=== PATIENT | female | born 1950 | race Caucasian/White ===

== ENCOUNTER 2018-10-14 10:07 | Emergency (ER) | payer MEDICARE, OTHER, SELFPAY ==
[2018-10-14 10:08] VITALS: BP 197/115; PULSE 89; RESP 17; TEMP 36.8; O2SAT 100; BMI 27.4
--- NOTE | 2018-10-14 10:51 | RAD_ITS ---
STUDY: X-RAY - RIGHT ELBOW REASON FOR EXAM: Female, 68 years old. Pain. No known injury. TECHNIQUE: 3 view(s) of the elbow. COMPARISON: None. FINDINGS: I suspect a nondisplaced radial neck fracture. Normal radiocapitellar and ulnotrochlear articulations. Soft tissue swelling. Moderate sized joint effusion. RAD/Elbow min 3 Views IMPRESSION: I suspect a nondisplaced radial neck fracture. Joint effusion. Electronically Signed: Fidel Carreon MD at 12:26 EST Tel [phone], Service support ,
[2018-10-14] MEDS: Morphine 4 MG/ML Syringe IV ×2 (11:17→13:50)
[2018-10-14 11:25] LABS: Absolute Lymphocyte Count 1.01 X10^3/ul (0.83-4.51); Absolute Neutrophil Count 10.6 X10^3/uL (2.0-7.7); Basophil# 0.03 X10^3/uL; Basophil% 0.2 % (0-1); Eosinophil# 0.03 X10^3/uL; Eosinophils% 0.2 % (0-5); Hematocrit 44.1 % (37-47); Hemoglobin 14.5 g/dl (12.0-15.0); Lymphocyte # 1.01 X10^3/ul (4.0); Mean Corp Hgb Conc 32.9 g/gl (32-36); Mean Corpuscular Hgb 29.5 pg (27.0-32.0); Mean Corpuscular Volume 89.8 fL (81-99); Mean Platelet Vol. 9.4 fl (6.2-12.0); Monocyte# 2.81 X10^3/uL; Monocyte% 19.4 % (0-10); Neutrophil # 10.55 X10^3/uL (2.7-7.7); Neutrophil % 72.9 % (47-70); Platelet Count 308 K/mm3 (150-450); RBC Distribution Width CV 15.3 % (11.6-14.6); Red Blood Count 4.91 M/mm3 (4.2-5.4); White Blood Count 14.5 K/mm3 (4.4-11.0)
[2018-10-14 11:27] VITALS: BP 156/77
[2018-10-14 11:27] LABS: Differential Indicated SCAN CRITERIA MET; POSITIVE COUNT NO; POSITIVE DIFFERENTIAL YES; POSITIVE MORPHOLOGY NO
[2018-10-14 11:29] VITALS: BP 156/77; PULSE 73; RESP 18; O2SAT 99
[2018-10-14 11:29] LABS: Anion Gap 8 (5-15); BUN 13 mg/dL (7-18); BUN/Creat Ratio 19.1 RATIO (10-20); Calcium,Total 8.6 mg/dL (8.5-10.1); Chloride 102 mmol/L (98-107); Creatinine, Serum 0.68 mg/dL (0.55-1.02); EST Glomerular Filtration Rate 91 mL/min (>60); Est Glom Filt Rate - Afr Amer 110 mL/min (>60); Estimated Creatinine Clearance 45.85 ml/min; Glucose 102 mg/dL (74-106); Potassium 3.5 mmol/L (3.5-5.1); Sodium Level 137 mmol/L (136-145)
[2018-10-14] MEDS: Vancomycin IV 1,000 MG/200 ML BAG 200 MG IV (11:34)
[2018-10-14 11:40] LABS: Lactic Acid 1.2 mmol/L (0.4-2.0)
--- NOTE | 2018-10-14 13:09 | ED.VISSUMM ---
- ER Visit Summary Date of Service: 10/14/18 Chief Complaint: Right elbow pain History of Present Illness: The patient is a [address] Caballero. She reports she has right elbow pain that began 3 days ago. Is an aching pain senna 10 severity. Is worsened by movement and relieved by nothing. She denies any numbness or weakness. She denies any recent trauma. No fall, MVA, or change in activity. She is right-hand dominant. Patient on review of system complains only of a headache. She states this is 6 out of 10 in severity. She does have a history of similar headaches. She denies any constitutional symptoms. No fever, chills, nausea, or vomiting. Physical Examination: Vitals: Stable. Afebrile. General: Well-nourished and well-developed. Head: Normocephalic atraumatic. Neck: Supple, no lymphadenopathy. No JVD. Nontender. Cardiovascular: Regular rate and rhythm. No murmurs. Respiratory: No respiratory distress. Clear to auscultation bilaterally. Abdominal: Soft, nontender, nondistended, normal bowel sounds. No guarding, rebound, or peritoneal signs. Back: Nontender. Extremities: Approximately 3 x 2 cm area of erythema to the medial side of her distal right arm. There is warmth here. There is no induration or fluctuance to suggest abscess. There is no lymphangitic spread. She has no swelling over her olecranon process to suggest bursitis. She has decreased range of motion of her elbow secondary to pain. Skin: Normal color, no rash. Neurologic: Alert and oriented ?3. Cranial nerves II through XII are intact. Normal strength and sensation. Psych: Normal affect. Test Results: CBC is more for a white count of 14.5 with 73 segmented neutrophils, 7 lymphocytes, 19 monocytes. She is on prednisone which makes when some of the white count. Her lactic acid is 1.2. Her Chem-7 is normal. Right elbow x-ray is read by the radiologist possibleradial head fracture. Clinically this is not what she has. Emergency Department Course and Treatment: Patient had an IV placed. She was given morphine IV and vancomycin IV. She is resting comfortably. Treatment Plan: Discussed patient I suspect that this is an early cellulitis. She will be discharged on Keflex. She is immunosuppressed from medications for rheumatoid arthritis. She is given Percocet for pain. Instructed to follow-up with Dr. Caballero in 3 days for wound check. Return to the emergency department for any worsening symptoms. Disposition: To home in improved and stable condition. Impression: 1. Cellulitis right arm. 2. History of rheumatoid arthritis on immunosuppressants. This note was generated with [employer] dictation software. It may contain incorrect words, spelling, and punctuation that were not noted in review of the chart prior to signing ED Disposition - Plan for ED Patient: Disposition: Home or Assisted Living Chief Complaint: Upper Extremity Injury Instructions: ED Infec Skin Cellulitis Prescriptions: Oxycodone HCl/Acetaminophen [Percocet 5/325] 1 tablet PO Q6H PRN PRN 3 Days #12 tablet PRN Reason: Pain Cephalexin [Keflex] 500 mg PO Q6 #40 capsule Referrals: Ciara Caballero DO [Primary Care Provider] - 10/17/18
[2018-10-14 14:07] VITALS: BP 123/79; PULSE 63; PULSE 72; RESP 15; O2SAT 96; O2SAT 97
[2018-10-18 10:47] LABS: Pathologist Review Reviewed
== END 2018-10-14 14:12 | disposition home or self-care (01) ==
PROVIDERS: Emergency Provider Emergency Medicine; Family Provider Internal Medicine; PCP Internal Medicine
DX: L03.113 Cellulitis of right upper limb (principal); M06.9 Rheumatoid arthritis, unspecified; R51 Headache; I10 Essential (primary) hypertension; G43.909 Migraine, unspecified, not intractable, without status migrainosus; M79.7 Fibromyalgia; Z79.899 Other long term (current) drug therapy
CPT/HCPCS: 73080; 80048; 83605; 85025; 87040; 87149; 87186; 96365; 96366; 96375; 96376; 99283; J7030; J7040; A4216

== ENCOUNTER 2018-10-15 11:19 | Inpatient (IN) | payer MEDICARE, OTHER, SELFPAY ==
[2018-10-14 10:08] VITALS: BMI 27.4
[2018-10-15 11:21] VITALS: BP 161/119; PULSE 84; RESP 18; TEMP 37.2; O2SAT 100; BMI 27.8
--- NOTE | 2018-10-15 11:47 | ED.VISSUMM ---
- ER Visit Summary Date of Service: 10/15/18 Chief Complaint: Right arm cellulitis, positive blood cultures History of Present Illness: The patient is a 68 F who was seen here yesterday and diagnosed with right arm cellulitis. She was placed on Keflex. Blood cultures were obtained and today they started growing gram-positive cocci in clusters. Further delineation of this is revealed Staphylococcus aureus. She states she has not had a fever. Her pain is mildly improved. She has a history of rheumatoid arthritis and is on Rituxan, methotrexate and prednisone. Physical Examination: Vital signs reviewed. HEENT exam unremarkable. Heart is regular rate and rhythm. Lungs are clear to auscultation. Abdomen is soft and nontender. Extremity exam reveals right elbow tenderness on the medial side. There is also some erythema noted to this area. She does have full range of motion of the elbow. Her neurologic exam is normal. Test Results: White blood cell count 12.5 Emergency Department Course and Treatment: Patient was treated with Kefzol. Due to the bacteremia patient will be admitted to the hospital. Treatment Plan: [] Disposition: Admit Impression: Right arm cellulitis, bacteremia, immunosuppressed This note was generated with [employer] dictation software. It may contain incorrect words, spelling, and punctuation that were not noted in review of the chart prior to signing ED Disposition - Plan for ED Patient: Chief Complaint: Cellulitis Referrals: Ciara Caballero DO [Primary Care Provider] -
[2018-10-15 12:30] LABS: Absolute Lymphocyte Count 0.75 X10^3/ul (0.83-4.51); Absolute Neutrophil Count 10.1 X10^3/uL (2.0-7.7); Basophil# 0.02 X10^3/uL; Basophil% 0.2 % (0-1); Eosinophil# 0.07 X10^3/uL; Eosinophils% 0.6 % (0-5); Hematocrit 46.3 % (37-47); Hemoglobin 15.3 g/dl (12.0-15.0); Lymphocyte # 0.75 X10^3/ul (4.0); Mean Corpuscular Volume 90.8 fL (81-99); Mean Platelet Vol. 9.4 fl (6.2-12.0); Monocyte# 1.56 X10^3/uL; Monocyte% 12.5 % (0-10); Neutrophil # 10.11 X10^3/uL (2.7-7.7); Neutrophil % 80.5 % (47-70); Platelet Count 307 K/mm3 (150-450); RBC Distribution Width CV 15.2 % (11.6-14.6); RBC Distribution Width SD 50.5 fl (35.1-43.9); White Blood Count 12.5 K/mm3 (4.4-11.0)
[2018-10-15 12:32] LABS: Differential Indicated SCAN CRITERIA MET; POSITIVE COUNT NO; POSITIVE DIFFERENTIAL YES; POSITIVE MORPHOLOGY NO
[2018-10-15 12:48] LABS: Differential Comment SCANNED
[2018-10-15 12:55] LABS: Lactic Acid 1.5 mmol/L (0.4-2.0)
[2018-10-15] MEDS: Cefazolin 1 GM/50 ML BAG IV (13:15)
[2018-10-15 13:24] LABS: Anion Gap 7 (5-15); BUN 12 mg/dL (7-18); BUN/Creat Ratio 17.2 RATIO (10-20); Calcium,Total 9.4 mg/dL (8.5-10.1); Chloride 101 mmol/L (98-107); EST Glomerular Filtration Rate 88 mL/min (>60); Est Glom Filt Rate - Afr Amer 107 mL/min (>60); Estimated Creatinine Clearance 45.85 ml/min; Glucose 97 mg/dL (74-106); Sodium Level 137 mmol/L (136-145)
[2018-10-15] MEDS: Ibuprofen 600 MG Tablet PO (13:38)
[2018-10-15 14:20] VITALS: BMI 27.9
[2018-10-15 14:28] VITALS: BP 136/70; PULSE 77; RESP 18; TEMP 37.5; O2SAT 95
[2018-10-15 14:40] VITALS: BMI 27.8
--- NOTE | 2018-10-15 15:03 | NURSING ---
This nurse checked with Dr. Zee Regarding Cefazolin 2gm being due to be given at 1414. Pt had 1gm of same at [address] Garcia does not want additional 2gm of Cefazolin given as scheduled for 141 but wants it q8hrs from last time given in Ed which would be around 2114 tonight. Is on EMAR for 2199.
--- NOTE | 2018-10-15 16:12 | HP.PCM_ITS ---
Problem List (1) Positive blood culture for staph aureus Status: Acute History of Present Illness Date of Admission: 10/15/18 Chief Complaint: Positive blood culture for staph aureus, right elbow swelling and pain The patient is a 68 year old F seen in the emergency room at [facility] with a chief complaint of right elbow area swelling and tenderness and positive blood culture for staph aureus. Patient was seen in the emergency room yesterday at [facility] with complaints of pain in her right elbow area which started 3 days prior along with decreased range of motion and tenderness in the right elbow area. Patient was examined, x-rays were obtained which did not show any acute process, blood cultures were obtained and she was placed on Keflex. Patient had a history approximately a year and a half ago of an infection of the left elbow which resulted in a staph aureus which was methicillin sensitive being isolated, this required debridement of the left elbow and outpatient antibiotic treatment. Labs obtained in the emergency room today showed a slight elevation of the patient's white blood cell count, patient was afebrile, her chemistry pattern was unremarkable. Examination of the right elbow area revealed it to be tender to palpation, the elbow itself was not swollen but the inner aspect of the right elbow area appeared to be swollen and slightly reddened, this area was also tender. Patient had good range of motion to flexion and extension in the right elbow. Patient will be admitted to [place] [address] for septic bursitis of the right elbow, she will be placed on IV Ancef, repeat blood cultures were drawn in the emergency room, patient will be seen by infectious diseases on Wednesday, she will be seen tomorrow by orthopedic surgery (Dr. Garrett)- who was notified by phone. Past Medical History Past Medical History (Chronic Problems): Chronic Problems Hypertension (Chronic) Rheumatoid arthritis (Chronic) Allergies No Known Allergies Allergy (Verified 10/15/18 11:24) Home Medications: Ambulatory Orders Medication Instructions Recorded Atenolol [Tenormin] 50 mg PO BID 03/13/17 Cyclosporine [Restasis] 1 each OP DAILY 03/13/17 Ramipril [Altace] 5 mg PO DAILY 03/13/17 Sumatriptan Succinate 50 mg PO PRN PRN 03/13/17 Lactobacillus Combination No.4 1 capsule PO DAILY 03/15/17 [Probiotic] Cephalexin [Keflex] 500 mg PO Q6 #40 capsule 10/14/18 Methotrexate 10 mg PO Q7D 10/14/18 Oxycodone HCl/Acetaminophen 1 tablet PO Q6H PRN PRN 3 Days #12 10/14/18 [Percocet 5/325] tablet Retoxin IV 10/14/18 predniSONE tablet 5 mg PO BID 10/14/18 Surgical History: cataract, tonsillectomy, - - Incision and drainage of left elbow abscess 03/16/17, foot surgery, removal of right ovary and tube, laparoscopy, TMJ surgery, repair of femoral hernia, nasal surgery due to nasal fracture Psychiatric History: No pertinent psych hx 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 Lives: Spouse/ Significant Other Smoking Status: Never smoker Tobacco Use: Non-smoker Alcohol: None Drugs: None - *Family History Maternal History Items: Diabetes Paternal History Items: COPD, Heart Disease, Stroke Review of Systems Constitutional: Denies: Anorexia, Chills, Fever, Night Sweats, Malaise, Weakness, Weight Change, Fatigue Eyes: Denies: Blurred vision, Cataracts, Conjunctivae Inflammation, Double vision, Drainage HEENT: Denies: Difficulty Swallowing, Dysphasia, Ear Pain, Eye Pain, Hearing Changes, Nasal bleeding, Nasal Congestion, Post Nasal Drip Cardiovascular: Denies: Chest Pain, Claudication, Chest Pressure, Chest Tightness, Edema, Heaviness, Orthopnea, Palpitations, Paroxysmal Noc. Dyspnea, Syncope Respiratory: Denies: Cough, Hemoptysis, Pleuritic Pain, Shortness of Breath, Shortness of breath at rest, Shortness of breath upon exertion, Sputum production, Wheezing Gastrointestinal: Denies: Abdominal Pain, Constipation, Diarrhea, Hematemesis, Hematochezia, Nausea, Melena, Vomiting Genitourinary: Denies: Dysuria, Frequency, Hematuria, Hesitancy, Urgency Musculoskeletal: Reports: Joint Pain - Right elbow joint pain times 4 days, Joint Tenderness - Joint tenderness in her right elbow times 4 days, Muscle pain - Patient has history of fibromyalgia. Denies: Back Pain, Foot Pain, Hand Pain, Joint stiffness, Joint swelling Skin: Denies: Dryness, Jaundice, Pruritis, Rash Neurological: Denies: Blurred vision, Double vision, Change in Speech, Slurred speech, Difficulty swallowing, Focal weakness, Headaches, Incoordination, Numbness, Tingling Psychiatric: Denies: Anxiety, Depression, Homicidal Ideations, Suicidal Ideations Endocrine: Denies: Change in Body Habitus, Heat/ Cold Intolerance, Polydipsia, Polyuria Hematologic/ Lymphatic: Denies: Adenopathy, Anemia, Easy Bruising, Easy Bleeding, Petechiae, Purpura VTE Information - Inpt Only VTE Present on Admission: No VTE Mechan Device Prophylaxis: None VTE Pharm Prophylaxis ordered?: Yes Patient Problems: Active and Suspected Problems Positive blood culture for staph aureus (Acute) - Physical Exam General: Alert, Oriented x3, Cooperative, No apparent distress, Well developed HEENT: Atraumatic, PERRLA, EOMI, Normocephalic Oral: Moist Mucosa Neck: Supple, No JVD, Negative Carotid Bruits Lungs: Clear to auscultation, Normal air movement Cardiovascular: Regular rate, No murmurs Abdomen: Bowel Sounds Present, Soft, Non Tender, Non-Distended, No hernias noted Extremities: Capillary Refill Less than 3 Seconds, Edema - Some mild edema is noted over the inner aspect of the patient's right elbow area, - - Good range of motion is noted in the right elbow to flexion and extension Skin: No rashes, No breakdown Musculoskeletal: Tenderness - Tenderness over the right inner elbow area is noted to palpation, there is also some redness and swelling in the area Neurological: Cranial nerves II-XII grossly intact, Neuro grossly intact, Sensory exam intact to light touch and pain, Coordination normal Psych/Mental Status: Normal Affect, Appropriate, Alert and oriented to time, place, person, mood and affect Vital Signs Temp Pulse Resp BP Pulse Ox 99.5 F H 77 18 136/70 H 95 10/15/18 14:28 10/15/18 14:28 10/15/18 14:28 10/15/18 14:28 10/15/18 14:28 Oxygen Delivery Method Room Air Weight: 73.6 kg Body Mass Index (BMI) 27.8 Laboratory Tests Past 24 Hrs 10/15/18 10/15/18 10/15/18 12:15 12:15 12:15 WBC 12.5 H RBC 5.10 Hgb 15.3 H Hct 46.3 MCV 90.8 MCH 30.0 MCHC 33.0 RDW 15.2 H RDW Differential 50.5 H Plt Count 307 MPV 9.4 Immature Gran % (Auto) 0.200 Neut % (Auto) 80.5 H Lymph % (Auto) 6.0 L Beckham % (Auto) 12.5 H Eos % (Auto) 0.6 Baso % (Auto) 0.2 Absolute Neuts (auto) 10.1 H Absolute Lymphs (auto) 0.75 L Total Counted Not Reportable Differential Comment SCANNED Sodium Cancelled Potassium Cancelled Chloride Cancelled Carbon Dioxide Cancelled Anion Gap Cancelled BUN Cancelled Creatinine Cancelled Estim Creat Clear Calc Cancelled Est GFR (MDRD) Af Amer Cancelled Est GFR (MDRD) Non-Af Cancelled BUN/Creatinine Ratio Cancelled Glucose Cancelled Lactic Acid 1.5 Calcium Cancelled 10/15/18 10/15/18 12:37 13:05 WBC RBC Hgb Hct MCV MCH MCHC RDW RDW Differential Plt Count MPV Immature Gran % (Auto) Neut % (Auto) Lymph % (Auto) Beckham % (Auto) Eos % (Auto) Baso % (Auto) Absolute Neuts (auto) Absolute Lymphs (auto) Total Counted Differential Comment Sodium Cancelled 137 Potassium Cancelled 4.0 Chloride Cancelled 101 Carbon Dioxide Cancelled 29.0 Anion Gap Cancelled 7 BUN Cancelled 12 Creatinine Cancelled 0.70 Estim Creat Clear Calc Cancelled 45.85 Est GFR (MDRD) Af Amer Cancelled 107 Est GFR (MDRD) Non-Af Cancelled 88 BUN/Creatinine Ratio Cancelled 17.2 Glucose Cancelled 97 Lactic Acid Calcium Cancelled 9.4 Assessment/Plan All Active Problems Positive blood culture for staph aureus (Acute) Infected elbow (Acute) #1 septic right olecranon bursitis-suspect methicillin sensitive staph aureus- patient will be admitted to [facility] [place] [place] [facility], she will be maintained on IV Ancef, she will be seen in consultation by orthopedic surgery and infectious diseases. Patient will have an MRI on her right elbow area performed on Wednesday. #2 bacteremia with staph aureus-suspect methicillin sensitive staph aureus-from suspected septic right olecranon bursitis-again patient will be treated with IV Ancef, ID will see the patient, patient will have an echocardiogram performed on Wednesday #3 rheumatoid arthritis #4 fibromyalgia #5 hypertension Code Visit Inpatient E&M: 68020 Init Hosp L3
[2018-10-15] MEDS: predniSONE 5 MG Tablet PO (18:38)
[2018-10-15 21:32] VITALS: BP 150/90; PULSE 74; RESP 18; TEMP 36.5; O2SAT 100
[2018-10-15] MEDS: Cefazolin 2 GM in 0.9% Normal Saline 100 ML IV (21:41)
[2018-10-15] MEDS: Heparin Injection (Vial) 5,000 UNIT/ML VIAL 5000 UNIT SC (21:41)
[2018-10-16 03:11] VITALS: BP 138/76; PULSE 64; RESP 16; TEMP 36.7; O2SAT 100
[2018-10-16] MEDS: Cefazolin 2 GM in 0.9% Normal Saline 100 ML IV (05:17)
[2018-10-16 06:30] LABS: Absolute Lymphocyte Count 1.14 X10^3/ul (0.83-4.51); Basophil# 0.02 X10^3/uL; Basophil% 0.3 % (0-1); Eosinophil# 0.06 X10^3/uL; Hematocrit 42.1 % (37-47); Hemoglobin 13.7 g/dl (12.0-15.0); Lymphocyte # 1.14 X10^3/ul (4.0); Lymphocyte % 19.2 % (19-41); Mean Corp Hgb Conc 32.5 g/gl (32-36); Mean Corpuscular Hgb 29.4 pg (27.0-32.0); Mean Corpuscular Volume 90.3 fL (81-99); Mean Platelet Vol. 9.3 fl (6.2-12.0); Monocyte# 0.72 X10^3/uL; Monocyte% 12.1 % (0-10); Neutrophil # 3.98 X10^3/uL (2.7-7.7); Neutrophil % 67.2 % (47-70); Platelet Count 295 K/mm3 (150-450); RBC Distribution Width CV 15.2 % (11.6-14.6); RBC Distribution Width SD 49.6 fl (35.1-43.9); Red Blood Count 4.66 M/mm3 (4.2-5.4); White Blood Count 5.9 K/mm3 (4.4-11.0)
[2018-10-16 06:33] LABS: POSITIVE COUNT NO; POSITIVE DIFFERENTIAL NO; POSITIVE MORPHOLOGY NO
[2018-10-16 07:43] VITALS: BP 152/86; PULSE 67; RESP 16; TEMP 36.9; O2SAT 94
[2018-10-16] MEDS: predniSONE 5 MG Tablet PO (07:53)
--- NOTE | 2018-10-16 09:43 | PCM.CONS.GEN ---
Reason for Consult Date of Consultation: 10/16/18 Reason for Consultation: Right elbow pain History of Present Illness: The patient is a 68 year old F [with a history of septic olecranon bursitis of the left elbow. She is significantly immunocompromised secondary to RA. Presented to PCP last week with right elbow pain, swelling and loss of motion. Presented to ED on wednesday with same and one blood culture was positive for MSSA. Was admitted last night and started on Ancef. She states elbow pain is significantly better and ROM has greatly improved. Denies N/T/P. Denies fevers or chills. ] Past Medical History Past Medical History (Chronic Problems): Chronic Problems Hypertension (Chronic) Rheumatoid arthritis (Chronic) Allergies No Known Allergies Allergy (Verified 10/15/18 11:24) Home Medications: Ambulatory Orders Medication Instructions Recorded Atenolol [Tenormin] 50 mg PO DAILY 03/13/17 Cyclosporine [Restasis] 1 each OP DAILY 03/13/17 Ramipril [Altace] 5 mg PO DAILY 03/13/17 Sumatriptan Succinate 50 mg PO PRN PRN 03/13/17 Lactobacillus Combination No.4 1 capsule PO DAILY 03/15/17 [Probiotic] Cephalexin [Keflex] 500 mg PO Q6 #40 capsule 10/14/18 Methotrexate 10 mg PO Q7D 10/14/18 Oxycodone HCl/Acetaminophen 1 tablet PO Q6H PRN PRN 3 Days #12 10/14/18 [Percocet 5/325] tablet Retoxin IV 10/14/18 predniSONE tablet 5 mg PO BID 10/14/18 Surgical History: cataract, tonsillectomy, - - Incision and drainage of left elbow abscess 03/16/17, foot surgery, removal of right ovary and tube, laparoscopy, TMJ surgery, repair of femoral hernia, nasal surgery due to nasal fracture Psychiatric History: No pertinent psych hx 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 Olecranon bursa is non-swollen., - - Near full ROM with minimal pain. Minimal pain to palpation. Neurological: Neuro grossly intact, Motor Exam 5/5 strength throughout Comment: Xray of right elbow shows no acute process. Minimal STS Vital Signs Temp Pulse Resp BP Pulse Ox 98.5 F 67 16 152/86 H 94 10/16/18 07:43 10/16/18 07:43 10/16/18 07:43 10/16/18 07:43 10/16/18 07:43 Oxygen Delivery Method Room Air Weight: 162 lb 4.163 oz Body Mass Index (BMI) 27.8 Intake and Output for Last 24 Hours 10/14/18 10/15/18 10/16/18 23:59 23:59 23:59 Intake Total 85 / 85 707 / 707 Balance 85 / 85 707 / 707 Laboratory Tests Past 24 Hrs 10/15/18 10/15/18 10/15/18 12:15 12:15 12:15 WBC 12.5 H RBC 5.10 Hgb 15.3 H Hct 46.3 MCV 90.8 MCH 30.0 MCHC 33.0 RDW 15.2 H RDW Differential 50.5 H Plt Count 307 MPV 9.4 Immature Gran % (Auto) 0.200 Neut % (Auto) 80.5 H Lymph % (Auto) 6.0 L Toole % (Auto) 12.5 H Eos % (Auto) 0.6 Baso % (Auto) 0.2 Absolute Neuts (auto) 10.1 H Absolute Lymphs (auto) 0.75 L Total Counted Not Reportable Differential Comment SCANNED Sodium Cancelled Potassium Cancelled Chloride Cancelled Carbon Dioxide Cancelled Anion Gap Cancelled BUN Cancelled Creatinine Cancelled Estim Creat Clear Calc Cancelled Est GFR (MDRD) Af Amer Cancelled Est GFR (MDRD) Non-Af Cancelled BUN/Creatinine Ratio Cancelled Glucose Cancelled Lactic Acid 1.5 Calcium Cancelled 10/15/18 10/15/18 10/16/18 12:37 13:05 06:05 WBC 5.9 RBC 4.66 Hgb 13.7 Hct 42.1 MCV 90.3 MCH 29.4 MCHC 32.5 RDW 15.2 H RDW Differential 49.6 H Plt Count 295 MPV 9.3 Immature Gran % (Auto) 0.200 Neut % (Auto) 67.2 Lymph % (Auto) 19.2 Toole % (Auto) 12.1 H Eos % (Auto) 1.0 Baso % (Auto) 0.3 Absolute Neuts (auto) 4.0 Absolute Lymphs (auto) 1.14 Total Counted Not Reportable Differential Comment Sodium Cancelled 137 Potassium Cancelled 4.0 Chloride Cancelled 101 Carbon Dioxide Cancelled 29.0 Anion Gap Cancelled 7 BUN Cancelled 12 Creatinine Cancelled 0.70 Estim Creat Clear Calc Cancelled 45.85 Est GFR (MDRD) Af Amer Cancelled 107 Est GFR (MDRD) Non-Af Cancelled 88 BUN/Creatinine Ratio Cancelled 17.2 Glucose Cancelled 97 Lactic Acid Calcium Cancelled 9.4 Assessment/Plan All Active Problems Positive blood culture for staph aureus (Acute) Infected elbow (Acute) Right elbow cellulitis responding well to antibiotics. No evidence of septic arthritis or septic olecranon bursitis. Would discharge on po antibiotics and follow up with PCP. Doubt need for MRI at this point. Will re-evaluate at PCP request.
--- NOTE | 2018-10-16 10:48 | DCINST_ITS ---
- Discharge Diagnoses Current Active Problems: Current Active and Chronic Problems Positive blood culture for staph aureus (Acute) You will use the following diet at home:: No restrictions Your food should be the consistency of: Regular Your liquids should be the consistency of: Regular/Thin Discharge Activity: Return to Normal Activity Weight Bearing Status: Full weight bearing Allergies/Adverse Reactions: Allergies No Known Allergies Allergy (Verified 10/15/18 11:24) Medications to take at Discharge Atenolol [Tenormin] 50 mg PO DAILY 03/13/17 Cyclosporine [Restasis] 1 each OP DAILY 03/13/17 Ramipril [Altace] 5 mg PO DAILY 03/13/17 Sumatriptan Succinate 50 mg PO PRN PRN 03/13/17 Lactobacillus Combination No.4 [Probiotic] 1 capsule PO DAILY 03/15/17 Cephalexin [Keflex] 500 mg PO Q6 #40 capsule 10/14/18 Oxycodone HCl/Acetaminophen [Percocet 5-325] 1 tablet PO Q6H PRN PRN 3 Days #12 tablet 10/14/18 predniSONE tablet 5 mg PO BID 10/14/18 Primary Care Physician: Ciara Caballero DO [Primary Care Provider] - Please follow up with your Primary Care Physician in: this week Test Results: Test results from this visit will be discussed in further detail at your follow- up appointment, if applicable.
[2018-10-16] MEDS: Atenolol 50 MG Tablet PO (10:58)
[2018-10-16] MEDS: Ramipril 5 MG Capsule PO (10:59)
--- NOTE | 2018-10-16 18:19 | DS.PCM_ITS ---
Discharge Date and Diagnosis Date of Admission: 10/15/18 Date of Discharge: 10/16/18 - Primary Discharge Diagnosis #1 cellulitis of the right elbow from methicillin sensitive staph aureus #2 bacteremia secondary to methicillin sensitive staph aureus from cellulitis of the right elbow #3 rheumatoid arthritis #4 fibromyalgia #5 hypertension - Secondary Discharge Diagnosis Chronic Problems Hypertension (Chronic) Rheumatoid arthritis (Chronic) Hospital Course and Treatment Operations: None Procedures: None Summary of Care Provided: The patient is a 68 year old F who was seen in the emergency room at [facility] after being asked to return there because of a positive blood culture which resulted yesterday. Patient had lab work drawn in the emergency room on 10/14/18 when she was seen for complaints of redness and swelling of her right elbow area. Patient had a previous history of methicillin sensitive staph aureus in the left elbow which had to be surgically intervened approximately a year and a half ago. Workup in the emergency room on 10/15/18 revealed an elevated white blood cell count of 12.5, patient's chemistry profile was unremarkable. Patient was admitted to [place] [id number], she was placed on IV Ancef, and seen in consultation by orthopedic surgery. Orthopedic surgery saw the patient on 10/16/18 and did not feel that she needed surgery on her right elbow area and felt that the patient did not have a septic bursitis-only a cellulitis of the area which appeared to be improving. Patient had more movement in her arm on that date and had less tenderness and redness. Patient's white blood cell count on 10/16/18 was normal. Physical exam: On examination she appeared in good health and spirits. Vital signs as documented. Skin warm and dry and without overt rashes. Neck without JVD. Lungs clear. Heart exam notable for regular rhythm, normal sounds and absence of murmurs, rubs or gallops. Abdomen unremarkable and without evidence of organomegaly, masses, or abdominal aortic enlargement. Extremities-there is slight tenderness to palpation over the patient's inner aspect of her right elbow, no overt redness was noted. Neuro: Cranial nerves II through XII are grossly intact, no focal motor deficits were noted. Psych: Patient was alert and oriented x3, she did not appear anxious or depressed. On 10/16/18, patient was seen and examined felt to be in stable condition for discharge home. Patient was not felt to have septic bursitis of her right elbow - Physical Exam Vital Signs Temp Pulse Resp BP Pulse Ox 98.5 F 67 16 152/86 H 94 10/16/18 07:43 10/16/18 07:43 10/16/18 07:43 10/16/18 07:43 10/16/18 07:43 Oxygen Delivery Method Room Air Weight: 73.6 kg Body Mass Index (BMI) 27.8 Intake and Output for Last 24 Hours 10/14/18 10/15/18 10/16/18 23:59 23:59 23:59 Intake Total 1187 / 1187 Balance 1187 / 1187 Laboratory Tests Past 24 Hrs 10/16/18 06:05 WBC 5.9 RBC 4.66 Hgb 13.7 Hct 42.1 MCV 90.3 MCH 29.4 MCHC 32.5 RDW 15.2 H RDW Differential 49.6 H Plt Count 295 MPV 9.3 Immature Gran % (Auto) 0.200 Neut % (Auto) 67.2 Lymph % (Auto) 19.2 [place] % (Auto) 12.1 H Eos % (Auto) 1.0 Baso % (Auto) 0.3 Absolute Neuts (auto) 4.0 Absolute Lymphs (auto) 1.14 Total Counted Not Reportable Discharge Activity: Return to Normal Activity Weight Bearing Status: Full weight bearing Home Medications: Medications to take at Discharge Atenolol [Tenormin] 50 mg PO DAILY 03/13/17 Cyclosporine [Restasis] 1 each OP DAILY 03/13/17 Ramipril [Altace] 5 mg PO DAILY 03/13/17 Sumatriptan Succinate 50 mg PO PRN PRN 03/13/17 Lactobacillus Combination No.4 [Probiotic] 1 capsule PO DAILY 03/15/17 Cephalexin [Keflex] 500 mg PO Q6 #40 capsule 10/14/18 Oxycodone HCl/Acetaminophen [Percocet 5-325] 1 tablet PO Q6H PRN PRN 3 Days #12 tablet 10/14/18 predniSONE tablet 5 mg PO BID 10/14/18 Primary Care Physician: Ciara Caballero DO [Primary Care Provider] - Please follow up with your Primary Care Physician in: this week Disposition: Home Minutes spent on discharge:: 32 Patient Condition:: Stable Medical Necessity - Tobacco Use Smoking Status: Never smoker Tobacco Use: Non-smoker Meaningful Use Info Meaningful Use Diagnoses (Choose all that apply): None applicable Code Visit Inpatient E&M: 04014 Disch Hosp
--- NOTE | 2018-10-17 16:07 | CASEMGMT ---
IOANA HENLEY Discharge Follow-up Phone Call: MADELINE: Kary Strata: 3 Call Date: 10/17/18 Discharge Date: 10/16/18 Time of Call: 1605 Duration: 1 Admitting Diagnosis:Right elbow bursitis IOANA HENLEY completed follow-up phone call after recent hospitalization. Patient doing well, no questions. Follow-up appt scheduled. Patient very pleased with care.
== END 2018-10-16 12:00 | disposition home or self-care (01) | DRG 603 ==
LOC: ED 11:56 → MS3 13:31
PROVIDERS: Admitting Provider Internal Medicine; Emergency Provider Emergency Medicine; Family Provider Internal Medicine; PCP Internal Medicine; Visit Provider Internal Medicine
DX: L03.113 Cellulitis of right upper limb (principal); R78.81 Bacteremia; M79.7 Fibromyalgia; I10 Essential (primary) hypertension; M06.9 Rheumatoid arthritis, unspecified; A49.01 Methicillin susceptible Staphylococcus aureus infection, unspecified site; Z79.899 Other long term (current) drug therapy; G43.909 Migraine, unspecified, not intractable, without status migrainosus
CPT/HCPCS: 36415; 73080; 80048; 83605; 85025; 87040; 87149; 87186; 96365; 96366; 96375; 96376; 97802; 99282; 99283; J7030; J7040; A4216

== ENCOUNTER → 2018-11-25 09:12 | Outpatient (CLI) | payer MEDICARE, OTHER, SELFPAY ==
--- NOTE | 2018-11-25 09:18 | US_ITS ---
STUDY: ABDOMINAL ULTRASOUND - RIGHT UPPER QUADRANT REASON FOR VISIT: Female, 68 years old. Abnormal liver function tests. TECHNIQUE: Ultrasound evaluation of the right upper quadrant was performed with real-time and static dowd-scale imaging. TECHNICAL QUALITY: Adequate. COMPARISON: None. FINDINGS: Liver: The liver measures 15 cm. There is increased echogenicity consistent with fatty infiltration. The bile ducts are within normal limits. There is hepatic color flow. The direction of portal flow is hepatopetal. There is no demonstrated mass lesion. Gallbladder: Normal distended gallbladder. The gallbladder wall measures 3 mm. There is a negative sonographic Courtney's sign. There is no pericholecystic fluid. There are small mobile echogenic shadows within the gallbladder which could represent small gallstones or sludge balls. Common Bile Duct (C.B.D.): The common bile duct measures 4 mm. Pancreas: Normal size of the head, body and tail of the pancreas as seen on this examination. There is normal echogenicity of the pancreas. There is no demonstrated pancreatic mass or cyst. Right Kidney: Normal size of the right kidney. The right kidney measures 10 x 5.7 x 4.1 cm. Normal renal cortex. The right cortex measures 1.6 cm. There is no demonstrated renal mass or cyst. There is no right hydronephrosis. US/Liver IMPRESSION: 1. Fatty infiltration of the liver. 2. Small mobile echogenic shadows within the gallbladder which could represent small gallstones or small sludge balls. 3. No evidence of hydronephrosis. Electronically Signed: Jimmy Hoff MD at 10:38 EST Tel , Service support ,
--- OUTSIDE RECORDS SUMMARY | 2019-01-29 16:12 | XMS RPT_ITS | Continuity of Care Document ---
:1950 Author Organization [facility] Address [address] [facility] [address] [place] [address] Phone Care Team Providers Name Role Phone Ada ANDINO Ciara Unavailable César Martins Unavailable Dr. Pipo Horner Unavailable Tami ANDINO , Dr. Zeeshan Lepe Unavailable Luis M Jules MD Unavailable Zeeshan Garrett DO Unavailable Yasmine Mccallum LPN Unavailable Unavailable Prema Mckeon Unavailable Unavailable Unavailable Unavailable Problems Name Dates Details Abnormal alkaline phosphatase test (R74.8, 790.5) Status: Active Acute upper respiratory infection (J06.9, 465.9) Comments: use your amoxil Status: Active Allergic rhinitis (J30.9, 477.9) Comments: seen margo and had surgery in past. on nasal steriod spray. on antihsitamine. will need to follow up with him because congestion. doing nettipot. Status: Active BMI 30.0-30.9,adult (Z68.30, V85.30) Status: Active BMI 30.0-30.9,adult (Z68.30, V85.30) Status: Active BMI 31.0-31.9,adult (Z68.31, V85.31) Status: Active Candidiasis, mouth (B37.0, 112.0) Status: Active Chronic GERD (K21.9, 530.81) Status: Active Cough (R05, 786.2) Status: Active Depressive disorder (F32.9, 311) Comments: of massive SD 39 yo. Status: Active Disc disease, degenerative, lumbar or lumbosacral (M51.37, 722.52) Status: Active Dry eyes, bilateral (H04.123, 375.15) 07-Sep-2014 Comments: on restasis and bother cornea working with opthal Status: Active Fibromyalgia (M79.7, 729.1) Status: Active Hair loss (L65.9, 704.00) Status: Active Hormone imbalance (E34.9, 259.9) Status: Active Hypercholesteremia (E78.00, 272.0) Status: Active Hypertension, benign (I10, 401.1) Status: Active Immunocompromised (D84.9, 279.3) Status: Active Immunocompromised, acquired (D84.9, 279.3) Status: Active Impaired fasting glucose (R73.01, 790.21) Status: Active Lumbar spondylolysis (M43.06, 738.4) Status: Active Migraine (G43.909, 346.90) Comments: using the imitrex prn. Status: Active Nocturnal leg cramps (G47.62, 327.52) Status: Active Nondisplaced fracture (T14.8, 829.0) Status: Active Non-smoker (Z78.9, V49.89) Status: Active On prednisone therapy (Z79.52, V58.65) Status: Active Osteopenia (M85.80, 733.90) Comments: on actonel bd 12-13, 12-15 show back better -2.0, hips normal so hold meds jerardo because insurance not pay Status: Active Pain and swelling of elbow, left (M25.522, 719.42) Comments: cefadroxil bid, since April 19 (flare after enbrel) Status: Active Pregnancies () Comments: 2 adopted children Status: Active Rheumatoid arthritis (M06.9, 714.0) Status: Active Sciatica, left side (M54.32, 724.3) Status: Active Sore throat (J02.9, 462) Status: Active Unspecified Diagnosis Status: Active Unspecified Diagnosis Status: Active Upper respiratory infection, viral (J06.9, 465.9) Status: Active Medications Name Dates Details Atenolol 50 MG Oral Tablet 1 (one) Tablet qd for 0 days Quantity: 90 {Tablet} Refills: 0 Ordered:29-Sep-2017 Nathaniel Caballero DO, DO, Kathleen Start : 29-Sep-2017 Active Comments:verbal call to [facility] 09/29 DULoxetine HCl 20 MG Oral Capsule Delayed Release Particles 1 (one) Capsule Capsule qd for 0 days Quantity: 14 {Capsule} Refills: 0 Ordered:08-Apr-2018 Nathaniel Caballero DO, DO, Kathleen Start : 08-Apr-2018 Active Folic Acid 1 MG Oral Tablet 1 qd (1 MG) Active herbal: coq 10, krill oil, joint melalucca product, plexus pain med Active Methotrexate 2.5 MG Oral Tablet 4 q weekly (2.5 MG) Active Comments:Dr. Jules PredniSONE 1 MG Oral Tablet 1-4 Tablet qday as instructed to wean off slowly for 0 days Quantity: 90 {Tablet} Refills: 0 Ordered:22-Oct-2017 Nathaniel Caballero DO, DO, Kathleen Start : 22-Oct-2017 Active PredniSONE 5 MG Oral Tablet 1 Tablet bid for 30 days Quantity: 60 {Tablet} Refills: 0 Ordered:22-Oct-2017 Nathaniel Caballero DO, DO, Kathleen Start : 22-Oct-2017 Active Ramipril 5 MG Oral Capsule 1 (one) Capsule qd for 90 days Quantity: 90 {Capsule} Refills: 3 Ordered:29-Jun-2018 Nathaniel Caballero DO, DO, Kathleen Start : 29-Jun-2018 Active Ramipril 5 MG Oral Capsule 1 (one) Capsule qd for 90 days Quantity: 90 {Capsule} Refills: 3 Ordered:29-Jun-2018 Nathaniel Caballero DO, DO, Kathleen Start : 29-Jun-2018 Active RESTASIS, 0.05% (Ophthalmic Emulsion) uad qd prn (0.05 %) Active SUMAtriptan Succinate 50 MG Oral Tablet uad Tablet one at onset, and may repeat in 2 hours if not gone for 0 days Quantity: 20 {Tablet} Refills: 3 Ordered:27-Jun-2018 Ada ANDINO CiaraAda Ciara Start : 27-Jun-2018 Active Comments:max: 2 in 24 hours ACTONEL, 150MG (Oral Tablet) 1 Tablet Tablet q monthly for 0 days Quantity: 3 {Tablet} Refills: 3 Ordered:14-Jan-2016 RAJ Suárez Start : 06-Nov-2015 End : 14-Jan-2016 Inactive Comments:ok to dispense generic AUGMENTIN, 875-125MG (Oral Tablet) 1 Tablet bid for 10 days Quantity: 20 {Tablet} Refills: 0 Ordered:06-Dec-2012 Jyoti Mcrae CNP Start : 06-Dec-2012 End : 16-Dec-2012 Inactive BLEPH-10, 10% (Ophthalmic Solution) 1 Solution q 2-3 hr x 7-10 days for 0 days Quantity: 1 {Solution} Refills: 0 Ordered:07-Sep-2014 RAJ Suárez Start : 06-Dec-2012 End : 07-Sep-2014 Inactive CALCIUM, 500MG (Oral Tablet) 1 (one) Tablet qd for 0 days Refills: 0 Ordered:24-Nov-2011 RAJ Suárez Start : 14-Jun-2009 End : 24-Nov-2011 Inactive Cefadroxil 1 GM Oral Tablet 1 (one) Tablet Tablet bid for 0 days Quantity: 40 {Tablet} Refills: 0 Ordered:09-Jun-2017 Prema Parker LPN Start : 19-Apr-2017 End : 09-Jun-2017 Inactive Comments:called to [facility] Cefadroxil 500 MG Oral Capsule 2 bid (500 MG) Inactive Cefadroxil 500 MG Oral Capsule 1 (one) Capsule Capsule bid for 7 days Quantity: 14 {Capsule} Refills: 0 Ordered:09-Mar-2017 Ladonna Ocasio LPN Start : 09-Mar-2017 End : 16-Mar-2017 Inactive Cheratussin AC 100-10 MG/5ML Oral Syrup 1-2 Teaspoon qhs prn for 0 days Quantity: 6 {Ounce} Refills: 0 Ordered:19-Oct-2016 Prema Parker LPN Start : 01-Jul-2016 End : 19-Oct-2016 Inactive CITALOPRAM HYDROBROMIDE, 20MG (Oral Tablet) 1 (one) Tablet q hs for 0 days Quantity: 30 {Tablet} Refills: 0 Ordered:14-Feb-2009 RAJ Suárez Start : 14-Feb-2009 Inactive Clotrimazole 10 MG Mouth/Throat Benny 1 Benny 5 a day for 10 days Quantity: 50 {Benny} Refills: 0 Ordered:01-Aug-2018 Prema Mckeon Start : 01-Aug-2018 End : 11-Aug-2018 Inactive DIFLUCAN, 150MG (Oral Tablet) 1 Tablet daily for 3 days for 0 days Quantity: 3 {Tablet} Refills: 1 Ordered:06-Dec-2012 Linda Israel LPN Start : 06-Oct-2012 End : 06-Dec-2012 Inactive DULoxetine HCl 40 MG Oral Capsule Delayed Release Particles 1 (one) Capsule qd for 0 days Quantity: 14 {Capsule} Refills: 0 Ordered:08-Apr-2018 Prema Parker LPN Start : 25-Feb-2018 End : 08-Apr-2018 Inactive Enbrel 25 MG Subcutaneous Solution Reconstituted 2 (two) injections weekly for 0 days Quantity: 8 Kit Refills: 2 Ordered:09-Jun-2017 Prema Parker LPN Start : 14-Jan-2016 End : 09-Jun-2017 Inactive EVISTA, 60MG (Oral Tablet) Tablet QD for 0 days Quantity: 90 {Tablet} Refills: 3 Ordered:23-Oct-2008 RAJ Suárez Start : 23-Oct-2008 End : 14-Jun-2009 Inactive FLUTICASONE PROPIONATE, 50MCG/ACT (Nasal Suspension) 1 (one) Suspension as needed for 30 days Quantity: 1 {Bottle} Refills: 0 Ordered:06-Nov-2015 Jyoti Mcrae CNP Start : 06-Nov-2015 End : 06-Dec-2015 Inactive Comments:Medication taken as needed. GABAPENTIN, 100MG (Oral Capsule) 1 (one) Capsule bid for 30 days Refills: 0 Ordered:09-Jan-2016 Jyoti Mcrae CNP Start : 06-Nov-2015 End : 06-Dec-2015 Inactive IBUPROFEN, 800MG (Oral Tablet) 1 tid for 0 days Refills: 0 Ordered:04-Dec-2010 RAJ Suárez End : 04-Dec-2010 Inactive IMITREX, 50MG (Oral Tablet) 1 Tablet uad for 0 days Quantity: 10 {Tablet} Refills: 3 Ordered:07-Sep-2014 RAJ Suárez Start : 29-Oct-2011 End : 07-Sep-2014 Inactive Comments:called to [facility] 11-4-10 monisha Leucovorin Calcium 5 MG Oral Tablet uad Tablet once weekly with methotrexate for 0 days Quantity: 30 {Tablet} Refills: 0 Ordered:24-Jun-2016 Prema Parker LPN Start : 14-Jan-2016 End : 24-Jun-2016 Inactive MARII FLAVOR (Powder) for 0 days Refills: 0 Ordered:24-Nov-2011 RAJ Suárez End : 24-Nov-2011 Inactive METHOTREXATE, 2.5MG (Oral Tablet) 6 tablets q weekly (2.5 MG) Inactive MINOCYCLINE HCL, 100MG (Oral Tablet) 1 Tablet BID for 0 days Quantity: 180 {Tablet} Refills: 3 Ordered:06-Dec-2012 Linda Israel LPN Start : 26-Jun-2011 End : 06-Dec-2012 Inactive Naproxen Sodium 220 MG Oral Tablet 2 (two) Tablet tid for 0 days Quantity: 120 {Tablet} Refills: 0 Ordered:09-Mar-2017 Jyoti Mcrae CNP Start : 09-Mar-2017 End : 09-Mar-2017 Inactive NYSTATIN, 532704JMLE/ML (Mouth/Throat Suspension) 5 cc swish and swallow 5 x day for 10 days Quantity: 250 {Suspension} Refills: 3 Ordered:07-Sep-2014 RAJ Suárez Start : 06-Oct-2012 End : 07-Sep-2014 Inactive ORENCIA, 250MG (Intravenous Solution Reconstituted) uad per instructions (250 MG) Inactive Comments:Dr. Jules PLAQUENIL, 200MG (Oral Tablet) 1 bid for 0 days Refills: 0 Ordered:08-Jan-2011 RAJ Suárez End : 08-Jan-2011 Inactive PREDNISONE (SIMONE), 10MG (Oral Tablet) 1 (one) Tablet daily for 14 days Refills: 0 Ordered:09-Jan-2016 Jyoti Mcrae CNP Start : 06-Nov-2015 End : 20-Nov-2015 Inactive PREDNISONE, 20MG (Oral Tablet) 3 (three) Tablet daily 5 days for 0 days Refills: 0 Ordered:24-Nov-2011 RAJ Suárez Start : 08-Jan-2011 End : 24-Nov-2011 Inactive PREVACID, 30MG (Oral Capsule Delayed Release) Capsule DR daily for 30 days Refills: 0 Ordered:31-Jan-2010 Alice Nova MD Start : 16-Dec-2009 End : 15-Jan-2010 Inactive Rituxan 100 MG/10ML Intravenous Solution 1 (one) Milligram Milligram q6mo for 180 days Refills: 0 Ordered:13-Jun-2018 Prema Parker LPN Start : 22-Oct-2017 End : 20-Apr-2018 Inactive TREXIMET, 85-500MG (Oral Tablet) uad Tablet prn for 0 days Quantity: 6 {Tablet} Refills: 3 Ordered:07-Sep-2014 RAJ Suárez Start : 21-Mar-2010 End : 07-Sep-2014 Inactive VALTREX, 1GM (Oral Tablet) 1 Tablet tid for 7 days Quantity: 21 {Tablet} Refills: 0 Ordered:06-Dec-2012 Nathaniel Caballero DO, DO, Kathleen Start : 06-Oct-2012 End : 13-Oct-2012 Inactive Zithromax Z-Simone 250 MG Oral Tablet 1 (one) Tablet TAD for 0 days Quantity: 1 {Package} Refills: 0 Ordered:19-Oct-2016 Prema Parker LPN Start : 01-Jul-2016 End : 19-Oct-2016 Inactive DERMA-SMOOTH FS, 0.01% (External Oil) apply to affected area bid for 0 days Refills: 0 Ordered:06-Sep-2007 RAJ Suárez Start : 06-Sep-2007 End : 06-Sep-2007 Discontinued Comments:This order discontinued per [employer]. DERMA-SMOOTHE/FS ATOPIC SIMONE, 0.01% (External Kit) apply to affected area bid/prn for 0 days Refills: 0 Ordered:06-Sep-2007 RAJ Suárez Start : 06-Sep-2007 End : 06-Sep-2007 Discontinued Comments:This order discontinued per [employer]. DERMA-SMOOTHE/FS, 0.01% (External Oil) apply to afected area bid/prn for 0 days Refills: 0 Ordered:06-Sep-2007 RAJ Suárez Start : 06-Sep-2007 End : 06-Sep-2007 Discontinued Comments:This order discontinued per [employer]. DULoxetine HCl 60 MG Oral Capsule Delayed Release Particles 1 (one) Capsule qd after done with the 30mg for 0 days Quantity: 30 {Capsule} Refills: 3 Ordered:25-Feb-2018 Ada ANDINO CiaraAda Ciara NADINO Start : 25-Feb-2018 End : 25-Feb-2018 Discontinued Comments:will start to wean FIORICET, 50-325-40MG (Oral Tablet) 1 Tablet q 6 hours prn headache for 0 days Quantity: 15 {Tablet} Refills: 1 Ordered:12-Sep-2010 RAJ Suárez Start : 12-Sep-2010 End : 17-Jan-2015 Discontinued Comments:This order discontinued per [employer]. SKELAXIN, 800MG (Oral Tablet) 1 (one) Tablet Q 8 hr prn for 0 days Refills: 0 Ordered:04-Feb-2009 Farnaz Worley Start : 04-Feb-2009 End : 14-Feb-2009 Discontinued WELLBUTRIN XL, 150MG (Oral Tablet Extended Release 24 Hour) 1 Tablet ER 24HR daily for 0 days Quantity: 30 {Tablet_ER_24HR} Refills: 6 Ordered:24-Apr-2010 Mast Hazel TRIPLETT Start : 24-Apr-2010 End : 24-Apr-2010 Discontinued Allergies and Adverse Reactions Name Dates Details No Known Drug Allergies (Allergy) Status: Active Past Medical History Name Dates Details ABNORMAL GLUCOSE NEC (790.29) Status: Inactive as of 17-Jan-2015 Abnormal mammogram (R92.8, 793.80) Status: Inactive as of 17-Jan-2015 Acute sinusitis, unspecified (J01.90, 461.9) Status: Inactive as of 07-Sep-2014 BMI 29.0-29.9,adult (Z68.29, V85.25) Status: Inactive as of 14-Jan-2016 Bronchitis (J40, 490) Status: Inactive as of 07-Sep-2014 Conjunctivitis (H10.9, 372.30) Status: Inactive as of 07-Sep-2014 Decreased libido (R68.82, 799.81) Status: Inactive as of 14-Jun-2009 Elevated liver enzymes (R74.8, 790.4) Status: Resolved as of 07-Sep-2014 Encounter for annual routine gynecological examination (Z01.419, V72.31) Comments: wrote for testosterone cream. Status: Resolved as of 17-Jan-2015 Encounter for health maintenance examination with abnormal findings (Z00.01, V70.0) Comments: 3-16 reviewed with patient all questions. pap 3-2014 can only get shingles vaccine if off immunosuppressant, pneumonia up to date, not get flu vaccine for 2015, tetanus up to date, told about Prevnar 1 3 to get at local pharm. mammogram , BD , colonoscopy ([facility]), whisper test WNL Status: Inactive as of 18-Feb-2016 ENCOUNTER, BLOOD TYPING (V72.86) Status: Inactive as of 07-Sep-2014 GERD (gastroesophageal reflux disease) (K21.9, 530.81) Status: Inactive as of 19-Oct-2016 Hematoma (T14.8XXA, 924.9) Status: Inactive as of 07-Sep-2014 Hypertension (I10, 401.9) Comments: good now Status: Inactive as of 19-Oct-2016 Malaise and fatigue (R53.81, 780.79) Status: Inactive as of 07-Sep-2014 Neoplasm of uncertain behavior of skin (D48.5, 238.2) Comments: think basal cell need romove Status: Inactive as of 02-May-2009 Nonspecific reaction to tuberculin skin test without active tuberculosis (795.5) Status: Inactive as of 14-Jun-2009 Obesity (E66.9, 278.00) Comments: resolved lost weight Status: Resolved as of 07-Sep-2014 Osteopenia (M85.80, 733.90) Status: Inactive as of 07-Sep-2014 Other specified abnormal findings of blood chemistry (R79.89, 790.6) 24-Apr-2010 Status: Inactive as of 07-Sep-2014 Other specified diseases of hair and hair follicles (L73.8, 704.8) Status: Resolved as of 14-Jun-2009 Postmenopausal bleeding (N95.0, 627.1) Status: Inactive as of 14-Jun-2009 Pre-operative examination (Z01.818, V72.84) Status: Inactive as of 07-Sep-2014 Rash (R21, 782.1) Status: Inactive as of 24-Oct-2013 Screening for breast cancer (Z12.39, V76.10) Status: Inactive as of 07-Sep-2014 Shingles (B02.9, 053.9) Status: Inactive as of 07-Sep-2014 SPECIAL SCREENING FOR MALIGNANT NEOPLASMS OF THE CERVIX (V76.2) Status: Inactive as of 07-Sep-2014 Staphylococcal arthritis of left elbow (M00.022, 711.02) Status: Resolved as of 09-Jun-2017 Unspecified disease of hair and hair follicles (704.9) Status: Resolved as of 14-Jun-2009 Procedures Procedure Dates Details laproscopy 27 yo Completed Cataract Extraction-Right Completed Comments: 10/01/16 Colonoscopy, Screening Completed Comments: 09-13-15 rpt. 10 years hernia repair 1994 Completed nasal septum surgery 1998 Completed staff infection and sx lt elbow Completed 16-Mar-2017 Comments: Dr. Ruiz TMJ surgery 1983 Completed USO 26 yo Completed Date Value Details 15-Mar-2017 History and Physical Exam Result: Comments: See Note; NOTES: [facility] Medical Records Department [address] [place] [address] History and Physical 03/15/172049 MR#: [id number] Acct: [id number] Name: Gregor VAUGHAN Rep #: [id number] : 1950 66 From: Jason Vogel MD PCP: Ciara Caballero DO Status: REG ER Y Location: ED Problem List (1) Rheumatoid arthritis Status: Chronic (2) Infected elbow Sta tus: Acute (3) Hypertension Status: Chronic Qualifiers: Hypertension type: unspecified secondary hypertension Qualified Code(s): I15.9 - Secondary hypertension, unspecified; I15 - Secondary hypertensio n History of Present Illness Date of Admission: 03/15/17 Chief Complaint: infection left elbow The patient is a 66 year old female patient who present to the ER for the third time due to complaint of left elbow pain and infection. Apparently, the patient had a fall one month ago. Following this she had an x-ray at an urgent care and was told she had a non displaced fracture , she then went to [facility] who informed her that there was swelling but no fracture. Since then over the past week she has developed erythema, swelling and pain of the left elbow and surrounding skin. She has had a Doppl er of the extremity and there was no blood clot. She has been receiving treatment with Keflex and had improved until today when it has become more swollen and painful. Due to rheumatoid arthritis drugs the patient is immunosuppressed. The joint was aspirated in the ER and culture sent. MRI shows a tear of the joint capsule and infection in the joint space. Dr Ruiz has been notified by ER physican a nd will be consulted for further surgical management. Past Medical History Past Medical History (Chronic Problems): Chronic Problems Hypertension (Chronic) Rheumatoid arthritis (Chronic) Allergies No Known Allergies Allergy (Verified 03/15/17 19:13) Home Medications: Ambulatory Orders Medication Instructions Recorded Atenolol [Tenormin] 25 mg PO BID 03/13/17 Cephalexin [Keflex] 500 mg PO Q6 # 40 capsule 03/13/17 Cyclosporine [Restasis] 1 each OP DAILY 03/13/17 Etanercept [Enbrel] 25 mg SQ MOFR 03/13/17 Methotrexate 12.5 mg PO Q7D 03/13/17 PredniSONE 10 mg PO DAILY@0800 03/13/17 Ramipril [Alt renetta] 5 mg PO DAILY 03/13/17 Sumatriptan Succinate 50 mg PO PRN PRN 03/13/17 Smoking Status: Never smoker - *Family History Maternal History Items: No pertinent history Review of Systems Constitut ional: Denies: Chills, Fever, Weight Change HEENT: Denies: Head Aches, Sinus Congestion, Sinus Drainage Cardiovascular: Denies: Chest Pain, Palpitations Respiratory: Denies: Cough, Shortness of breath a t rest, Sputum production Gastrointestinal: Denies: Abdominal Pain, Nausea, Vomiting Genitourinary: Denies: Dysuria Musculoskeletal: Reports: Joint Pain, Joint swelling, Joint Tenderness Skin: Reports: Wounds. Denies: Rash Neurological: Denies: Numbness, Tingling, Focal weakness Psychiatric: Denies: Anxiety, Depression, Homicidal Ideations, Suicidal Ideations Hematologic/ Lymphatic: Denies: Easy Bruis ing, Easy Bleeding VTE Information - Inpt Only VTE Present on Admission: No VTE Mechan Device Prophylaxis: SCD's VTE Pharm Prophylaxis ordered?: No Patient Problems: Active and Suspected Problems Infe cted elbow (Acute) - Physical Exam General: Alert, Oriented x3, Cooperative HEENT: Atraumatic, Normocephalic Neck: Supple Lungs: Clear to auscultation, Normal air movement, No rhonchi, No wheeze, No rales Cardiovascular: Regular rate, Regular Rhythm, Normal S1, Normal S2, No murmurs Abdomen: Bowel Sounds Present, Soft, Non Tender Extremities: Edema - left elbow, Tenderness - left elbow Skin: Ulcer/ Wound - left elbow and surrounding skin (line demarcating cellulitis is drawn) Musculoskeletal: Tenderness - left elbow Neurological: Neuro grossly intact Psych/Mental Status: Normal Affect, Appropriat e Vital Signs Temp Pulse Resp BP Pulse Ox 98.7 F 90 16 140/78 98 03/15/17 16:54 03/15/17 19:16 03/15/17 19:16 03/15/17 16:54 03/15/17 16:54 Oxygen Delivery Method Room Air Weight: 153 lb 0.013 oz Marvel dy Mass Index (BMI) 26.2 Laboratory Tests Past 24 Hrs 03/15/17 03/15/17 19:47 19:47 WBC 23.1 H RBC 4.47 Hgb 12.9 Hct 39.6 MCV 88.6 MCH 28.9 MCHC 32.6 RDW 14.4 RDW Differential 45.9 H Plt Count 591 H M PV 9.0 Immature Gran % (Auto) 0.500 Neut % (Auto) 83.2 H Lymph % (Auto) 7.8 L [place] % (Auto) 8.5 Eos % (Auto) 0.0 Baso % (Auto) 0.0 Absolute Neuts (auto) 19.2 H Absolute Lymphs (auto) 1.81 Total Counted Pending ESR Pending Sodium 138 Potassium 4.1 Chloride 102 Carbon Dioxide 26.0 Anion Gap 10 BUN 13 Creatinine 0.78 Estim Creat Clear Calc 47.14 Est GFR (MDRD) Af Amer 94 Est GFR (MDRD) Non-Af 78 BUN/Crea tinine Ratio 16.6 Glucose 103 Calcium 8.9 C-React Prot Ext Range 158.00 H Assessment/Plan Active and Suspected Problems Infected elbow (Acute) Chronic conditions - Rheumatoid Arthritis - Hypert ension Plan - admit to medical surgical floor - consul Dr Ruiz for surgical evaluation - NPO at midnight in case she is to go to surgery - continue Vancomycin and Zosyn - cbc,bmp in am - rena nue routine home medications - scds for dvt prophylaxis 03/15/171 <Electronically signed by Jason Vogel MD> Date Jason Vogel MD Cosigner Signature (if applicable): Date CC: Ciara Caballero DO; Jason Vogel MD Signed 15-Mar-2017 Elbow min 3 Views Result: Comments: See Note; NOTES: [facility] Imaging Services [address] [place] [address] Verdana 4d Elbow min 3 Views MR#: [id number] Acct: [id number] Name: MARIA EUGENIA VAUGHAN Rep #: [id number] : 1950 F 66 From: Angelia Ortiz MD PCP: Ciara Caballero DO Status: REG ER Study: Elbow min 3 Views Date of Exam: 03/15/17 Exam# [id number] Ordering Dr: Silvino Lai MD STUDY: X- RAY - LEFT ELBOW REASON FOR EXAM: Female, 66 years old. Elbow redness swelling pain TECHNIQUE: 3 view(s) of the elbow. COMPARISON: March 13, 2017 elbow x-ray. FINDIN GS: Normal visualized humerus, radius and ulna. Normal radiocapitellar and ulnotrochlear articulations. There is a large area of soft tissue swelling and edema with extensive joint effusion and possibl e extracapsular fluid. RAD/Elbow min 3 Views IMPRESSION: Large joint effusion cannot exclude bursitis no evidence of an acute fracture. Electron ically Signed: Angelia Ortiz MD at 20:23 EDT Tel , Service support , CC: Silvino Lai MD; Ciara Caballero DO [employer] Supervisor: Signed 15-Mar-2017 Upper Ext Joint Only(Routine) Result: Comments: See Note; NOTES: [facility] Imaging Services [address] [place] [address] Case 4d Upper Ext Joint Only(Routine) MR#: [id number] Acct: [id number] Name: ROXANA VAUGHAN Rep #: [id number] : 1950 F 66 From: Sid Cooper MD PCP: Ciara Caballero DO Status: REG CLI Study: Upper Ext Joint Only(Routine) Date of Exam: 03/15/17 Exam# [id number] Ordering Dr: Jyoti Julien sa STUDY: MRI LEFT ELBOW REASON FOR EXAM: Pain, swelling and redness of left elbow/distal humerus, fall in February. TECHNIQUE: Standardized fat and water weighted pulse sequences were obtained i n all 3 orthogonal planes. COMPARISON: Radiographs 03/13/2017. FINDINGS: Although there is image degradation secondary to patient motion, there is still significant d iagnostically useful information available from this examination. Normal radio- capitellum articulation. Normal radial collateral ligamentous complex. There is an undersurface partial tear of the common extensor tendon (inversion recovery coronal image 13). Normal ulnotrochlear articulation. Normal ulnar collateral ligamentous complex. Normal common flexor tendon. The cubital tunnel is normal, with a normal ulnar nerve. Normal biceps tendon and distal insertion. Normal lacertus fibrosis. There is a strain of the distal brachialis muscle (inversion recovery coronal images 20-22). Normal triceps ten don and teno-osseous insertion. Normal olecranon process. The visualized distal humerus, proximal radius, and ulna are normal. There is a large joint effusion with synovial thickening and fluid extend ing from the posterior ulnar capsular defect of the elbow into the ulnar soft tissues (T2 axial image 15; inversion recovery coronal images 9, 10). The fluid collection at the ulnar aspect of the elbow measures approximately 6.5 cm in length. There is edema in the subcutis adipose space especially at the posterior aspect of the elbow. MRI/Upper Ext Joint Only(Routine) IMPRESSION: Large joint effusion with synovial thickening and fluid extending from a posterior ulnar capsular defect/tear of the elbow, septic arthritis cannot be excluded. Dist al brachialis muscle strain. Undersurface partial tear of the common extensor tendon. No demonstrated fracture. Electronically Signed: Sid Cooper MD at 15:41 EDT Tel , Service support , CC: Jyoti Mcrae; Ciara Caballero DO [employer] Supervisor: Signed 13-Mar-2017 Emergency Department Summary Result: Comments: See Note; NOTES: [facility] Medical Records Department [address] [place], [place] [address] Emergency Department Summary MR#: [id number] Acct: [id number] Name: FRANKIE VAUGHAN Rep #: [id number] : 1950 66 From: Yvonne Donnelly MD PCP: Ciara Caballero DO Status: DEP ER DATE OF SERVICE: 03/13/2017 CHIEF COMPLAINT: Elbow pain and swelling. HISTORY OF PRESENT ILLNESS : A 66-year-old female has had about a week and a half of pain and swelling in her left elbow. There was no identified injury. She has seen a few different doctors for this. She first came to the ER her e and then she followed up with urgent care and finally saw a nurse practitioner at the [facility] and is scheduled to see Dr. Lindsey an orthopedic surgeon in less than 48 hours, so she comes in here today because she is concerned that something more serious is wrong and she wants to make sure that she is treating it correctly. She had a duplex study of her left arm, which was negative for DVT and she had an x-ray of the elbow, which was read as having a questionable compression trabecular fracture of the radial neck and she states that the nurse practitioner at the [facility] told her this is not a real fracture and to disregard that, her arm has continued to swell more. 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 She also has a history of rheumatoid ar thritis and fibromyalgia and she has been on steroids in the past and she was told to start steroids when she was seen in the ED initially, so she is still on a steroid taper. She has not taken any anti biotics. PHYSICAL EXAMINATION: VITAL SIGNS: Noted and unremarkable. She is not febrile. GENERAL: She is sitting quietly in bed and is nontoxic appearing. EXTREMITIES: Inspection of her left arm demonst rates moderate swelling to the soft tissue mostly in the medial and anterior aspect of her left elbow with some erythema. It is mildly tender. She has limited range of motion. She is not able to complet juanita flex or extend due to pain, but there is minimal pain with range of motion within side 15-70 degrees. Neurovascularly, she is intact distally. There is no area of distinct bony tenderness. CLINICAL COURSE AND DECISION MAKING: The patient's sed rate is 113 and her white count is 21.7, certainly these may be the result of being on steroids, but I am concerned about the possibility of infection give n the notable erythema and swelling. I do not think that she has an intra-articular infection this will be more of a bursitis or cellulitis even given the physical exam, so she was placed on Keflex and advised to follow up with the orthopedist as scheduled. She will continue to wear the sling and ice and elevate. DISPOSITION: Discharge. DIAGNOSIS: Inflammation of the left elbow. MD Lorena Thomas C: ROBERTO LINDSEY T: [facility] JOB: [id number] 03/13/17 2245 <Electronically signed by Yvonne Donnelly MD> Date Yvonne Donnelly MD Cosigner Signatur e (If Indicated): Date CC: ROBERTO LINDSEY; Ciara Caballero DO Date Dictated: 03/13/171740 Date Transcribed: 03/13/171740 Sheet Metal Shop Supervisor: Signed 13-Mar-2017 Discharge Instruction Result: Comments: See Note; NOTES: [facility] Medical Records Department [address] [place] [address] Discharge Instruction 03/13/171714 MR#: [id number] Acct: [id number] Name: MARIA EUGENIA VAUGHAN Rep #: [id number] : 1950 66 From: Yvonne Donnelly MD PCP: Ciara Caballero DO Status: REG ER ED Disposition - Plan for ED Patient: Chief Complaint: Upper Extremity Injury Instructions: ED Infec Skin Cellulitis Prescriptions: Cephalexin [Keflex] 500 mg PO Q6 #40 capsule Referrals: Ciara Caballero DO [Primary Care Provider] - Additional Instructions: See the doctor at [facility] a s scheduled. What to do if you have Problems For any increased pain, shortness of breath, bleeding, nausea or vomiting, chest pain, or any unexpected problems, contact your Primary Care Provider. [facility] Doctors Registry ([phone]) or report to the closest Emergency Room. Call 911 if necessary. 03/13/171717 <Electronically signed by Yvonne Donnelly MD> Date Yvonne Donnelly MD Cosigner Signature (If Indicated): Date CC: Ciara Caballero DO 13-Mar-2017 Elbow min 3 Views Result: Comments: See Note; NOTES: [facility] Imaging Services [address] [place] [address] Verdana 4d Elbow min 3 Views MR#: [id number] Acct: [id number] Name: MARIA EUGENIA VAUGHAN Rep #: [id number] : 1950 F 66 From: Rand Michael MD PCP: Ada DO,Ciara Status: REG ER Study: Elbow min 3 Views Date of Exam: 03/13/17 Exam# [id number] Ordering Dr: Yvonne Donnelly MD STUDY: X -RAY - LEFT ELBOW REASON FOR EXAM: Female, 66 years old. elbow pain, swelling and red fell in February TECHNIQUE: 3 view(s) of the elbow. COMPARISON: March 09, 2017 FIN DINGS: There is marked soft tissue swelling particularly medial to the elbow. There does appear a large joint effusion with anterior and posterior sail sign. I do not see evidence of a displaced osseous fracture nor do I see evident callus formation but there is only been a four- day interval since prior exam. There is a sclerotic line traversing the radial neck which potentially could represent a trab ecular contusion injury. I do consider 10-14 day follow-up or potentially MRI for occult injury. RAD/Elbow min 3 Views IMPRESSION: No significant interval change. Large joint effusion remains. There remains soft tissue swelling. There is a questionable compression trabecular linear fracture of the radial neck. If there are continued concerns, co nsider MRI Electronically Signed: Rand Michael MD at 17:29 EDT Tel , Service support , CC: Yvonne Donnelly MD; Ciara Caballero DO Sheet Metal Shop Supervisor: Signed 11-Mar-2017 Venous Duplex Upper Extremity Result: Comments: See Note; NOTES: [facility] Cardiovascular Services [address] [place] [address] Venous Duplex US, Unilateral 03/09/17 1520 MR#: [id number] Acct: [id number] Name: Vignesh LETICIASARINAMARIA EUGENIA Zana Rep #: [id number] : 1950 66 From: Jamari Amos MD Attending Dr: Jyoti Mcrae Status: REG CLI Ordering Dr: Jyoti Mcrae Date: 03/09/17 Location: [facility] Sex: F C Admitted: Reason For Study: swelling Left Proximal Left jugular vein is spontaneous, widely patent, phasic, with no intraluminal echogenicity noted. Left subclavian vein is spontaneous, widely patent, phasic, with no intraluminal echogenicity noted. Left Arm Left axillary vein is spontaneous, patent, phasic, competent, compressible and demonstrates augmentation. Left brachial vein is compressible. Left cephalic vein is compressible. Left basilic vein is compressible. Left Lower Arm Left radial vein is compressible. Left ulnar vein is compressible. Prelim faxed to Jyoti Mcrae. < Interpretation Summary Deep veins of the left upper extremity are patent and compressible segmentally. There is no evidence of deep vein thrombosis. The superficial veins of the left upper extremity, the basilic and cephalic veins , are patent and compressible. There is no evidence of left upper extremity superficial thrombophlebitis involving the veins imaged. Ordering Physician: Jyoti Mcrea Performed By: Vladimir Black, RVT 03/11/172252 Date Jamari Amos MD CC: Jyoti Mcrae; Ciara Caballero DO Date Dictated: 03/09/17 1520 Date Transcribed: 03/11/172252 Sheet Metal Shop Supervisor: Signed 09-Mar-2017 Elbow min 3 Views Result: Comments: See Note; NOTES: [facility] Imaging Services [address] [place] [address] Verdana 4d Elbow min 3 Views MR#: [id number] Acct: [id number] Name: MARIA EUGENIA VAUGHAN Rep #: [id number] : 1950 F 66 From: Fidel Carreon MD PCP: Ciara Caballero DO Status: REG CLI Study: Elbow min 3 Views Date of Exam: 03/09/17 Exam# [id number] Ordering Dr: Jyoti Mcrae STUDY: X -RAY - LEFT ELBOW REASON FOR EXAM: Female, 66 years old. Pain and swelling. No known injury. TECHNIQUE: 3 view(s) of the elbow. COMPARISON: None. FINDINGS: I susp ect a nondisplaced fracture of the radial neck. Normal radiocapitellar and ulnotrochlear articulations. Diffuse soft tissue swelling. Joint effusion. -0083 RAD/Elbow min 3 Views IMPRESSION: Diffuse soft tissue swelling and joint effusion. I suspect a nondisplaced fracture of the radial neck. Electronically Signed: Fidel Carreon MD at 16:08 EDT Tel [phone], Service support , CC: Jyoti Mcrae; Ciara Caballero DO Sheet Metal Shop Supervisor: Signed 03-Mar-2017 Discharge Instruction Result: Comments: See Note; NOTES: [facility] Medical Records Department [address] [place] [address] Discharge Instruction 03/03/17 1105 MR#: [id number] Acct: [id number] Name: MARIA EUGENIA VAUGHAN Rep #: [id number] : 1950 66 From: Roberto Díaz MD PCP: Ciara Caballero DO Status: DEP ER ED Disposition - Plan for ED Patient: Disposition: Home or Assisted Living Chief Complai nt: Upper Extremity Injury Instructions: ED Arthritis Rheumatoid Additional Instructions: ICE TO ELBOW AND SHOULDER PERCOCET FOR PAIN INCREASE PREDNISONE TO 40 MG PER DAY FOR 5-7 DAYS THEN 20 MG PER D AY FOR 7 DAYS THEN BACK TO 5 MG PER DAY FOLLOW UP WITH YOUR DIE FINISHER FORGING IF NOT GETTING BETTER What to do if you have Problems For any increased pain, shortness of breath, bleeding, nausea or vom iting, chest pain, or any unexpected problems, contact your Primary Care Provider. Call Doctors Registry ([phone]) or report to the closest Emergency Room. Call 911 if necessary. 03/03/17 1621 &a mp;#60;Electronically signed by Roberto Díaz MD> Date Roberto Díaz MD Cosigner Signature (If Indicated): Date CC: Ciara Caballero DO 03-Mar-2017 Emergency Department Summary Result: Comments: See Note; NOTES: [facility] Medical Records Department [address] [place] [address] Emergency Department Summary MR#: [id number] Acct: [id number] Name: FRANKIE VAUGHAN AURORA Batres Rep #: [id number] : 1950 66 From: Roberto Díaz MD PCP: Ciara Caballero DO Status: [facility] ER DATE OF SERVICE: 03/03/2017 CHIEF COMPLAINT: Left shoulder, left elbow pain. HISTORY OF PRESE NT ILLNESS: This is a 66-year-old female, who has history of rheumatoid arthritis and fibromyalgia. She is complaining of gradual onset of left shoulder and elbow pain. Since Wednesday ____ hurts to move t he shoulder and elbow. She said it is worse than her baseline arthritic pain. She denies any fever. No falls or trauma or injury. No swelling. PHYSICAL EXAMINATION: GENERAL: A 66-year-old female. VITAL SIGNS: Stable. Afebrile. She does not look septic or toxic. No acute distress. HEENT: Unremarkable. NECK: Nontender. No lymphadenopathy. LUNGS: Clear to auscultation bilaterally. HEART: Regular rhythm. No murmur. ABDOMEN: Soft, nontender. EXTREMITIES: Moves all 4. She has discomfort with range of motion in left shoulder and left elbow. The left elbow is slightly warm. It is not red. It is not hot. It is not significantly swollen. It is mildly swollen. The shoulder is not swollen. There is no axillary lymphadenopathy. The left wrist has normal radial pulse, flexion and extension. Normal beef pluck trimmer strengt h. Left trapezius is unremarkable. Otherwise, heart, lung, abdominal exams are unremarkable. NEUROLOGIC: Neurologically, she is awake, alert with no focal deficits. IMPRESSION: Left elbow and shoulder pain, suspect exacerbation of underlying rheumatoid arthritis flare. PLAN: She is already on methotrexate, Enbrel and prednisone. She can increase her prednisone to 40 mg a day for 1 week, then to 20, then to 5, which is her normal dose. She has Percocet at home for pain and she is going to follow up with her scholastic aptitude test grader if this is not improving. At this time, it does not look like any type of sep tic joint. Roberto Díaz MD T: [facility] JOB: [id number] 03/03/17 1621 <Electronically signed by Roberto Díaz MD> Date Roberto Díaz MD Cosigner Signature (If Indicated): Date CC: Ciara Caballero DO Date Dictated: 03/03/17 1110 Date Transcribed: 03/03/171109 Sheet Metal Shop Supervisor: Signed 24-Jun-2016 ELECTROCARDIOGRAM, COMPLETE (ECG) ([id number]) Comments: nsr no acute chg Result: [MEASUREMENTS ANALYSIS] Date of Test: 06/24/2016 15:00:37; Heart Rate: 87; WY Interval: 144; QRS: 94; QT Interval: 368; Corrected QT Interval (QTc): 415; P Wave Moorcroft: 5; QRS Wave Moorcroft: 129; T Wave Moorcroft: -1; Blood Pressure: 142/100 [ECG DIAGNOSTIC STATEMENTS] Date of Test: 06/24/2016 15:00:37; Summary: Sinus Rhythm -Right axis -consider right ventricular hypertrophy. ABNORMAL 23-Jun-2016 PT D/C Summary (1) Result: Comments: See Note; NOTES: [facility] Physical Therapy [facility] [address] [place] [address] Fax REHABILITATION SERVICES [facility]UST[facility]O CONNORS SUMMARY MR#: [id number] Acct: [id number] Name: MARIA EUGENIA VAUGHAN Rep #: [id number] : 1950 66 From: Gisell Caraballo PT, Cert. MDT Referring Dr.: Zeeshan Sotelo Status: REG RCR Insurance: MEDIC ARE PART A B [employer] HP - PT D/C Summary It has been my pleasure to treat MARIA EUGENIA VAUGHAN under orders from Zeeshan Sotelo DO, for the diagnosis of l5s1 lysthesis. left > right t roch bursitis. gluteal tendonitis. for a total of 10 visit(s). Discharge Date: 06/23/16 Please see the following information for a summary of their discharge status. - Subjective Subjective: &#3 4;Tonight I had a lot of trouble with my back. Maybe it's the weather. 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 - Pain Back Pain Intensity (Out of 10): 1 Feet Pain Intensity (Out of 10): 8 - Overall Improvement % Improvement: 75 - Objective Objective/Function: Working on paper to progress to I water exc program today decreasing VCs and educating on progressions of exc. Pt demo'ing good time management today and mostly good techniques requiring VCs for decreasing rotation at times. Discrepancy noted today in number of visit in POC vs. number of aiyana eudled visits requiring G-code today. Pt to fill out post-Rx and submit to supervising PT. - Goals Goal 1:: DECREASE C/O BACK AND WILMER LE SX'S Goal Progress: Goal Met Goal 2:: IMPROVE SITTING, STANDING, WALKING, BENDING, LIFTING, TRAVEL, SLEEP AND WORK FUNCTION Goal Progress: Goal Met Goal 3:: INDEP EX PROGRAM Goal Progress: Goal Met - Plan Plan: F/u with supervising PT at next visit. Pt I with water exc program paper. PATIENT STOPPED TO TALK WITH ME AND CANCELLED FINAL VISIT STATING SHE IS GOING TO CONTINUE INDEP'LY. SHE REPORTS HER ARTHRITIS IS FLARED UP TODAY BUT SHE HAS MADE 75% IMPROVEMENT. - D/C Information Discharge Comments: AT PATIENT REQUEST If there are questions or concerns regarding this patient's physical therapy, please feel free to call me at [phone]. Thank you for the refer ral of this patient. Sincerely, Gisell Caraballo <Electronically signed by Gisell Caraballo PT, Cert. CHADWICKT> 06/23/16 1153 CC: Ciara Caballero DO; Zeeshan Sotelo ELVIS Signed 22-May-2016 Inital Evaluation (1) - PT Result: Comments: See Note; NOTES: [facility] Physical Therapy [facility] [address] [place] [address] Fax REHABILITATION SE [facility]ICES INITIAL EVALUATION MR#: [id number] Acct: [id number] Name: MARIA EUGENIA VAUGHAN Rep #: [id number] : 1950 66 From: Gisell Caraballo PT, Cert. CHADWICKT Referring Dr.: Zeeshan Sotelo Status: REG RCR Insurance: MEDICARE PART A B [employer] Patient's Visit Information MARIA EUGENIA VAUGHAN is a 66 year old F referred to Physical Therapy by Zeeshan Sotelo DO with a diagnosis of l5s1 l ysthesis. left > right troch bursitis. gluteal tendonitis.. 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 Disability: NO. Present symptoms: WILMER LOW BACK, HIPS, THIGHS, LEGS AND FEET. PATIENT REPORTS WILMER LE NUMB NESS AND TINGLING. Present since: ABOUT 2-3 YEARS AGO. INTERMITTENT. Pain Scale: LOW BACK 0-9/10, 0-9/10. Currently: 02/15. Commenced as a result of: NO APPARENT REASON. Symptoms at onset: BACK AND LEG S. HURT TOO BAD TO STAND. Worse: I DON'T EVEN KNOW WALKING. Better: KTC, PIRIFORMIS STRETCHING BUT SOMETIMES NOTHING. SITTING. Disturbed sleep: YES. Previous history/Previous treatme nt: ABOUT 7 CHIROPRACTIC VISITS IN THE LAST 2-3 YEARS WITHOUT NOTICABLE BENEFIT. NO INJECTIONS. NO SURGERY. NO MEDICATIONS. Coughing/sneezing/straining: NEGATIVE. Gait: LIMITED IN DISTANCE AT TIMES. D ifficulty initiating urinatin: NO. Accidents: NO. Unexplained weight loss: Imaging: yesterday x-rays of back, hips and pelvis - patient reports Dr. Sotelo told her they looked pretty good. NO MRI. PMH: RA, FIBROMYALGIA, OA. Recent major surgery: TMJ SURGERY. OTHER: TEARFUL EXPRESSING CHRONIC PAIN FROM RA FOR YEARS. - Objective Sitting Posture: POOR. Standing Posture: POOR. Lordosis: REDUCED. Later al shift: NO. Relevant shift: NO. Active Correction of posture: WORSE. Motor deficit: HIPS 4/4. Sensory deficit: NO. ROM deficit: WFL EXCEPT RIGHT HIP HAS MAJOR IR AND ER LIMITATION WITH POSITIVE RIG HT TJ TEST. Reflexes: UNABLE TO ELICIT. Dural Signs: NEGATIVE. Lumbar mvmt loss: flex - NIL. ext - RAMAKRISHNA. R SG - MOD. L SG - MOD. Core strength: POOR. Palpation: TENDERNESS THROUGHOUT THE LUMBOSACRAL, ILIAC CREST, GREATER TROCH AND BUTTOCK REGIONS. - Goals Goal 1:: DECREASE C/O BACK AND WILMER LE SX'S Goal Time Frame: 4-6 Weeks Goal 2:: IMPROVE SITTING, STANDING, WALKING, BENDING, LIFTING, TRAVEL, SLEEP AND WORK FUNCTION Goal Time Frame: 4-6 Weeks Goal 3:: INDEP EX PROGRAM Goal Time Frame: 4-6 Weeks - Rehabilitation Potential Rehabilitation Potential: Good - Anticipated Interventions Pa tient/Client Instruction: Educate patient on: Condition, Plan of Care, Risk Factors, Benefits of Fitness Program For the Purpose of:: To improve self management Therapeutic Exercise to Include: Stren gth training, Endurance training, Body mechanics, Postural training, Flexibilty training, Dynamic Lumbar Stabilization For the Purpose of:: To improve ability of physical actions for home/community/wo rk/leisure Thank you for the opportunity to evaluate your patient. For Medicare and Medicare HMO plans, please review the plan of care and approve it. It will need to be FAXED BACK to us at for Medicare purposes. Please let me know if there are questions or concerns regarding this plan of care. Physician Signature: Date: <Electronically signed by Gisell Caraballo PT, Cert. MDT> 05/22/16 1702 CC: Ciara Caballero DO; Zeeshan Sotelo ELVIS Signed For Medicare only, by s igning this I certify the plan of care. Physicians Signature Date 21-May-2016 Hip 2-3 Views with Pelvis Result: Comments: See Note; NOTES: [facility] Imaging Services [address] [place] [address] Verdana 4d Hip 2-3 Views with Pelvis MR#: [id number] Acct: [id number] Name: MARIA EUGENIA SOTO Rep #: [id number] : 1950 F 66 From: Fidel Carreon MD PCP: Alice Nova MD Status: REG CLI Study: Hip 2-3 Views with Pelvis Date of Exam: 05/21/16 Exam# [id number] Order ing Dr: Zeeshan Sotelo DO STUDY: X-RAY - PELVIS AND LEFT HIP REASON FOR EXAM: Female, 66 years old. Left hip pain. The patient has a history of fibromyalgia and rheumatoid arthritis. TECHNIQUE: Radiological exam, hip, unilateral, with pelvis when performed; 2 or 3 views. COMPARISON: None. FINDINGS: There is a non-specific bowel gas pattern. Calcified fibroid uterus. Normal bilateral iliac wings, sacroiliac joints and visualized sacrum. Normal bilateral superior and inferior pubic rami. There is narrowing with sclerosis of the pubic symphysis. Normal bilateral ischial tuberosities. Normal visualized femoral head. Normal acetabulum. There is mild articular joint space narrowing of the hip. IMPRESSION: Mild joint space narrowing involving the left hip joint. Electronically Signed: Fidel Carreon MD at 14:21 EDT Tel [phone], Service support [phone], OR WENDI #: [id number] RAD/Hip 2-3 Views with Pelvis IMPRESSION: Mild joint space narrowing involving the left hip joint. Electronically Signed: Fidel Carreon MD at 14:21 EDT Tel [phone], Service support [phone], CC: Alice Nova MD; Zeeshan Sotelo Sheet Metal Shop Supervisor: Signed 21-May-2016 Lumbar Spine 2 or 3 Views Result: Comments: See Note; NOTES: [facility] Imaging Services [address] [place] [address] [place] 4d Lumbar Spine 2 or 3 Views MR#: [id number] Acct: [id number] Name: MARIA EUGENIA SOTO Rep #: [id number] : 1950 F 66 From: Fidel Carreon MD PCP: Alice Nova MD Status: REG CLI Study: Lumbar Spine 2 or 3 Views Date of Exam: 05/21/16 Exam# [id number] Order ing Dr: Zeeshan Sotelo DO STUDY: X-RAY - LUMBAR SPINE REASON FOR EXAM: Female, 66 years old. Left hip pain. TECHNIQUE: 3 view(s) of the lumbar spine were obtained. COMPARISON: None FINDINGS: Normal lumbar lordosis. There is no substantial scoliosis. Grade 1 anterolisthesis of L5 on S1 with spondylolysis. Normal vertebral bodies and endplates. The spa ce narrowing at the L4-L5 and L5-S1 levels. Facet joint osteoarthritis. There is atherosclerotic calcification of the abdominal aorta without a demonstrated aneurysm. IMPRESSION: Degenerative changes of the spine, as detailed above. Grade 1 spondylolisthesis of L5 on S1 with spondylolysis. Electronically Signed: Fidel Carreon MD at 14: 30 EDT Tel [phone], Service support [phone], RAD/Lumbar Spine 2 or 3 Views IMPRESSION: Degenerative changes of the spine, as detailed above. Grade 1 spondylolisthesis of L5 on S1 with spondylolysis. Electronically Signed: Fidel Carreon MD at 14:30 EDT Tel [phone], Service support [phone], CC: Diego Nova MD; Zeeshan Sotelo Sheet Metal Shop Supervisor: Signed 30-Dec-2015 Shoulder min 2 Views Result: Comments: See Note; NOTES: [facility] Imaging Services [address] [place] [address] [facility] 4d Shoulder min 2 Views MR#: [id number] Acct: [id number] Name: MARIA EUGENIA VAUGHAN Rep #: [id number] : 1950 F 65 From: Fidel Carreon MD PCP: Alice Nova MD Status: REG CLI Study: Shoulder min 2 Views Date of Exam: 12/30/15 Exam# [id number] Ordering Dr: Zeeshan Gonzalez dd, DO STUDY: X-RAY - RIGHT SHOULDER REASON FOR EXAM: Female, 65 years old. Shoulder pain. No history of trauma. TECHNIQUE: 3 view(s) of the shoulder. COMPARISON: None. FINDINGS: Normal glenohumeral articulation. Normal acromioclavicular joint. Normal acromion. Normal humeral head and visualized proximal humerus. The soft tissue structure s are unremarkable. Normal visualized pulmonary apex. IMPRESSION: Normal x-ray examination of the shoulder. Electronically Signed: Fidel Carreon MD 24/12/21 at 14:35 EST Tel [phone], Service support [phone], RAD/Shoulder min 2 Views IMPRESSION: Normal x-ray examination of the shoulder. Electronic ally Signed: Fidel Carreon MD at 14:35 EST Tel [phone], Service support [phone], CC: Alice Nova MD; Zeeshan Sotelo Sheet Metal Shop Supervisor: Signed 22-Oct-2015 Bilat Scrn Digital AND CAD Result: Comments: See Note; NOTES: [facility] Imaging Services [address] [place] [address] Verdana 4d Bilat Scrn Digital AND CAD MR#: [id number] Acct: [id number] Name: MARIA EUGENIA VAUGHAN Zana Rep #: [id number] : 1950 F 65 From: Fidel Carreon MD PCP: Alice Nova MD Status: REG CLI Study: Bilat Scrn Digital AND CAD Date of Exam: 10/22/15 Exam# [id number] [facility]: Alice Nova MD MAMMOGRAPHY - BILATERAL SCREENING REASON FOR EXAM: Female, 65 years old. Routine annual screening examination. PERTINENT HISTORY: Aunt with breast cancer. TECHNIQUE : Digital examination. Mediolateral oblique (MLO) and craniocaudad (CC) views of both breasts were obtained. CAD: CAD was performed on this study. COMPARISON: Comparison is made with prior study bala ed October 17, 2013 and December 24, 2009. FINDINGS: Breast Composition: There are scattered areas of fibroglandular density. There are no dominant masses or suspicious calcifications. No other significant abnormalities are identified. There has been no significant change since the prior study. IMPRESSION: Stable bi lateral screening mammogram. Yearly follow-up recommended. (A) ASSESSMENT CATEGORY: BIRADS Category 1: Negative. A letter regarding these results will be sent t o the patient by the facility within 30 days. Approximately 10% of breast cancers are not detected by mammography. A normal mammogram should not delay biopsy of a clinically suspicious abnormality. [id number] Electronically Signed: Fidel Carreon MD at 11:18 EST Tel [phone], Service support [phone], CC: Alice Nova MD [employer] Supervisor: Signed 22-Oct-2015 Dexa Bone Density Study (HP) Result: Comments: See Note; NOTES: [facility] Imaging Services [address] [place] [id number] [address] 4[address] Dexa Bone Density Study () MR#: [id number] Acct: [id number] Name : MARIA EUGENIA VAUGHAN Rep #: [id number] : 1950 F 65 From: Fidel Carreon MD PCP: Alice Nova MD Status: REG CLI Study: Dexa Bone Density Study (HP) Date of Exam: 10/22/15 Exam# [id number] Ordering Dr: Alice Nova MD STUDY: DUAL ENERGY X-RAY ABSORPTIOMETRY / DXA REASON FOR EXAM: Female, 65 years old. The patient is postmenopausal. Prednisone use and loss of height. TECHNIQUE: Bone Mineral Density (BMD) measurements of lumbar spine and bilateral hips were obtained. COMPARISON: Comparison is made with prior study dated October 17, 2013. FINDINGS: Lumbar Spine (L1-L4): g/cm2 (0.940) / T-score (-2.0) / Z-score (-0.4) Findings are suggestive of osteopenia with a moderate fracture risk. Left Femur Total: g/cm2 (0.906) / T-score (-0 .8) / Z-score (0.5) Left Femoral Neck: g/cm2 (0.931) / T-score (-0.8) / Z-score (0.8) Right Femur Total: g/cm2 (0.890) / T-score (-0.9) / Z-score (0.3) Right Femoral Neck: g/cm2 (0.899) / T-score (-1 .0) / Z-score (0.5) The T-Scores on the most recent prior examination were: Lumbar Spine (L1-L4): There has been improvement of bone density since the previous examination. Left Femur Total: whic h represents an improvement of 3.3%. Right Femur Total: which represents a worsening of 1.2%. IMPRESSION: The patient is considered osteopenic at the level of th e lumbar spine as outlined below according to World Nicola Organization (WHO) criteria with a moderate fracture risk. There has been improvement of bone density since the previous examination. Reference Information: The T-score is the number of standard deviations above or below the standard which is normal for young adults at their peak bone mineral densit y. The World Health Organization (WHO) interprets the T-scores as follows: Above -1 Normal bone density Between -1 and -2.5 Osteopenia Equal to / or below -2.5 Osteoporosis As a practical clinica l guideline, osteopenia may be graded as follows: Mild -1 through -1.5 Moderate -1.6 through -2.0 Severe -2.1 through -2.4 The Z-score is the number of standard deviations above or below age-matche d controls. A Z-score of less than -1.5 would be considered abnormal. References: 1. NIH Osteoporosis and Related Bone Diseases http://www.osteo.org 2. International Society for Clinical Densitomet ry http://www.iscd.org 3. National Osteoporosis Foundation http://www.nof.org Electronically Signed: Fidel Carreon MD at 14:52 EST Tel [phone], Service support [phone], Fa x [phone] CC: Alice Nova MD [employer] Supervisor: Signed 17-Oct-2013 Nayeli Trevino [employer] & CAD Result: Comments: See Note; NOTES: [facility] Imaging Services [address] [place] [address] Breast Imaging Report MR#: [id number] Acct: [id number] Name: MARIA EUGENIA VAUGHAN Rep # : [id number] : 1950 F 63 From: Fidel Carreon MD PCP: Status: REG CLI Exam# [id number] Ordering Dr: Alice Nova MD MAMMOGRAPHY - BILATERAL SCREENING REASON FOR EXAM: Female, 63 y ears old. Routine annual screening examination. PERTINENT HISTORY: Aunt with breast cancer. TECHNIQUE: Digital examination. Mediolateral oblique (MLO) and craniocaudad (CC) views of both breasts w ere obtained. CAD: CAD was performed on this study. COMPARISON: Comparison is made with prior examination dated December 24, 2009 and April 26, 2008. FINDINGS: The breast composition is heterogeneously dense - ranging from 51% to 75% of the breast tissue. There are no dominant masses or suspicious calcifications. No other significant abnormalities are id entified. There has been no significant change since the prior study. IMPRESSION: Stable bilateral screening mammogram. Yearly follow-up recommended. (A) ASSESSMENT CATEGORY: BIRADS Category 2: Benign finding(s). A letter regarding these results will be sent to the patient by the facility within 30 days. Approximately 10% of breast cancers are not detected by mammography. A normal mammogram should not delay biopsy of a clinically suspicious abnormality. Electronically Signed: Fidel Carreon M.D. at 15:27 EST , Service support [phone], CC: Alice Nova MD [employer] Supervisor: Signed 17-Oct-2013 Dexa Bone Density Study (HP) Result: Comments: See Note; NOTES: [facility] Imaging Services [address] [place] [address] Bone Density Report MR#: [id number] Acct: [id number] Name: MARIA EUGENIA VAUGHAN Rep #: [id number] : 1950 F 63 From: Fidel Carreon MD PCP: Status: REG CLI Study: Dexa Bone Density Study (HP) Date of Exam: 10/17/13 Exam# [id number] Ordering Dr: Alice Nova MD STUDY: D UAL ENERGY X-RAY ABSORPTIOMETRY / DXA REASON FOR EXAM: Female, 63 years old. Osteopenia. TECHNIQUE: Bone Mineral Density (BMD) measurements of lumbar spine and bilateral hips were obtained. ROSSANA RISON: Comparison is made with prior examination dated December 24, 2009. FINDINGS: Lumbar Spine (L1-L4): g/cm2 (0.898) / T-score (-2.3) / Z-score (- 0.8) Findi ngs are suggestive of osteopenia with a moderate fracture risk. Left Femur Total: g/cm2 (0.877) / T-score (-1.0) / Z-score (0.1) Left Femoral Neck: g/cm2 (0.777) / T-score (-1.9) / Z-score (-0.4) Ri ght Femur Total: g/cm2 (0.901) / T-score (-0.8) / Z-score (0.3) Right Femoral Neck: g/cm2 (0.747) / T-score (-2.1) / Z-score (-0.7) The T-Scores on the most recent prior examination were: Lumbar Sp ine (L1-L4): There has been worsening of bone density since the previous examination. Left Femur Total: which represents a worsening of 9.1%. Right Femur Total: which represents a worsening of 8.6%. IMPRESSION: The patient is considered osteopenic as outlined below according to World Nicola Organization (WHO) criteria with a moderate fracture risk. There has been worsening of bone density since the previous examination. Reference Information: The T-score is the number of standard deviations above or below the sterling dard which is normal for young adults at their peak bone mineral density. The World Health Organization (WHO) interprets the T-scores as follows: Above -1 Normal bone density Between -1 and -2.5 Os teopenia Equal to / or below -2.5 Osteoporosis As a practical clinical guideline, osteopenia may be graded as follows: Mild -1 through -1.5 Moderate -1.6 through -2.0 Severe -2.1 through -2.4 Th e Z-score is the number of standard deviations above or below age-matched controls. A Z-score of less than -1.5 would be considered abnormal. References: 1. NIH Osteoporosis and Related Bone Disease s http://www.osteo.org 2. International Society for Clinical Densitometry http://www.iscd.org 3. National Osteoporosis Foundation http://www.nof.org Electronically Signed: Fidel Carreon M.D. at 9:13 EST , Service support [phone], CC: Alice Nova MD [employer] Supervisor: Signed Family History Unknown Family Member Name Dates Details Father Comments: Emphysema, [place] in 60s Status: Active Mother Comments: RA, DM, [place] at 60 Status: Active Social History Name Dates Details Caffeine Use Comments: 3 cups coffee qd rare soda Status: Active Exercise History Comments: Light Status: Active Living Situation Comments: Lives with spouse Status: Active No Drug Use Status: Active Non Drinker/No Alcohol Use Status: Active Non Smoker/No Tobacco Use Status: Active Tobacco use: Never smoker. Status: Active Smoking Status Name Dates Details Never smoker Vital Signs Date Test Result Details :48 Temperature 97.3 f Comments: Method: Temporal Pulse 91 /min Comments: Pattern: Regular Respiration Rate 16 /min Comments: Pattern: Unlabored O2 SAT 97 % Comments: Room air BP Systolic 132 mm[Hg] Comments: Patient Position: Sitting; Cuff Location: Left Arm; Cuff Size: Standard BP Diastolic 74 mm[Hg] Comments: Patient Position: Sitting; Cuff Location: Left Arm; Cuff Size: Standard Weight 161.125 lb Height 60 in Body Mass Index Calculated 31.47 kg/m2 Body Surface Area Calculated 1.7 m2 :45 Pulse 72 /min Comments: Pattern: Regular Respiration Rate 18 /min Comments: Pattern: Unlabored O2 SAT 96 % Comments: Room air BP Systolic 152 mm[Hg] Comments: Patient Position: Sitting; Cuff Location: Left Arm; Cuff Size: Large BP Diastolic 82 mm[Hg] Comments: Patient Position: Sitting; Cuff Location: Left Arm; Cuff Size: Large Weight 161.125 lb Height 60 in Body Mass Index Calculated 31.47 kg/m2 Body Surface Area Calculated 1.7 m2 :03 Pulse 77 /min Comments: Pattern: Regular Respiration Rate 18 /min Comments: Pattern: Unlabored O2 SAT 97 % Comments: Room air BP Systolic 128 mm[Hg] Comments: Patient Position: Sitting; Cuff Location: Left Arm; Cuff Size: Large BP Diastolic 82 mm[Hg] Comments: Patient Position: Sitting; Cuff Location: Left Arm; Cuff Size: Large Weight 162.25 lb Height 60 in Body Mass Index Calculated 31.69 kg/m2 Body Surface Area Calculated 1.71 m2 :21 Pulse 72 /min Comments: Pattern: Regular Respiration Rate 18 /min Comments: Pattern: Unlabored O2 SAT 96 % Comments: Room air BP Systolic 138 mm[Hg] Comments: Patient Position: Sitting; Cuff Location: Left Arm; Cuff Size: Standard BP Diastolic 80 mm[Hg] Comments: Patient Position: Sitting; Cuff Location: Left Arm; Cuff Size: Standard Weight 156 lb Height 60 in Body Mass Index Calculated 30.47 kg/m2 Body Surface Area Calculated 1.68 m2 :47 Temperature 97.3 f Comments: Method: Temporal Pulse 75 /min Comments: Pattern: Regular Respiration Rate 16 /min Comments: Pattern: Unlabored O2 SAT 98 % Comments: Room air BP Systolic 160 mm[Hg] Comments: Patient Position: Sitting; Cuff Location: Left Arm; Cuff Size: Standard BP Diastolic 80 mm[Hg] Comments: Patient Position: Sitting; Cuff Location: Left Arm; Cuff Size: Standard Weight 154.125 lb Height 60 in Body Mass Index Calculated 30.1 kg/m2 Body Surface Area Calculated 1.67 m2 :27 Temperature 98.5 f Comments: Method: Temporal Pulse 84 /min Comments: Pattern: Regular Respiration Rate 84 /min Comments: Pattern: Unlabored O2 SAT 97 % Comments: Room air BP Systolic 140 mm[Hg] Comments: Patient Position: Sitting; Cuff Location: Left Arm; Cuff Size: Standard BP Diastolic 80 mm[Hg] Comments: Patient Position: Sitting; Cuff Location: Left Arm; Cuff Size: Standard Weight 154.125 lb Height 60 in Body Mass Index Calculated 30.1 kg/m2 Body Surface Area Calculated 1.67 m2 :48 Pulse 86 /min Comments: Pattern: Regular Respiration Rate 18 /min Comments: Pattern: Unlabored O2 SAT 98 % Comments: Room air BP Systolic 122 mm[Hg] Comments: Patient Position: Sitting; Cuff Location: Right Arm; Cuff Size: Large BP Diastolic 80 mm[Hg] Comments: Patient Position: Sitting; Cuff Location: Right Arm; Cuff Size: Large Weight 154.125 lb Height 60 in Body Mass Index Calculated 30.1 kg/m2 Body Surface Area Calculated 1.67 m2 :53 Temperature 98.5 f Pulse 82 /min Comments: Pattern: Regular Respiration Rate 17 /min Comments: Pattern: Unlabored O2 SAT 97 % Comments: Room air BP Systolic 132 mm[Hg] Comments: Patient Position: Sitting; Cuff Location: Left Arm; Cuff Size: Standard BP Diastolic 84 mm[Hg] Comments: Patient Position: Sitting; Cuff Location: Left Arm; Cuff Size: Standard Weight 155.0625 lb Height 60 in Body Mass Index Calculated 30.28 kg/m2 Body Surface Area Calculated 1.68 m2 :58 Temperature 97.2 f Pulse 79 /min Comments: Pattern: Regular Respiration Rate 17 /min Comments: Pattern: Unlabored O2 SAT 97 % Comments: Room air BP Systolic 142 mm[Hg] Comments: Patient Position: Sitting; Cuff Location: Left Arm; Cuff Size: Standard BP Diastolic 84 mm[Hg] Comments: Patient Position: Sitting; Cuff Location: Left Arm; Cuff Size: Standard Weight 155 lb Height 60 in Body Mass Index Calculated 30.27 kg/m2 Body Surface Area Calculated 1.68 m2 :27 Temperature 97.6 f Comments: Method: Temporal Pulse 72 /min Comments: Pattern: Regular Respiration Rate 16 /min Comments: Pattern: Unlabored O2 SAT 95 % Comments: Room air BP Systolic 154 mm[Hg] Comments: Patient Position: Sitting; Cuff Location: Left Arm; Cuff Size: Standard BP Diastolic 82 mm[Hg] Comments: Patient Position: Sitting; Cuff Location: Left Arm; Cuff Size: Standard Weight 158 lb Height 60 in Body Mass Index Calculated 30.86 kg/m2 Body Surface Area Calculated 1.69 m2 :10 Pulse 68 /min Comments: Pattern: Regular Respiration Rate 18 /min Comments: Pattern: Unlabored O2 SAT 96 % Comments: Room air BP Systolic 128 mm[Hg] Comments: Patient Position: Sitting; Cuff Location: Left Arm; Cuff Size: Large BP Diastolic 78 mm[Hg] Comments: Patient Position: Sitting; Cuff Location: Left Arm; Cuff Size: Large Weight 158.125 lb Height 60 in Body Mass Index Calculated 30.88 kg/m2 Body Surface Area Calculated 1.69 m2 :05 Temperature 97.6 f Pulse 58 /min Comments: Pattern: Regular Respiration Rate 16 /min Comments: Pattern: Unlabored O2 SAT 97 % Comments: Room air BP Systolic 132 mm[Hg] Comments: Patient Position: Sitting; Cuff Location: Left Arm; Cuff Size: Standard BP Diastolic 82 mm[Hg] Comments: Patient Position: Sitting; Cuff Location: Left Arm; Cuff Size: Standard Weight 148.125 lb Height 60 in Body Mass Index Calculated 28.93 kg/m2 Body Surface Area Calculated 1.64 m2 :22 Pulse 72 /min Comments: Pattern: Regular Respiration Rate 18 /min Comments: Pattern: Unlabored O2 SAT 98 % Comments: Room air BP Systolic 142 mm[Hg] Comments: Patient Position: Sitting; Cuff Location: Left Arm; Cuff Size: Large BP Diastolic 100 mm[Hg] Comments: Patient Position: Sitting; Cuff Location: Left Arm; Cuff Size: Large Weight 148.125 lb Height 60 in Body Mass Index Calculated 28.93 kg/m2 Body Surface Area Calculated 1.64 m2 :25 Temperature 97.8 f Comments: Method: Temporal Pulse 72 /min Comments: Pattern: Regular Respiration Rate 16 /min Comments: Pattern: Unlabored O2 SAT 97 % Comments: Room air BP Systolic 128 mm[Hg] Comments: Patient Position: Sitting; Cuff Location: Left Arm; Cuff Size: Standard BP Diastolic 74 mm[Hg] Comments: Patient Position: Sitting; Cuff Location: Left Arm; Cuff Size: Standard Weight 157 lb Height 60 in Body Mass Index Calculated 30.66 kg/m2 Body Surface Area Calculated 1.68 m2 :35 Temperature 97.6 f Comments: Method: Temporal Pulse 74 /min Comments: Pattern: Regular Respiration Rate 20 /min Comments: Pattern: Unlabored O2 SAT 97 % Comments: Room air BP Systolic 134 mm[Hg] Comments: Patient Position: Sitting; Cuff Location: Left Arm; Cuff Size: Standard BP Diastolic 88 mm[Hg] Comments: Patient Position: Sitting; Cuff Location: Left Arm; Cuff Size: Standard Weight 157 lb Height 60 in Body Mass Index Calculated 30.66 kg/m2 Body Surface Area Calculated 1.68 m2 :03 Temperature 97.6 f Comments: Method: Temporal Pulse 106 /min Comments: Pattern: Regular Respiration Rate 18 /min Comments: Pattern: Unlabored O2 SAT 97 % Comments: Room air BP Systolic 130 mm[Hg] Comments: Patient Position: Sitting; Cuff Location: Left Arm; Cuff Size: Standard BP Diastolic 86 mm[Hg] Comments: Patient Position: Sitting; Cuff Location: Left Arm; Cuff Size: Standard Weight 157 lb Height 60 in Body Mass Index Calculated 30.66 kg/m2 Body Surface Area Calculated 1.68 m2 :55 Temperature 97.6 f Pulse 74 /min Comments: Pattern: Regular Respiration Rate 18 /min Comments: Pattern: Unlabored O2 SAT 97 % Comments: Room air BP Systolic 126 mm[Hg] Comments: Patient Position: Sitting; Cuff Location: Left Arm; Cuff Size: Standard BP Diastolic 76 mm[Hg] Comments: Patient Position: Sitting; Cuff Location: Left Arm; Cuff Size: Standard Weight 157.5 lb Height 60 in Body Mass Index Calculated 30.76 kg/m2 Body Surface Area Calculated 1.69 m2 :09 Temperature 97.1 f Comments: Method: Temporal Pulse 78 /min Comments: Pattern: Regular Respiration Rate 20 /min Comments: Pattern: Unlabored O2 SAT 98 % Comments: Room air BP Systolic 162 mm[Hg] Comments: Patient Position: Sitting; Cuff Location: Left Arm; Cuff Size: Standard BP Diastolic 80 mm[Hg] Comments: Patient Position: Sitting; Cuff Location: Left Arm; Cuff Size: Standard Weight 153 lb Height 60 in Body Mass Index Calculated 29.88 kg/m2 Body Surface Area Calculated 1.67 m2 [id number]:38 Temperature 97.6 f Comments: Method: Temporal Pulse 74 /min Comments: Pattern: Regular Respiration Rate 20 /min Comments: Pattern: Unlabored BP Systolic 118 mm[Hg] Comments: Patient Position: Sitting; Cuff Location: Left Arm; Cuff Size: Standard BP Diastolic 76 mm[Hg] Comments: Patient Position: Sitting; Cuff Location: Left Arm; Cuff Size: Standard Weight 150 lb Height 60 in Body Mass Index Calculated 29.29 kg/m2 Body Surface Area Calculated 1.65 m2 :06 Temperature 97.2 f Comments: Method: Temporal Pulse 76 /min Comments: Pattern: Regular Respiration Rate 16 /min Comments: Pattern: Unlabored O2 SAT 98 % Comments: Room air BP Systolic 124 mm[Hg] Comments: Patient Position: Sitting; Cuff Location: Left Arm; Cuff Size: Standard BP Diastolic 76 mm[Hg] Comments: Patient Position: Sitting; Cuff Location: Left Arm; Cuff Size: Standard Weight 172 lb Height 60 in Body Mass Index Calculated 33.59 kg/m2 Body Surface Area Calculated 1.75 m2 :26 Temperature 98.9 f Comments: Method: Oral Pulse 70 /min Comments: Pattern: Regular Respiration Rate 16 /min BP Systolic 142 mm[Hg] Comments: Patient Position: Sitting; Cuff Location: Left Arm; Cuff Size: Standard BP Diastolic 82 mm[Hg] Comments: Patient Position: Sitting; Cuff Location: Left Arm; Cuff Size: Standard Weight 172 lb Height 60 in Body Mass Index Calculated 33.59 kg/m2 Body Surface Area Calculated 1.75 m2 :13 Temperature 96.6 f Comments: Method: Oral Pulse 72 /min Comments: Pattern: Regular Respiration Rate 16 /min Comments: Pattern: Unlabored BP Systolic 120 mm[Hg] Comments: Patient Position: Sitting; Cuff Location: Left Arm; Cuff Size: Standard BP Diastolic 82 mm[Hg] Comments: Patient Position: Sitting; Cuff Location: Left Arm; Cuff Size: Standard Weight 172 lb Height 60 in Body Mass Index Calculated 33.59 kg/m2 Body Surface Area Calculated 1.75 m2 :02 Temperature 99.1 f Comments: Method: Oral Pulse 72 /min Comments: Pattern: Regular Respiration Rate 16 /min Comments: Pattern: Unlabored BP Systolic 136 mm[Hg] Comments: Patient Position: Sitting; Cuff Location: Left Arm; Cuff Size: Standard BP Diastolic 74 mm[Hg] Comments: Patient Position: Sitting; Cuff Location: Left Arm; Cuff Size: Standard Weight 172 lb Height 60 in Body Mass Index Calculated 33.59 kg/m2 Body Surface Area Calculated 1.75 m2 :34 Comments: patient was upset about bill apparently Temperature 97.6 f Comments: Method: Oral Pulse 70 /min Comments: Pattern: Regular Respiration Rate 20 /min Comments: Pattern: Unlabored BP Systolic 164 mm[Hg] Comments: Patient Position: Sitting; Cuff Location: Left Arm; Cuff Size: Standard BP Diastolic 98 mm[Hg] Comments: Patient Position: Sitting; Cuff Location: Left Arm; Cuff Size: Standard Weight 176 lb Height 60 in Body Mass Index Calculated 34.37 kg/m2 Body Surface Area Calculated 1.77 m2 :04 Temperature 97.6 f Comments: Method: Oral Pulse 70 /min Comments: Pattern: Regular Respiration Rate 18 /min Comments: Pattern: Unlabored BP Systolic 150 mm[Hg] Comments: Patient Position: Sitting; Cuff Location: Left Arm; Cuff Size: Standard BP Diastolic 90 mm[Hg] Comments: Patient Position: Sitting; Cuff Location: Left Arm; Cuff Size: Standard Weight 159 lb Height 60 in Body Mass Index Calculated 31.05 kg/m2 Body Surface Area Calculated 1.69 m2 :17 Temperature 98 f Comments: Method: Oral Pulse 74 /min Comments: Pattern: Regular Respiration Rate 18 /min Comments: Pattern: Unlabored BP Systolic 126 mm[Hg] Comments: Patient Position: Sitting; Cuff Location: Left Arm; Cuff Size: Standard BP Diastolic 82 mm[Hg] Comments: Patient Position: Sitting; Cuff Location: Left Arm; Cuff Size: Standard Weight 159 lb Height 60 in Body Mass Index Calculated 31.05 kg/m2 Body Surface Area Calculated 1.69 m2 :01 Temperature 99.2 f Comments: Method: Oral Pulse 72 /min Comments: Pattern: Regular BP Systolic 152 mm[Hg] Comments: Patient Position: Sitting; Cuff Location: Left Arm; Cuff Size: Standard BP Diastolic 90 mm[Hg] Comments: Patient Position: Sitting; Cuff Location: Left Arm; Cuff Size: Standard Weight 159 lb :02 Temperature 98.2 f Comments: Method: Oral Pulse 70 /min Comments: Pattern: Regular Respiration Rate 18 /min Comments: Pattern: Unlabored BP Systolic 120 mm[Hg] Comments: Patient Position: Sitting; Cuff Location: Left Arm; Cuff Size: Standard BP Diastolic 80 mm[Hg] Comments: Patient Position: Sitting; Cuff Location: Left Arm; Cuff Size: Standard Weight 159 lb :11 Pulse 80 /min Comments: Pattern: Regular Respiration Rate 18 /min Comments: Pattern: Unlabored BP Systolic 120 mm[Hg] Comments: Patient Position: Sitting; Cuff Location: Left Arm; Cuff Size: Large BP Diastolic 72 mm[Hg] Comments: Patient Position: Sitting; Cuff Location: Left Arm; Cuff Size: Large :32 Pulse 74 /min Comments: Pattern: Regular Respiration Rate 18 /min Comments: Pattern: Unlabored BP Systolic 130 mm[Hg] Comments: Patient Position: Sitting; Cuff Location: Left Arm; Cuff Size: Standard BP Diastolic 90 mm[Hg] Comments: Patient Position: Sitting; Cuff Location: Left Arm; Cuff Size: Standard Weight 160 lb :46 Pulse 76 /min Comments: Pattern: Regular Respiration Rate 16 /min Comments: Pattern: Unlabored BP Systolic 140 mm[Hg] Comments: Patient Position: Sitting; Cuff Location: Left Arm; Cuff Size: Standard BP Diastolic 80 mm[Hg] Comments: Patient Position: Sitting; Cuff Location: Left Arm; Cuff Size: Standard Weight 162.0375 lb Height 0 in Head Circumference 0.00 cm : Temperature 99.2 f Comments: Method: Oral Pulse 68 /min Comments: Pattern: Regular Respiration Rate 18 /min Comments: Pattern: Unlabored BP Systolic 142 mm[Hg] Comments: Patient Position: Sitting; Cuff Location: Left Arm; Cuff Size: Large BP Diastolic 88 mm[Hg] Comments: Patient Position: Sitting; Cuff Location: Left Arm; Cuff Size: Large Weight 169 lb Height 0 in Head Circumference 0.00 cm :53 Pulse 64 /min Comments: Pattern: Regular Respiration Rate 20 /min Comments: Pattern: Unlabored BP Systolic 148 mm[Hg] Comments: Patient Position: Sitting; Cuff Location: Left Arm; Cuff Size: Large BP Diastolic 98 mm[Hg] Comments: Patient Position: Sitting; Cuff Location: Left Arm; Cuff Size: Large Weight 163 lb Height 0 in Head Circumference 0.00 cm :20 Temperature 99.1 f Comments: Method: Oral Pulse 68 /min Comments: Pattern: Regular Respiration Rate 16 /min Comments: Pattern: Unlabored BP Systolic 152 mm[Hg] Comments: Patient Position: Sitting; Cuff Location: Left Arm; Cuff Size: Standard BP Diastolic 84 mm[Hg] Comments: Patient Position: Sitting; Cuff Location: Left Arm; Cuff Size: Standard Weight 163 lb Height 0 in Head Circumference 0.00 cm :12 Temperature 98.7 f Comments: Method: Oral Pulse 60 /min Comments: Pattern: Regular Respiration Rate 16 /min Comments: Pattern: Unlabored BP Systolic 138 mm[Hg] Comments: Patient Position: Sitting; Cuff Location: Left Arm; Cuff Size: Standard BP Diastolic 88 mm[Hg] Comments: Patient Position: Sitting; Cuff Location: Left Arm; Cuff Size: Standard Weight 163.125 lb Height 60 in Body Mass Index Calculated 31.86 kg/m2 Body Surface Area Calculated 1.71 m2 Head Circumference 0.00 cm :31 Temperature 97.6 f Comments: Method: Oral Pulse 70 /min Comments: Pattern: Regular Respiration Rate 20 /min Comments: Pattern: Unlabored BP Systolic 110 mm[Hg] Comments: Patient Position: Sitting; Cuff Location: Left Arm; Cuff Size: Standard BP Diastolic 70 mm[Hg] Comments: Patient Position: Sitting; Cuff Location: Left Arm; Cuff Size: Standard Weight 168 lb Height 0 in Head Circumference 0.00 cm :03 Temperature 98 f Comments: Method: Oral Pulse 72 /min Comments: Pattern: Regular Respiration Rate 16 /min Comments: Pattern: Unlabored BP Systolic 102 mm[Hg] Comments: Patient Position: Sitting; Cuff Location: Left Arm; Cuff Size: Standard BP Diastolic 64 mm[Hg] Comments: Patient Position: Sitting; Cuff Location: Left Arm; Cuff Size: Standard Weight 170 lb Height 0 in Head Circumference 0.00 cm 50-Wng-136153:58 Temperature 98.5 f Comments: Method: Oral Pulse 81 /min Comments: Pattern: Regular Respiration Rate 17 /min Comments: Pattern: Unlabored BP Systolic 118 mm[Hg] Comments: Patient Position: Sitting; Cuff Location: Left Arm; Cuff Size: Standard BP Diastolic 78 mm[Hg] Comments: Patient Position: Sitting; Cuff Location: Left Arm; Cuff Size: Standard Weight 165.3125 lb Height 60 in Body Mass Index Calculated 32.29 kg/m2 Body Surface Area Calculated 1.72 m2 Head Circumference 0.00 cm Results Date Description Value Details 78-Pkf-074978:36 HEPATIC FUNCTION PANEL Comments: fax results to Dr. Jules [phone]; A courtesy copy of this report has been sent [phone].PATIENT NOT FASTINGPERFORMED BY: Anafore6370 [employer] [facility] [id number] 7300Clinical Information: FX [phone] (92009) ALT (SGPT) 49 [iU]/L (Abnormal) Range: 0-32 AST (SGOT) 33 [iU]/L (Normal) Range: 0-40 Alkaline Phosphatase 83 [iU]/L (Normal) Range: 39-117 Bilirubin, Direct 0.08 mg/dL (Normal) Range: 0.00-0.40 Bilirubin, Total 0.3 mg/dL (Normal) Range: 0.0-1.2 Albumin 4.2 g/dL (Normal) Range: 3.6-4.8 Protein, Total 6.7 g/dL (Normal) Range: 6.0-8.5 86-Iyu-714002:11 Microscopic Examination Comments: A courtesy copy of this report has been sent [phone].PATIENT WAS FASTINGPERFORMED BY: [employer]70 [facility] RemedyFormerly [facility], [facility] [id number] Bacteria Few (Normal) Mucus Threads Present (Normal) Crystal Type Amorphous Sediment (Normal) Crystals Present (Abnormal) Epithelial Cells (non 0-10 {/hpf} (Normal) Range: 0 - 10 renal) RBC 0-2 {/hpf} (Normal) Range: 0 - 2 WBC 0-5 {/hpf} (Normal) Range: 0 - 5 TSH 1.170 {uIU/mL} Comments: A courtesy copy of this report has been sent [phone].PATIENT WAS FASTINGPERFORMED BY: [facility] [id number] 3:11 (Normal) Range: 0.450-4.500 69-Ttn-548085:11 URINALYSIS, W/ MICRO (55855) Comments: A courtesy copy of this report has been sent [phone].PATIENT WAS FASTINGPERFORMED BY: [facility] [id number] Microscopic Examination See below: (Normal) Comments: Microscopic was indicated and was performed. Microscopic Examination MICRON (Normal) Comments: Microscopic follows if indicated. Nitrite, Urine Negative (Normal) Urobilinogen,Semi-Qn 0.2 mg/dL (Normal) Range: 0.2-1.0 Bilirubin Negative (Normal) Occult Blood Negative (Normal) Ketones Negative (Normal) Glucose Negative (Normal) Protein Negative (Normal) WBC Esterase Negative (Normal) Appearance Clear (Normal) Urine-Color Yellow (Normal) pH 6.5 (Normal) Range: 5.0-7.5 Specific Antelope 1.016 (Normal) Range: 1.005-1.030 14-Qxx-145340:11 MICROALBUMIN: CREATININE RATIO Comments: A courtesy copy of this report has been sent [phone].PATIENT WAS FASTINGPERFORMED BY: [facility] [id number] (98473) AND (95271) Alb/Creat Ratio <4.2 {mg/g_creat} (Normal) Range: 0.0-30.0 Albumin, Urine <3.0 ug/mL (Normal) Creatinine, Urine 71.0 mg/dL (Normal) 64-Git-521398:11 METABOLIC PANEL, COMPREHENSIVE Comments: A courtesy copy of this report has been sent [phone].PATIENT WAS FASTINGPERFORMED BY: [facility] [id number] (89534) ALT (SGPT) 39 [iU]/L (Abnormal) Range: 0-32 AST (SGOT) 25 [iU]/L (Normal) Range: 0-40 Alkaline Phosphatase, S 70 [iU]/L (Normal) Range: 39-117 Bilirubin, Total 0.3 mg/dL (Normal) Range: 0.0-1.2 A/G Ratio 1.7 (Normal) Range: 1.2-2.2 Globulin, Total 2.4 g/dL (Normal) Range: 1.5-4.5 Albumin, Serum 4.0 g/dL (Normal) Range: 3.6-4.8 Protein, Total, Serum 6.4 g/dL (Normal) Range: 6.0-8.5 Calcium, Serum 9.2 mg/dL (Normal) Range: 8.7-10.3 Carbon Dioxide, Total 25 mmol/L (Normal) Range: 18-29 Chloride, Serum 102 mmol/L (Normal) Range: 96-106 Potassium, Serum 4.5 mmol/L (Normal) Range: 3.5-5.2 Sodium, Serum 142 mmol/L (Normal) Range: 134-144 BUN/Creatinine Ratio 23 (Normal) Range: 12-28 eGFR If Africn Am 96 mL/min/1.73 (Normal) eGFR If NonAfricn Am 84 mL/min/1.73 (Normal) Creatinine, Serum 0.74 mg/dL (Normal) Range: 0.57-1.00 BUN 17 mg/dL (Normal) Range: 8-27 Glucose, Serum 90 mg/dL (Normal) Range: 65-99 95-Amg-918315:11 CBC W/AUTO DIFF WBC Comments: A courtesy copy of this report has been sent [phone].PATIENT WAS FASTINGPERFORMED BY: [facility]CoHackensack University Medical CenterOhbkem9551 [facility] [id number] Information: ADD TSH (80839) Immature Grans (Abs) 0.0 {x10E3/uL} (Normal) Range: 0.0-0.1 Immature Granulocytes 0 % (Normal) Baso (Absolute) 0.0 {x10E3/uL} (Normal) Range: 0.0-0.2 Eos (Absolute) 0.1 {x10E3/uL} (Normal) Range: 0.0-0.4 Monocytes(Absolute) 1.0 {x10E3/uL} (Abnormal) Range: 0.1-0.9 Lymphs (Absolute) 2.0 {x10E3/uL} (Normal) Range: 0.7-3.1 Neutrophils (Absolute) 4.2 {x10E3/uL} (Normal) Range: 1.4-7.0 Basos 0 % (Normal) Eos 2 % (Normal) Monocytes 13 % (Normal) Lymphs 27 % (Normal) Neutrophils 58 % (Normal) Platelets 353 {x10E3/uL} (Normal) Range: 150-379 RDW 15.5 % (Abnormal) Range: 12.3-15.4 MCHC 32.2 g/dL (Normal) Range: 31.5-35.7 MCH 28.4 pg (Normal) Range: 26.6-33.0 MCV 88 fL (Normal) Range: 79-97 Hematocrit 46.6 % (Normal) Range: 34.0-46.6 Hemoglobin 15.0 g/dL (Normal) Range: 11.1-15.9 RBC 5.29 {x10E6/uL} (Abnormal) Range: 3.77-5.28 WBC 7.3 {x10E3/uL} (Normal) Range: 3.4-10.8 25-Bki-685777:11 LIPID PANEL (20797) Comments: A courtesy copy of this report has been sent [phone].PATIENT WAS FASTINGPERFORMED BY: [facility] [id number] LDL/HDL Ratio 2.1 {ratio_units} (Normal) Range: 0.0-3.2 Comments: LDL/HDL Ratio Men Women 1/2 Avg.Risk 1.0 1.5 Av g.Risk 3.6 3.2 2X Avg.Risk 6.2 5.0 3X Avg.Risk 8.0 6.1 LDL Cholesterol Calc 136 mg/dL (Abnormal) Range: 0-99 VLDL Cholesterol Cosmo 25 mg/dL (Normal) Range: 5-40 HDL Cholesterol 65 mg/dL (Normal) Triglycerides 124 mg/dL (Normal) Range: 0-149 Cholesterol, Total 226 mg/dL (Abnormal) Range: 100-199 15-Tzs-978229:11 C-REACTIVE PROTEIN (60794) Comments: A courtesy copy of this report has been sent [phone].PATIENT WAS FASTINGPERFORMED BY: [facility] [id number] C-Reactive Protein, Quant 12.5 mg/L (Abnormal) Range: 0.0-4.9 :03 HgA1C , Office (73368) HgA1C , Office 6.0 % (Normal) Range: 4.6 - 7.1 :03 Blood Glucose , Office (53786) Blood Glucose , Office 114 (Normal) :28 CBC, Platelets & Auto Diff Comments: PATIENT NOT FASTINGPERFORMED BY: [facility] [id number] (67222) Immature Grans (Abs) 0.0 {x10E3/uL} (Normal) Range: 0.0-0.1 Immature Granulocytes 0 % (Normal) Baso (Absolute) 0.0 {x10E3/uL} (Normal) Range: 0.0-0.2 Eos (Absolute) 0.0 {x10E3/uL} (Normal) Range: 0.0-0.4 Monocytes(Absolute) 0.6 {x10E3/uL} (Normal) Range: 0.1-0.9 Lymphs (Absolute) 0.8 {x10E3/uL} (Normal) Range: 0.7-3.1 Neutrophils (Absolute) 6.9 {x10E3/uL} (Normal) Range: 1.4-7.0 Basos 0 % (Normal) Eos 0 % (Normal) Monocytes 7 % (Normal) Lymphs 9 % (Normal) Neutrophils 84 % (Normal) Platelets 371 {x10E3/uL} (Normal) Range: 150-379 RDW 14.4 % (Normal) Range: 12.3-15.4 MCHC 33.1 g/dL (Normal) Range: 31.5-35.7 MCH 27.9 pg (Normal) Range: 26.6-33.0 MCV 85 fL (Normal) Range: 79-97 Hematocrit 38.7 % (Normal) Range: 34.0-46.6 Hemoglobin 12.8 g/dL (Normal) Range: 11.1-15.9 RBC 4.58 {x10E6/uL} (Normal) Range: 3.77-5.28 WBC 8.3 {x10E3/uL} (Normal) Range: 3.4-10.8 :28 C-Reactive Protein (77947) Comments: PATIENT NOT FASTINGPERFORMED BY: LabCoHackensack University Medical CenterZxiowi0769 [facility] [id number] C-Reactive Protein, Quant 43.4 mg/L (Abnormal) Range: 0.0-4.9 :28 SED RATE ERYTHROCYTE (08599) Comments: PATIENT NOT FASTINGPERFORMED BY: LabCoHackensack University Medical CenterQvosqm9822 [facility] [id number] Sedimentation Rate-Westergren 55 mm/h (Abnormal) Range: 0-40 :47 Basic Metabolic Profile (BMP) Comments: [facility] [address] [place], [address] GAP 10 (Normal) Range: 5-15 CO2 26.0 mmol/L (Normal) Range: 21.0-32.0 CL 102 mmol/L (Normal) Range: 98-107 K 4.1 mmol/L (Normal) Range: 3.5-5.1 NA 138 mmol/L (Normal) Range: 136-145 CA 8.9 mg/dL (Normal) Range: 8.5-10.1 BUN/CRE 16.6 {RATIO} (Normal) Range: 10-20 Estimated CRCL 47.14 ml/min (Normal) EST GFR - AA 94 mL/min (Normal) Comments: GFR Calc EST GFR 78 mL/min (Normal) Comments: Non- GFR Calc CREAT,SERUM 0.78 mg/dL (Normal) Range: 0.55-1.02 Comments: The validity of the calculated GFR AND GFRAA in patients over70 years has not been determined. Clinical correlation isessential. BUN 13 mg/dL (Normal) Range: 7-18 GLU 103 mg/dL (Normal) Range: 70-110 :47 CBC W/Diff, Automated Comments: [facility] [address] [place], [place], [id number] PATH REV March foll (Normal) SMEAR COMMENT SCANNED (Normal) Comments: MONOCYTOSIS NOTED Absolute Lymph 1.81 {X10_3/ul} (Normal) Range: 0.83-4.51 Absolute Neut 19.2 {X10_3/uL} (Abnormal) Range: 2.0-7.7 IM GRAN % 0.500 % (Normal) Range: 0.0-0.9 Comments: IG% - Immature Granulocytes (promyelocytes, myelocytes andmetamyelocytes) > 1% indicates that a LEFT SHIFT is Present. BASO% 0.0 % (Normal) Range: 0-1 EO% 0.0 % (Normal) Range: 0-5 MONO% 8.5 % (Normal) Range: 0-10 LY% 7.8 % (Abnormal) Range: 19-41 NEUT% 83.2 % (Abnormal) Range: 47-70 MPV 9.0 fL (Normal) Range: 6.2-12.0 PLT 591 K/mm3 (Abnormal) Range: 150-450 RDW SD 45.9 fL (Abnormal) Range: 35.1-43.9 RDW CV 14.4 % (Normal) Range: 11.6-14.6 MCHC 32.6 {g/gl} (Normal) Range: 32-36 MCH 28.9 pg (Normal) Range: 27.0-32.0 MCV 88.6 fL (Normal) Range: 81-99 HCT 39.6 % (Normal) Range: 37-47 HGB 12.9 g/dL (Normal) Range: 12.0-15.0 RBC 4.47 {M/mm3} (Normal) Range: 4.2-5.4 WBC 23.1 K/mm3 (Abnormal) Range: 4.4-11.0 8-Mfw-877979:47 CRP Comments: [facility] [address] [place], [place], [id number] C-REACTIVE PROT 158.00 mg/L (Abnormal) Range: 0.0-3.0 Comments: C-Reactive Protein (CRP) provides useful information for thediagnosis, therapy and monitoring of inflammatory processesand associated diseases. For the evaluation of Relative Riskfor Cardiovascular Dise ase, a High Sensitivity CRP (HSCRP)should be ordered. :47 Erythrocyte Sed Rate Comments: [facility] [address] [place], [place], [id number] SED RATE 130 mm/h (Abnormal) Range: 0-30 8-Lkb-955857:20 CBC W/Diff, Automated Comments: [facility] [address] [place], [place], [id number] PLT EST SLT INC (Normal) SMEAR COMMENT SCANNED (Normal) Absolute Lymph 0.67 {X10_3/ul} (Abnormal) Range: 0.83-4.51 Absolute Neut 20.7 {X10_3/uL} (Abnormal) Range: 2.0-7.7 IM GRAN % 0.200 % (Normal) Range: 0.0-0.9 Comments: IG% - Immature Granulocytes (promyelocytes, myelocytes andmetamyelocytes) > 1% indicates that a LEFT SHIFT is Present. BASO% 0.0 % (Normal) Range: 0-1 EO% 0.0 % (Normal) Range: 0-5 MONO% 1.2 % (Normal) Range: 0-10 LY% 3.1 % (Abnormal) Range: 19-41 NEUT% 95.5 % (Abnormal) Range: 47-70 MPV 9.1 fL (Normal) Range: 6.2-12.0 PLT 497 K/mm3 (Abnormal) Range: 150-450 RDW SD 46.6 fL (Abnormal) Range: 35.1-43.9 RDW CV 14.3 % (Normal) Range: 11.6-14.6 MCHC 32.7 {g/gl} (Normal) Range: 32-36 MCH 29.3 pg (Normal) Range: 27.0-32.0 MCV 89.7 fL (Normal) Range: 81-99 HCT 40.1 % (Normal) Range: 37-47 HGB 13.1 g/dL (Normal) Range: 12.0-15.0 RBC 4.47 {M/mm3} (Normal) Range: 4.2-5.4 WBC 21.7 K/mm3 (Abnormal) Range: 4.4-11.0 8-Pst-786938:20 Erythrocyte Sed Rate Comments: [facility] [address] [place], [address] SED RATE 113 mm/h (Abnormal) Range: 0-30 :57 HgA1C , Office (85074) HgA1C , Office 5.6 % (Normal) Range: 4.6 - 7.1 :57 Blood Glucose , Office (69933) Blood Glucose , Office 93 (Normal) :07 Rapid Strep Test, Office (87229) Rapid Strep Test, Office Negative (Normal) :41 Blood Glucose , Office (06551) Blood Glucose , Office 104 (Normal) :41 HgA1C , Office (45791) HgA1C , Office 5.4 % (Normal) Range: 4.6 - 7.1 :41 HgA1C , Office (10706) HgA1C , Office 5.7 % (Normal) Range: 4.6 - 7.1 :52 CALCIFIDIOL (59825) VIT D 25 Comments: PATIENT WAS FASTINGPERFORMED BY: Anafore6370 [employer] [facility] [id number] Vitamin D, 25-Hydroxy 47.8 ng/mL (Normal) Range: 30.0-100.0 Comments: Vitamin D deficiency has been defined by the [place] of[place]icine and an Endocrine Society practice guideline as alevel of serum 25-OH vitamin D less than 20 ng/mL (1,2).The Endocrine Society went on to further define vitamin Dinsufficiency as a level between 21 and 29 ng/mL (2).1. IOM ([place] of Medicine). 2010. Dietary reference intakes for calcium and D. [place]: The National Academies Press.2. Melissa MF, Michael NC, Vannesa LEBLANC, et al. Evaluation, treatment, and prevention of vitamin D deficiency: an Endocrine Society clinical practice guideline. JCEM. 2010; 96(7):1911-30. :52 MICROALBUMIN: CREATININE RATIO Comments: PATIENT WAS FASTINGPERFORMED BY: [employer]70 [facility] [id number] (40068) AND (17686) Microalb/Creat Ratio 5.7 {mg/g_creat} (Normal) Range: 0.0-30.0 Microalbumin, Urine 4.8 ug/mL (Normal) Range: 0.0-17.0 Creatinine, Urine 83.9 mg/dL (Normal) Range: 15.0-278.0 :52 METABOLIC PANEL, COMPREHENSIVE Comments: PATIENT WAS FASTINGPERFORMED BY: [facility] Vvjcyr0366 [facility] [id number] (51141) ALT (SGPT) 30 [iU]/L (Normal) Range: 0-32 AST (SGOT) 27 [iU]/L (Normal) Range: 0-40 Alkaline Phosphatase, S 57 [iU]/L (Normal) Range: 39-117 Bilirubin, Total 0.4 mg/dL (Normal) Range: 0.0-1.2 A/G Ratio 1.4 (Normal) Range: 1.1-2.5 Globulin, Total 2.8 g/dL (Normal) Range: 1.5-4.5 Albumin, Serum 3.9 g/dL (Normal) Range: 3.6-4.8 Protein, Total, Serum 6.7 g/dL (Normal) Range: 6.0-8.5 Calcium, Serum 9.5 mg/dL (Normal) Range: 8.7-10.3 Carbon Dioxide, Total 23 mmol/L (Normal) Range: 18-29 Chloride, Serum 104 mmol/L (Normal) Range: 97-108 Potassium, Serum 4.6 mmol/L (Normal) Range: 3.5-5.2 Sodium, Serum 144 mmol/L (Normal) Range: 134-144 BUN/Creatinine Ratio 23 (Normal) Range: 11-26 eGFR If Africn Am 105 mL/min/1.73 (Normal) eGFR If NonAfricn Am 91 mL/min/1.73 (Normal) Creatinine, Serum 0.69 mg/dL (Normal) Range: 0.57-1.00 BUN 16 mg/dL (Normal) Range: 8-27 Glucose, Serum 103 mg/dL (Abnormal) Range: 65-99 :52 LIPID PANEL (83968) Comments: PATIENT WAS FASTINGPERFORMED BY: AirTight NetworksHackensack University Medical CenterAikkel5544 [facility] [id number]; apt. 4-12 LDL/HDL Ratio 2.1 {ratio_units} (Normal) Range: 0.0-3.2 Comments: LDL/HDL Ratio Men Women 1/2 Avg.Risk 1.0 1.5 Av g.Risk 3.6 3.2 2X Avg.Risk 6.2 5.0 3X Avg.Risk 8.0 6.1 LDL Cholesterol Calc 116 mg/dL (Abnormal) Range: 0-99 VLDL Cholesterol Cosmo 16 mg/dL (Normal) Range: 5-40 HDL Cholesterol 56 mg/dL (Normal) Comments: According to ATP-III Guidelines, HDL-C >59 mg/dL is considered anegative risk factor for CHD. Triglycerides 80 mg/dL (Normal) Range: 0-149 Cholesterol, Total 188 mg/dL (Normal) Range: 100-199 :52 CBC with auto diff Comments: PATIENT WAS FASTINGPERFORMED BY: Avinger6370 [facility] [id number] Information: [id number] (21176) Immature Grans (Abs) 0.0 {x10E3/uL} (Normal) Range: 0.0-0.1 Immature Granulocytes 0 % (Normal) Baso (Absolute) 0.1 {x10E3/uL} (Normal) Range: 0.0-0.2 Eos (Absolute) 0.4 {x10E3/uL} (Normal) Range: 0.0-0.4 Monocytes(Absolute) 0.9 {x10E3/uL} (Normal) Range: 0.1-0.9 Lymphs (Absolute) 1.7 {x10E3/uL} (Normal) Range: 0.7-3.1 Neutrophils (Absolute) 2.6 {x10E3/uL} (Normal) Range: 1.4-7.0 Basos 1 % (Normal) Eos 7 % (Normal) Monocytes 16 % (Normal) Lymphs 30 % (Normal) Neutrophils 46 % (Normal) Platelets 326 {x10E3/uL} (Normal) Range: 150-379 RDW 15.1 % (Normal) Range: 12.3-15.4 MCHC 32.9 g/dL (Normal) Range: 31.5-35.7 MCH 28.9 pg (Normal) Range: 26.6-33.0 MCV 88 fL (Normal) Range: 79-97 Hematocrit 43.2 % (Normal) Range: 34.0-46.6 Hemoglobin 14.2 g/dL (Normal) Range: 11.1-15.9 RBC 4.91 {x10E6/uL} (Normal) Range: 3.77-5.28 WBC 5.5 {x10E3/uL} (Normal) Range: 3.4-10.8 73-Xtg-096789:43 IGP, Comments: Source.............Cervical;EndocervicalOther..............Post MenopausalNo. of containers..01 CYTYC Thin Prep VialPATIENT NOT FASTINGPERFORMED BY: =G [facility] Ccqwgmyepn976 [facility] [address] Aptima [id number] BY: WB [facility] Xlbuafpebh361 [facility] [place] [id number] HPV, rfx 16/18,45 HPV Aptima Negative (Normal) Comments: This test detects fourteen high-risk HPV types (16/18/31/33/35/39/45/51/52/56/58/59/66/68) without differentiation. Note: PAPSMR (Normal) Comments: The Pap smear is a screening test designed to aid in the detection ofpremalignant and malignant conditions of the uterine cervix. It is not adiagnostic procedure and should not be used as the sole mean s of detectingcervical cancer. Both false-positive and false-negative reports do occur. . See Note . (Normal) DIAGNOSIS: SPRCS (Normal) Comments: NEGATIVE FOR INTRAEPITHELIAL LESION AND MALIGNANCY.CELLULAR CHANGES ASSOCIATED WITH ATROPHY ARE PRESENT.Satisfactory for evaluation. Endocervical component may not bedistinguished in cases of atrophy.V 70.0 ; Routine general medical examination at health care facilitySayra Cortez Marketing Support Coordinator (ASCP) 16-Wio-689268:43 Thin Comments: Source.............Cervical;EndocervicalOther..............Post MenopausalNo. of containers..01 CYTYC Thin Prep VialPATIENT NOT FASTINGPERFORMED BY: =G [facility] Ldfhxomcuw743 [facility] CenterCalinthe [facility] [place] [facility] [place] 253 Prep Pap [id number] BY: WB [facility] Pgyibtarke322 [place] [facility]aldGro[facility] Hospitalleroyjames [facility] [place] [id number] Information: [id number] (71611) Age Gdln ACOG Testing 30-65 (Normal) :48 CALCIFEDIOL (33496) Comments: PATIENT WAS FASTINGPERFORMED BY: [facility] Wijqed[address] [facility] Hospitalin [place] [id number] Vitamin D, 25-Hydroxy 50.3 ng/mL (Normal) Range: 30.0-100.0 Comments: Vitamin D deficiency has been defined by the [place] ofGreen Cross Hospitalcine and an Endocrine Society practice guideline as alevel of serum 25-OH vitamin D less than 20 ng/mL (1,2).The Endocrine Society went on to further define vitamin Dinsufficiency as a level between 21 and 29 ng/mL (2).1. IOM ([place] of Medicine). 2010. Dietary reference intakes for calcium and D. [place]: The National Academies Press.2. Melissa MF, Michael NC, Vannesa LEBLANC, et al. Evaluation, treatment, and prevention of vitamin D deficiency: an Endocrine Society clinical practice guideline. JCEM. 2010; 96(7):1911-30. :48 TSH (24001) Comments: PATIENT WAS FASTINGPERFORMED BY: [facility] Usfqwd[address] LouisDublin [place] [id number] TSH 1.890 {uIU/mL} (Normal) Range: 0.450-4.500 :48 CBC, Platelets & Auto Diff Comments: PATIENT WAS FASTINGPERFORMED BY: [facility] Wtmbgl[address] LouisDublin [place] [id number] Information: [id number] (91590) Immature Grans (Abs) 0.0 {x10E3/uL} (Normal) Range: 0.0-0.1 Immature Granulocytes 0 % (Normal) Baso (Absolute) 0.0 {x10E3/uL} (Normal) Range: 0.0-0.2 Eos (Absolute) 0.2 {x10E3/uL} (Normal) Range: 0.0-0.4 Monocytes(Absolute) 0.8 {x10E3/uL} (Normal) Range: 0.1-0.9 Lymphs (Absolute) 1.9 {x10E3/uL} (Normal) Range: 0.7-3.1 Neutrophils (Absolute) 3.3 {x10E3/uL} (Normal) Range: 1.4-7.0 Basos 1 % (Normal) Eos 4 % (Normal) Monocytes 12 % (Normal) Lymphs 31 % (Normal) Neutrophils 52 % (Normal) Platelets 286 {x10E3/uL} (Normal) Range: 150-379 RDW 13.7 % (Normal) Range: 12.3-15.4 MCHC 33.0 g/dL (Normal) Range: 31.5-35.7 MCH 28.8 pg (Normal) Range: 26.6-33.0 MCV 87 fL (Normal) Range: 79-97 Hematocrit 44.8 % (Normal) Range: 34.0-46.6 Hemoglobin 14.8 g/dL (Normal) Range: 11.1-15.9 RBC 5.14 {x10E6/uL} (Normal) Range: 3.77-5.28 WBC 6.2 {x10E3/uL} (Normal) Range: 3.4-10.8 :48 Metabolic Panel, Comprehensive Comments: PATIENT WAS FASTINGPERFORMED BY: LabCoHackensack University Medical CenterJyzcey9772 [facility] [id number] (08944) ALT (SGPT) 29 [iU]/L (Normal) Range: 0-32 AST (SGOT) 27 [iU]/L (Normal) Range: 0-40 Alkaline Phosphatase, S 59 [iU]/L (Normal) Range: 39-117 Bilirubin, Total 0.4 mg/dL (Normal) Range: 0.0-1.2 A/G Ratio 1.9 (Normal) Range: 1.1-2.5 Globulin, Total 2.2 g/dL (Normal) Range: 1.5-4.5 Albumin, Serum 4.2 g/dL (Normal) Range: 3.6-4.8 Protein, Total, Serum 6.4 g/dL (Normal) Range: 6.0-8.5 Calcium, Serum 9.1 mg/dL (Normal) Range: 8.6-10.2 Carbon Dioxide, Total 25 mmol/L (Normal) Range: 18-29 Chloride, Serum 103 mmol/L (Normal) Range: 97-108 Potassium, Serum 4.4 mmol/L (Normal) Range: 3.5-5.2 Sodium, Serum 143 mmol/L (Normal) Range: 134-144 BUN/Creatinine Ratio 26 (Normal) Range: 11-26 eGFR If Africn Am 95 mL/min/1.73 (Normal) eGFR If NonAfricn Am 83 mL/min/1.73 (Normal) Creatinine, Serum 0.76 mg/dL (Normal) Range: 0.57-1.00 BUN 20 mg/dL (Normal) Range: 8-27 Glucose, Serum 96 mg/dL (Normal) Range: 65-99 :48 Lipid Panel (76573) Comments: PATIENT WAS FASTINGPERFORMED BY: [employer] [place] [id number] LDL/HDL Ratio 2.6 {ratio_units} (Normal) Range: 0.0-3.2 Comments: LDL/HDL Ratio Men Women 1/2 Avg.Risk 1.0 1.5 Av g.Risk 3.6 3.2 2X Avg.Risk 6.2 5.0 3X Avg.Risk 8.0 6.1 LDL Cholesterol Calc 126 mg/dL (Abnormal) Range: 0-99 VLDL Cholesterol Cosmo 32 mg/dL (Normal) Range: 5-40 HDL Cholesterol 49 mg/dL (Normal) Comments: According to ATP-III Guidelines, HDL-C >59 mg/dL is considered anegative risk factor for CHD. Triglycerides 158 mg/dL (Abnormal) Range: 0-149 Cholesterol, Total 207 mg/dL (Abnormal) Range: 100-199 [id number] Microscopic Examination Comments: PATIENT NOT FASTINGPERFORMED BY: [employer] [facility] [id number] Bacteria Few (Normal) Mucus Threads Present (Normal) Crystal Type Uric Acid (Normal) Crystals Present (Abnormal) Epithelial Cells (non renal) 0-10 {/hpf} (Normal) Range: 0 - 10 RBC 0-3 {/hpf} (Normal) Range: 0 - 3 WBC 0-5 {/hpf} (Normal) Range: 0 - 5 :46 TSH ([id number]) Comments: PATIENT NOT FASTINGPERFORMED BY: [facility] [id number] TSH 0.895 {uIU/mL} (Normal) Range: 0.450-4.500 :46 URINALYSIS, W/ MICRO ([id number]) Comments: PATIENT NOT FASTINGPERFORMED BY: [employer] [facility] [id number] Microscopic Examination See below: (Normal) Microscopic Examination MICRON (Normal) Comments: Microscopic follows if indicated. Nitrite, Urine Negative (Normal) Urobilinogen,Semi-Qn 0.2 mg/dL (Normal) Range: 0.0-1.9 Bilirubin Negative (Normal) Ketones Negative (Normal) Occult Blood Negative (Normal) Glucose Negative (Normal) Protein Negative (Normal) WBC Esterase Negative (Normal) Appearance Clear (Normal) Urine-Color Yellow (Normal) pH 6.0 (Normal) Range: 5.0-7.5 Specific Antelope 1.017 (Normal) Range: 1.005-1.030 :46 METABOLIC PANEL, COMPREHENSIVE Comments: PATIENT NOT FASTINGPERFORMED BY: [employer] [facility] [id number] ([id number]) ALT (SGPT) 47 [iU]/L (Abnormal) Range: 0-32 AST (SGOT) 41 [iU]/L (Abnormal) Range: 0-40 Alkaline Phosphatase, S 113 [iU]/L (Normal) Range: 39-117 Bilirubin, Total 0.2 mg/dL (Normal) Range: 0.0-1.2 A/G Ratio 1.6 (Normal) Range: 1.1-2.5 Globulin, Total 2.6 g/dL (Normal) Range: 1.5-4.5 Albumin, Serum 4.2 g/dL (Normal) Range: 3.6-4.8 Protein, Total, Serum 6.8 g/dL (Normal) Range: 6.0-8.5 Calcium, Serum 9.4 mg/dL (Normal) Range: 8.6-10.2 Carbon Dioxide, Total 25 mmol/L (Normal) Range: 19-28 Chloride, Serum 104 mmol/L (Normal) Range: 97-108 Potassium, Serum 3.9 mmol/L (Normal) Range: 3.5-5.2 Sodium, Serum 143 mmol/L (Normal) Range: 134-144 BUN/Creatinine Ratio 33 (Abnormal) Range: 11-26 eGFR If Africn Am 115 mL/min/1.73 (Normal) eGFR If NonAfricn Am 100 mL/min/1.73 (Normal) Creatinine, Serum 0.54 mg/dL (Abnormal) Range: 0.57-1.00 BUN 18 mg/dL (Normal) Range: 8-27 Glucose, Serum 100 mg/dL (Abnormal) Range: 65-99 49-Igf-[id number]:46 CBC WITH MANUAL DIFF Comments: PATIENT NOT FASTINGPERFORMED BY: [facility] [id number] [facility] [id number] Information: [id number] ([id number]) Immature Grans (Abs) 0.0 {x10E3/uL} (Normal) Range: 0.0-0.1 Immature Granulocytes 0 % (Normal) Range: 0-2 Baso (Absolute) 0.0 {x10E3/uL} (Normal) Range: 0.0-0.2 Eos (Absolute) 0.2 {x10E3/uL} (Normal) Range: 0.0-0.4 Monocytes(Absolute) 0.9 {x10E3/uL} (Normal) Range: 0.1-0.9 Lymphs (Absolute) 1.6 {x10E3/uL} (Normal) Range: 0.7-3.1 Neutrophils (Absolute) 3.9 {x10E3/uL} (Normal) Range: 1.4-7.0 Basos 1 % (Normal) Range: 0-3 Eos 4 % (Normal) Range: 0-5 Monocytes 13 % (Abnormal) Range: 4-12 Lymphs 24 % (Normal) Range: 14-46 Neutrophils 58 % (Normal) Range: 40-74 Platelets 276 {x10E3/uL} (Normal) Range: 155-379 RDW 14.3 % (Normal) Range: 12.3-15.4 MCHC 33.6 g/dL (Normal) Range: 31.5-35.7 MCH 30.1 pg (Normal) Range: 26.6-33.0 MCV 90 fL (Normal) Range: 79-97 Hematocrit 44.4 % (Normal) Range: 34.0-46.6 Hemoglobin 14.9 g/dL (Normal) Range: 11.1-15.9 RBC 4.95 {x10E6/uL} (Normal) Range: 3.77-5.28 WBC 6.6 {x10E3/uL} (Normal) Range: 3.4-10.8 :05 Rapid Strep Test, Office ([id number]) Comments: sore throat Rapid Strep Test, Office Negative (Normal) :42 ABO Grouping and Rho(D) Comments: PATIENT WAS FASTINGPERFORMED BY: [facility] [id number] Typing Rh Factor Positive (Normal) Comments: Please note: Prior records for this patient's ABO / Rh type are notavailable for additional verification. ABO Grouping A (Normal) :42 Hemoglobin A1c 6.1 % (Abnormal) Comments: PATIENT WAS FASTINGPERFORMED BY: [employer] [facility]5to1[facility] [id number] Range: 4.8-5.6 Comments: . Increased risk for diabetes: 5.7 - 6.4 Diabetes: >6.4 Glycemic control for adults with diabetes: <7.0 :42 Lipid Panel With LDL/HDL Comments: PATIENT WAS FASTINGPERFORMED BY: [employer] [facility] [id number] Ratio LDL/HDL Ratio 2.5 {ratio_units} (Normal) Range: 0.0-3.2 LDL Cholesterol Calc 131 mg/dL (Abnormal) Range: 0-99 VLDL Cholesterol Cosmo 34 mg/dL (Normal) Range: 5-40 HDL Cholesterol 52 mg/dL (Normal) Comments: According to ATP-III Guidelines, HDL-C >59 mg/dL is considered anegative risk factor for CHD. Triglycerides 168 mg/dL (Abnormal) Range: 0-149 Cholesterol, Total 217 mg/dL (Abnormal) Range: 100-199 15-Cys-614389:55 CBC, PLATELETS & AUT DIFF Comments: PATIENT NOT FASTINGPERFORMED BY: ADRIANA [facility] [id number] Allison BarrC[facility] [id number] Information: ADD [id number] AND DRAW FEE [id number] (17819) Immature Grans (Abs) 0.0 {x10E3/uL} (Normal) Range: 0.0-0.1 Immature Granulocytes 0 % (Normal) Range: 0-1 Baso (Absolute) 0.1 {x10E3/uL} (Normal) Range: 0.0-0.2 Eos (Absolute) 0.3 {x10E3/uL} (Normal) Range: 0.0-0.4 Lymphs (Absolute) 1.9 {x10E3/uL} (Normal) Range: 0.7-4.5 Monocytes(Absolute) 1.3 {x10E3/uL} (Abnormal) Range: 0.1-1.0 Neutrophils (Absolute) 5.0 {x10E3/uL} (Normal) Range: 1.8-7.8 Basos 1 % (Normal) Range: 0-3 Eos 4 % (Normal) Range: 0-7 Lymphs 23 % (Normal) Range: 14-46 MCHC 33.2 g/dL (Normal) Range: 32.0-36.0 Monocytes 15 % (Abnormal) Range: 4-13 Neutrophils 57 % (Normal) Range: 40-74 Platelets 407 {x10E3/uL} (Normal) Range: 140-415 RDW 14.6 % (Normal) Range: 11.7-15.0 MCH 28.7 pg (Normal) Range: 27.0-34.0 MCV 87 fL (Normal) Range: 80-98 Hematocrit 39.8 % (Normal) Range: 34.0-44.0 Hemoglobin 13.2 g/dL (Normal) Range: 11.5-15.0 RBC 4.60 {x10E6/uL} (Normal) Range: 3.80-5.10 WBC 8.6 {x10E3/uL} (Normal) Range: 4.0-10.5 28-Bwz-465890:55 HEPATIC FUNCTION PANEL Comments: PATIENT NOT FASTINGPERFORMED BY: [employer] [id number] [facility] [id number] ([id number]) ALT (SGPT) 36 [iU]/L (Normal) Range: 0-40 AST (SGOT) 28 [iU]/L (Normal) Range: 0-40 Alkaline Phosphatase, S 84 [iU]/L (Normal) Range: 25-165 Bilirubin, Direct 0.07 mg/dL (Normal) Range: 0.00-0.40 Bilirubin, Total 0.2 mg/dL (Normal) Range: 0.0-1.2 Protein, Total, Serum 6.4 g/dL (Normal) Range: 6.0-8.5 :55 RENAL FUNCTION PANEL ([id number]) Comments: PATIENT NOT FASTINGPERFORMED BY: [facility] [id number] [facility] [id number] Albumin, Serum 3.9 g/dL (Normal) Range: 3.6-4.8 Calcium, Serum 8.7 mg/dL (Normal) Range: 8.6-10.2 Carbon Dioxide, Total 27 mmol/L (Normal) Range: 20-32 Chloride, Serum 104 mmol/L (Normal) Range: 97-108 Phosphorus, Serum 3.5 mg/dL (Normal) Range: 2.5-4.5 BUN/Creatinine Ratio 28 (Abnormal) Range: 8-27 eGFR AfricanAmerican >59 mL/min/1.73 Comments: Note: Persistent reduction for 3 months or more in an eGFR<60 mL/min/1.73 m2 defines CKD. Patients with eGFR values>/=60 mL/min/1.73 m2 may also have CKD if evidence of persistentproteinuria is (Normal) present. Additional information may be found [email or web address]. Potassium, Serum 3.7 mmol/L (Normal) Range: 3.5-5.2 Sodium, Serum 141 mmol/L (Normal) Range: 135-145 BUN 19 mg/dL (Normal) Range: 5-26 Creatinine, Serum 0.68 mg/dL (Normal) Range: 0.57-1.00 eGFR >59 mL/min/1.73 (Normal) Glucose, Serum 114 mg/dL (Abnormal) Range: 65-99 13-Bpc-479671:14 CBC HCT 38.3 % (Normal) Range: 37-47 HGB 12.9 g/dL (Normal) Range: 12.0-16.0 MCH 29.4 pg (Normal) Range: 27.0-32.0 MCHC 33.8 g/dL (Normal) Range: 32-36 MCV 87.1 fL (Normal) Range: 81-99 MPV 8.4 fL (Normal) Range: 6.5-12.0 PLT 336 K/mm3 (Normal) Range: 150-450 RBC 4.40 {M/mm3} (Normal) Range: 4.2-5.4 RDW 13.4 % (Normal) Range: 11.6-14.6 WBC 7.0 K/mm3 (Normal) Range: 4.4-11.0 :14 LIVER ALB 3.4 g/dL (Normal) Range: 3.4-5.0 ALK P 79 U/L (Normal) Range: 50-136 ALT 39 U/L (Normal) Range: 12-78 AST 24 U/L (Normal) Range: 15-37 D BILI < 0.05 mg/dL (Normal) Range: 0.00-0.30 T BILI 0.20 mg/dL (Normal) Range: 0.00-1.00 T PROT 6.8 g/dL (Normal) Range: 6.4-8.2 :14 SERUM CRE & GFR CREAT,SERUM 0.8 mg/dL (Normal) Range: 0.6-1.0 EST GFR 78 mL/min (Normal) EST GFR - AA 95 mL/min (Normal) :45 CBC HCT 40.8 % (Normal) Range: 37-47 HGB 13.7 g/dL (Normal) Range: 12.0-16.0 MCH 29.3 pg (Normal) Range: 27.0-32.0 MCHC 33.6 g/dL (Normal) Range: 32-36 MCV 87.2 fL (Normal) Range: 81-99 MPV 7.6 fL (Normal) Range: 6.5-12.0 PLT 310 K/mm3 (Normal) Range: 150-450 RBC 4.68 {M/mm3} (Normal) Range: 4.2-5.4 RDW 12.7 % (Normal) Range: 11.6-14.6 WBC 8.6 K/mm3 (Normal) Range: 4.4-11.0 :45 ESR SED RATE 47 mm/h (Abnormal) Range: 0-30 :45 LIVER ALB 3.4 g/dL (Normal) Range: 3.4-5.0 ALK P 77 U/L (Normal) Range: 50-136 ALT 40 U/L (Normal) Range: 12-78 AST 26 U/L (Normal) Range: 15-37 D BILI 0.07 mg/dL (Normal) Range: 0.00-0.30 T BILI 0.30 mg/dL (Normal) Range: 0.00-1.00 T PROT 7.1 g/dL (Normal) Range: 6.4-8.2 :45 SERUM CRE & GFR EST GFR 108 mL/min (Normal) EST GFR - AA 131 mL/min (Normal) CREAT,SERUM 0.6 mg/dL (Normal) Range: 0.6-1.0 :27 CBC Comments: DR. JULES ORDERED CBC LIVER ROBERTO MCRAE ORDERED VITD HCT 39.9 % (Normal) Range: 37-47 HGB 13.6 g/dL (Normal) Range: 12.0-16.0 MCH 30.2 pg (Normal) Range: 27.0-32.0 MCHC 34.0 g/dL (Normal) Range: 32-36 MCV 88.7 fL (Normal) Range: 81-99 MPV 7.5 fL (Normal) Range: 6.5-12.0 PLT 338 K/mm3 (Normal) Range: 150-450 RBC 4.49 {M/mm3} (Normal) Range: 4.2-5.4 RDW 12.9 % (Normal) Range: 11.6-14.6 WBC 7.1 K/mm3 (Normal) Range: 4.4-11.0 :27 LIVER Comments: DR. JULES ORDERED CBC LIVER ROBERTO MCRAE ORDERED VITD ALB 3.4 g/dL (Normal) Range: 3.4-5.0 ALK P 89 U/L (Normal) Range: 50-136 ALT 32 U/L (Normal) Range: 12-78 AST 17 U/L (Normal) Range: 15-37 D BILI 0.11 mg/dL (Normal) Range: 0.00-0.30 T BILI 0.40 mg/dL (Normal) Range: 0.00-1.00 T PROT 7.0 g/dL (Normal) Range: 6.4-8.2 :27 SERUM CRE & GFR Comments: DR. JULES ORDERED CBC LIVER CREMARY CILISAA ORDERED VITD CREAT,SERUM 0.7 mg/dL (Normal) Range: 0.6-1.0 EST GFR 90 mL/min (Normal) EST GFR - AA 109 mL/min (Normal) :27 VIT D,25 63499 41.1 ng/mL (Normal) Comments: DR. JULES ORDERED CBC LIVER CREMARY CIESA ORDERED VITD Range: 32.0-100.0 Comments: Recent studies consider the lower limit of 32.0 ng/mL to arminda threshold for optimal health.Roe DURHAM. J Nutr. 2004;135(2):317-22.Performed at: [facility] [place]Jean[place] [address]Lab Director: Marlene Myers MD, Phone: [phone] 20-Tqn-501858:55 Glucose, PP/2 Hour Comments: PATIENT WAS FASTINGPERFORMED BY: [facility] [id number] Information: [id number] 75G DRAWN @ 1015AM (20547) Glucose, Two-Hour Postprandial 109 mg/dL (Normal) Range: 65-139 28-Abg-983058:58 BILAT SCRN DIGITAL & CAD Radiology Report See Note (Normal) Comments: Exam Number: [id number] MAMMOGRAM, BILATERAL SCREENING DIGITAL AND CAD HISTORYRoutine screening. Full field digital images were obtained in mediolateral oblique andcraniocaudal projection. CAD images we re reviewed. The current study is compared to the examinations of December 08, 2006,April 13, 2008, and April 26, 2008. There is moderately dense fibroglandular parenchyma present. Thebreast parenchyma is heterogeneous. There is no skin thickening orretraction, architectural distortion, or cluster of suspiciousmicrocalcifications. There is no dominant mass or significantinterval change seen. If there is no suspicious palpableabnormality, followup mammogram in 1 year is recommended. IMPRESSIONThere is no radiographic evidence of malignancy identified. FINAL ASSESSMENTBenign findings. BIRADS Category 2. A letter regarding these results has been sent to the patient. This interpretation was rendered by a radiologist certified under theMammography Quality Standards Act of 1992 (MQSA). The mammograms werealso examined with computer-aided detection software ([employer] Reported By: BRYAN HERNANDEZ M.D. 29-Wnz-193255:58 DEXA BONE DENSITY STUDY () Radiology Report See Note (Normal) Comments: Exam Number: [id number] BONE DENSITOMETRY HISTORYOsteopenia. TECHNIQUEBone densitometry of the lumbar spine and both hips is now beingperformed. The best criteria for evaluation of osteoporosis is theT- value, which represents the comparison of the patient's bone mass joelle expected peak bone mass. For most patients, the mean T-value of A4yynyant L4 is used to evaluate the lumbar spine. To evaluate th e hip,the lower T-value of the femoral neck or total hip is used. FINDINGSIn this patient, the mean T-value of L1 through L4 is minus 2.1, whichis in the range of osteopenia. Bone mineral density is me asured at3.2% less than in 2000, and 0.9% more than in 2006. Digital lateralview for evaluation of vertebral deformity only demonstrates nofractures. The T- value of the left femoral neck is minus 1.3, whichis in the range of osteopenia. The T-value of the total hip is minus0.8, which is normal. Bone mineral density is measured at 7.2% lessthan in 2000, and 3.5% less than in 2006. The T-value of t he rightfemoral neck is minus 1.6, which is in the range of osteopenia. TheT- value of the total right hip is minus 0.6. IMPRESSIONThere is osteopenia of the lumbar spine and both hips. Reported By: BRYAN HERNANDEZ M.D. :0 INSULIN 4333 16.5 {uIU/mL} Comments: ORDERED CBC,LIVER,CRE,CRP,ESRDR ROHINI ORDERED CBCMD,LIPID,CMP,A1C,INSULIN,FT3,TSH 9 (Normal) Range: 0.0-24.9 Comments: Performed At: [address] [id number] :37 C-REACTIVE PROT 3.49 mg/L (Abnormal) Comments: DR NOVA ORDERED LIPID,CMP,CBC, EMMANUEL JULES ORDERED CBC,LIVER,SED RATE, CRP, AND CREATININE Range: 0.0-3.0 Comments: C-Reactive Protein (CRP) provides useful information for thediagnosis, therapy and monitoring of inflammatory processesand associated diseases. For the evaluation of Relative Riskfor Cardiovascular Dise ase, a High Sensitivity CRP (HSCRP)should be ordered. :37 CBC Comments: DR NOVA ORDERED LIPID,CMP,CBC, EMMANUEL JULES ORDERED CBC,LIVER,SED RATE, CRP, AND CREATININE HCT 40.7 % (Normal) Range: 37-47 HGB 14.2 g/dL (Normal) Range: 12.0-16.0 MCH 30.1 pg (Normal) Range: 27.0-32.0 MCHC 34.8 g/dL (Normal) Range: 32-36 MCV 86.6 fL (Normal) Range: 81-99 MPV 8.4 fL (Normal) Range: 6.5-12.0 PLT 263 K/mm3 (Normal) Range: 150-450 RBC 4.70 {M/mm3} (Normal) Range: 4.2-5.4 RDW 13.5 % (Normal) Range: 11.6-14.6 WBC 4.7 K/mm3 (Normal) Range: 4.4-11.0 :37 COMP METABOLIC Comments: DR NOVA ORDERED LIPID,CMP,CBC, EMMANUEL JULES ORDERED CBC,LIVER,SED RATE, CRP, AND CREATININE A/G 1.0 {RATIO} (Normal) Range: 0.9-2.4 ALB 3.5 g/dL (Normal) Range: 3.4-5.0 ALK P 73 U/L (Normal) Range: 50-136 ALT 41 U/L (Normal) Range: 30-65 AST 24 U/L (Normal) Range: 15-37 BUN 27 mg/dL (Abnormal) Range: 7-18 BUN/CRE 38.6 {RATIO} (Abnormal) Range: 10-20 CA 8.6 mg/dL (Normal) Range: 8.5-10.1 CL 111 mmol/L (Abnormal) Range: 98-107 CO2 26.0 mmol/L (Normal) Range: 21.0-32.0 CREAT,SERUM 0.7 mg/dL (Normal) Range: 0.6-1.0 EST GFR 91 mL/min (Normal) EST GFR - AA 110 mL/min (Normal) GAP 6 (Normal) Range: 5-15 GLOB 3.4 g/dL (Normal) Range: 2.7-4.2 GLU 109 mg/dL (Normal) Range: 70-110 K 3.9 mmol/L (Normal) Range: 3.5-5.1 NA 143 mmol/L (Normal) Range: 136-145 T BILI 0.30 mg/dL (Normal) Range: 0.00-1.00 T PROT 6.9 g/dL (Normal) Range: 6.4-8.2 :37 D BILI 0.06 mg/dL (Normal) Comments: DR NOVA ORDERED LIPID,CMP,CBC, UADR WOJNO ORDERED CBC,LIVER,SED RATE, CRP, AND CREATININE Range: 0.00-0.30 :37 ESR Comments: DR NOVA ORDERED LIPID,CMP,CBC, UADR WOJNO ORDERED CBC,LIVER,SED RATE, CRP, AND CREATININE SED RATE 15 mm/h (Normal) Range: 0-30 :37 LIPID Comments: DR NOVA ORDERED LIPID,CMP,CBC, UADR WOJNO ORDERED CBC,LIVER,SED RATE, CRP, AND CREATININE CHOL 202 mg/dL (Abnormal) Comments: <200 mg/dL Desirable 200-240 mg/dL Borderline >240 mg/dL High Risk HDL 37 mg/dL (Normal) Comments: Reference Range HDL <40 mg/dL Low HDL Cholesterol HDL >or= 60 mg/dL High HDL Cholesterol LDL 134 mg/dL (Abnormal) Range: 0-130 TRIG 156 mg/dL (Normal) Comments: Serum Triglycerides Reference Interval Normal <150 mg/dL Borderline high 150 - 199 mg/dL High 200 - 499 mg/dL Very High > or = 500 mg/dL VLDL 31 mg/dL (Normal) Range: 5-40 10-Jun-20098:37 ROUTINE UA Comments: DR NOVA ORDERED LIPID,CMP,CBC, UADR JULES ORDERED CBC,LIVER,SED RATE, CRP, AND CREATININE BILIRUBIN URINE SeeNote (Normal) Comments: Result: NEGATIVE CLARITY CLEAR (Normal) COLOR YELLOW (Normal) GLUCOSE, UR SeeNote (Normal) Comments: Result: NEGATIVE KETONE UR SeeNote mg/dL (Normal) Comments: Result: NEGATIVE LEUK ESTERASE SeeNote (Normal) Comments: Result: NEGATIVE NITRITE UR SeeNote (Normal) Comments: Result: NEGATIVE OCCULT BLOOD-UR SeeNote (Normal) Comments: Result: NEGATIVE pH UR 5.5 (Normal) Range: 5.0-8.0 PROT DIPSTX SeeNote (Normal) Comments: Result: NEGATIVE SP.GR. DIPSTX >=1.030 (Normal) Range: 1.002-1.030 UROBILI 0.2 EU/dl (Normal) Range: 0.2 - 1.0 6-Hse-800271:54 CALCIFEDIOL (14528) Comments: PATIENT NOT FASTINGPERFORMED BY: [facility] [id number] CooperMediaSiteC[facility] [id number] Vitamin D, 25-Hydroxy 35.4 ng/mL (Normal) Range: 32.0-100.0 Comments: Recent studies consider the lower limit of 32.0 ng/mL to be athreshold for optimal health.Roe DURHAM. J Nutr. 2004;135(2):317-22. 8-Fcg-954998:54 VITAMIN D, 1, 25-DIHYDROXY Comments: PATIENT NOT FASTINGClinical Information: ADD DRAW FEE [id number] ADD J [id number] PERFORMED BY: [facility] [id number] [facility] BenchBankingC[facility] [id number] ([id number]) Calcitriol(1,25 di-OH Vit D) 44.1 pg/mL (Normal) Range: 15.9-55.6 79-Woc-229164:17 Thin prep Pap Comments: Source.............Cervical;EndocervicalLMP / Prev Treat...FVW=[id number]. of containers..01 CYTYC Thin Prep VialPATIENT NOT FASTINGClinical Information: ADD [id number] ([id number]) PERFORMED BY: [facility] [place] [id number] . . (Normal) DIAGNOSIS: SPRCS (Normal) Comments: NEGATIVE FOR INTRAEPITHELIAL LESION AND MALIGNANCY.CELLULAR CHANGES ASSOCIATED WITH ATROPHY ARE PRESENT.Satisfactory for evaluation. Endocervical and/or squamous metaplasticcells (endocervical componen t) are present.V72.31 ; Routine gynecological examinationLindsjuan jose Feliep, Marketing Support Coordinator (ASCP) Note: PAPSMR (Normal) Comments: The Pap smear is a screening test designed to aid in the detection ofpremalignant and malignant conditions of the uterine cervix. It is not adiagnostic procedure and should not be used as the sole mean s of detectingcervical cancer. Both false-positive and false-negative reports do occur. .The HPV DNA reflex criteria were not met with this specimen resulttherefore, no HPV testing was performed. . 10-Qkt-547250:06 BILAT DIAG DIGITAL & CAD Radiology Report See Note (Normal) Comments: Exam Number: [id number] MAMMOGRAM, BILATERAL DIAGNOSTIC DIGITAL AND CAD HISTORYAbnormal screening study. Full field digital images were obtained in bilateral, true lateral,and mediolateral oblique and cr aniocaudal spot compression views. The current study is compared to the examinations of November 2006 andApril 13, 2008. There is moderately dense fibroglandular parenchyma present. There isno skin thicke meg or retraction, architectural distortion, or clusterof suspicious microcalcifications. The areas of asymmetricparenchymal density identified in both breasts on the examination ofApril 13, 2008 are no t persistent on the additional views. The areas ofdensity, therefore, were most compatible with superimposition. Ifthere is no suspicious palpable abnormality, followup mammogram in 1year is recommend ed. IMPRESSIONThere is no radiographic evidence of malignancy identified. FINAL ASSESSMENTBenign findings. BIRADS Category 2. A letter regarding these results has been sent to the patient. This interp retation was rendered by a radiologist certified under theMammography Quality Standards Act of 1992 (MQSA). The mammograms werealso examined with computer- aided detection software ([employer] Reported By: BRYAN HERNANDEZ M.D. 4-Ply-848424:21 [facility] Radiology Report See Note (Normal) Comments: Exam Number: [id number] MAMMOGRAM, BILATERAL SCREENING DIGITAL AND CAD HISTORYRoutine screening. Full field digital images were obtained in mediolateral oblique andcraniocaudal projections. CAD images w ere reviewed. The current study is compared to the examinations of January andNovember. There is moderately dense fibroglandular parenchyma present. There isno skin thickening or retraction, archi tectural distortion, or clusterof suspicious microcalcifications. On each side, there are 2densities seen in the mediolateral oblique projection which are onlyquestionably identified on the previous ex amination. On the left, thedensities are located in the upper probably the outer quadrant of thebreast. They are located in the upper outer quadrant of the rightbreast as well. For further evaluation of these findings, bilateral,true lateral, and mediolateral oblique, and craniocaudal views arerecommended. IMPRESSIONThere are apparently new densities on both sides for which additionalviews are vera mmended. FINAL ASSESSMENTNeed additional imaging evaluation. BIRADS Category 0. A letter regarding these results has been sent to the patient. This interpretation was rendered by a radiologist certifi ed under theMammography Quality Standards Act of 1992 (MQSA). The mammograms werealso examined with computer-aided detection software ([employer] Reported By: BRYAN HERNANDEZ M.D. 02-Zls-16074:24 LIPID CHOL 207 mg/dL (Abnormal) Comments: <200 mg/dL Desirable 200-240 mg/dL Borderline >240 mg/dL High Risk HDL 39 mg/dL (Normal) Comments: Reference Range HDL <40 mg/dL Low HDL Cholesterol HDL >or= 60 mg/dL High HDL Cholesterol LDL 133 mg/dL (Abnormal) Range: 0-130 TRIG 175 mg/dL (Normal) Comments: Serum Triglycerides Reference Interval Normal <150 mg/dL Borderline high 150 - 199 mg/dL High 200 - 499 mg/dL Very High > or = 500 mg/dL VLDL 35 mg/dL (Normal) Range: 5-40 :24 LIVER ALB 3.7 g/dL (Normal) Range: 3.4-5.0 ALK P 87 U/L (Normal) Range: 50-136 ALT 55 [iU]/L (Normal) Range: 30-65 AST 32 U/L (Normal) Range: 15-37 D BILI 0.06 mg/dL (Normal) Range: 0.00-0.30 T BILI 0.44 mg/dL (Normal) Range: 0.00-1.00 T PROT 6.7 g/dL (Normal) Range: 6.4-8.2 21-Qqc-420852:20 Thin prep Pap Comments: Source.............Cervical;EndocervicalLMP / Prev Treat...YUZ=[id number];NoneNo. of containers..01 CYTYC Thin Prep VialPERFORMED BY: [facility] [id number] ([id number]) . . (Normal) DIAGNOSIS: SPRCS (Normal) Comments: NEGATIVE FOR INTRAEPITHELIAL LESION AND MALIGNANCY.CELLULAR CHANGES ASSOCIATED WITH ATROPHY ARE PRESENT.Satisfactory for evaluation. Endocervical and/or squamous metaplasticcells (endocervical componen t) are present.V76.2 ; Screening for malignant neoplasm of the cervixHyun Herrera Marketing Support Coordinator (ASCP) Note: PAPSMR (Normal) Comments: The Pap smear is a screening test designed to aid in the detection ofpremalignant and malignant conditions of the uterine cervix. It is not adiagnostic procedure and should not be used as the sole mean s of detectingcervical cancer. Both false-positive and false-negative reports do occur. .The HPV DNA reflex criteria were not met with this specimen resulttherefore, no HPV testing was performed. . :03 C-REACTIVE PROT 2.30 mg/L (Normal) Range: 0.0-6.0 Comments: Test performed using the Dimension C-Reactive ProteinExtended Range assay method. This assay meets the AHA/CDC 2003 recommendations fordetermining patients at high risk for cardiovasculardisease. Reference: High risk CRP >3.0 mg/L :03 CBC HCT 43.4 % (Normal) Range: 37-47 HGB 14.9 g/dL (Normal) Range: 12.0-16.0 MCH 30.0 pg (Normal) Range: 27.0-32.0 MCHC 34.3 g/dL (Normal) Range: 32-36 MCV 87.3 fL (Normal) Range: 81-99 PLT 289 K/mm3 (Normal) Range: 150-450 RBC 4.97 {M/mm3} (Normal) Range: 4.2-5.4 RDW 13.3 % (Normal) Range: 11.6-14.6 WBC 6.1 K/mm3 (Normal) Range: 4.4-11.0 :03 ESR SED RATE 8 mm/h (Normal) Range: 0-30 :03 LIVER ALB 3.9 g/dL (Normal) Range: 3.4-5.0 ALK P 86 U/L (Normal) Range: 50-136 ALT 60 [iU]/L (Normal) Range: 30-65 AST 32 U/L (Normal) Range: 15-37 Comments: SPECIMEN IS LIPEMIC. ULTRACENTRIFUGATION TECHNIQUE USED FORANALYSIS. D BILI 0.04 mg/dL (Normal) Range: 0.00-0.30 T BILI 0.30 mg/dL (Normal) Range: 0.00-1.00 T PROT 7.1 g/dL (Normal) Range: 6.4-8.2 :03 SMEAR COMMENT COMMENT (Normal) Comments: SLIDE SCANNED NO NRBCS NOTED. 90-Tig-411234:0 C-REACTIVE PROT 2.70 mg/L (Normal) Range: 0.0-6.0 0 Comments: Test performed using the Dimension C-Reactive ProteinExtended Range assay method. This assay meets the AHA/CDC 2003 recommendations fordetermining patients at high risk for cardiovasculardisease. Reference: High risk CRP >3.0 mg/L 88-Zxz-136473:00 CBC Comments: CBC AND LIVER RESULTS TO FAX---- [phone] HCT 44.1 % (Normal) Range: 37-47 HGB 14.9 g/dL (Normal) Range: 12.0-16.0 MCH 29.3 pg (Normal) Range: 27.0-32.0 MCHC 33.7 g/dL (Normal) Range: 32-36 MCV 86.7 fL (Normal) Range: 81-99 PLT 296 K/mm3 (Normal) Range: 150-450 RBC 5.09 {M/mm3} (Normal) Range: 4.2-5.4 RDW 13.2 % (Normal) Range: 11.6-14.6 WBC 6.4 K/mm3 (Normal) Range: 4.4-11.0 :00 COMP METABOLIC A/G 1.1 {RATIO} (Normal) Range: 0.9-2.4 ALB 3.8 g/dL (Normal) Range: 3.4-5.0 ALK P 101 U/L (Normal) Range: 50-136 ALT 57 [iU]/L (Normal) Range: 30-65 AST 31 U/L (Normal) Range: 15-37 CA 9.2 mg/dL (Normal) Range: 8.5-10.1 CL 104 mmol/L (Normal) Range: 98-107 CO2 25.6 mmol/L (Normal) Range: 22.0-29.0 GAP 10 (Normal) Range: 5-15 GLOB 3.4 g/dL (Normal) Range: 2.3-3.5 K 4.0 mmol/L (Normal) Range: 3.5-5.1 NA 140 mmol/L (Normal) Range: 136-145 T BILI 0.23 mg/dL (Normal) Range: 0.00-1.00 BUN 21 mg/dL (Abnormal) Range: 7-18 BUN/CRE 26.3 {RATIO} (Abnormal) Range: 10-20 CREAT,SERUM 0.8 mg/dL (Normal) Range: 0.6-1.0 GLU 90 mg/dL (Normal) Range: 70-110 T PROT 7.2 g/dL (Normal) Range: 6.4-8.2 :00 D BILI 0.05 mg/dL (Normal) Range: 0.00-0.30 :00 PFLIP CHOL 230 mg/dL (Abnormal) Comments: <200 mg/dL Desirable 200-240 mg/dL Borderline >240 mg/dL High Risk HDL 46 mg/dL (Normal) Comments: Reference Range HDL <40 mg/dL Low HDL Cholesterol HDL >or= 60 mg/dL High HDL Cholesterol LDL 154 mg/dL (Abnormal) Range: 0-130 TRIG 149 mg/dL (Normal) Comments: Serum Triglycerides Reference Interval Normal <150 mg/dL Borderline high 150 - 199 mg/dL High 200 - 499 mg/dL Very High > or = 500 mg/dL VLDL 30 mg/dL (Normal) Range: 5-40 Plan of Care Name Dates Details Instructions Upper respiratory infection, viral : Follow up if no improvement or if symptoms worsen Indication: Upper respiratory infection, viral Candidiasis, mouth : Thrush: mouth Indication: Candidiasis, mouth Upper respiratory infection, viral : Common Cold *: upper respiratory infection Indication: Upper respiratory infection, viral Non-smoker : Eprescribed prescriptions (G8553) Indication: Non-smoker Rheumatoid arthritis : Reviewed [employer] Letter Indication: Rheumatoid arthritis Rheumatoid arthritis : Reviewed [employer] Feeder Letter Indication: Rheumatoid arthritis Impaired fasting glucose : Follow up in 4 months Indication: Impaired fasting glucose Hypercholesteremia : Cholesterol mgmt Indication: Hypercholesteremia Hypertension, benign : HTN/CAD Red Flags Indication: Hypertension, benign Chronic GERD : GERD Education Indication: Chronic GERD Cough : Follow up if no improvement or if symptoms worsen Indication: Cough Pain and swelling of elbow, left : Eprescribed prescriptions (G8553) Indication: Pain and swelling of elbow, left Non-smoker : Follow up in 2 weeks Indication: Non-smoker Rheumatoid arthritis : Reviewed Diagnostic Tests Indication: Rheumatoid arthritis 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 BMI 31.0-31.9,adult : Eprescribed prescriptions (G8553) Indication: BMI 31.0-31.9,adult Rheumatoid arthritis : Eprescribed prescriptions (G8553) Indication: Rheumatoid arthritis Pain and swelling of elbow, left : Reviewed Lab Indication: Pain and swelling of elbow, left Pain and swelling of elbow, left : Reviewed Diagnostic Tests Indication: Pain and swelling of elbow, left Pain and swelling of elbow, left : Reviewed [employer] Letter Indication: Pain and swelling of elbow, left Non-smoker : Follow up after consult Indication: Non-smoker Pain and swelling of elbow, left : Eprescribed prescriptions (G8553) Indication: Pain and swelling of elbow, left Pain and swelling of elbow, left : Reviewed ER note Indication: Pain and swelling of elbow, left Non-smoker : Follow up in 1 week Indication: Non-smoker Pain and swelling of elbow, left : Eprescribed prescriptions (G8553) Indication: Pain and swelling of elbow, left BMI 30.0-30.9,adult : Eprescribed prescriptions (G8553) Indication: BMI 30.0-30.9,adult Impaired fasting glucose : Follow up in 4 months Indication: Impaired fasting glucose Rheumatoid arthritis : Reviewed [employer] Letter Indication: Rheumatoid arthritis Hypercholesteremia : Cholesterol mgmt Indication: Hypercholesteremia Chronic GERD : GERD Education Indication: Chronic GERD Hypertension, benign : HTN/CAD Red Flags Indication: Hypertension, benign Hypertension, benign : Diet, Exercise, and Wt loss Indication: Hypertension, benign Impaired fasting glucose : Eprescribed prescriptions (G8553) Indication: Impaired fasting glucose Cough : Follow up if no improvement or if symptoms worsen Indication: Cough Cough : *Antibiotic Usage Education - Female Indication: Cough Rheumatoid arthritis : Reviewed Lab Indication: Rheumatoid arthritis Rheumatoid arthritis : Reviewed [employer] Letter Indication: Rheumatoid arthritis Impaired fasting glucose : Follow up in 4 months Indication: Impaired fasting glucose Impaired fasting glucose : *Diabetes Education Indication: Impaired fasting glucose Hypercholesteremia : Cholesterol mgmt Indication: Hypercholesteremia Hypertension : Eprescribed prescriptions (G8553) Indication: Hypertension Candidiasis, mouth : Follow up if no improvement or if symptoms worsen Indication: Candidiasis, mouth Candidiasis, mouth : Eprescribed prescriptions (G8553) Indication: Candidiasis, mouth Rheumatoid arthritis : fall reduction handout Indication: Rheumatoid arthritis Rheumatoid arthritis : elderly packet given Indication: Rheumatoid arthritis Rheumatoid arthritis : advance planning information Indication: Rheumatoid arthritis Fibromyalgia : Follow up if no improvement or if symptoms worsen Indication: Fibromyalgia Encounter for health maintenance examination with abnormal findings : *Colon Cancer Screening Indication: Encounter for health maintenance examination with abnormal findings Encounter for annual routine gynecological examination : Mammogram *: gynecological health Indication: Encounter for annual routine gynecological examination Hypertension : Eprescribed prescriptions (G8553) Indication: Hypertension Migraine : Migraine Headache: Brief Version *: migraines Indication: Migraine Conjunctivitis : *Conjunctivitis Education Indication: Conjunctivitis Depressive disorder : *Antidepressant Usage Indication: Depressive disorder Depressive disorder : depression/anxiety treatment Indication: Depressive disorder Migraine : Reviewed [employer] Letter Indication: Migraine Encounter for annual routine gynecological examination : Colon Cancer Screening Indication: Encounter for annual routine gynecological examination Encounter for annual routine gynecological examination : Pap/Pelvic/Bimanual/Rectal/Breast Exam was done. Indication: Encounter for annual routine gynecological examination Encounter for annual routine gynecological examination : Self Breast Exam Education Indication: Encounter for annual routine gynecological examination Encounter for annual routine gynecological examination : Well Female Maintenance (KF) Indication: Encounter for annual routine gynecological examination SPECIAL SCREENING FOR MALIGNANT NEOPLASMS OF THE CERVIX : Colon Cancer Screening Indication: SPECIAL SCREENING FOR MALIGNANT NEOPLASMS OF THE CERVIX Neoplasm of uncertain behavior of skin : Shave Biopsy without Epi Indication: Neoplasm of uncertain behavior of skin Hypercholesteremia : Cholesterol - Medication Side Effects Indication: Hypercholesteremia Hypercholesteremia : Cholesterol - Nonprescription Treatment Indication: Hypercholesteremia Encounter for annual routine gynecological examination : Pap/Pelvic/Bimanual/Rectal/Breast Exam was done. Indication: Encounter for annual routine gynecological examination Encounter for annual routine gynecological examination : Well Female Maintenance (KF) Indication: Encounter for annual routine gynecological examination Planned Observations VITAMIN B12 AND FOLATES ([id number])Indication: Hair loss On: :33 Request T4, FREE (THYROXINE) (74076)Indication: Hair loss On: :32 Request T3, FREE (TRIDOTHYRONINE) (54977)Indication: Hair loss On: 90-Qzr-184078:32 Request Methymalonic Acid, Serum (96528)Indication: Hair loss On: 24-Vyk-528653:32 Request Metabolic Panel, Comprehensive (50752)Indication: Hair loss On: 51-Wyd-564995:32 Request IRON (28713)Indication: Hair loss On: 40-Puy-239292:32 Request DHEA-S (DEHYDROEPIANDROSTERONE SULFATE) (93096)Indication: Hair loss On: :32 Request FERRITIN (10238)Indication: Hair loss On: 68-Eho-649582:32 Request TSH (62995)Indication: Hair loss On: 97-Zix-446904:32 Request TSH (77842)Indication: Nocturnal leg cramps On: 72-Xez-679110:41 Request METABOLIC PANEL, COMPREHENSIVE (93534)Indication: Nocturnal leg cramps On: 28-Ora-904373:41 Request CBC W/AUTO DIFF WBC (37783)Indication: Nocturnal leg cramps On: 01-Rsj-888668:41 Request CALCIFIDIOL (56739) VIT D 25Indication: Depressive disorder On: 37-Kpw-089955:39 Request TSH (32261)Indication: Impaired fasting glucose On: :39 Request URINALYSIS, W/ MICRO (34058)Indication: Impaired fasting glucose On: :39 Request MICROALBUMIN: CREATININE RATIO (65141) AND (11041)Indication: Impaired fasting glucose On: :39 Request METABOLIC PANEL, COMPREHENSIVE (82250)Indication: Impaired fasting glucose On: :39 Request LIPID PANEL (84604)Indication: Impaired fasting glucose On: :39 Request CBC W/AUTO DIFF WBC (68022)Indication: Impaired fasting glucose On: :39 Request URINALYSIS, W/ MICRO (78124)Indication: Hypertension On: :46 Request MICROALBUMIN: CREATININE RATIO (19612) AND (86462)Indication: Hypertension On: :46 Request TSH ([id number])Indication: Impaired fasting glucose On: :45 Request LIPID PANEL (52597)Indication: Hypertension On: :45 Request METABOLIC PANEL, COMPREHENSIVE (48678)Indication: Hypertension On: :45 Request HEPATITIS PANEL ([id number])Indication: Elevated liver enzymes On: 36-Biv-620727:22 Request Comments: recheck in 6 weeks HEPATIC FUNCTION PANEL ([id number])Indication: Elevated liver enzymes On: 14-Cjj-435917:21 Request Comments: recheck in 6 weeks LIPID PANEL (24954)Indication: Hypertension On: :34 Request BLOOD TYPE ANTIGEN DONOR EA ([id number])Indication: ENCOUNTER, BLOOD TYPING On: :34 Request Hemoglobin Glyclated (HGB A1C) (54977)Indication: ABNORMAL GLUCOSE NEC On: 15-Bmw-936913:04 Request LIPID PANEL (43634)Indication: Hypercholesteremia On: :04 Request URINALYSIS, W/ MICRO (72762)Indication: Hypertension On: 8-Kly-344823:03 Request METABOLIC PANEL, COMPREHENSIVE (09759)Indication: Hypertension On: 3-Kjy-116494:03 Request LIPID PANEL (27940)Indication: Hypertension On: 6-Osh-736949:03 Request CBC WITH MANUAL DIFF (08521)Indication: Hypertension On: 2-Sgv-049843:03 Request METABOLIC PANEL, COMPREHENSIVE ([id number])Indication: Hypercholesteremia On: :07 Request CBC WITH MANUAL DIFF ([id number])Indication: Hypercholesteremia On: 7-Dwl-049590:07 Request LIPID PANEL (42305)Indication: Hypercholesteremia On: 3-Dzu-043724:07 Request URINALYSIS ([id number])Indication: Hypertension On: :48 Request CBC (Auto) ([id number])Indication: Hypertension On: :48 Request Metabolic Panel, Comprehensive (61668)Indication: Hypertension On: :48 Request Lipid Panel (63917)Indication: Hypertension On: :48 Request CBC (Auto) ([id number])Indication: Hypertension On: 98-Fht-873907:44 Request Metabolic Panel, Comprehensive (43013)Indication: Hypertension On: 95-Ssk-937412:44 Request HEPATIC FUNCTION PANEL (76135)Indication: Hypercholesteremia On: 2-Jol-411310:34 Request LIPID PANEL (12522)Indication: Hypercholesteremia On: 8-Hps-270322:34 Request CBC (AUTO) ([id number])Indication: Hypertension On: :28 Request METABOLIC PANEL, COMPREHENSIVE (31571)Indication: Hypertension On: 57-Zvk-595138:28 Request LIPID PANEL ([id number])Indication: Hypertension On: 29-Dyk-566300:28 Request Thin prep Pap ([id number])Indication: Encounter for annual routine gynecological examination On: :23 Request Planned Procedures ELECTROCARDIOGRAM, COMPLETE (ECG) On: 09-Jun-2017 Intent (00784)By: Ciara Caballero DO Comments: nsr no acute Ciara richardson DO MRI ELBOW LEFT WO CONTRAST ([id number])By: On: 15-Mar-2017 Intent Jyoti Mcrae CNP Comments: Send results to Dr. Eduardo ALEJANDRA, NORMAL SALINE SOLUTION , On: 15-Mar-2017 Intent 250 CC ([id number])By: Jyoti Mcrae CNP Rocephin Injection, 2 Gram On: 15-Mar-2017 Intent (J0696)By: Jyoti Mcrae CNP Comments: lot:[id number]:07-09-2019rte:IV dose:2 grams rocephin given by:monisha right anticub ABN signedERGURPREET Venous Doppler - UpperBy: Clementina DAVID, On: 09-Mar-2017 Intent Jyoti Wilson Comments: left upper call results to Cecilia at [facility] Radiology - Elbow - RightBy: Ciesa On: 09-Mar-2017 Intent Jyoti DAVID Comments: call [facility] DEXA SCAN AXIAL SKELETON ([id number])By: On: 17-Jan-2015 Intent Alice Nova MD Comments: postmenapausal MAMMOGRAM, SCREENING, BOTH BREAST On: 17-Jan-2015 Intent ([id number])By: Alice Nova MD Pap Smear, Medicare ([id number])By: On: 17-Jan-2015 Intent Alice Nova MD Pelvic and Breast, Medicare On: 17-Jan-2015 Intent (G0101)By: Alice Nova MD ADMINISTRATION OF PNEUMOCOCCAL On: 17-Jan-2015 Intent VACCINE (G0009)By: Alice Nova MD PNEUM VAC ADLT/IMUMNOSPR, SBC/INTRM On: 17-Jan-2015 Intent ([id number])By: Alice Nova MD MAMMOGRAM, SCREENING, BOTH BREAST On: 07-Sep-2014 Intent ([id number])By: Alice Nova MD Comments: end of 10-21 Eprescribed prescriptions (G8553)By: On: 24-Oct-2013 Intent Yasmine Mccallum LPN L Bone Density StudyBy: Rohini CHADWICK, On: 09-Dec-2012 Intent Alice Correa Comments: post menopausal Breast Screening - BilateralBy: On: 09-Dec-2012 Intent Alice Nova MD Breast Screening - BilateralBy: On: 06-Dec-2012 Intent Alice Nova MD Bone Density StudyBy: Rohini CHADWICK, On: 06-Dec-2012 Intent Alice Correa Eprescribed prescriptions (G8553)By: On: 09-Aug-2012 Intent Alice Nova MD TDAP VACCINE >7 IM ([id number])By: Rohini On: 04-Dec-2010 Intent Alice CHADWICK EKG ([id number])By: RAJ Suárez On: 04-Dec-2010 Intent EKG (28213)By: Linda Israel LPN On: 14-Jun-2009 Intent DXA, BONE DENSITY, AXIAL SKELETON On: 23-Oct-2008 Intent ([id number])By: Alice Nova MD MAMMOGRAM, SCREENING, BOTH BREASTS On: 23-Oct-2008 Intent ([id number])By: Alice Nova MD Comments: after 04-16 MAMMOGRAM, SCREENING, BOTH BREASTS On: 06-Jul-2007 Intent ([id number])By: Alice Nova MD EKG ([id number])By: Alice Nova MD On: 17-Dec-2006 Intent Breast Diagnostic - LeftBy: Rohini On: 17-Dec-2006 Intent Alice CHADWICK Comments: in six months follow up on calcifications DXA, BONE DENSITY, AXIAL SKELETON On: 26-Jul-2006 Intent ([id number])By: Alice Nova MD Comments: rheumatiod arthritis MAMMOGRAM, SCREENING, BOTH BREASTS On: 26-Jul-2006 Intent ([id number])By: Alice Nova MD Planned Medications INFUSION, NORMAL SALINE SOLUTION , 250 CC Ordered: 15-Mar-2017 Pending Jyoti Mcrae CNP INJECTION, CEFTRIAXONE SODIUM, PER 250 MG Ordered: 15-Mar-2017 Pending Jyoti Mcrae CNP Instructions Name Dates Details Non-smoker : How to access health information online Indication: Non-smoker Non-smoker : How to access health information online - Detail Indication: Non-smoker Upper respiratory infection, viral : Patient Instructions Indication: Upper respiratory infection, viral Non-smoker : How to access health information online Indication: Non-smoker Non-smoker : How to access health information online - Detail Indication: Non-smoker Non-smoker : Patient Instructions Indication: Non-smoker Non-smoker : How to access health information online - Detail Indication: Non-smoker Non-smoker : Patient Instructions Indication: Non-smoker Impaired fasting glucose : How to access health information online Indication: Impaired fasting glucose Impaired fasting glucose : How to access health information online - Detail Indication: Impaired fasting glucose Impaired fasting glucose : Patient Instructions Indication: Impaired fasting glucose Cough : Patient Instructions Indication: Cough Pain and swelling of elbow, left : How to access health information online Indication: Pain and swelling of elbow, left Pain and swelling of elbow, left : How to access health information online - Detail Indication: Pain and swelling of elbow, left Pain and swelling of elbow, left : Patient Instructions Indication: Pain and swelling of elbow, left BMI 31.0-31.9,adult : How to access health information online Indication: BMI 31.0-31.9,adult BMI 31.0-31.9,adult : How to access health information online - Detail Indication: BMI 31.0-31.9,adult BMI 31.0-31.9,adult : Patient Instructions Indication: BMI 31.0-31.9,adult Rheumatoid arthritis : How to access health information online Indication: Rheumatoid arthritis Rheumatoid arthritis : How to access health information online - Detail Indication: Rheumatoid arthritis Non-smoker : How to access health information online Indication: Non-smoker Non-smoker : Patient Instructions Indication: Non-smoker Pain and swelling of elbow, left : How to access health information online Indication: Pain and swelling of elbow, left Pain and swelling of elbow, left : How to access health information online - Detail Indication: Pain and swelling of elbow, left Pain and swelling of elbow, left : Patient Instructions Indication: Pain and swelling of elbow, left Immunocompromised : Patient Instructions Indication: Immunocompromised Pain and swelling of elbow, left : How to access health information online Indication: Pain and swelling of elbow, left Pain and swelling of elbow, left : How to access health information online - Detail Indication: Pain and swelling of elbow, left BMI 30.0-30.9,adult : Patient Instructions Indication: BMI 30.0-30.9,adult BMI 30.0-30.9,adult : How to access health information online Indication: BMI 30.0-30.9,adult BMI 30.0-30.9,adult : How to access health information online - Detail Indication: BMI 30.0-30.9,adult BMI 30.0-30.9,adult : Patient Instructions Indication: BMI 30.0-30.9,adult Impaired fasting glucose : How to access health information online Indication: Impaired fasting glucose Impaired fasting glucose : How to access health information online - Detail Indication: Impaired fasting glucose Impaired fasting glucose : Patient Instructions Indication: Impaired fasting glucose Candidiasis, mouth : Patient Instructions Indication: Candidiasis, mouth Hypertension : How to access health information online Indication: Hypertension Hypertension : How to access health information online - Detail Indication: Hypertension Hypertension : Patient Instructions Indication: Hypertension Candidiasis, mouth : How to access health information online Indication: Candidiasis, mouth Candidiasis, mouth : How to access health information online - Detail Indication: Candidiasis, mouth Candidiasis, mouth : Patient Instructions Indication: Candidiasis, mouth Impaired fasting glucose : How to access health information online Indication: Impaired fasting glucose Impaired fasting glucose : How to access health information online - Detail Indication: Impaired fasting glucose Impaired fasting glucose : Patient Instructions Indication: Impaired fasting glucose Rheumatoid arthritis : How to access health information online Indication: Rheumatoid arthritis Rheumatoid arthritis : How to access health information online - Detail Indication: Rheumatoid arthritis Rheumatoid arthritis : Patient Instructions Indication: Rheumatoid arthritis Encounter for annual routine gynecological examination : Patient Instructions Indication: Encounter for annual routine gynecological examination Hypertension : How to access health information online Indication: Hypertension Hypertension : How to access health information online - Detail Indication: Hypertension Hypertension : Patient Instructions Indication: Hypertension Hypertension : Patient Instructions Indication: Hypertension Bronchitis : Patient Instructions Indication: Bronchitis Encounters Office Visit On: 01-Aug-2018 11:48 Encounter Reason: Cold Symptoms - Onset was 1 day(s) ago (just got both yesterday). Note for Cold symptoms: Started yesterday getting a cold-every time gets cold-she gets thrush. Used zycam all day and night. Tried eat End: 01-Aug-2018 12:15 ing salty maori fries last night and it burned the tongue really bad. Uses netti pot twice a day. Nasal drainage is clear. No sore throat, headaches, cough, CP, SOB.Encounter Diagnosis: BMI 31.0-31.9,adult, Non-smoker, Candidiasis, mouth, Upper respiratory infection, viral [facility] Lab Order On: 24-Jun-2018 14:08 Encounter Diagnosis: Abnormal alkaline phosphatase test End: 24-Jun-2018 14:10 [facility] Office Visit On: 25-Feb-2018 11:42 Encounter Diagnosis: BMI 31.0-31.9,adult, Non-smoker, Depressive disorder, Rheumatoid arthritis, Hair loss End: 25-Feb-2018 12:33 [facility] Office Visit On: 22-Oct-2017 11:55 Encounter Reason: Leg Cramps, Adult - No changes in management were made at the last visit. Symptoms include nocturnal leg cramps., [ADDITIONAL REASON] Fibromyalgia - Symptoms include myalgias, arthralgias and generalized fatigue. , End: 22-Oct-2017 13:41 [ADDITIONAL REASON] Sciatica - Past treatment has included nonsteroidal anti-inflammatory drugs. Onset was gradual. Note for Sciatica: lt side and pain goes all the way down to the left foot Encounter Diagnosis: BMI 31.0-31.9,adult, Non-smoker, Rheumatoid arthritis, Lumbar spondylolysis, Disc disease, degenerative, lumbar or lumbosacral, Sciatica, left side, Nocturnal leg cramps [facility] Office Visit On: 09-Jun-2017 15:02 Encounter Reason: Follow up for chronic medical issues - The patient feels well with minor complaints, has good energy level and is sleeping well. Patient has been compliant with instructions. Current medication use: no End: 09-Jun-2017 16:38 side effects and compliant with dosing regimen. Patient sleeps 7 hours per night. Nutrition: balanced diet and no supplemental vitamins & iron. The medical issues the patient is following up for inc cobye All identified problems below, blood sugar issues, high blood pressure and high cholesterol.Encounter Diagnosis: Impaired fasting glucose, Non-smoker, BMI 30.0-30.9,adult, Chronic GERD, On prednisone therapy, Immunocompromised, Rheumatoid arthritis, Staphylococcal arthritis of left elbow, Hypertension, benign, Hypercholesteremia [facility] Office Visit On: 23-Apr-2017 13:44 Encounter Reason: Elbow Problem - This condition occurred without any known injury. Symptoms include decreased range of motion, swelling, redness, warmth, tenderness and elbow pain. Symptoms are located in the left elbow End: 23-Apr-2017 14:34 . Onset was 1 week(s) ago. The patient describes symptoms as improving. Note for Elbow problem: gave shot of enbrel on April 13 and April 16 methyl trexate, then on elbow pain Got antoher antibiotic on Wednesday Encounter Diagnosis: BMI 31.0-31.9,adult, Non-smoker, Pain and swelling of elbow, left, Cough [facility] Phone Encounter On: 19-Apr-2017 9:58 Encounter Diagnosis: Pain and swelling of elbow, left End: 19-Apr-2017 10:00 [facility] Office Visit On: 09-Apr-2017 14:26 Encounter Reason: Follow up hospital - Note for Follow up hospital: [facility], post surgery for left elbow, septic arthritis. Encounter Diagnosis: Non-smoker, BMI 31.0-31.9,adult, Staphylococcal arthritis of left elbow, Rheumatoid arthritis End: 09-Apr-2017 15:11 [facility] Office Visit On: 01-Apr-2017 11:21 Encounter Reason: Follow up hospital - Reason for ER visit: note: (staff infection in lt elbow in hosp for 4 days). Patient has been compliant with instructions. Current medication use: no side effects and compliant with dosing regimen. End: 01-Apr-2017 12:36 Encounter Diagnosis: BMI 30.0-30.9,adult, Non-smoker, Pain and swelling of elbow, left, Rheumatoid arthritis, Immunocompromised, acquired, Staphylococcal arthritis of left elbow, On prednisone therapy [facility] Office Visit On: 15-Mar-2017 9:50 Encounter Reason: Follow up ER - Reason for hospitalization note: (left arm pain, swelling, redness). The patient does not feel well. Note for Follow up ER: Went to [facility] and was told not a fracture, had End: 15-Mar-2017 11:06 a fall February 17 tripped on stool, fell on elbow and knee, but not until Wednesday 24 was in pain. Returned back to ER on WedMarch 13 and given po antibiotic. , [ADDITIONAL REASON] Elbow Problem - Note for Elbow problem: left elbow pain, worsening nauseated Encounter Diagnosis: BMI 30.0-30.9,adult, Non-smoker, Pain and swelling of elbow, left, Rheumatoid arthritis, Candidiasis, mouth [facility] Annotation/Addendum On: 09-Mar-2017 16:27 Encounter Diagnosis: Nondisplaced fracture End: 09-Mar-2017 16:28 [facility] Annotation/Addendum On: 09-Mar-2017 16:22 Encounter Diagnosis: Unspecified Diagnosis End: 09-Mar-2017 16:23 [facility] Office Visit On: 09-Mar-2017 11:54 Encounter Reason: Follow up ER - Reason for hospitalization note: (left elbow swelling, warmth). Patient has been compliant with instructions. The patient does not feel well. Note for Follow up ER: Seen on 03-03-17, Lef End: 09-Mar-2017 12:57 t elbow swelling seen in ER by Dr. Díaz. Was told it is rheumatoid, already methotrexate, enbrel and prednisone. Has percocett at home. Was given prednisone to do 40mg /day x 1 week, then 20 then 5. b ut did 25 x 3days then bumped up to 40mg. Pain and swelling worse, and on naproxen bid .January 26 had IV in that right arm. Swelling March 01 Sees rhuematologist but has not seen for awhile. Encounter Diagnosis: Pain and swelling of elbow, left, Non-smoker, BMI 30.0-30.9,adult, Immunocompromised [facility] Office Visit On: 11-Nov-2016 15:22 Encounter Reason: Cold Symptoms - Symptoms include nasal congestion, hoarseness and dry cough, while symptoms do not include runny nose, scratchy throat, sore throat, productive cough, facial pressure, facial pain or hea End: 12-Nov-2016 22:44 dache. Onset was gradual 10 day(s) ago. Onset followed exposure at home to someone with upper respiratory symptoms. The symptoms occur constantly. The patient describes this as unchanged. Associated sym ptoms include fatigue, while associated symptoms do not include plugged ear(s), ear pain, swollen lymph nodes, wheezing, shortness of breath, weakness, nausea, vomiting, diarrhea, fever or chills. The p atient is not currently being treated for this problem. Note for Cold symptoms: trying to fight off enbrel 2 weeks- and off methotrexate as when ill supposed to go off--off her pred too so joints flar ing- a lot of fatigue - no color drainage and no fever - fatigue but had big [employer] years [employer] party- says every time on pred gets bug- taking probiotic- just actually took bp meds - has amoxicicllin at home an d wants to use that if would help- we talked about mono and checking lab and she doesnt think necessary at this pointEncounter Diagnosis: Non-smoker, BMI 30.0- 30.9,adult, Acute upper respiratory infection [facility] Office Visit On: 19-Oct-2016 12:57 Encounter Reason: Follow up for chronic medical issues - The patient feels well with minor complaints, has good energy level and is sleeping well. Patient has been compliant with instructions. Current medication use: no End: 19-Oct-2016 14:44 side effects and compliant with dosing regimen. Patient sleeps 7 hours per night. Nutrition: balanced diet and supplemental vitamins. The medical issues the patient is following up for include All ident ified problems below, blood sugar issues, high blood pressure, high cholesterol and other.Encounter Diagnosis: Impaired fasting glucose, BMI 30.0-30.9,adult, Non-smoker, Hypertension, benign, Chronic GERD, Hypercholesteremia, Depressive disorder, Fibromyalgia, Rheumatoid arthritis [facility] Office Visit On: 01-Jul-2016 12:02 Encounter Reason: Cough - The last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
--- OUTSIDE RECORDS SUMMARY | 2019-01-29 16:13 | XMS RPT_ITS | Continuity of Care Document ---
:1950 Author Organization [facility] Address [address] [place] [address] Phone Care Team Providers Name Role Phone Ciara Caballero DO Unavailable César Martins Unavailable Dr. Pipo Horner Unavailable Tami ANDINO , Dr. Zeeshan Lepe Unavailable Luis M Olson MD Unavailable Zeeshan Garrett DO Unavailable [facility], [facility] Unavailable Merry Amaya Unavailable Unavailable [employer] REPAIRER, Yasmine L Unavailable Unavailable Darshan Beckham Unavailable Unavailable Unavailable Unavailable Problems Name Dates Details Abnormal alkaline phosphatase test (R74.8, 790.5) Status: Active Acute upper respiratory infection (J06.9, 465.9) Comments: use your amoxil Status: Active Allergic rhinitis (J30.9, 477.9) Comments: seen margo and had surgery in past. on nasal steriod spray. on antihsitamine. will need to follow up with him because congestion. doing nettipot. Status: Active Bacteremia due to Staphylococcus (R78.81, 790.7) Status: Active BMI 30.0-30.9,adult (Z68.30, V85.30) Status: Active BMI 30.0-30.9,adult (Z68.30, V85.30) Status: Active BMI 31.0-31.9,adult (Z68.31, V85.31) Status: Active BMI 31.0-31.9,adult (Z68.31, V85.31) Status: Active Candidiasis, mouth (B37.0, 112.0) Status: Active Chronic GERD (K21.9, 530.81) Status: Active Cough (R05, 786.2) Status: Active Depressive disorder (F32.9, 311) Comments: of massive [place] 39 yo. Status: Active Disc disease, degenerative, [...] Impaired fasting glucose (R73.01, 790.21) Status: Active It band syndrome, left (M76.32, 728.89) Status: Active Left leg pain (M79.605, 729.5) Status: Active Lumbar spondylolysis (M43.06, 738.4) Status: [...] Sciatica, left side (M54.32, 724.3) Status: Active Sciatica, left side (M54.32, 724.3) Status: Active Sore throat (J02.9, 462) Status: Active Trochanteric bursitis of left hip (M70.62, 726.5) Status: Active Unspecified Diagnosis Status: Active Unspecified Diagnosis Status: Active Upper respiratory infection, viral (J06.9, 465.9) Status: Active Medications Name Dates Details Atenolol 50 MG Oral Tablet 1 (one) Tablet qd for 90 days Quantity: 90 {Tablet} Refills: 3 Ordered:05-Oct-2018 Nathaniel Caballero DO, DO, Kathleen Start : 05-Oct-2018 Active Folic Acid 1 MG Oral Tablet 1 qd (1 MG) Active herbal: coq 10, krill oil, joint melalucca product, plexus pain med Active Keflex 500 MG Oral Capsule 1 every 6 hrs (500 MG) Active Methotrexate 2.5 MG Oral Tablet 4 q weekly (2.5 MG) Active Comments:Dr. Olson PredniSONE 5 MG Oral Tablet 1 Tablet [...] Emulsion) uad qd prn (0.05 %) Active Rituxan 100 MG/10ML Intravenous Solution q 6mo (100 MG/10ML) Active Comments:Dr. Pool Welch Active SUMAtriptan Succinate 50 MG Oral Tablet uad Tablet one at onset, and may repeat in 2 hours if not gone for 0 days Quantity: 20 {Tablet} Refills: 3 Ordered:23-Nov-2018 Ada DONathaniel Ciara Start : 23-Nov-2018 Active Comments:max: 2 in 24 hours ACTONEL, 150MG (Oral Tablet) 1 Tablet Tablet q monthly for 0 days Quantity: 3 {Tablet} Refills: 3 Ordered:14-Jan-2016 RAJ Suárez Start : 06-Nov-2015 End : 14-Jan-2016 Inactive Comments:ok to dispense generic AUGMENTIN, 875-125MG (Oral Tablet) 1 Tablet bid for 10 days Quantity: 20 {Tablet} Refills: 0 Ordered:06-Dec-2012 Jyoti Arroyo CNP Start : 06-Dec-2012 End : 16-Dec-2012 [...] 19-Apr-2017 End : 09-Jun-2017 Inactive Comments:called [facility] Cefadroxil 500 MG Oral Capsule 1 (one) Capsule Capsule bid for 7 days Quantity: 14 {Capsule} Refills: 0 Ordered:09-Mar-2017 Ladonna Ocasio LPN Start : 09-Mar-2017 End : 16-Mar-2017 Inactive Cefadroxil 500 MG Oral Capsule 2 bid (500 MG) Inactive Cheratussin AC 100-10 MG/5ML Oral Syrup [...] 06-Oct-2012 End : 06-Dec-2012 Inactive DULoxetine HCl 20 MG Oral Capsule Delayed Release Particles 1 (one) Capsule Capsule qd for 0 days Quantity: 14 {Capsule} Refills: 0 Ordered:12-Oct-2018 Darshan Beckham Start : 08-Apr-2018 End : 12-Oct-2018 Inactive DULoxetine HCl 40 MG Oral Capsule [...] Quantity: 1 {Bottle} Refills: 0 Ordered:06-Nov-2015 Jyoti Arroyo CNP Start : 06-Nov-2015 End : 06-Dec-2015 Inactive Comments:Medication taken as needed. GABAPENTIN, 100MG (Oral Capsule) 1 (one) Capsule bid for 30 days Refills: 0 Ordered:09-Jan-2016 Cruz DAVIDJyoti Start : 06-Nov-2015 End : 06-Dec-2015 Inactive IBUPROFEN, 800MG (Oral Tablet) 1 tid for 0 days Refills: 0 Ordered:04-Dec-2010 RAJ Suárez End : 04-Dec-2010 Inactive IMITREX, 50MG (Oral Tablet) 1 Tablet uad for 0 days Quantity: 10 {Tablet} Refills: 3 Ordered:07-Sep-2014 RAJ Suárez Start : 29-Oct-2011 End : 07-Sep-2014 Inactive [facility] Leucovorin Calcium 5 MG Oral Tablet [...] days Quantity: 120 {Tablet} Refills: 0 Ordered:09-Mar-2017 Cruz DAVID Jyoti Wilson Start : 09-Mar-2017 End : 09-Mar-2017 Inactive NYSTATIN, 625899CRLA/ML (Mouth/Throat Suspension) 5 cc swish and swallow 5 x day for 10 days Quantity: 250 {Suspension} Refills: 3 Ordered:07-Sep-2014 RAJ Suárez Start : 06-Oct-2012 End : 07-Sep-2014 Inactive ORENCIA, 250MG (Intravenous Solution Reconstituted) uad per instructions (250 MG) Inactive Comments:Dr. Olson PLAQUENIL, 200MG (Oral Tablet) 1 bid for 0 days Refills: 0 Ordered:08-Jan-2011 RAJ Suárez End : 08-Jan-2011 Inactive PREDNISONE (SIMONE), 10MG (Oral Tablet) 1 (one) Tablet daily for 14 days Refills: 0 Ordered:09-Jan-2016 Jyoti Arroyo CNP Start : 06-Nov-2015 End : 20-Nov-2015 Inactive PredniSONE 1 MG Oral Tablet 1-4 Tablet qday as instructed to wean off slowly for 0 days Quantity: 90 {Tablet} Refills: 0 Ordered:12-Oct-2018 Darshan Beckham Start : 22-Oct-2017 End : 12-Oct-2018 Inactive PREDNISONE, 20MG (Oral Tablet) 3 (three) [...] days Quantity: 30 {Capsule} Refills: 3 Ordered:25-Feb-2018 Nathaniel Caballero DO, DO, Kathleen Start : 25-Feb-2018 End : 25-Feb-2018 Discontinued [...] examination with abnormal findings (Z00.01, V70.0) Comments: 01-21 reviewed with patient all questions. pap can only get shingles vaccine if off immunosuppressant, pneumonia up to date, not get flu vaccine for 2014, tetanus up to date, told about Prevnar 1 3 to get at local pharm. mammogram , BD , colonoscopy ([facility]), whisper test WNL Status: Inactive as [...] Completed 16-Mar-2017 Comments: Dr. Ruiz TMJ surgery 1984 Completed USO 26 yo Completed Date Value Details 25-Nov-2018 Liver Result: Comments: See Note; NOTES: [facility] Imaging Services [address] [place] [address] Liver MR#: [id number] Acct: [id number] Name: MARIA EUGENIA CASTELLANO Rep #: [id number] : [birth year] F 68 From: Jimmy Hoff MD PCP: Ciara Caballero DO Status: REG CLI Study: Liver Date of Exam: 11/25/18 Exam# [id number] Ordering Dr: Luis M Olson STUDY: ABDOMINAL ULTRASOUND - RIGHT UPPER QUAD RANT REASON FOR VISIT: Female, 68 years old. Abnormal liver function tests. TECHNIQUE: Ultrasound evaluation of the right upper quadrant was performed with real-time and static dowd-scale imaging. TE CHNICAL QUALITY: Adequate. COMPARISON: None. FINDINGS: Liver: The liver measures 15 cm. There is increased echogenicity consistent with fatty infiltration. The chastity e ducts are within normal limits. There is hepatic color flow. The direction of portal flow is hepatopetal. There is no demonstrated mass lesion. Gallbladder: Normal distended gallbladder. The gallblad wendi wall measures 3 mm. There is a negative sonographic Courtney's sign. There is no pericholecystic fluid. There are small mobile echogenic shadows within the gallbladder which could represent small gall stones or sludge balls. Common Bile Duct (C.B.D.): The common bile duct measures 4 mm. Pancreas: Normal size of the head, body and tail of the pancreas as seen on this examination. There is normal ech ogenicity of the pancreas. There is no demonstrated pancreatic mass or cyst. Right Kidney: Normal size of the right kidney. The right kidney measures 10 x 5.7 x 4.1 cm. Normal renal cortex. The right c ortex measures 1.6 cm. There is no demonstrated renal mass or cyst. There is no right hydronephrosis. US/Liver IMPRESSION: 1. Fatty infiltration of the liver. 2. Small mobile echogenic shadows within the gallbladder which could represent small gallstones or small sludge balls. 3. No evidence of hydronephrosis. Electronically Signed: Jimmy clark MD at 10:38 EST Tel , Service support , CC: Ciara OLSON Quantitative Analyst Marketing: Signed 15-Oct-2018 Emergency Department Summary Result: Comments: See Note; NOTES: [facility] Medical Records Department [address] [place] [address] Emergency Department Summary 10/15/18 1147 MR#: [id number] Acct: [id number] Name: MARIA EUGENIA CASTELLANO Rep #: [id number] : 1950 68 From: Danilo Kiran MD PCP: Ciara Caballero DO Status: REG ER - ER Visit Summary Date of Service: 10/15/18 Chief Complaint: Right arm cellulitis, p ositive blood cultures History of Present Illness: The patient is a 68 F who was seen here yesterday and diagnosed with right arm cellulitis. She was placed on Keflex. Blood cultures were obtained and today they started growing gram-positive cocci in clusters. Further delineation of this is revealed Staphylococcus aureus. She states she has not had a fever. Her pain is mildly improved. She has a hist ory of rheumatoid arthritis and is on Rituxan, methotrexate and prednisone. Physical Examination: Vital signs reviewed. HEENT exam unremarkable. Heart is regular rate and rhythm. Lungs are clear to aus cultation. Abdomen is soft and nontender. Extremity exam reveals right elbow tenderness on the medial side. There is also some erythema noted to this area. She does have full range of motion of the elbo w. Her neurologic exam is normal. Test Results: White blood cell count 12.5 Emergency Department Course and Treatment: Patient was treated with Kefzol. Due to the bacteremia patient will be admitted t o the hospital. Treatment Plan: [] Disposition: Admit Impression: Right arm cellulitis, bacteremia, immunosuppressed This note was generated with [employer] dictation software. It may contain incorrec t words, spelling, and punctuation that were not noted in review of the chart prior to signing ED Disposition - Plan for ED Patient: Chief Complaint: Cellulitis Referrals: Ciara Caballero DO [Primar y Care Provider] - What to do if you have Problems For any increased pain, shortness of breath, bleeding, nausea or vomiting, chest pain, or any unexpected problems, contact your Primary Care Provid er. Call Doctors Registry ([phone]) or report to the closest Emergency Room. Call 911 if necessary. 10/15/18 5500 <Electronically signed by Danilo Kiran MD> Date Danilo Kiran MD Cosigner Signature (If Indicated): Date CC: Ciara Caballero DO 15-Oct-2018 Emergency Department Summary Result: Comments: See Note; NOTES: [facility] Medical Records Department [address] [place] [address] Emergency Department Summary 10/14/18 1309 MR#: [id number] Acct: [id number] Name: MARIA EUGENIA CASTELLANO Rep #: [id number] : 1950 68 From: Dharmesh Arellano MD PCP: Ciara Caballero DO Status: DEP ER ADDENDUM by Dharmesh Arellano MD on 10/15/18 at 0844 Patient's blood cultures returned at this morning showing gram-positive cocci in clusters. At 840 I left a message on her home phone and cell phone instructing her to return to emergency department for IV antibiotics and admission to [facility]. 10/15/18 0844 Date Dharmesh Arellano MD cc: Ciara Caballero DO * Signed - ER Visit Summary Date of Service: 10/14/18 Chief Complaint: R ight elbow pain History of Present Illness: The patient is a [address] Caballero. She reports she has right elbow pain that began 3 days ago. Is an aching pain senna 10 severity. Is worsened by mo vement and relieved by nothing. She denies any numbness or weakness. She denies any recent trauma. No fall, MVA, or change in activity. She is right-hand dominant. Patient on review of system complains only of a headache. She states this is 6 out of 10 in severity. She does have a history of similar headaches. She denies any constitutional symptoms. No fever, chills, nausea, or vomiting. Physical Ex amination: Vitals: Stable. Afebrile. General: Well-nourished and well-developed. Head: Normocephalic atraumatic. Neck: Supple, no lymphadenopathy. No JVD. Nontender. Cardiovascular: Regular rate and rhy thm. No murmurs. Respiratory: No respiratory distress. Clear to auscultation bilaterally. Abdominal: Soft, nontender, nondistended, normal bowel sounds. No guarding, rebound, or peritoneal signs. Back: Nontender. Extremities: Approximately 3 x 2 cm area of erythema to the medial side of her distal right arm. There is warmth here. There is no induration or fluctuance to suggest abscess. There is no lym phangitic spread. She has no swelling over her olecranon process to suggest bursitis. She has decreased range of motion of her elbow secondary to pain. Skin: Normal color, no rash. Neurologic: Alert and oriented 3. Cranial nerves II through XII are intact. Normal strength and sensation. Psych: Normal affect. Test Results: CBC is more for a white count of 14.5 with 73 segmented neutrophils, 7 lymphocy tien, 19 monocytes. She is on prednisone which makes when some of the white count. Her lactic acid is 1.2. Her Chem-7 is normal. Right elbow x-ray is read by the radiologist possibleradial head fracture. Clinically this is not what she has. Emergency Department Course and Treatment: Patient had an IV placed. She was given morphine IV and vancomycin IV. She is resting comfortably. Treatment Plan: Disc ussed patient I suspect that this is an early cellulitis. She will be discharged on Keflex. She is immunosuppressed from medications for rheumatoid arthritis. She is given Percocet for pain. Instructed to follow-up with Dr. Caballero in 3 days for wound check. Return to the emergency department for any worsening symptoms. Disposition: To home in improved and stable condition. Impression: 1. Cellulitis right arm. 2. History of rheumatoid arthritis on immunosuppressants. This note was generated with [employer] dictation software. It may contain incorrect words, spelling, and punctuation that were not no mckay in review of the chart prior to signing ED Disposition - Plan for ED Patient: Disposition: Home or Assisted Living Chief Complaint: Upper Extremity Injury Instructions: ED Infec Skin Cellulitis P rescriptions: Oxycodone HCl/Acetaminophen [Percocet 5/325] 1 tablet PO Q6H PRN PRN 3 Days #12 tablet PRN Reason: Pain Cephalexin [Keflex] 500 mg PO Q6 #40 capsule Referrals: Ciara Caballero DO [Primary Care Provider] - 10/17/18 What to do if you have Problems For any increased pain, shortness of breath, bleeding, nausea or vomiting, chest pain, or any unexpected problems, contact your Primary Car e Provider. Call Doctors Registry ([phone]) or report to the closest Emergency Room. Call 911 if necessary. 10/14/18 1753 <Electronically signed by Dharmesh Arellano MD> Date ____ Dharmesh Arellano MD Cosigner Signature (If Indicated): Date CC: Ciara Caballero DO 14-Oct-2018 Emergency Department Summary Result: Comments: See Note; NOTES: [facility] Medical Records Department [address] [place] [address] Emergency Department Summary 10/14/18 1309 MR#: [id number] Acct: [id number] Name: MARIA EUGENIA CASTELLANO Rep #: [id number] : 1950 68 From: Dharmesh Arellano MD PCP: Ciara Caballero DO Status: DEP ER - ER Visit Summary Date of Service: 10/14/18 Chief Complaint: Right elbow pain H istory of Present Illness: The patient is a [address] Caballero. She reports she has right elbow pain that began 3 days ago. Is an aching pain senna 10 severity. Is worsened by movement and relieve d by nothing. She denies any numbness or weakness. She denies any recent trauma. No fall, MVA, or change in activity. She is right-hand dominant. Patient on review of system complains only of a headach e. She states this is 6 out of 10 in severity. She does have a history of similar headaches. She denies any constitutional symptoms. No fever, chills, nausea, or vomiting. Physical Examination: Vitals: Stable. Afebrile. General: Well-nourished and well-developed. Head: Normocephalic atraumatic. Neck: Supple, no lymphadenopathy. No JVD. Nontender. Cardiovascular: Regular rate and rhythm. No murmurs. R espiratory: No respiratory distress. Clear to auscultation bilaterally. Abdominal: Soft, nontender, nondistended, normal bowel sounds. No guarding, rebound, or peritoneal signs. Back: Nontender. Extremi ties: Approximately 3 x 2 cm area of erythema to the medial side of her distal right arm. There is warmth here. There is no induration or fluctuance to suggest abscess. There is no lymphangitic spread. She has no swelling over her olecranon process to suggest bursitis. She has decreased range of motion of her elbow secondary to pain. Skin: Normal color, no rash. Neurologic: Alert and oriented 3. Crani al nerves II through XII are intact. Normal strength and sensation. Psych: Normal affect. Test Results: CBC is more for a white count of 14.5 with 73 segmented neutrophils, 7 lymphocytes, 19 monocytes. She is on prednisone which makes when some of the white count. Her lactic acid is 1.2. Her Chem-7 is normal. Right elbow x-ray is read by the radiologist possibleradial head fracture. Clinically this i s not what she has. Emergency Department Course and Treatment: Patient had an IV placed. She was given morphine IV and vancomycin IV. She is resting comfortably. Treatment Plan: Discussed patient I casper spect that this is an early cellulitis. She will be discharged on Keflex. She is immunosuppressed from medications for rheumatoid arthritis. She is given Percocet for pain. Instructed to follow-up with Dr. Caballero in 3 days for wound check. Return to the emergency department for any worsening symptoms. Disposition: To home in improved and stable condition. Impression: 1. Cellulitis right arm. 2. Hist ory of rheumatoid arthritis on immunosuppressants. This note was generated with [employer] software. It may contain incorrect words, spelling, and punctuation that were not noted in review of t he chart prior to signing ED Disposition - Plan for ED Patient: Disposition: Home or Assisted Living Chief Complaint: Upper Extremity Injury Instructions: ED Infec Skin Cellulitis Prescriptions: Oxyc odone HCl/Acetaminophen [Percocet 5/325] 1 tablet PO Q6H PRN PRN 3 Days #12 tablet PRN Reason: Pain Cephalexin [Keflex] 500 mg PO Q6 #40 capsule Referrals: Ciara Caballero DO [Primary Care Provider] - 10/17/18 What to do if you have Problems For any increased pain, shortness of breath, bleeding, nausea or vomiting, chest pain, or any unexpected problems, contact your Primary Care Provider. Call [facility] ([phone]) or report to the closest Emergency Room. Call 911 if necessary. 10/14/18 1753 <Electronically signed by Dharmesh Arellano MD> Date Dharmesh Arellano MD Cosigner Signature (If Indicated): Date CC: Ciara Caballero DO 14-Oct-2018 Elbow min 3 Views Result: Comments: See Note; NOTES: [facility] Imaging Services [address] [place] [address] Elbow min 3 Views MR#: [id number] Acct: [id number] Name: MARIA EUGENIA CASTELLANO Rep #: [id number] : 1950 F 68 From: Fidel Carreon MD PCP: Ciara Caballero DO Status: REG ER Study: Elbow min 3 Views Date of Exam: 10/14/18 Exam# [id number] Ordering Dr: Dharmesh Arellano MD STUDY: X-RAY - RIGHT ELBOW REASON FOR EXAM: Female, 68 years old. Pain. No known injury. TECHNIQUE: 3 view(s) of the elbow. COMPARISON: None. FINDINGS: I suspect a nondisplaced radial neck fracture. Normal radiocapitellar and ulnotrochlear articulations. Soft tissue swelling. Moderate sized joint effusion. RAD/Elbow mi n 3 Views IMPRESSION: I suspect a nondisplaced radial neck fracture. Joint effusion. Electronically Signed: Fidel Carreon MD at 12:26 EST Tel [phone], Service support , CC: Ciara Caballero DO; Dharmesh Arellano MD Quantitative Analyst Marketing: Signed 15-Mar-2017 History and Physical Exam Result: Comments: See Note; NOTES: [facility] Medical Records Department [address] [place] [address] History and Physical 03/15/172049 MR#: [id number] Acct: [id number] Name: Gregor CASTELLANO YAZMIN Spann Rep #: [id number] : 1950 66 From: Jason Vogel MD [...] Dr Ruiz has been notified by ER mathew spann nd will be consulted for further surgical [...] 83.2 H Lymph % (Auto) 7.8 L [place] % (Auto) 8.5 Eos % (Auto) 0.0 [...] home medications - scds for dvt prophylaxis 03/15/170 <Electronically signed by Jason Vogel MD> Date Jason Vogel MD Cosigner Signature (if applicable): Date CC: Ciara Caballero DO; Jason Vogel MD Signed 15-Mar-2017 Elbow min 3 Views Result: Comments: See Note; NOTES: [facility] Imaging Services [address] [place] [address] Verdana 4d Elbow min 3 Views MR#: [id number] Acct: [id number] Name: MARIA EUGENIA CASTELLANO Rep #: [id number] : 1950 F 66 From: Angelia Ortiz MD PCP: Ciara Caballero DO Status: REG ER Study: Elbow min 3 Views Date of Exam: 03/15/17 Exam# [id number] Ordering Dr: Silvino Lai MD STUDY: X- [...] CC: Silvino Lai MD; Ciara Caballero DO Quantitative Analyst Marketing: Signed 15-Mar-2017 Upper Ext Joint Only(Routine) Result: Comments: See Note; NOTES: [facility] Imaging Services [address] [place] [address] Dafnedabiju 4d Upper Ext Joint Only(Routine) MR#: [id number] Acct: [id number] Name: ROXANA CASTELLANO Rep #: [id number] : 1950 F 66 From: Sid Cooper MD PCP: Ciara Caballero DO Status: REG CLI Study: Upper Ext Joint Only(Routine) Date of Exam: 03/15/17 Exam# [id number] Ordering Dr: Jyoti Julien sa STUDY: MRI [...] Tel , Service support , CC: Jyoti Arroyo; Ciara Caballero DO Quantitative Analyst Marketing: Signed 13-Mar-2017 Emergency Department Summary Result: Comments: See Note; NOTES: [facility] Medical Records Department [address] [place] [address] Emergency Department Summary MR#: [id number] Acct: [id number] Name: CASTELLANOFRANKIE AURORA Spann Rep #: [id number] : 1950 66 From: Yvonne Donnelly MD [...] finally saw a nurse practitioner at the [facility] and is scheduled to see Dr. Sapp an orthopedic surgeon in less than 48 [...] states that the nurse practitioner at the [facility] told her this is not a real [...] left elbow. MD Lorena Thomas C: ROBERTO SAPP T: [facility] JOB: [id number] 03/13/17 6835 <Electronically signed by Yvonne Donnelly MD> Date Yvonne Cabreraignannie Signmallory e (If Indicated): Date CC: ROBERTO SAPP; Ciara Caballero DO Date Dictated: 03/13/171740 Date Transcribed: 03/13/171740 Quantitative Analyst Marketing: Signed 13-Mar-2017 Discharge Instruction Result: Comments: See Note; NOTES: [facility] Medical Records Department [address] [place] [address] Discharge Instruction 03/13/171714 MR#: [id number] Acct: [id number] Name: MARIA EUGENIA CASTELLANO Rep #: [id number] : 1950 66 From: Yvonne Donnelly MD PCP: Ciara Caballero DO Status: REG ER ED Disposition - Plan for ED Patient: Chief Complaint: Upper Extremity Injury Instructions: ED Infec Skin Cellulitis Prescriptions: Cephalexin [Keflex] 500 mg PO Q6 #40 capsule Referrals: Ciara Caballero DO [Primary Care Provider] - Additional Instructions: See the doctor at [facility] a s scheduled. What to do if you have Problems For any increased pain, shortness of breath, bleeding, nausea or vomiting, chest pain, or any unexpected problems, contact your Primary Care Provider. [facility] Doctors Registry ([phone]) or report to the closest Emergency Room. Call 911 if necessary. 03/13/171717 <Electronically signed by Yvonne Donnelly MD> Date Yvonne Donnelly MD Cosigner Signature (If Indicated): Date CC: Ciara Caballero DO 13-Mar-2017 Elbow min 3 Views Result: Comments: See Note; NOTES: [facility] Imaging Services [address] [place] [address] Verdana 4d Elbow min 3 Views MR#: [id number] Acct: [id number] Name: MARIA EUGENIA CASTELLANO Rep #: [id number] : 1950 66 From: Rand Michael MD PCP: Ciara Caballero DO Status: REG ER Study: Elbow min 3 Views Date of Exam: 03/13/17 Exam# [id number] Ordering Dr: Yvonne Donnelly MD STUDY: X [...] CC: Yvonne Donnelly MD; Ciara Caballero DO Quantitative Analyst Marketing: Signed 11-Mar-2017 Venous Duplex Upper Extremity Result: Comments: See Note; NOTES: [facility] Cardiovascular Services [address] [place] [address] Venous Duplex US, Unilateral 03/09/17 1520 MR#: [id number] Acct: [id number] Name: MARIA EUGENIA SOTO Rep #: [id number] : 1950 66 From: Jamari Amos MD Attending Dr: Jyoti Arroyo Status: REG CLI Ordering Dr: Jyoti Arroyo Date: 03/09/17 Location: [facility] Sex: F C [...] vein is compressible. Prelim faxed to Jyoti Arroyo. < Interpretation Summary Deep veins of the left upper extremity are patent and compressible segmentally. There is no evidence of deep vein thrombosis. The superficial veins of the left upper extremity, the basilic and cephalic veins , are patent and compressible. There is no evidence of left upper extremity superficial thrombophlebitis involving the veins imaged. Ordering Physician: Jyoti Arroyo Performed By: Vladimir Black, RVT 03/11/172252 Date Jamari Amos MD CC: Jyoti Arroyo; Ciara Caballero DO Date Dictated: 03/09/17 1520 Date Transcribed: 03/11/172252 Quantitative Analyst Marketing: Signed 09-Mar-2017 Elbow min 3 Views Result: Comments: See Note; NOTES: [facility] Imaging Services [address] [place] [address] [place] [address] Verdana 4d Elbow min 3 Views MR#: [id number] Acct: [id number] Name: MARIA EUGENIA CASTELLANO Rep #: [id number] : 1950 F 66 From: Fidel Carreon MD PCP: Ciara Caballero DO Status: REG CLI Study: Elbow min 3 Views Date of Exam: 03/09/17 Exam# [id number] Ordering Dr: Jyoti Arroyo STUDY: X -RAY - LEFT ELBOW REASON [...] Fidel Carreon MD at 16:08 EDT Tel [phone], Service support , CC: Jyoti Arroyo; Ciara Caballero DO Quantitative Analyst Marketing: Signed 03-Mar-2017 Discharge Instruction Result: Comments: See Note; NOTES: [facility] Medical Records Department [address] [place] [address] Discharge Instruction 03/03/17 1105 MR#: [id number] Acct: [id number] Name: MARIA EUGENIA CASTELLANO Rep #: [id number] : 1950 66 From: Roberto Díaz MD PCP: Ciara Caballero DO Status: [facility] ER ED Disposition - Plan for ED Patient: Disposition: Home or Assisted Living Chief Complai nt: Upper Extremity Injury Instructions: ED Arthritis Rheumatoid Additional Instructions: ICE TO ELBOW AND SHOULDER PERCOCET FOR PAIN INCREASE PREDNISONE TO 40 MG PER DAY FOR 5-7 DAYS THEN 20 MG PER D AY FOR 7 DAYS THEN BACK TO 5 MG PER DAY FOLLOW UP WITH YOUR UNDERCOLLAR BASTER IF NOT GETTING BETTER What to do if you have Problems For any increased pain, shortness of breath, bleeding, nausea or vom iting, chest pain, or any unexpected problems, contact your Primary Care Provider. Call [facility] ([phone]) or report to the closest Emergency Room. Call 911 if necessary. 03/03/17 1621 &a mp;#60;Electronically signed by Roberto Díaz MD> Date Roberto Díaz MD Cosigner Signature (If Indicated): Date CC: Ciara Caballero DO 03-Mar-2017 Emergency Department Summary Result: Comments: See Note; NOTES: [facility] Medical Records Department [address] [place] [address] Emergency Department Summary MR#: [id number] Acct: [id number] Name: FRANKIE CASTELLANO AURORA Spann Rep #: [id number] : 1950 66 From: Roberto Díaz MD PCP: Ciara Caballero DO Status: [facility] ER DATE OF SERVICE: 03/03/2017 CHIEF COMPLAINT: [...] normal radial pulse, flexion and extension. 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 Left trapezius is unremarkable. Otherwise, [...] is going to follow up with her occupational medicine officer if this is not improving. At this time, it does not look like any type of sep tic joint. Roberto Díaz MD T: NTS JOB: [id number] 03/03/17 1621 <Electronically signed by Roberto Díaz MD> Date Roberto Díaz MD Cosigner Signature (If Indicated): Date CC: Ciara Caballero DO Date Dictated: 03/03/17 111 Date Transcribed: 03/03/17 111 Quantitative Analyst Marketing: Signed 24-Jun-2016 ELECTROCARDIOGRAM, COMPLETE (ECG) (82128) Comments: nsr no acute chg Result: [MEASUREMENTS ANALYSIS] Date of Test: 06/24/2016 15:00:37; Heart Rate: 87; [place] Interval: 144; QRS: 94; QT Interval: 368; Corrected QT Interval (QTc): 415; P Wave Needham: 5; QRS Wave Needham: 129; T Wave Needham: -1; Blood Pressure: 142/100 [ECG DIAGNOSTIC STATEMENTS] Date of Test: 06/24/2016 15:00:37; Summary: Sinus Rhythm -Right axis -consider right ventricular hypertrophy. ABNORMAL 23-Jun-2016 PT D/C Summary (1) Result: Comments: See Note; NOTES: [facility] [address] [place] [address] Fax REHABILITATION SERVICES GUSTAVO RGKatie SUMMARY MR#: [id number] Acct: [id number] Name: MARIA EUGENIA CASTELLANO Rep #: [id number] : 1950 66 From: Gisell Caraballo PT, Cert. MDT Referring Dr.: Zeeshan Sotelo Status: REG RCR Insurance: MEDIC ARE PART A B [employer] HP - PT D/C Summary It has been my pleasure to treat MARIA EUGENIA CASTELLANO under orders from Zeeshan Sotelo DO, for [...] Goals Goal 1:: DECREASE C/O BACK AND CHASTITY LE SX'S Goal Progress: Goal Met Goal [...] please feel free to call me at [phone]. Thank you for the refer ral of this patient. Sincerely, Gisell Caraballo <Electronically signed by Cert. FARRUKH Velez PTT> 06/23/16 1153 CC: Ciara Caballero DO; Zeeshan Sotelo ELVIS Signed 22-May-2016 Inital Evaluation (1) - PT Result: Comments: See Note; NOTES: [facility] [address] [place] [address] Fax REHABILITATION SE RVICES INITIAL EVALUATION MR#: [id number] Acct: [id number] Name: MARIA EUGENIA CASTELLANO Rep #: [id number] : 1950 66 From: Cert. FARRUKH Velez PTT Referring Dr.: Zeeshan Sotelo Status: REG RCR Insurance: MEDICARE PART A B [employer] Patient's Visit Information MARIA EUGENIA CASTELLANO is a 66 year old F referred [...] TEST FOR REALITY. Disability: NO. Present symptoms: CHASTITY LOW BACK, HIPS, THIGHS, LEGS AND FEET. PATIENT REPORTS CHASTITY LE NUMB NESS AND TINGLING. Present since: [...] Goals Goal 1:: DECREASE C/O BACK AND CHASTITY LE SX'S Goal Time Frame: 4-6 Weeks [...] to be FAXED BACK to us at [phone] for Medicare purposes. Please let me know [...] with Pelvis Result: Comments: See Note; NOTES: [facility] Imaging Services [address] [place] [address] [facility] 4d Hip 2-3 Views with Pelvis MR#: [id number] Acct: [id number] Name: MARIA EUGENIA SOTO Rep #: [id number] : 1950 F 66 From: Fidel Carreon MD PCP: Alice Nova MD Status: REG CLI Study: Hip 2-3 Views with Pelvis Date of Exam: 05/21/16 Exam# [id number] Order ing Dr: Zeeshan Sotelo DO STUDY: [...] Fidel Carreon MD at 14:21 EDT Tel [phone], Service support [phone], OR WENDI #: [phone] RAD/Hip 2-3 Views with Pelvis IMPRESSION: Mild joint space narrowing involving the left hip joint. Electronically Signed: Fidel Carreon MD at 14:21 EDT Tel [phone], Service support [phone], CC: Alice Nova MD; Zeeshan Sotelo Quantitative Analyst Marketing: Signed 21-May-2016 Lumbar Spine 2 or 3 Views Result: Comments: See Note; NOTES: [facility] Imaging Services [address] [place] [address] Verdana 4d Lumbar Spine 2 or 3 Views MR#: [id number] Acct: [id number] Name: MARIA EUGENIA SOTO Rep #: [id number] : 1950 F 66 From: Fidel Carreon MD PCP: Alice Nova MD Status: REG CLI Study: Lumbar Spine 2 or 3 Views Date of Exam: 05/21/16 Exam# [id number] Order ing Dr: Zeeshan Sotelo DO STUDY: [...] Carreon MD at 14: 30 EDT Tel [phone], Service support [phone], RAD/Lumbar Spine 2 or 3 Views IMPRESSION: Degenerative changes of the spine, as detailed above. Grade 1 spondylolisthesis of L5 on S1 with spondylolysis. Electronically Signed: Fidel Carreon MD at 14:30 EDT Tel [phone], Service support [phone], CC: Diego Nova MD; Zeeshan Sotelo Quantitative Analyst Marketing: Signed 30-Dec-2015 Shoulder min 2 Views Result: Comments: See Note; NOTES: [facility] Imaging Services [address] [place] [address] Verdana 4d Shoulder min 2 Views MR#: [id number] Acct: [id number] Name: MARIA EUGENIA CASTELLANO Rep #: [id number] : 1950 F 65 From: Fidel Carreon MD PCP: Alice Nova MD Status: REG CLI Study: Shoulder min 2 Views Date of Exam: 12/30/15 Exam# [id number] Ordering Dr: Zeeshan Gonzalez dd, DO STUDY: [...] the shoulder. Electronically Signed: Fidel Carreon MD 20 24/12/21 at 14:35 EST Tel [phone], Service support [phone], RAD/Shoulder min 2 Views IMPRESSION: Normal x-ray examination of the shoulder. Electronic ally Signed: Fidle Carreon MD at 14:35 EST Tel [phone], Service support [phone], CC: Alice Nova MD; Zeeshan Sotelo Quantitative Analyst Marketing: Signed 22-Oct-2015 Bilat Scrn Digital AND CAD Result: Comments: See Note; NOTES: [facility] Imaging Services [address] [place] [address] Verdana 4d Bilat Scrn Digital AND CAD MR#: [id number] Acct: [id number] Name: MARIA EUGENIA CASTELLANO Rep #: [id number] : 1950 F 65 From: Fidel Carreon MD PCP: Alice oNva MD Status: REG CLI Study: Bilat Scrn Digital AND CAD Date of Exam: 10/22/15 Exam# [id number] Ord ering Dr: Alice Nova MD MAMMOGRAPHY - BILATERAL [...] delay biopsy of a clinically suspicious abnormality. [id number] Electronically Signed: Fidel Carreon MD at 11:18 EST Tel [phone], Service support [phone], CC: Alice Nova MD Quantitative Analyst Marketing: Signed 22-Oct-2015 Dexa Bone Density Study (HP) Result: Comments: See Note; NOTES: [facility] Imaging Services [address] [place] [address] Verda 4d Dexa Bone Density Study (HP) MR#: [id number] Acct: [id number] Name : MARIA EUGENIA CASTELLANO Rep #: [id number] : 1950 F 65 From: Fidel Carreon MD PCP: Alice Nova MD Status: REG CL Study: Dexa Bone Density Study (HP) Date of Exam: 10/22/15 Exam# [id number] Ordering Dr: Alice Nova MD STUDY: DUAL [...] Fidel Carreon MD at 14:52 EST Tel [phone], Service support [phone], Fa x [phone] CC: Alice Nova MD Quantitative Analyst Marketing: Signed 17-Oct-2013 Nayeli Scrgiselle Digital & CAD Result: Comments: See Note; NOTES: [facility] Imaging Services [address] [place] [address] Breast Imaging Report MR#: [id number] Acct: [id number] Name: MARIA EUGENIA CASTELLANO Rep # : [id number] : 1950 F 63 From: Fidel Carreon MD PCP: Status: REG CL Exam# [id number] Ordering Dr: Alice Nova MD MAMMOGRAPHY - [...] of a clinically suspicious abnormality. Electronically Signed: iFdel Carreon M.D. at 15:27 EST , Service support [phone], CC: Alice Nova MD Quantitative Analyst Marketing: Signed 17-Oct-2013 Dexa Bone Density Study (HP) Result: Comments: See Note; NOTES: [facility] Imaging Services [address] [place] [address] Bone Density Report MR#: [id number] Acct: [id number] Name: MARIA EUGENIA CASTELLANO Rep #: [id number] : 1950 F 63 From: Fidel Carreon MD PCP: Status: REG CLI Study: Dexa Bone Density Study (HP) Date of Exam: 10/17/13 Exam# [id number] Ordering Dr: Alice Nova MD STUDY: D [...] M.D. at 9:13 EST , Service support [phone], CC: Alice Nova MD Quantitative Analyst Marketing: Signed Family History Unknown Family Member Name Dates Details Father Comments: Emphysema, [place] in 60s Status: Active Mother Comments: RA, DM, [place] at 60 Status: Active Social History Name [...] smoker Vital Signs Date Test Result Details :08 Temperature 97.1 f Comments: Method: Temporal Pulse 70 /min Comments: Pattern: Regular Respiration Rate 18 /min Comments: Pattern: Unlabored O2 SAT 98 % Comments: Room air BP Systolic 122 mm[Hg] Comments: Patient Position: Sitting; Cuff Location: Left Arm; Cuff Size: Standard BP Diastolic 88 mm[Hg] Comments: Patient Position: Sitting; Cuff Location: Left Arm; Cuff Size: Standard Weight 160.125 lb Height 60 in Body Mass Index Calculated 31.27 kg/m2 Body Surface Area Calculated 1.7 m2 :38 Pulse 81 /min Comments: Pattern: Regular Respiration Rate 17 /min Comments: Pattern: Unlabored O2 SAT 99 % Comments: Room air BP Systolic 130 mm[Hg] Comments: Patient Position: Sitting; Cuff Location: Left Arm; Cuff Size: Standard BP Diastolic 82 mm[Hg] Comments: Patient Position: Sitting; Cuff Location: Left Arm; Cuff Size: Standard Weight 161.125 lb Height 60 in Body Mass Index Calculated 31.47 kg/m2 Body Surface Area Calculated 1.7 m2 :48 Temperature 97.3 f Comments: Method: Temporal [...] kg/m2 Body Surface Area Calculated 1.71 m2 9-Qdw-015582:21 Pulse 72 /min Comments: Pattern: Regular Respiration [...] kg/m2 Body Surface Area Calculated 1.67 m2 :38 Temperature 97.6 f Comments: Method: Temporal Pulse [...] Height 0 in Head Circumference 0.00 cm :01 Temperature 99.2 f Comments: Method: Oral [...] Height 0 in Head Circumference 0.00 cm :58 Temperature 98.5 f Comments: Method: Oral Pulse [...] 0.00 cm Results Date Description Value Details 2-Nxn-938509:05 Basic Metabolic Profile (BMP) Comments: REDRAW. PREVIOUS SPECIMEN REJECTED DUE TOHEMOLYSIS. 10/15/18 Nicolas Lopez.[facility] [address] [place], [place], [address] GAP 7 (Normal) Range: 5-15 CO2 29.0 mmol/L (Normal) Range: 21.0-32.0 CL 101 mmol/L (Normal) Range: 98-107 K 4.0 mmol/L (Normal) Range: 3.5-5.1 Comments: Slight Hemolysis, Result may be falsely increased. NA 137 mmol/L (Normal) Range: 136-145 CA 9.4 mg/dL (Normal) Range: 8.5-10.1 BUN/CRE 17.2 {RATIO} (Normal) Range: 10-20 Estimated CRCL 45.85 ml/min (Normal) EST GFR - AA 107 mL/min (Normal) Comments: GFR Calc EST GFR 88 mL/min (Normal) Comments: Non- GFR Calc CREAT,SERUM 0.70 mg/dL (Normal) Range: 0.55-1.02 Comments: The validity of the calculated GFR AND GFRAA in patients over70 years has not been determined. Clinical correlation isessential. BUN 12 mg/dL (Normal) Range: 7-18 GLU 97 mg/dL (Normal) Range: 74-106 Comments: Please note revised GLUCOSE reference range chyjancex42/02/2018. 0-Hfb-816664:15 CBC W/Diff, Automated Comments: [facility] [address] [place], [address] SMEAR COMMENT SCANNED (Normal) Comments: SLIGHT MONOCYTOSIS NOTED Absolute Lymph 0.75 {X10_3/ul} (Abnormal) Range: 0.83-4.51 Absolute Neut 10.1 {X10_3/uL} (Abnormal) Range: 2.0-7.7 IM GRAN % 0.200 % (Normal) Range: 0.0-0.9 Comments: IG% - Immature Granulocytes (promyelocytes, myelocytes andmetamyelocytes) > 1% indicates that a LEFT SHIFT is Present. BASO% 0.2 % (Normal) Range: 0-1 EO% 0.6 % (Normal) Range: 0-5 MONO% 12.5 % (Abnormal) Range: 0-10 LY% 6.0 % (Abnormal) Range: 19-41 NEUT% 80.5 % (Abnormal) Range: 47-70 MPV 9.4 fL (Normal) Range: 6.2-12.0 PLT 307 K/mm3 (Normal) Range: 150-450 RDW SD 50.5 fL (Abnormal) Range: 35.1-43.9 RDW CV 15.2 % (Abnormal) Range: 11.6-14.6 MCHC 33.0 {g/gl} (Normal) Range: 32-36 MCH 30.0 pg (Normal) Range: 27.0-32.0 MCV 90.8 fL (Normal) Range: 81-99 HCT 46.3 % (Normal) Range: 37-47 HGB 15.3 g/dL (Abnormal) Range: 12.0-15.0 RBC 5.10 {M/mm3} (Normal) Range: 4.2-5.4 WBC 12.5 K/mm3 (Abnormal) Range: 4.4-11.0 8-Kvx-900394:15 Lactic Acid Comments: Yes/No query for Sepsis Lactate Rule [facility] [address] [place], [place], [id number] LACTIC ACID 1.5 mmol/L (Normal) Range: 0.4-2.0 3-Tap-073389:07 Basic Metabolic Profile (BMP) Comments: [facility] [address] [place], [place], [address] GAP 8 (Normal) Range: 5-15 CO2 27.0 mmol/L (Normal) Range: 21.0-32.0 CL 102 mmol/L (Normal) Range: 98-107 K 3.5 mmol/L (Normal) Range: 3.5-5.1 NA 137 mmol/L (Normal) Range: 136-145 CA 8.6 mg/dL (Normal) Range: 8.5-10.1 BUN/CRE 19.1 {RATIO} (Normal) Range: 10-20 Estimated CRCL 45.85 ml/min (Normal) EST GFR - AA 110 mL/min (Normal) Comments: GFR Calc EST GFR 91 mL/min (Normal) Comments: Non- GFR Calc CREAT,SERUM 0.68 mg/dL (Normal) Range: 0.55-1.02 Comments: The validity of the calculated GFR AND GFRAA in patients over70 years has not been determined. Clinical correlation isessential. BUN 13 mg/dL (Normal) Range: 7-18 GLU 102 mg/dL (Normal) Range: 74-106 Comments: Fasting Glucose result from 100 to 125 mg/dLsuggests IMPAIRED HOMEOSTASIS per A.D.A. criteria.Please note revised GLUCOSE reference range cgbajhqci00/02/2018. 6-Dba-819207:07 CBC W/Diff, Automated Comments: [facility] [address] [place], [place], [id number] PATH REV Reviewed (Normal) Comments: Neutrophilic leukocytosis.Clinical correlation necessary.Antwon Valdivia M.D. 10/18/18 AMENDED REPORT 10/18/18 1047 PATH REV previously reported as: March Absolute Lymph 1.01 {X10_3/ul} (Normal) Range: 0.83-4.51 Absolute Neut 10.6 {X10_3/uL} (Abnormal) Range: 2.0-7.7 IM GRAN % 0.300 % (Normal) Range: 0.0-0.9 Comments: IG% - Immature Granulocytes (promyelocytes, myelocytes andmetamyelocytes) > 1% indicates that a LEFT SHIFT is Present. BASO% 0.2 % (Normal) Range: 0-1 EO% 0.2 % (Normal) Range: 0-5 MONO% 19.4 % (Abnormal) Range: 0-10 LY% 7.0 % (Abnormal) Range: 19-41 NEUT% 72.9 % (Abnormal) Range: 47-70 MPV 9.4 fL (Normal) Range: 6.2-12.0 PLT 308 K/mm3 (Normal) Range: 150-450 RDW SD 50.0 fL (Abnormal) Range: 35.1-43.9 RDW CV 15.3 % (Abnormal) Range: 11.6-14.6 MCHC 32.9 {g/gl} (Normal) Range: 32-36 MCH 29.5 pg (Normal) Range: 27.0-32.0 MCV 89.8 fL (Normal) Range: 81-99 HCT 44.1 % (Normal) Range: 37-47 HGB 14.5 g/dL (Normal) Range: 12.0-15.0 RBC 4.91 {M/mm3} (Normal) Range: 4.2-5.4 WBC 14.5 K/mm3 (Abnormal) Range: 4.4-11.0 0-Nwe-469388:07 Lactic Acid Comments: Yes/No query for Sepsis Lactate Rule [facility] [address] [place] [place], [address] LACTIC ACID 1.2 mmol/L (Normal) Range: 0.4-2.0 38-Qwx-977726:36 HEPATIC FUNCTION PANEL Comments: fax results to Dr. Olson [phone]; A courtesy copy of this report has been sent [phone].PATIENT NOT FASTINGPERFORMED BY: [employer] [address] [place] [address] [id number] 7300Clinical Information: FX [phone] (73886) ALT (SGPT) 49 [iU]/L (Abnormal) Range: 0-32 AST (SGOT) 33 [iU]/L (Normal) Range: 0-40 Alkaline Phosphatase 83 [iU]/L (Normal) Range: 39-117 Bilirubin, Direct 0.08 mg/dL (Normal) Range: 0.00-0.40 Bilirubin, Total 0.3 mg/dL (Normal) Range: 0.0-1.2 Albumin 4.2 g/dL (Normal) Range: 3.6-4.8 Protein, Total 6.7 g/dL (Normal) Range: 6.0-8.5 87-Vru-163891:11 Microscopic Examination Comments: A courtesy copy of this report has been sent [phone].PATIENT WAS FASTINGPERFORMED BY: [employer] Xkomvh9473 [facility] [id number] Bacteria Few (Normal) Mucus Threads Present (Normal) Crystal Type Amorphous Sediment (Normal) Crystals Present (Abnormal) Epithelial Cells (non 0-10 {/hpf} (Normal) Range: 0 - 10 renal) RBC 0-2 {/hpf} (Normal) Range: 0 - 2 WBC 0-5 {/hpf} (Normal) Range: 0 - 5 TSH 1.170 {uIU/mL} Comments: A courtesy copy of this report has been sent [phone].PATIENT WAS FASTINGPERFORMED BY: [facility] [id number] 3:11 (Normal) Range: 0.450-4.500 17-Yvs-180253:11 URINALYSIS, W/ MICRO (01671) Comments: A courtesy copy of this report has been sent [phone].PATIENT WAS FASTINGPERFORMED BY: [facility] [id number] Microscopic Examination See below: (Normal) Comments: Microscopic was indicated and was performed. Microscopic Examination MICRON (Normal) Comments: Microscopic follows if indicated. Nitrite, Urine Negative (Normal) Urobilinogen,Semi-Qn 0.2 mg/dL (Normal) Range: 0.2-1.0 Bilirubin Negative (Normal) Occult Blood Negative (Normal) Ketones Negative (Normal) Glucose Negative (Normal) Protein Negative (Normal) WBC Esterase Negative (Normal) Appearance Clear (Normal) Urine-Color Yellow (Normal) pH 6.5 (Normal) Range: 5.0-7.5 Specific [place] 1.016 (Normal) Range: 1.005-1.030 12-Qda-602723:11 MICROALBUMIN: CREATININE RATIO Comments: A courtesy copy of this report has been sent [phone].PATIENT WAS FASTINGPERFORMED BY: [facility] [id number] (48410) AND (53953) Alb/Creat Ratio <4.2 {mg/g_creat} (Normal) Range: 0.0-30.0 Albumin, Urine <3.0 ug/mL (Normal) Creatinine, Urine 71.0 mg/dL (Normal) 45-Iks-853381:11 METABOLIC PANEL, COMPREHENSIVE Comments: A courtesy copy of this report has been sent [phone].PATIENT WAS FASTINGPERFORMED BY: [facility] [id number] (22450) ALT (SGPT) 39 [iU]/L (Abnormal) Range: 0-32 [...] Glucose, Serum 90 mg/dL (Normal) Range: 65-99 55-Sdy-485728:11 CBC W/AUTO DIFF WBC Comments: A courtesy copy of this report has been sent [phone].PATIENT WAS FASTINGPERFORMED BY: [facility] [id number] Information: ADD TSH (34133) Immature Grans (Abs) 0.0 {x10E3/uL} (Normal) Range: [...] 3.77-5.28 WBC 7.3 {x10E3/uL} (Normal) Range: 3.4-10.8 57-Qak-493681:11 LIPID PANEL (08331) Comments: A courtesy copy of this report has been sent [phone].PATIENT WAS FASTINGPERFORMED BY: [employer] Obraov7429 [facility] [id number] LDL/HDL Ratio 2.1 {ratio_units} (Normal) Range: 0.0-3.2 Comments: LDL/HDL Ratio Men Women 1/2 Avg.Risk 1.0 1.5 Av g.Risk 3.6 3.2 2X Avg.Risk 6.2 5.0 3X Avg.Risk 8.0 6.1 LDL Cholesterol Calc 136 mg/dL (Abnormal) Range: 0-99 VLDL Cholesterol Cosmo 25 mg/dL (Normal) Range: 5-40 HDL Cholesterol 65 mg/dL (Normal) Triglycerides 124 mg/dL (Normal) Range: 0-149 Cholesterol, Total 226 mg/dL (Abnormal) Range: 100-199 43-Kka-055233:11 C-REACTIVE PROTEIN (12800) Comments: A courtesy copy of this report has been sent [phone].PATIENT WAS FASTINGPERFORMED BY: [facility]99 [facility] [id number] C-Reactive Protein, Quant 12.5 mg/L (Abnormal) Range: 0.0-4.9 6-Pjc-292294:03 HgA1C , Office (40017) HgA1C , Office 6.0 % (Normal) Range: 4.6 - 7.1 :03 Blood Glucose , Office (53363) Blood Glucose , Office 114 (Normal) :28 CBC, Platelets & Auto Diff Comments: PATIENT NOT FASTINGPERFORMED BY: [employer] [id number] (61669) Immature Grans (Abs) 0.0 {x10E3/uL} (Normal) Range: [...] {x10E3/uL} (Normal) Range: 3.4-10.8 :28 C-Reactive Protein (99118) Comments: PATIENT NOT FASTINGPERFORMED BY: [employer] Jtosvg8045 [facility] [id number] C-Reactive Protein, Quant 43.4 mg/L (Abnormal) Range: 0.0-4.9 5-Dch-586271:28 SED RATE ERYTHROCYTE (75756) Comments: PATIENT NOT FASTINGPERFORMED BY: CB [facility] Kspwhn0138 [facility] [id number] Sedimentation Rate-Westergren 55 mm/h (Abnormal) Range: 0-40 5-Xxb-529210:47 Basic Metabolic Profile (BMP) Comments: [facility] [address] [place], [place], [id number] GAP 10 (Normal) Range: 5-15 CO2 26.0 [...] Range: 70-110 :47 CBC W/Diff, Automated Comments: [facility] [address] [place], [place], [address] PATH REV March foll (Normal) SMEAR COMMENT [...] 4.2-5.4 WBC 23.1 K/mm3 (Abnormal) Range: 4.4-11.0 4-Ilx-761757:47 CRP Comments: [facility] [address] [place], [place], [address] C-REACTIVE PROT 158.00 mg/L (Abnormal) Range: 0.0-3.0 Comments: C-Reactive Protein (CRP) provides useful information for thediagnosis, therapy and monitoring of inflammatory processesand associated diseases. For the evaluation of Relative Riskfor Cardiovascular Dise ase, a High Sensitivity CRP (HSCRP)should be ordered. 8-Fxw-784311:47 Erythrocyte Sed Rate Comments: [facility] [address] [place], [place], [address] SED RATE 130 mm/h (Abnormal) Range: 0-30 8-Ppy-981374:20 CBC W/Diff, Automated Comments: [facility] [address] [place], [address] PLT EST SLT INC (Normal) SMEAR COMMENT [...] 4.2-5.4 WBC 21.7 K/mm3 (Abnormal) Range: 4.4-11.0 7-Kqj-088861:20 Erythrocyte Sed Rate Comments: [facility] Obquzzedeq[address] [place], [address] SED RATE 113 mm/h (Abnormal) Range: 0-30 38-Vhr-351141:57 HgA1C , Office (12036) HgA1C , Office 5.6 % (Normal) Range: 4.6 - 7.1 75-Szv-865364:57 Blood Glucose , Office (92319) Blood Glucose , Office 93 (Normal) :07 Rapid Strep Test, Office (19372) Rapid Strep Test, Office Negative (Normal) :41 Blood Glucose , Office (48775) Blood Glucose , Office 104 (Normal) :41 HgA1C , Office (43595) HgA1C , Office 5.4 % (Normal) Range: 4.6 - 7.1 :41 HgA1C , Office (46123) HgA1C , Office 5.7 % (Normal) Range: 4.6 - 7.1 :52 CALCIFIDIOL (26424) VIT D 25 Comments: PATIENT WAS FASTINGPERFORMED BY: [employer] Yqiqyr1861 [facility] [id number] Vitamin D, 25-Hydroxy 47.8 ng/mL (Normal) Range: 30.0-100.0 Comments: Vitamin D deficiency has been defined by the Grant ofPark[facility] Hospitalcine and an Endocrine Society practice guideline as alevel of serum 25-OH vitamin D less than 20 ng/mL (1,2).The Endocrine Society went on to further define vitamin Dinsufficiency as a level between 21 and 29 ng/mL (2).1. IOM (Grant of Medicine). 2010. Dietary reference intakes for calcium and D. [place]: The National Academies Press.2. Melissa MF, Michael VILLALOBOS, Vannesa LEBLANC, et al. Evaluation, treatment, and prevention of vitamin D deficiency: an Endocrine Society clinical practice guideline. JCEM. 2010; 96(7):1911-30. :52 MICROALBUMIN: CREATININE RATIO Comments: PATIENT WAS FASTINGPERFORMED BY: [employer] Uglyer6902 [facility] [id number] (66417) AND (57031) Microalb/Creat Ratio 5.7 {mg/g_creat} (Normal) Range: 0.0-30.0 Microalbumin, Urine 4.8 ug/mL (Normal) Range: 0.0-17.0 Creatinine, Urine 83.9 mg/dL (Normal) Range: 15.0-278.0 :52 METABOLIC PANEL, COMPREHENSIVE Comments: PATIENT WAS FASTINGPERFORMED BY: [employer] Okytqc3261 [facility] [id number] (37875) ALT (SGPT) 30 [iU]/L (Normal) Range: 0-32 [...] mg/dL (Abnormal) Range: 65-99 :52 LIPID PANEL (83089) Comments: PATIENT WAS FASTINGPERFORMED BY: [employer]box TechnologiesTrinitas HospitalYbiqtg8186 [facility] [id number]; apt. [address]12 LDL/HDL Ratio 2.1 {ratio_units} (Normal) [...] auto diff Comments: PATIENT WAS FASTINGPERFORMED BY: LabCoTrinitas HospitalVvntdr4224 [facility] [id number] Information: [id number] (74985) Immature Grans (Abs) 0.0 {x10E3/uL} (Normal) Range: [...] 3.77-5.28 WBC 5.5 {x10E3/uL} (Normal) Range: 3.4-10.8 87-Lac-773526:43 IGP, Comments: Source.............Cervical;EndocervicalOther..............Post MenopausalNo. of containers..01 CYTYC Thin Prep VialPATIENT NOT FASTINGPERFORMED BY: =G [facility] Edesvudsni114 [place] [address] Aptima [id number] BY: WB [facility] Hlacvezcjq551 [place] [id number] HPV, rfx 16/18,45 HPV Aptima Negative (Normal) [...] medical examination at health care facilitySayra Cortez Base Draw Operator (ASCP) 63-Ume-293221:43 Thin Comments: Source.............Cervical;EndocervicalOther..............Post MenopausalNo. of containers..01 CYTYC Thin Prep VialPATIENT NOT FASTINGPERFORMED BY: =G [facility] Hbvkjsudyi342 [place] [address] Prep Pap [id number] BY: WB [facility] Kttzxgzguc488 [place] [id number] Information: [id number] (93324) Age Gdln ACOG Testing 30-65 (Normal) :48 CALCIFEDIOL (94756) Comments: PATIENT WAS FASTINGPERFORMED BY: [facility]6370 [facility] [id number] Vitamin D, 25-Hydroxy 50.3 ng/mL (Normal) Range: 30.0-100.0 Comments: Vitamin D deficiency has been defined by the Grant of[facility] Hospitalcine and an Endocrine Society practice guideline as alevel of serum 25-OH vitamin D less than 20 ng/mL (1,2).The Endocrine Society went on to further define vitamin Dinsufficiency as a level between 21 and 29 ng/mL (2).1. IOM (Grant of Medicine). 2010. Dietary reference intakes for calcium and D. [place]: The National Academies Press.2. Melissa MF, Michael VILLALOBOS, Vannesa LEBLANC, et al. Evaluation, treatment, and prevention of vitamin D deficiency: an Endocrine Society clinical practice guideline. JCEM. 2010; 96(7):1911-30. :48 TSH (74323) Comments: PATIENT WAS FASTINGPERFORMED BY: [employer] Ovtweq8576 [facility] [id number] TSH 1.890 {uIU/mL} (Normal) Range: 0.450-4.500 :48 CBC, Platelets & Auto Diff Comments: PATIENT WAS FASTINGPERFORMED BY: [facility]6370 [facility] [id number] Information: [id number] (30289) Immature Grans (Abs) 0.0 {x10E3/uL} (Normal) Range: [...] 3.77-5.28 WBC 6.2 {x10E3/uL} (Normal) Range: 3.4-10.8 34-Dxg-33919:48 Metabolic Panel, Comprehensive Comments: PATIENT WAS FASTINGPERFORMED BY: LabCoTrinitas HospitalNwdsgi5022 [facility] [id number] (86998) ALT (SGPT) 29 [iU]/L (Normal) Range: 0-32 [...] Glucose, Serum 96 mg/dL (Normal) Range: 65-99 17-Qdc-59098:48 Lipid Panel (10820) Comments: PATIENT WAS FASTINGPERFORMED BY: [facility] [id number] LDL/HDL Ratio 2.6 {ratio_units} (Normal) Range: 0.0-3.2 [...] Cholesterol, Total 207 mg/dL (Abnormal) Range: 100-199 27-Fpl-998338:46 Microscopic Examination Comments: PATIENT NOT FASTINGPERFORMED BY: [employer]6370 [facility] [id number] Bacteria Few (Normal) Mucus Threads Present (Normal) Crystal Type Uric Acid (Normal) Crystals Present (Abnormal) Epithelial Cells (non renal) 0-10 {/hpf} (Normal) Range: 0 - 10 RBC 0-3 {/hpf} (Normal) Range: 0 - 3 WBC 0-5 {/hpf} (Normal) Range: 0 - 5 :46 TSH (45908) Comments: PATIENT NOT FASTINGPERFORMED BY: [employer] [facility] [id number] TSH 0.895 {uIU/mL} (Normal) Range: 0.450-4.500 :46 URINALYSIS, W/ MICRO (99086) Comments: PATIENT NOT FASTINGPERFORMED BY: [facility]6370 [facility] [id number] Microscopic Examination See below: (Normal) Microscopic Examination MICRON (Normal) Comments: Microscopic follows if indicated. Nitrite, Urine Negative (Normal) Urobilinogen,Semi-Qn 0.2 mg/dL (Normal) Range: 0.0-1.9 Bilirubin Negative (Normal) Ketones Negative (Normal) Occult Blood Negative (Normal) Glucose Negative (Normal) Protein Negative (Normal) WBC Esterase Negative (Normal) Appearance Clear (Normal) Urine-Color Yellow (Normal) pH 6.0 (Normal) Range: 5.0-7.5 Specific [place] 1.017 (Normal) Range: 1.005-1.030 :46 METABOLIC PANEL, COMPREHENSIVE Comments: PATIENT NOT FASTINGPERFORMED BY: [facility]6370 [facility] [id number] (42217) ALT (SGPT) 47 [iU]/L (Abnormal) Range: 0-32 [...] Glucose, Serum 100 mg/dL (Abnormal) Range: 65-99 21-Tja-724872:46 CBC WITH MANUAL DIFF Comments: PATIENT NOT FASTINGPERFORMED BY: ADRIANA [facility] Qpntmm3897 [facility] [id number] Information: [id number] (90263) Immature Grans (Abs) 0.0 {x10E3/uL} (Normal) Range: [...] Range: 3.4-10.8 :05 Rapid Strep Test, Office (27556) Comments: sore throat Rapid Strep Test, Office Negative (Normal) :42 ABO Grouping and Rho(D) Comments: PATIENT WAS FASTINGPERFORMED BY: [employer] [facility] [id number] Typing Rh Factor Positive (Normal) Comments: Please note: Prior records for this patient's ABO / Rh type are notavailable for additional verification. ABO Grouping A (Normal) :42 Hemoglobin A1c 6.1 % (Abnormal) Comments: PATIENT WAS FASTINGPERFORMED BY: PA Semi Erzkit9296 [facility] [id number] Range: 4.8-5.6 Comments: . Increased risk for diabetes: 5.7 - 6.4 Diabetes: >6.4 Glycemic control for adults with diabetes: <7.0 :42 Lipid Panel With LDL/HDL Comments: PATIENT WAS FASTINGPERFORMED BY: [employer]70 [facility] [id number] Ratio LDL/HDL Ratio 2.5 {ratio_units} (Normal) Range: 0.0-3.2 LDL Cholesterol Calc 131 mg/dL (Abnormal) Range: 0-99 VLDL Cholesterol Cosmo 34 mg/dL (Normal) Range: 5-40 HDL Cholesterol 52 mg/dL (Normal) Comments: According to ATP-III Guidelines, HDL-C >59 mg/dL is considered anegative risk factor for CHD. Triglycerides 168 mg/dL (Abnormal) Range: 0-149 Cholesterol, Total 217 mg/dL (Abnormal) Range: 100-199 90-Pvx-980077:55 CBC, PLATELETS & AUT DIFF Comments: PATIENT NOT FASTINGPERFORMED BY: PA Semi Eywibo4650 [facility] [id number] Information: ADD [id number] AND DRAW FEE [id number] (80646) Immature Grans (Abs) 0.0 {x10E3/uL} (Normal) Range: [...] 3.80-5.10 WBC 8.6 {x10E3/uL} (Normal) Range: 4.0-10.5 90-Moz-700402:55 HEPATIC FUNCTION PANEL Comments: PATIENT NOT FASTINGPERFORMED BY: [facility]CoTrinitas HospitalTrecmo9443 [facility] [id number] (55312) ALT (SGPT) 36 [iU]/L (Normal) Range: 0-40 AST (SGOT) 28 [iU]/L (Normal) Range: 0-40 Alkaline Phosphatase, S 84 [iU]/L (Normal) Range: 25-165 Bilirubin, Direct 0.07 mg/dL (Normal) Range: 0.00-0.40 Bilirubin, Total 0.2 mg/dL (Normal) Range: 0.0-1.2 Protein, Total, Serum 6.4 g/dL (Normal) Range: 6.0-8.5 :55 RENAL FUNCTION PANEL (43354) Comments: PATIENT NOT FASTINGPERFORMED BY: [facility] Mnelqw2362 [facility] [id number] Albumin, Serum 3.9 g/dL (Normal) Range: 3.6-4.8 [...] Glucose, Serum 114 mg/dL (Abnormal) Range: 65-99 93-Kac-979668:14 CBC HCT 38.3 % (Normal) Range: 37-47 [...] T PROT 7.1 g/dL (Normal) Range: 6.4-8.2 57-Izy-565107:45 SERUM CRE & GFR EST GFR 108 mL/min (Normal) EST GFR - AA 131 mL/min (Normal) CREAT,SERUM 0.6 mg/dL (Normal) Range: 0.6-1.0 :27 CBC Comments: DR. OLSON ORDERED CBC LIVER ROBERTO ARROYO ORDERED VITD HCT 39.9 % (Normal) Range: [...] (Normal) Range: 4.4-11.0 :27 LIVER Comments: DR. OLSON ORDERED CBC LIVER ROBERTO ARROYO ORDERED VITD ALB 3.4 g/dL (Normal) Range: 3.4-5.0 ALK P 89 U/L (Normal) Range: 50-136 ALT 32 U/L (Normal) Range: 12-78 AST 17 U/L (Normal) Range: 15-37 D BILI 0.11 mg/dL (Normal) Range: 0.00-0.30 T BILI 0.40 mg/dL (Normal) Range: 0.00-1.00 T PROT 7.0 g/dL (Normal) Range: 6.4-8.2 :27 SERUM CRE & GFR Comments: DR. OLSON ORDERED CBC LIVER CREJYOTI CRUZ ORDERED VITD CREAT,SERUM 0.7 mg/dL (Normal) Range: 0.6-1.0 EST GFR 90 mL/min (Normal) EST GFR - AA 109 mL/min (Normal) :27 VIT D,25 24416 41.1 ng/mL (Normal) Comments: DR. OLSON ORDERED CBC LIVER CREJYOTI CRUZ ORDERED VITD Range: 32.0-100.0 Comments: Recent studies consider the lower limit of 32.0 ng/mL to arminda threshold for optimal health.Roe DURHAM. J Nutr. 2004;135(2):317-22.Performed at: [facility] [address] 00[address] 296Lab Director: Marlene Myers MD, Phone: [phone] 96-Bbg-311054:55 Glucose, PP/2 Hour Comments: PATIENT WAS FASTINGPERFORMED BY: [employer] [address] [id number] Information: [id number] 75G DRAWN @ 1015AM (51850) Glucose, Two-Hour Postprandial 109 mg/dL (Normal) Range: 65-139 24-Twc-164800:58 BILAT SCRN DIGITAL & CAD Radiology Report See Note (Normal) Comments: Exam Number: [id number] MAMMOGRAM, BILATERAL SCREENING DIGITAL AND CAD HISTORYRoutine [...] mammograms werealso examined with computer-aided detection software ([employer], [employer] Reported By: BRYAN HERNANDEZ M.D. 96-Tjx-846742:58 DEXA BONE DENSITY STUDY () Radiology Report See Note (Normal) Comments: Exam Number: [id number] BONE DENSITOMETRY HISTORYOsteopenia. TECHNIQUEBone densitometry of the lumbar spine and both hips is now beingperformed. The best criteria for evaluation of osteoporosis is theT- value, which represents the comparison of the patient's bone mass joelle expected peak bone mass. For most patients, the mean T-value of D1inzmkze L4 is used to evaluate the lumbar spine. To evaluate th e hip,the lower T-value of the femoral neck or total hip is used. FINDINGSIn this patient, the mean T-value of L1 through L4 is minus 2.1, whichis in the range of osteopenia. Bone mineral density is me asured at3.2% less than in 1999, and 0.9% more than in 2006. Digital [...] INSULIN 4333 16.5 {uIU/mL} Comments: ORDERED CBC,LIVER,CRE,CRP,ESRDR BONEZZI ORDERED CBCMD,LIPID,CMP,A1C,INSULIN,FT3,TSH 9 (Normal) Range: 0.0-24.9 Comments: Performed At: [facility]6[address] [place], [place] [id number] :37 C-REACTIVE PROT 3.49 mg/L (Abnormal) Comments: DR NOVA ORDERED LIPID,CMP,CBC, UADR WOJNO ORDERED CBC,LIVER,SED RATE, CRP, AND CREATININE Range: 0.0-3.0 Comments: C-Reactive Protein (CRP) provides useful information for thediagnosis, therapy and monitoring of inflammatory processesand associated diseases. For the evaluation of Relative Riskfor Cardiovascular Dise ase, a High Sensitivity CRP (HSCRP)should be ordered. :37 CBC Comments: DR NOVA ORDERED LIPID,CMP,CBC, UADR WOJNO ORDERED CBC,LIVER,SED RATE, CRP, AND CREATININE HCT [...] COMP METABOLIC Comments: DR NOVA ORDERED LIPID,CMP,CBC, UADR WOJNO ORDERED CBC,LIVER,SED RATE, CRP, AND CREATININE A/G [...] mg/dL VLDL 31 mg/dL (Normal) Range: 5-40 :37 ROUTINE UA Comments: DR NOVA ORDERED LIPID,CMP,CBC, UADR WOJNO ORDERED CBC,LIVER,SED RATE, CRP, AND CREATININE BILIRUBIN [...] 0.2 EU/dl (Normal) Range: 0.2 - 1.0 1-Vba-987412:54 CALCIFEDIOL (83324) Comments: PATIENT NOT FASTINGPERFORMED BY: [facility] [id number] Vitamin D, 25-Hydroxy 35.4 ng/mL (Normal) Range: 32.0-100.0 Comments: Recent studies consider the lower limit of 32.0 ng/mL to be athreshold for optimal health.Roe DURHAM. J Nutr. 2004;135(2):317-22. 9-Bsp-624974:54 VITAMIN D, 1, 25-DIHYDROXY Comments: PATIENT NOT FASTINGClinical Information: ADD DRAW FEE [id number] ADD J 68158 PERFORMED BY: [facility] [id number] (96255) Calcitriol(1,25 di-OH Vit D) 44.1 pg/mL (Normal) Range: 15.9-55.6 91-Aaq-761254:17 Thin prep Pap Comments: Source.............Cervical;EndocervicalLMP / Prev Treat...VIX=[id number]. of containers..01 CYTYC Thin Prep VialPATIENT NOT FASTINGClinical Information: ADD [id number] (82704) PERFORMED BY: [facility] [id number] . . (Normal) DIAGNOSIS: SPRCS (Normal) Comments: NEGATIVE FOR INTRAEPITHELIAL LESION AND MALIGNANCY.CELLULAR CHANGES ASSOCIATED WITH ATROPHY ARE PRESENT.Satisfactory for evaluation. Endocervical and/or squamous metaplasticcells (endocervical componen t) are present.V72.31 ; Routine gynecological examinationMay Felipe Base Draw Operator (ASCP) Note: PAPSMR (Normal) Comments: The Pap [...] resulttherefore, no HPV testing was performed. . 71-Nwi-667429:06 BILAT DIAG DIGITAL & CAD Radiology Report See Note (Normal) Comments: Exam Number: [id number] MAMMOGRAM, BILATERAL DIAGNOSTIC DIGITAL AND CAD HISTORYAbnormal [...] werealso examined with computer- aided detection software ([employer], [employer] Reported By: BRYAN HERNANDEZ M.D. 6-Afp-750232:21 BILAT SCRN DIGITAL & CAD Radiology Report See Note (Normal) Comments: Exam Number: [id number] MAMMOGRAM, BILATERAL SCREENING DIGITAL AND CAD HISTORYRoutine [...] mammograms werealso examined with computer-aided detection software (Imagechecker, [employer], [employer] Reported By: BRYAN HERNANDEZ M.D. :24 LIPID CHOL 207 mg/dL (Abnormal) Comments: <200 [...] T PROT 6.7 g/dL (Normal) Range: 6.4-8.2 78-Zrf-853896:20 Thin prep Pap Comments: Source.............Cervical;EndocervicalLMP / Prev Treat...SHW=[id number];NoneNo. of containers..01 CYTYC Thin Prep VialPERFORMED BY: [facility] [place] [id number] (69513) . . (Normal) DIAGNOSIS: SPRCS (Normal) Comments: NEGATIVE FOR INTRAEPITHELIAL LESION AND MALIGNANCY.CELLULAR CHANGES ASSOCIATED WITH ATROPHY ARE PRESENT.Satisfactory for evaluation. Endocervical and/or squamous metaplasticcells (endocervical componen t) are present.V76.2 ; Screening for malignant neoplasm of the cervixHyun Herrera Base Draw Operator (ASCP) Note: PAPSMR (Normal) Comments: The Pap [...] resulttherefore, no HPV testing was performed. . 8-Faf-218696:03 C-REACTIVE PROT 2.30 mg/L (Normal) Range: 0.0-6.0 [...] (Normal) Comments: SLIDE SCANNED NO NRBCS NOTED. :0 C-REACTIVE PROT 2.70 mg/L (Normal) Range: 0.0-6.0 0 Comments: Test performed using the Dimension C-Reactive ProteinExtended Range assay method. This assay meets the AHA/CDC 2003 recommendations fordetermining patients at high risk for cardiovasculardisease. Reference: High risk CRP >3.0 mg/L :00 CBC Comments: CBC AND LIVER RESULTS TO FAX---- [phone] HCT 44.1 % (Normal) Range: 37-47 HGB 14.9 g/dL (Normal) Range: 12.0-16.0 MCH 29.3 pg (Normal) Range: 27.0-32.0 MCHC 33.7 g/dL (Normal) Range: 32-36 MCV 86.7 fL (Normal) Range: 81-99 PLT 296 K/mm3 (Normal) Range: 150-450 RBC 5.09 {M/mm3} (Normal) Range: 4.2-5.4 RDW 13.2 % (Normal) Range: 11.6-14.6 WBC 6.4 K/mm3 (Normal) Range: 4.4-11.0 98-Jgw-006815:00 COMP METABOLIC A/G 1.1 {RATIO} (Normal) Range: [...] T PROT 7.2 g/dL (Normal) Range: 6.4-8.2 51-Kyp-245441:00 D BILI 0.05 mg/dL (Normal) Range: 0.00-0.30 42-Bwt-604065:00 PFLIP CHOL 230 mg/dL (Abnormal) Comments: <200 [...] Plan of Care Name Dates Details Instructions Bacteremia due to Staphylococcus : Reviewed Diagnostic Tests Indication: Bacteremia due to Staphylococcus Bacteremia due to Staphylococcus : Reviewed Lab Indication: Bacteremia due to Staphylococcus Non-smoker : Eprescribed prescriptions (G8553) Indication: Non-smoker Left leg pain : Eprescribed prescriptions (G8553) Indication: Left leg pain Upper respiratory infection, viral : Follow up if no improvement or if symptoms worsen Indication: Upper respiratory infection, viral Candidiasis, mouth : Thrush: mouth Indication: Candidiasis, mouth Upper respiratory infection, viral : Common Cold *: upper respiratory infection Indication: Upper respiratory infection, viral Non-smoker : Eprescribed prescriptions (G8553) Indication: Non-smoker Rheumatoid arthritis : Reviewed Unix Architect Letter Indication: Rheumatoid arthritis Rheumatoid arthritis : Reviewed Unix Architect Letter Indication: Rheumatoid arthritis Impaired fasting glucose [...] and swelling of elbow, left : Reviewed [employer] Architect Letter Indication: Pain and swelling of elbow, [...] Impaired fasting glucose Rheumatoid arthritis : Reviewed Unix Architect Letter Indication: Rheumatoid arthritis Hypercholesteremia : Cholesterol [...] Indication: Rheumatoid arthritis Rheumatoid arthritis : Reviewed [employer] Architect Letter Indication: Rheumatoid arthritis Impaired fasting glucose [...] treatment Indication: Depressive disorder Migraine : Reviewed [employer] Architect Letter Indication: Migraine Encounter for annual routine [...] examination Planned Observations VITAMIN B12 AND FOLATES (14493)Indication: Hair loss On: :33 Request T4, FREE (THYROXINE) (35263)Indication: Hair loss On: : Request T3, FREE (TRIDOTHYRONINE) (29769)Indication: Hair loss On: :32 Request Methymalonic Acid, Serum (33358)Indication: Hair loss On: :32 Request Metabolic Panel, Comprehensive (55934)Indication: Hair loss On: 34-Oek-696973:32 Request IRON (27481)Indication: Hair loss On: :32 Request DHEA-S (DEHYDROEPIANDROSTERONE SULFATE) (24082)Indication: Hair loss On: :32 Request FERRITIN (36573)Indication: Hair loss On: 39-Tmb-804842:32 Request TSH (41070)Indication: Hair loss On: 77-Qph-612698:32 Request TSH (30533)Indication: Nocturnal leg cramps On: 36-Esc-022763:41 Request METABOLIC PANEL, COMPREHENSIVE (65778)Indication: Nocturnal leg cramps On: :41 Request CBC W/AUTO DIFF WBC (68229)Indication: Nocturnal leg cramps On: :41 Request CALCIFIDIOL (18364) VIT D 25Indication: Depressive disorder On: :39 Request TSH (04049)Indication: Impaired fasting glucose On: :39 Request URINALYSIS, W/ MICRO (42446)Indication: Impaired fasting glucose On: :39 Request MICROALBUMIN: CREATININE RATIO (08930) AND (55361)Indication: Impaired fasting glucose On: :39 Request METABOLIC PANEL, COMPREHENSIVE (42758)Indication: Impaired fasting glucose On: :39 Request LIPID PANEL (66297)Indication: Impaired fasting glucose On: :39 Request CBC W/AUTO DIFF WBC (30890)Indication: Impaired fasting glucose On: :39 Request URINALYSIS, W/ MICRO (52812)Indication: Hypertension On: :46 Request MICROALBUMIN: CREATININE RATIO (91482) AND (44956)Indication: Hypertension On: :46 Request TSH (58534)Indication: Impaired fasting glucose On: :45 Request LIPID PANEL (97698)Indication: Hypertension On: :45 Request METABOLIC PANEL, COMPREHENSIVE (46372)Indication: Hypertension On: :45 Request HEPATITIS PANEL (49766)Indication: Elevated liver enzymes On: 65-Uwo-705085:22 Request Comments: recheck in 6 weeks HEPATIC FUNCTION PANEL (44088)Indication: Elevated liver enzymes On: 76-Sdz-168581:21 Request Comments: recheck in 6 weeks LIPID PANEL (80003)Indication: Hypertension On: :34 Request BLOOD TYPE ANTIGEN DONOR EA (50733)Indication: ENCOUNTER, BLOOD TYPING On: :34 Request Hemoglobin Glyclated (HGB A1C) (56802)Indication: ABNORMAL GLUCOSE NEC On: 76-Yas-857252:04 Request LIPID PANEL (60823)Indication: Hypercholesteremia On: 80-Tms-321151:04 Request URINALYSIS, W/ MICRO (63090)Indication: Hypertension On: 7-Xma-970236:03 Request METABOLIC PANEL, COMPREHENSIVE (30151)Indication: Hypertension On: 5-Lhb-417577:03 Request LIPID PANEL (24798)Indication: Hypertension On: 2-Bfn-561054:03 Request CBC WITH MANUAL DIFF (43759)Indication: Hypertension On: 2-Bde-364712:03 Request METABOLIC PANEL, COMPREHENSIVE (12124)Indication: Hypercholesteremia On: 6-Oyf-666470:07 Request CBC WITH MANUAL DIFF (51048)Indication: Hypercholesteremia On: 7-Kjf-753328:07 Request LIPID PANEL (74036)Indication: Hypercholesteremia On: 6-Plz-323395:07 Request URINALYSIS (07684)Indication: Hypertension On: :48 Request CBC (Auto) (31103)Indication: Hypertension On: :48 Request Metabolic Panel, Comprehensive (60503)Indication: Hypertension On: :48 Request Lipid Panel (00855)Indication: Hypertension On: 06-Hij-99748:48 Request CBC (Auto) (73205)Indication: Hypertension On: :44 Request Metabolic Panel, Comprehensive (38083)Indication: Hypertension On: 45-Exv-592876:44 Request HEPATIC FUNCTION PANEL (00324)Indication: Hypercholesteremia On: :34 Request LIPID PANEL (91241)Indication: Hypercholesteremia On: 5-Jwr-660960:34 Request CBC (AUTO) (97643)Indication: Hypertension On: 10-Nzo-864051:28 Request METABOLIC PANEL, COMPREHENSIVE (35296)Indication: Hypertension On: 44-Dbt-982426:28 Request LIPID PANEL (75040)Indication: Hypertension On: 12-Peh-689545:28 Request Thin prep Pap (80047)Indication: Encounter for annual routine gynecological examination On: :23 Request Planned Procedures ELECTROCARDIOGRAM, COMPLETE (ECG) On: 09-Jun-2017 Intent (18721)By: Ciara Caballero DO Comments: nsr no acute cgh Ciara ANDINO MRI ELBOW LEFT WO CONTRAST (13497)By: On: 15-Mar-2017 Intent Jyoti Arroyo CNP Comments: Send results to Dr. 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 Venous Doppler - UpperBy: Cruz DAVID, On: 09-Mar-2017 Intent Jyoti Wilson Comments: left upper call results to Cecilia at [facility] Radiology - Elbow - RightBy: Ciesa On: 09-Mar-2017 Intent Jyoti DAVID Comments: call [facility] DEXA SCAN AXIAL SKELETON (61810)By: On: 17-Jan-2015 Intent Alice Nova MD Comments: postmenapausal MAMMOGRAM, SCREENING, BOTH BREAST On: 17-Jan-2015 Intent (77725)By: Alice Nova MD Pap Smear, Medicare (Q0091)By: On: 17-Jan-2015 Intent Alice Nova MD Pelvic and Breast, Medicare On: 17-Jan-2015 Intent (G0101)By: Alice Nova MD ADMINISTRATION OF PNEUMOCOCCAL On: 17-Jan-2015 Intent VACCINE (G0009)By: Alice Nova MD PNEUM VAC ADLT/IMUMNOSPR, SBC/INTRM On: 17-Jan-2015 Intent (44835)By: Alice Nova MD MAMMOGRAM, SCREENING, BOTH BREAST On: 07-Sep-2014 Intent (95292)By: Alice Nova MD Comments: end of 10-21 Eprescribed prescriptions (G8553)By: On: 24-Oct-2013 Intent Yasmine Mccallum LPN Bone Density StudyBy: Wallace CHADWICK, On: 09-Dec-2012 Intent Alice Correa Comments: post menopausal Breast Screening - BilateralBy: On: 09-Dec-2012 Intent Alice Nova MD Breast Screening - BilateralBy: On: 06-Dec-2012 Intent Alice Nova MD Bone Density StudyBy: Wallace CHADWICK, On: 06-Dec-2012 Intent Alice Correa Eprescribed prescriptions ([id number])By: On: 09-Aug-2012 Intent Alice Nova MD TDAP VACCINE >7 IM ([id number])By: Wallace On: 04-Dec-2010 Intent Alice CHADWICK EKG ([id number])By: RAJ Suárez On: 04-Dec-2010 Intent EKG ([id number])By: Linda Israel LPN On: 14-Jun-2009 Intent DXA, BONE DENSITY, AXIAL SKELETON On: 23-Oct-2008 Intent ([id number])By: Alice Nova MD MAMMOGRAM, SCREENING, BOTH BREASTS On: 23-Oct-2008 Intent ([id number])By: Alice Nova MD Comments: after 6 MAMMOGRAM, SCREENING, BOTH BREASTS On: 06-Jul-2007 Intent ([id number])By: Alice Nova MD EKG ([id number])By: Alice Nova MD On: 17-Dec-2006 Intent Breast Diagnostic - LeftBy: Wallace On: 17-Dec-2006 Intent Alice CHADWICK Comments: in six months follow up on calcifications DXA, BONE DENSITY, AXIAL SKELETON On: 26-Jul-2006 Intent ([id number])By: Alice Nova MD Comments: rheumatiod arthritis MAMMOGRAM, SCREENING, BOTH BREASTS On: 26-Jul-2006 Intent ([id number])By: Alice Nova MD Planned Medications INFUSION, NORMAL SALINE SOLUTION , 250 CC Ordered: 15-Mar-2017 Pending Jyoti Arroyo CNP INJECTION, CEFTRIAXONE SODIUM, PER 250 MG Ordered: 15-Mar-2017 Pending Jyoti Arroyo CNP Instructions Name Dates Details Non-smoker : How to access health information online Indication: Non-smoker Non-smoker : How to access health information online - Detail Indication: Non-smoker Non-smoker : Patient Instructions Indication: Non-smoker Left leg pain : How to access health information online Indication: Left leg pain Left leg pain : How to access health information online - Detail Indication: Left leg pain Left leg pain : Patient Instructions Indication: Left leg pain Non-smoker : How to access health information [...] Instructions Indication: Bronchitis Encounters Office Visit On: 19-Oct-2018 11:57 Encounter Reason: Follow up hospital - Reason for ER visit: note: (staph infection R arm). The patient feels well with no complaints, has good energy level and is sleeping well. Patient has been compliant with instructio End: 19-Oct-2018 12:29 ns. Current medication use: no side effects. Patient sleeps 6 hours per night. Impact of disease: no overall impact. Nutrition: inappropriate diet. The hospital results of the other (x-ray of R elbow -- blood cultures which showed active staph infection) wereEncounter Diagnosis: BMI 31.0-31.9,adult, Non-smoker, Bacteremia due to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
--- OUTSIDE RECORDS SUMMARY | 2019-01-29 16:14 | XMS RPT_ITS | Continuity of Care Document ---
:1950 Author Organization [facility] Address [address] [place] [address] Phone Care Team Providers Name Role Phone Ciara Caballero DO Unavailable César Martins Unavailable Dr. Pipo Horner Unavailable Tami ANDINO , Dr. 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 Status: Active Disc disease, degenerative, [...] weekly (2.5 MG) Active Comments:Dr. Jules PredniSONE 5 MG Oral Tablet 1 Tablet [...] 29-Oct-2011 End : 07-Sep-2014 Inactive Comments:called to [facility] -4-10 monisha Leucovorin Calcium 5 MG [...] : 09-Mar-2017 End : 09-Mar-2017 Inactive NYSTATIN, [id number]/ML (Mouth/Throat Suspension) 5 cc swish and swallow [...] local pharm. mammogram , BD , colonoscopy ([facility]), whisper test WNL Status: Inactive as [...] USO 26 yo Completed Date Value Details 15-Oct-2018 Emergency Department Summary Result: Comments: See Note; NOTES: [facility] Medical Records Department [address] [place] [address] Emergency Department Summary 10/15/18 1147 MR#: [id number] Acct: [id number] Name: MARIA EUGENIA VAUGHAN Rep #: [id number] : 1950 68 From: Danilo Kiran MD [...] bacteremia, immunosuppressed This note was generated with [employer] dictation software. It may contain incorrec t [...] Primary Care Provid er. Call Doctors Registry ([phone]) or report to the closest Emergency Room. Call 911 if necessary. 10/15/18 1254 <Electronically signed by Danilo Kiran MD> Date Danilo Kiran MD Cosigner Signature (If Indicated): Date CC: Ciara Caballero DO 15-Oct-2018 Emergency Department Summary Result: Comments: See Note; NOTES: [facility] Medical Records Department [address] [place] [address] Emergency Department Summary 10/14/18 1309 MR#: [id number] Acct: [id number] Name: MARIA EUGENIA VAUGHAN Rep #: [id number] : 1950 68 From: Dharmesh Arellano MD PCP: Ciara Caballero DO Status: DEP ER ADDENDUM by Dharmesh Arellano MD on 10/15/18 at 0844 Patient's blood cultures returned at this morning showing gram-positive cocci in clusters. At 840 I left a message on her home phone and cell phone instructing her to return to emergency department for IV antibiotics and admission to [facility]. 10/15/18 0844 Date Dharmesh Arellano MD cc: [...] on immunosuppressants. This note was generated with [employer] dictation software. It may contain incorrect words, [...] contact your Primary Car e Provider. Call stylemarks Registry ([phone]) or report to the closest Emergency Room. Call 911 if necessary. 10/14/18 9855 <Electronically signed by Dharmesh Arellano MD> Date ____ Dharmesh Arellano MD Cosigner Signature (If Indicated): Date CC: Ciara Caballero DO 14-Oct-2018 Emergency Department Summary Result: Comments: See Note; NOTES: [facility] Medical Records Department [address] [place] [address] Emergency Department Summary 10/14/18 1309 MR#: [id number] Acct: [id number] Name: MARIA EUGENIA VAUGHAN Rep #: [id number] : 1950 68 From: Dharmesh Arellano MD [...] on immunosuppressants. This note was generated with [employer] dictation software. It may contain incorrect words, spelling, and punctuation that were not noted in review of t chart prior to signing ED Disposition - [...] contact your Primary Care Provider. Call D D[facility] Registry ([phone]) or report to the closest Emergency Room. Call 911 if necessary. 10/14/18 175 <Electronically signed by Dharmesh Arellano MD> Date Dharmesh Arellano MD Cosigner Signature (If Indicated): Date CC: Ciara Caballero DO 14-Oct-2018 Elbow min 3 Views Result: Comments: See Note; NOTES: [facility] Imaging Services [address] [place] [address] Elbow min 3 Views MR#: [id number] Acct: [id number] Name: MARIA EUGENIA VAUGHAN Rep #: [id number] : 1950 F 68 From: Fidel Carreon MD PCP: Ciara Caballero DO Status: REG ER Study: Elbow min 3 Views Date of Exam: 10/14/18 Exam# [id number] Ordering Dr: Dharmesh Arellano MD STUDY: X-RAY [...] Fidel Carreon MD at 12:26 EST Tel [phone], Service support , CC: Ciara Caballero DO; Dharmesh Arellano MD Cutter Grind Tool Technician: Signed 15-Mar-2017 History and Physical Exam Result: Comments: See Note; NOTES: [facility] Medical Records Department [address] [place] [address] History and Physical 03/15/172049 MR#: [id number] Acct: [id number] Name: Gregor VAUGHAN Rep #: [id number] : 1950 66 From: Jason Vogel MD [...] Ruiz has been notified by ER physican medardo nd will be consulted for further surgical [...] 83.2 H Lymph % (Auto) 7.8 L Hendry % (Auto) 8.5 Eos % (Auto) 0.0 [...] home medications - scds for dvt prophylaxis 03/15/172107 <Electronically signed by Jason Vogel MD> Date Jason Vogel MD Cosigner Signature (if applicable): Date CC: Ciara Caballero DO; Jason Vogel MD Signed 15-Mar-2017 Elbow min 3 Views Result: Comments: See Note; NOTES: [place] [facility] Imaging Services [address] [place] [address] Verdana 4d Elbow min 3 Views MR#: [id number] Acct: [id number] Name: MARIA EUGENIA VAUGHAN Rep #: [id number] : 1950 F 66 From: Angelia Ortiz MD PCP: Ciara Caballero DO Status: REG ER Study: Elbow min 3 Views Date of Exam: 03/15/17 Exam# [id number] Ordering Dr: Silvino Lai MD STUDY: X- [...] CC: Silvino Lai MD; Ciara Caballero DO Cutter Grind Tool Technician: Signed 15-Mar-2017 Upper Ext Joint Only(Routine) Result: Comments: See Note; NOTES: [facility] Imaging Services [address] [place] [address] Verdana 4d Upper Ext Joint Only(Routine) MR#: [id number] Acct: [id number] Name: ROXANA VAUGHAN Rep #: [id number] : 1950 F 66 From: Sid Cooper MD PCP: Ciara Caballero DO Status: REG CLI Study: Upper Ext Joint Only(Routine) Date of Exam: 03/15/17 Exam# [id number] Ordering Dr: Jyoti Julien sa STUDY: MRI [...] , CC: Jyoti Mcrae; Ciara Caballero DO Cutter Grind Tool Technician: Signed 13-Mar-2017 Emergency Department Summary Result: Comments: See Note; NOTES: [facility] Medical Records Department [address] [place] [address] Emergency Department Summary MR#: [id number] Acct: [id number] Name: FRANKIE VAUGHAN Rep #: [id number] : 1950 66 From: Yvonne Donnelly MD [...] finally saw a nurse practitioner at the [facility] and is scheduled to see Dr. [...] states that the nurse practitioner at the [facility] told her this is not a real [...] MD Lorena Thomas C: ROBERTO LINDSEY T: SAUL JOB: [id number] 03/13/17 2245 <Electronically signed by Yvonne Donnelly MD> Date Yvonne Multani Signmallory e (If Indicated): Date CC: ROBERTO LINDSEY; Ciara Caballero DO Date Dictated: 03/13/171740 Date Transcribed: 03/13/171740 Cutter Grind Tool Technician: Signed 13-Mar-2017 Discharge Instruction Result: Comments: See Note; NOTES: [facility] Medical Records Department [address] [place] [address] Discharge Instruction 03/13/17 1715 MR#: [id number] Acct: [id number] Name: MARIA EUGENIA VAUGHAN Rep #: [id number] : 1950 66 From: Yvonne Donnelly MD PCP: Ciara Caballero DO Status: REG ER ED Disposition - Plan for ED Patient: Chief Complaint: Upper Extremity Injury Instructions: ED Infec Skin Cellulitis Prescriptions: Cephalexin [Keflex] 500 mg PO Q6 #40 capsule Referrals: Ciara Caballero DO [Primary Care Provider] - Additional Instructions: See the doctor at [facility] a s scheduled. What to do if you have Problems For any increased pain, shortness of breath, bleeding, nausea or vomiting, chest pain, or any unexpected problems, contact your Primary Care Provider. [facility] Doctors Registry ([phone]) or report to the closest Emergency Room. Call 911 if necessary. 03/13/17 1718 <Electronically signed by Yvonne Donnelly MD> Date Yvonne Donnelly MD Cosigner Signature (If Indicated): Date CC: Ciara Caballero DO 13-Mar-2017 Elbow min 3 Views Result: Comments: See Note; NOTES: [facility] Imaging Services [address] [place] [address] Verdana 4d Elbow min 3 Views MR#: [id number] Acct: [id number] Name: CLEMENTMARIA EUGENIA A Rep #: [id number] : 1950 F 66 From: Rand Michael MD PCP: Ciara Caballero DO Status: REG ER Study: Elbow min 3 Views Date of Exam: 03/13/17 Exam# [id number] Ordering Dr: Yvonne Donnelly MD STUDY: X [...] CC: Yvonne Donnelly MD; Ciara Caballero DO Cutter Grind Tool Technician: Signed 11-Mar-2017 Venous Duplex Upper Extremity Result: Comments: See Note; NOTES: [facility] Cardiovascular Services [address] [place] [address] Venous Duplex US, Unilateral 03/09/17 1520 MR#: [id number] Acct: [id number] Name: MARIA EUGENIA SOTO Rep #: [id number] : 1950 66 From: Jamari Amos MD [...] involving the veins imaged. Ordering Physician: Jyoti Mcrae Performed By: Vladimir Black, RVT 03/11/172252 Date Jamari Amos MD CC: Jyoti Mcrae; Ciara Caballero DO Date Dictated: 03/09/17 1520 Date Transcribed: 03/11/172252 Cutter Grind Tool Technician: Signed 09-Mar-2017 Elbow min 3 Views Result: Comments: See Note; NOTES: [facility] Imaging Services [address] [place] [address] Verdana 4d Elbow min 3 Views MR#: [id number] Acct: [id number] Name: CLEMENTMARIA EUGENIA A Rep #: [id number] : 1950 F 66 From: Fidel Carreon MD PCP: Ciara Caballero DO Status: REG CLI Study: Elbow min 3 Views Date of Exam: 03/09/17 Exam# [id number] Ordering Dr: Jyoti Mcrae STUDY: X -RAY [...] Fidel Carreon MD at 16:08 EDT Tel [phone], Service support , CC: Jyoti Mcrae; Ciara Caballero DO Cutter Grind Tool Technician: Signed 03-Mar-2017 Discharge Instruction Result: Comments: See Note; NOTES: [facility] Medical Records Department [address] [place] [address] Discharge Instruction 03/03/17 1105 MR#: [id number] Acct: [id number] Name: MARIA EUGENIA VAUGHAN Rep #: [id number] : 1950 66 From: Roberto Díaz MD [...] MG PER DAY FOLLOW UP WITH YOUR VP PUBLISHER DEVELOPMENT IF NOT GETTING BETTER What to do if you have Problems For any increased pain, shortness of breath, bleeding, nausea or vom iting, chest pain, or any unexpected problems, contact your Primary Care Provider. Call stylemarks Registry ([phone]) or report to the closest Emergency Room. Call 911 if necessary. 03/03/17 1621 &a mp;#60;Electronically signed by Roberto Díaz MD> Date Roberto Díaz MD Cosigner Signature (If Indicated): Date CC: Ciara Caballero DO 03-Mar-2017 Emergency Department Summary Result: Comments: See Note; NOTES: [facility] Medical Records Department [address] [place] [address] Emergency Department Summary MR#: [id number] Acct: [id number] Name: FRANKIE VAUGHAN Rep #: [id number] : 1950 66 From: Roberto Díaz MD PCP: Ciara Caballero DO Status: DEP ER DATE OF SERVICE: 03/03/2017 CHIEF COMPLAINT: [...] normal radial pulse, flexion and extension. Normal coat joiner lockstitch strengt h. Left trapezius is unremarkable. Otherwise, [...] is going to follow up with her radio rigger if this is not improving. At this time, it does not look like any type of sep tic joint. Roberto Díaz MD T: NTS JOB: [id number] 03/03/17 1621 <Electronically signed by Roberto Díaz MD> Date Roberto Díaz MD Cosigner Signature (If Indicated): Date CC: Ciara Caballero DO Date Dictated: 03/03/17 1110 Date Transcribed: 03/03/17 111 Cutter Grind Tool Technician: Signed 24-Jun-2016 ELECTROCARDIOGRAM, COMPLETE (ECG) (49830) Comments: nsr no acute chg Result: [MEASUREMENTS ANALYSIS] Date of Test: 06/24/2016 15:00:37; Heart Rate: 87; MN Interval: 144; QRS: 94; QT Interval: 368; Corrected QT Interval (QTc): 415; P Wave Amawalk: 5; QRS Wave Amawalk: 129; T Wave Amawalk: -1; Blood Pressure: 142/100 [ECG DIAGNOSTIC STATEMENTS] Date of Test: 06/24/2016 15:00:37; Summary: Sinus Rhythm -Right axis -consider right ventricular hypertrophy. ABNORMAL 23-Jun-2016 PT D/C Summary (1) Result: Comments: See Note; NOTES: [facility] Physical Therapy [facility] [address] [place] [address]. [address] [place] [address] Fax REHABILITATION SERVICES GUSTAVO RGE SUMMARY MR#: [id number] Acct: [id number] Name: MARIA EUGENIA VAUGHAN Rep #: [id number] : 1950 66 From: Gisell Caraballo PT, [...] please feel free to call me at [phone]. Thank you for the refer ral of this patient. Sincerely, Gisell Caraballo <Electronically signed by Gisell Caraballo PT, Cert. MDT> 06/23/16 1153 CC: Ciara Ada ; Zeeshan Sotelo ELVIS Signed 22-May-2016 Inital Evaluation (1) - PT Result: Comments: See Note; NOTES: [facility] Physical Therapy [facility] [address] [place] [address] Fax REHABILITATION SE RVICES INITIAL EVALUATION MR#: [id number] Acct: [id number] Name: MARIA EUGENIA VAUGHAN Rep #: [id number] : 1950 66 From: Gisell Caraballo PT, [...] Pain Scale: LOW BACK 0-9/10, 0-9/10. Currently: 10. Commenced as a result of: NO APPARENT [...] by Gisell Caraballo PT, Cert. MDT> 05/22/16 6529 CC: Ciara Caballero DO; Zeeshan Sotelo ELVIS Signed For Medicare only, by s igning this I certify the plan of care. Physicians Signature Date 21-May-2016 Hip 2-3 Views with Pelvis Result: Comments: See Note; NOTES: [facility] Imaging Services [address] [place] [address] Verdana 4d Hip 2-3 Views with Pelvis MR#: [id number] Acct: [id number] Name: MARIA EUGENIA SOTO Rep #: [id number] : 1950 F 66 From: Fidel Carreon MD PCP: Alice Nova MD Status: REG CLI Study: Hip 2-3 Views with Pelvis Date of Exam: 05/21/16 Exam# [id number] Order ing Dr: Zeeshan Sotelo DO STUDY: [...] Fidel Carreon MD at 14:21 EDT Tel [phone], Service support [phone], OR WENDI #: [phone] RAD/Hip 2-3 Views with Pelvis IMPRESSION: Mild joint space narrowing involving the left hip joint. Electronically Signed: Fidel Carreon MD at 14:21 EDT Tel [phone], Service support [phone], CC: Alice Nova MD; Zeeshan Sotelo Cutter Grind Tool Technician: Signed 21-May-2016 Lumbar Spine 2 or 3 Views Result: Comments: See Note; NOTES: [facility] Imaging Services [address] [place] [address] Verdana 4d Lumbar Spine 2 or 3 Views MR#: [id number] Acct: [id number] Name: MARIA EUGENIA SOTO Rep #: [id number] : 1950 F 66 From: Fidel Carreon MD PCP: Alice Nova MD Status: REG CLI Study: Lumbar Spine 2 or 3 Views Date of Exam: 05/21/16 Exam# [id number] Order ing Dr: Zeeshan Sotelo DO STUDY: [...] Carreon MD at 14: 30 EDT Tel [phone], Service support [phone], RAD/Lumbar Spine 2 or 3 Views IMPRESSION: Degenerative changes of the spine, as detailed above. Grade 1 spondylolisthesis of L5 on S1 with spondylolysis. Electronically Signed: Fidel Carreon MD at 14:30 EDT Tel [phone], Service support [phone], CC: Diego Nova MD; Zeeshan Sotelo Cutter Grind Tool Technician: Signed 30-Dec-2015 Shoulder min 2 Views Result: Comments: See Note; NOTES: [facility] Imaging Services [address] [place] [address] Verdana 4d Shoulder min 2 Views MR#: [id number] Acct: [id number] Name: MARIA EUGENIA VAUGHAN Rep #: [id number] : 1950 F 65 From: Fidel Carreon MD PCP: Alice Nova MD Status: REG CLI Study: Shoulder min 2 Views Date of Exam: 12/30/15 Exam# [id number] Ordering Dr: Zeeshan Gonzalez dd, DO STUDY: [...] Carreon MD 24/12/21 at 14:35 EST Tel [phone], Service support [phone], RAD/Shoulder min 2 Views IMPRESSION: Normal x-ray examination of the shoulder. Electronic ally Signed: Fidel Carreon MD at 14:35 EST Tel [phone], Service support [phone], CC: Alice Nova MD; Zeeshan Sotelo Cutter Grind Tool Technician: Signed 22-Oct-2015 Bilat Scrn Digital AND CAD Result: Comments: See Note; NOTES: [facility] Imaging Services [address] [place] [address] Verdana 4d Bilat Scrn Digital AND CAD MR#: [id number] Acct: [id number] Name: MARIA EUGENIA VAUGHAN Rep #: [id number] : 1950 F 65 From: Fidel Carreon MD PCP: Alice Nova MD Status: REG CLI Study: Bilat Scrn Digital AND CAD Date of Exam: 10/22/15 Exam# [id number] Ord ering Dr: Alice Nova MD MAMMOGRAPHY [...] delay biopsy of a clinically suspicious abnormality. [id number] Electronically Signed: Fidel Carreon MD at 11:18 EST Tel [phone], Service support [phone], CC: Alice Nova MD Cutter Grind Tool Technician: Signed 22-Oct-2015 Dexa Bone Density Study (HP) Result: Comments: See Note; NOTES: [facility] Imaging Services [address] [place] [address] Verdana 4d Dexa Bone Density Study (HP) MR#: [id number] Acct: [id number] Name : MARIA EUGENIA VAUGHAN Rep #: [id number] : 1950 F 65 From: Fidel Carreon MD PCP: Alice Nova MD Status: REG CLI Study: Dexa Bone Density Study (HP) Date of Exam: 10/22/15 Exam# [id number] Ordering Dr: Alice Nova MD STUDY: DUAL [...] Fidel Carreon MD at 14:52 EST Tel [phone], Service support [phone], Fa x [phone] CC: Alice Nova MD Cutter Grind Tool Technician: Signed 17-Oct-2013 Bilat Scrn Digital & CAD Result: Comments: See Note; NOTES: [facility] Imaging Services [address] [place] [address] Breast Imaging Report MR#: [id number] Acct: [id number] Name: MARIA EUGENIA VAUGHAN Rep # : [id number] : 1950 F 63 From: Fidel Carreon MD PCP: Status: REG CL Exam# [id number] Ordering Dr: Alice Nova MD MAMMOGRAPHY - [...] M.D. at 15:27 EST , Service support [phone], CC: Alice Nova MD Cutter Grind Tool Technician: Signed 17-Oct-2013 Dexa Bone Density Study (HP) Result: Comments: See Note; NOTES: [facility] Imaging Services [address] [place] [address] Bone Density Report MR#: [id number] Acct: [id number] Name: MARIA EUGENIA VAUGHAN Rep #: [id number] : 1950 F 63 From: Fidel Carreon MD PCP: Status: REG CLI Study: Dexa Bone Density Study (HP) Date of Exam: 10/17/13 Exam# [id number] Ordering Dr: Alice Nova MD STUDY: D [...] M.D. at 9:13 EST , Service support [phone], CC: Alice Nova MD Cutter Grind Tool Technician: Signed Family History Unknown Family Member Name Dates Details Father Comments: Emphysema, [place] in 60s Status: Active Mother Comments: RA, DM, [place] at 60 Status: Active Social History Name [...] smoker Vital Signs Date Test Result Details 29-Nsz-955347:08 Temperature 97.1 f Comments: Method: Temporal Pulse [...] 0.00 cm Results Date Description Value Details 1-Czm-432995:05 Basic Metabolic Profile (BMP) Comments: REDRAW. PREVIOUS SPECIMEN REJECTED DUE TOHEMOLYSIS. 10/15/18 Cory3 Diasy Lopez.[facility] [address] [place], [address] GAP 7 (Normal) Range: 5-15 CO2 29.0 [...] Comments: Please note revised GLUCOSE reference range azcbsbzjp64/02/2018. 2-Iix-056066:15 CBC W/Diff, Automated Comments: [facility] [address] [place], [address] SMEAR COMMENT SCANNED (Normal) Comments: SLIGHT MONOCYTOSIS [...] 4.2-5.4 WBC 12.5 K/mm3 (Abnormal) Range: 4.4-11.0 2-Snr-997726:15 Lactic Acid Comments: Yes/No query for Sepsis Lactate Rule [facility] [address] [place], [address] LACTIC ACID 1.5 mmol/L (Normal) Range: 0.4-2.0 3-Bbo-511420:07 Basic Metabolic Profile (BMP) Comments: [facility] [address] [place], [address] GAP 8 (Normal) Range: 5-15 CO2 27.0 [...] A.D.A. criteria.Please note revised GLUCOSE reference range gpybwkuhr33/02/2018. 2-Aye-076376:07 CBC W/Diff, Automated Comments: [facility] [address] [place], [id number] PATH REV Reviewed (Normal) Comments: Neutrophilic leukocytosis.Clinical correlation necessary.Antwon Valdivia M.D. 10/18/18 AMENDED REPORT 10/18/18 1047 PATH REV previously reported as: May foll Absolute Lymph 1.01 {X10_3/ul} (Normal) Range: 0.83-4.51 [...] 4.2-5.4 WBC 14.5 K/mm3 (Abnormal) Range: 4.4-11.0 3-Ijn-748921:07 Lactic Acid Comments: Yes/No query for Sepsis Lactate Rule [facility] [address] [place], [place], [address] LACTIC ACID 1.2 mmol/L (Normal) Range: 0.4-2.0 67-Yfe-997733:36 HEPATIC FUNCTION PANEL Comments: fax results to Dr. Jules [phone]; A courtesy copy of this report has been sent [phone].PATIENT NOT FASTINGPERFORMED BY: [facility] Hlwupb6627 [facility] [id number] 7300Clinical Information: FX WESLEY [phone] (14428) ALT (SGPT) 49 [iU]/L (Abnormal) Range: 0-32 AST (SGOT) 33 [iU]/L (Normal) Range: 0-40 Alkaline Phosphatase 83 [iU]/L (Normal) Range: 39-117 Bilirubin, Direct 0.08 mg/dL (Normal) Range: 0.00-0.40 Bilirubin, Total 0.3 mg/dL (Normal) Range: 0.0-1.2 Albumin 4.2 g/dL (Normal) Range: 3.6-4.8 Protein, Total 6.7 g/dL (Normal) Range: 6.0-8.5 82-Cze-716379:11 Microscopic Examination Comments: A courtesy copy of this report has been sent [phone].PATIENT WAS FASTINGPERFORMED BY: [facility] [id number] Bacteria Few (Normal) Mucus Threads Present (Normal) Crystal Type Amorphous Sediment (Normal) Crystals Present (Abnormal) Epithelial Cells (non 0-10 {/hpf} (Normal) Range: 0 - 10 renal) RBC 0-2 {/hpf} (Normal) Range: 0 - 2 WBC 0-5 {/hpf} (Normal) Range: 0 - 5 TSH 1.170 {uIU/mL} Comments: A courtesy copy of this report has been sent [phone].PATIENT WAS FASTINGPERFORMED BY: [employer] Gxdsyk2323 [facility] [id number] 3:11 (Normal) Range: 0.450-4.500 42-Plp-250916:11 URINALYSIS, W/ MICRO (94682) Comments: A courtesy copy of this report has been sent [phone].PATIENT WAS FASTINGPERFORMED BY: [employer] [facility] [id number] Microscopic Examination See below: (Normal) Comments: Microscopic was indicated and was performed. Microscopic Examination MICRON (Normal) Comments: Microscopic follows if indicated. Nitrite, Urine Negative (Normal) Urobilinogen,Semi-Qn 0.2 mg/dL (Normal) Range: 0.2-1.0 Bilirubin Negative (Normal) Occult Blood Negative (Normal) Ketones Negative (Normal) Glucose Negative (Normal) Protein Negative (Normal) WBC Esterase Negative (Normal) Appearance Clear (Normal) Urine-Color Yellow (Normal) pH 6.5 (Normal) Range: 5.0-7.5 Specific Sod 1.016 (Normal) Range: 1.005-1.030 71-Tid-551970:11 MICROALBUMIN: CREATININE RATIO Comments: A courtesy copy of this report has been sent [phone].PATIENT WAS FASTINGPERFORMED BY: [facility]St[facility] Mary[facility] HospitalSdvmmj2313 [facility] [id number] (13732) AND (81085) Alb/Creat Ratio <4.2 {mg/g_creat} (Normal) Range: 0.0-30.0 Albumin, Urine <3.0 ug/mL (Normal) Creatinine, Urine 71.0 mg/dL (Normal) 70-Ulw-000210:11 METABOLIC PANEL, COMPREHENSIVE Comments: A courtesy copy of this report has been sent [phone].PATIENT WAS FASTINGPERFORMED BY: [facility] ShopSt[facility] Mary[facility] HospitalKtzyzn6387 [facility] [id number] (20738) ALT (SGPT) 39 [iU]/L (Abnormal) Range: 0-32 [...] Glucose, Serum 90 mg/dL (Normal) Range: 65-99 71-Yvs-152625:11 CBC W/AUTO DIFF WBC Comments: A courtesy copy of this report has been sent [phone].PATIENT WAS FASTINGPERFORMED BY: [facility]CoSt[facility] Mary's HospitalXsqbty7859 [facility] [id number] Information: ADD TSH (62840) Immature Grans (Abs) 0.0 {x10E3/uL} (Normal) Range: [...] 3.77-5.28 WBC 7.3 {x10E3/uL} (Normal) Range: 3.4-10.8 87-Xos-172900:11 LIPID PANEL (47913) Comments: A courtesy copy of this report has been sent [phone].PATIENT WAS FASTINGPERFORMED BY: [facility]St[facility] Mary[facility] HospitalGkrocu6362 [facility] [id number] LDL/HDL Ratio 2.1 {ratio_units} (Normal) Range: 0.0-3.2 Comments: LDL/HDL Ratio Men Women 1/2 Avg.Risk 1.0 1.5 Av g.Risk 3.6 3.2 2X Avg.Risk 6.2 5.0 3X Avg.Risk 8.0 6.1 LDL Cholesterol Calc 136 mg/dL (Abnormal) Range: 0-99 VLDL Cholesterol Cosmo 25 mg/dL (Normal) Range: 5-40 HDL Cholesterol 65 mg/dL (Normal) Triglycerides 124 mg/dL (Normal) Range: 0-149 Cholesterol, Total 226 mg/dL (Abnormal) Range: 100-199 96-Syn-869878:11 C-REACTIVE PROTEIN (59060) Comments: A courtesy copy of this report has been sent [phone].PATIENT WAS FASTINGPERFORMED BY: YkoneSt. Mary's HospitalMynnii0461 [facility] [id number] C-Reactive Protein, Quant 12.5 mg/L (Abnormal) Range: 0.0-4.9 9-Dww-769247:03 HgA1C , Office (96728) HgA1C , Office 6.0 % (Normal) Range: 4.6 - 7.1 :03 Blood Glucose , Office (22535) Blood Glucose , Office 114 (Normal) :28 CBC, Platelets & Auto Diff Comments: PATIENT NOT FASTINGPERFORMED BY: YkoneSt. Mary's HospitalEqtrhs0043 [facility] [id number] (50389) Immature Grans (Abs) 0.0 {x10E3/uL} (Normal) Range: [...] 3.77-5.28 WBC 8.3 {x10E3/uL} (Normal) Range: 3.4-10.8 1-Cgn-127723:28 C-Reactive Protein (27934) Comments: PATIENT NOT FASTINGPERFORMED BY: LabCoSt. Mary's HospitalExqcow9948 [facility] [id number] C-Reactive Protein, Quant 43.4 mg/L (Abnormal) Range: 0.0-4.9 :28 SED RATE ERYTHROCYTE (26046) Comments: PATIENT NOT FASTINGPERFORMED BY: LabCoSt. Mary's HospitalNnrqzh3965 [facility] [id number] Sedimentation Rate-Westergren 55 mm/h (Abnormal) Range: 0-40 1-Dfo-196389:47 Basic Metabolic Profile (BMP) Comments: [facility] [address] [place], [place], [address] GAP 10 (Normal) Range: 5-15 CO2 26.0 [...] 70-110 :47 CBC W/Diff, Automated Comments: [facility] [address] [place], [place], [id number] PATH REV March foll (Normal) SMEAR COMMENT [...] 4.2-5.4 WBC 23.1 K/mm3 (Abnormal) Range: 4.4-11.0 :47 CRP Comments: [facility] [address] [place], [address] C-REACTIVE PROT 158.00 mg/L (Abnormal) Range: 0.0-3.0 Comments: C-Reactive Protein (CRP) provides useful information for thediagnosis, therapy and monitoring of inflammatory processesand associated diseases. For the evaluation of Relative Riskfor Cardiovascular Dise ase, a High Sensitivity CRP (HSCRP)should be ordered. :47 Erythrocyte Sed Rate Comments: [facility] [address] [place], [place], [address] SED RATE 130 mm/h (Abnormal) Range: 0-30 3-Pry-621138:20 CBC W/Diff, Automated Comments: [facility] [address] [place], [place], [phone] PLT EST SLT INC (Normal) SMEAR COMMENT [...] 4.2-5.4 WBC 21.7 K/mm3 (Abnormal) Range: 4.4-11.0 :20 Erythrocyte Sed Rate Comments: [facility] [address] [place], [address] SED RATE 113 mm/h (Abnormal) Range: 0-30 :57 HgA1C , Office (20772) HgA1C , Office 5.6 % (Normal) Range: 4.6 - 7.1 :57 Blood Glucose , Office (60229) Blood Glucose , Office 93 (Normal) :07 Rapid Strep Test, Office (32295) Rapid Strep Test, Office Negative (Normal) :41 Blood Glucose , Office (26554) Blood Glucose , Office 104 (Normal) :41 HgA1C , Office (04583) HgA1C , Office 5.4 % (Normal) Range: 4.6 - 7.1 :41 HgA1C , Office (30042) HgA1C , Office 5.7 % (Normal) Range: 4.6 - 7.1 :52 CALCIFIDIOL (73084) VIT D 25 Comments: PATIENT WAS FASTINGPERFORMED BY: [facility]traBiofuelsSturgis Hospital6370 [facility] [id number] Vitamin D, 25-Hydroxy 47.8 ng/mL (Normal) Range: 30.0-100.0 Comments: Vitamin D deficiency has been defined by the [place] ofT[facility]aw[facility] Hospitalcine and an Endocrine Society practice guideline as alevel of serum 25-OH vitamin D less than 20 ng/mL (1,2).The Endocrine Society went on to further define vitamin Dinsufficiency as a level between 21 and 29 ng/mL (2).1. IOM ([place] of Medicine). 2010. Dietary reference intakes for calcium and D. [place]: The National AcademVetDC Press.2. Melissa MF, Michael VILLALOBOS, Vannesa LEBLANC, et al. Evaluation, treatment, and prevention of vitamin D deficiency: an Endocrine Society clinical practice guideline. JCEM. 2010; 96(7):1911-30. :52 MICROALBUMIN: CREATININE RATIO Comments: PATIENT WAS FASTINGPERFORMED BY: YkoneSt. Mary's HospitalCqgpnt2023 [facility] [id number] (35232) AND (19610) Microalb/Creat Ratio 5.7 {mg/g_creat} (Normal) Range: 0.0-30.0 Microalbumin, Urine 4.8 ug/mL (Normal) Range: 0.0-17.0 Creatinine, Urine 83.9 mg/dL (Normal) Range: 15.0-278.0 :52 METABOLIC PANEL, COMPREHENSIVE Comments: PATIENT WAS FASTINGPERFORMED BY: AltraBiofuelsSturgis Hospital6370 [facility] [id number] (64362) ALT (SGPT) 30 [iU]/L (Normal) Range: 0-32 [...] mg/dL (Abnormal) Range: 65-99 :52 LIPID PANEL (59222) Comments: PATIENT WAS FASTINGPERFORMED BY: [facility] Zwutcd7127 [facility] [id number]; [address]. [address] LDL/HDL Ratio 2.1 {ratio_units} (Normal) [...] auto diff Comments: PATIENT WAS FASTINGPERFORMED BY: ADRIANA [facility] Skovgd5398 [facility] [id number] Information: [id number] (44426) Immature Grans (Abs) 0.0 {x10E3/uL} (Normal) Range: [...] 3.77-5.28 WBC 5.5 {x10E3/uL} (Normal) Range: 3.4-10.8 41-Alz-196792:43 IGP, Comments: Source.............Cervical;EndocervicalOther..............Post MenopausalNo. of containers..01 CYTYC Thin Prep VialPATIENT NOT FASTINGPERFORMED BY: =Gregor [facility] [address] [place] [address] Aptima [id number] BY: RightAnswers[address] [id number] HPV, rfx 16/18,45 HPV Aptima Negative (Normal) [...] medical examination at health care facilitySayra Cortez Game Designer/Creative Director (ASCP) 13-Wwn-580983:43 Thin Comments: Source.............Cervical;EndocervicalOther..............Post MenopausalNo. of containers..01 CYTYC Thin Prep VialPATIENT NOT FASTINGPERFORMED BY: =G LabSTP GroupMoqirqbghl[address] Prep Pap [id number] BY: RightAn[employer] [id number] Information: [id number] (20671) Age Gdln ACOG Testing 30-65 (Normal) :48 CALCIFEDIOL (62097) Comments: PATIENT WAS FASTINGPERFORMED BY: [facility] Qldzsy5721 [facility] [id number] Vitamin D, 25-Hydroxy 50.3 ng/mL (Normal) Range: 30.0-100.0 Comments: Vitamin D deficiency has been defined by the [place] ofMedicine and an Endocrine Society practice guideline as alevel of serum 25-OH vitamin D less than 20 ng/mL (1,2).The Endocrine Society went on to further define vitamin Dinsufficiency as a level between 21 and 29 ng/mL (2).1. IOM ([place] of Medicine). 2010. Dietary reference intakes for calcium and D. [place]: The National Academies Press.2. Melissa MF, Michael VILLALOBOS, Vannesa LEBLANC, et al. Evaluation, treatment, and prevention of vitamin D deficiency: an Endocrine Society clinical practice guideline. JCEM. 2010; 96(7):1911-30. :48 TSH (21065) Comments: PATIENT WAS FASTINGPERFORMED BY: [employer] [facility]Co Upkhdj0570 [facility] [id number] TSH 1.890 {uIU/mL} (Normal) Range: 0.450-4.500 :48 CBC, Platelets & Auto Diff Comments: PATIENT WAS FASTINGPERFORMED BY: [facility] Ymfxay6939 [facility] [id number] Information: [id number] (13440) Immature Grans (Abs) 0.0 {x10E3/uL} (Normal) Range: [...] Panel, Comprehensive Comments: PATIENT WAS FASTINGPERFORMED BY: LabCoSt. Mary's HospitalXbsdei9082 [facility] [id number] (38244) ALT (SGPT) 29 [iU]/L (Normal) Range: 0-32 [...] Glucose, Serum 96 mg/dL (Normal) Range: 65-99 78-Xtq-80929:48 Lipid Panel (85415) Comments: PATIENT WAS FASTINGPERFORMED BY: Ykone [employer] [facility] [id number] LDL/HDL Ratio 2.6 {ratio_units} (Normal) Range: 0.0-3.2 [...] Cholesterol, Total 207 mg/dL (Abnormal) Range: 100-199 07-Dai-859952:46 Microscopic Examination Comments: PATIENT NOT FASTINGPERFORMED BY: [employer] Ylozkf5777 [facility] [id number] Bacteria Few (Normal) Mucus Threads Present (Normal) Crystal Type Uric Acid (Normal) Crystals Present (Abnormal) Epithelial Cells (non renal) 0-10 {/hpf} (Normal) Range: 0 - 10 RBC 0-3 {/hpf} (Normal) Range: 0 - 3 WBC 0-5 {/hpf} (Normal) Range: 0 - 5 41-Qfv-166846:46 TSH (03027) Comments: PATIENT NOT FASTINGPERFORMED BY: Ykone Kgzdcc0848 [facility] [id number] TSH 0.895 {uIU/mL} (Normal) Range: 0.450-4.500 :46 URINALYSIS, W/ MICRO (77152) Comments: PATIENT NOT FASTINGPERFORMED BY: Ykone Ktmqyv1222 [facility] [id number] Microscopic Examination See below: (Normal) Microscopic Examination MICRON (Normal) Comments: Microscopic follows if indicated. Nitrite, Urine Negative (Normal) Urobilinogen,Semi-Qn 0.2 mg/dL (Normal) Range: 0.0-1.9 Bilirubin Negative (Normal) Ketones Negative (Normal) Occult Blood Negative (Normal) Glucose Negative (Normal) Protein Negative (Normal) WBC Esterase Negative (Normal) Appearance Clear (Normal) Urine-Color Yellow (Normal) pH 6.0 (Normal) Range: 5.0-7.5 Specific Sod 1.017 (Normal) Range: 1.005-1.030 :46 METABOLIC PANEL, COMPREHENSIVE Comments: PATIENT NOT FASTINGPERFORMED BY: LabCoSt. Mary's HospitalAvmzol9819 [facility] [id number] (24071) ALT (SGPT) 47 [iU]/L (Abnormal) Range: 0-32 [...] Glucose, Serum 100 mg/dL (Abnormal) Range: 65-99 55-Nms-966044:46 CBC WITH MANUAL DIFF Comments: PATIENT NOT FASTINGPERFORMED BY: [facility] Ijxgwp5545 [facility] [id number] Information: [id number] (34697) Immature Grans (Abs) 0.0 {x10E3/uL} (Normal) Range: [...] Range: 3.4-10.8 :05 Rapid Strep Test, Office (67127) Comments: sore throat Rapid Strep Test, Office Negative (Normal) :42 ABO Grouping and Rho(D) Comments: PATIENT WAS FASTINGPERFORMED BY: [place] 0294570 [facility] [id number] Typing Rh Factor Positive (Normal) Comments: Please note: Prior records for this patient's ABO / Rh type are notavailable for additional verification. ABO Grouping A (Normal) :42 Hemoglobin A1c 6.1 % (Abnormal) Comments: PATIENT WAS FASTINGPERFORMED BY: [address] [id number] Range: 4.8-5.6 Comments: . Increased risk for diabetes: 5.7 - 6.4 Diabetes: >6.4 Glycemic control for adults with diabetes: <7.0 :42 Lipid Panel With LDL/HDL Comments: PATIENT WAS FASTINGPERFORMED BY: [facility]6370 [facility] [id number] Ratio LDL/HDL Ratio 2.5 {ratio_units} (Normal) Range: 0.0-3.2 LDL Cholesterol Calc 131 mg/dL (Abnormal) Range: 0-99 VLDL Cholesterol Cosmo 34 mg/dL (Normal) Range: 5-40 HDL Cholesterol 52 mg/dL (Normal) Comments: According to ATP-III Guidelines, HDL-C >59 mg/dL is considered anegative risk factor for CHD. Triglycerides 168 mg/dL (Abnormal) Range: 0-149 Cholesterol, Total 217 mg/dL (Abnormal) Range: 100-199 71-Don-265333:55 CBC, PLATELETS & AUT DIFF Comments: PATIENT NOT FASTINGPERFORMED BY: [address] [id number] Information: ADD [id number] AND DRAW FEE [id number] (07428) Immature Grans (Abs) 0.0 {x10E3/uL} (Normal) Range: [...] 3.80-5.10 WBC 8.6 {x10E3/uL} (Normal) Range: 4.0-10.5 :55 HEPATIC FUNCTION PANEL Comments: PATIENT NOT FASTINGPERFORMED BY: [facility]70 [facility] [id number] (82961) ALT (SGPT) 36 [iU]/L (Normal) Range: 0-40 AST (SGOT) 28 [iU]/L (Normal) Range: 0-40 Alkaline Phosphatase, S 84 [iU]/L (Normal) Range: 25-165 Bilirubin, Direct 0.07 mg/dL (Normal) Range: 0.00-0.40 Bilirubin, Total 0.2 mg/dL (Normal) Range: 0.0-1.2 Protein, Total, Serum 6.4 g/dL (Normal) Range: 6.0-8.5 :55 RENAL FUNCTION PANEL (36052) Comments: PATIENT NOT FASTINGPERFORMED BY: [employer] [facility] DeliveryAt[facility] Health [id number] Albumin, Serum 3.9 g/dL (Normal) Range: 3.6-4.8 [...] Glucose, Serum 114 mg/dL (Abnormal) Range: 65-99 05-Bnl-287829:14 CBC HCT 38.3 % (Normal) Range: 37-47 [...] Comments: DR. JULES ORDERED CBC LIVER ROBERTO SILVASHIVAM ORDERED VITD HCT 39.9 % (Normal) Range: [...] LIVER Comments: DR. JULES ORDERED CBC LIVER JIMSHAWANDAEri CRUZ ORDERED VITD ALB 3.4 g/dL (Normal) Range: 3.4-5.0 ALK P 89 U/L (Normal) Range: 50-136 ALT 32 U/L (Normal) Range: 12-78 AST 17 U/L (Normal) Range: 15-37 D BILI 0.11 mg/dL (Normal) Range: 0.00-0.30 T BILI 0.40 mg/dL (Normal) Range: 0.00-1.00 T PROT 7.0 g/dL (Normal) Range: 6.4-8.2 :27 SERUM CRE & GFR Comments: DR. JULES ORDERED CBC LIVER JIMSHAWANDAEri CRUZ ORDERED VITD CREAT,SERUM 0.7 mg/dL (Normal) Range: 0.6-1.0 EST GFR 90 mL/min (Normal) EST GFR - AA 109 mL/min (Normal) :27 VIT D,25 50686 41.1 ng/mL (Normal) Comments: DR. JULES ORDERED CBC LIVER CREMARY CIESA ORDERED VITD Range: 32.0-100.0 Comments: Recent studies consider the lower limit of 32.0 ng/mL to arminda threshold for optimal health.Roe DURHAM. J Nutr. 2004;135(2):317-22.Performed at: - [facility] [address]Lab Director: Marlene Myers MD, Phone: [phone] 80-Ahn-544580:55 Glucose, PP/2 Hour Comments: PATIENT WAS FASTINGPERFORMED BY: Lab[address] [id number] Information: [id number] 75G DRAWN @ 1015AM (68194) Glucose, Two-Hour Postprandial 109 mg/dL (Normal) Range: 65-139 70-Bno-224242:58 BILAT SCRN DIGITAL & CAD Radiology Report See Note (Normal) Comments: Exam Number: [id number] MAMMOGRAM, BILATERAL SCREENING DIGITAL AND CAD HISTORYRoutine [...] mammograms werealso examined with computer-aided detection software ([employer] Reported By: BRYAN HERNANDEZ M.D. 77-Unm-589147:58 DEXA BONE DENSITY STUDY (HP) Radiology Report See Note (Normal) Comments: Exam Number: [id number] BONE DENSITOMETRY HISTORYOsteopenia. TECHNIQUEBone densitometry of the lumbar spine and both hips is now beingperformed. The best criteria for evaluation of osteoporosis is theT- value, which represents the comparison of the patient's bone mass joelle expected peak bone mass. For most patients, the mean T-value of V9jdmdxdt L4 is used to evaluate the lumbar [...] both hips. Reported By: BRYAN HERNANDEZ M.D. 57-Mdk-45249:0 INSULIN 4333 16.5 {uIU/mL} Comments: ORDERED CBC,LIVER,CRE,CRP,ESRDR ROHINI ORDERED CBCMD,LIPID,CMP,A1C,INSULIN,FT3,TSH 9 (Normal) Range: 0.0-24.9 Comments: Performed At: [facility] [place], [place] [id number] :37 C-REACTIVE PROT 3.49 mg/L (Abnormal) Comments: DR NOVA ORDERED LIPID,CMP,CBC, UADR WESLEY ORDERED CBC,LIVER,SED RATE, CRP, AND CREATININE Range: [...] 11.6-14.6 WBC 4.7 K/mm3 (Normal) Range: 4.4-11.0 10-Jun-20098:37 COMP METABOLIC Comments: DR NOVA ORDERED LIPID,CMP,CBC, [...] 0.2 EU/dl (Normal) Range: 0.2 - 1.0 9-Ecw-903957:54 CALCIFEDIOL (43360) Comments: PATIENT NOT FASTINGPERFORMED BY: YkoneSt. Mary's HospitalMbwrne2898 Cooper Roadblin [place] [id number] Vitamin D, 25-Hydroxy 35.4 ng/mL (Normal) Range: 32.0-100.0 Comments: Recent studies consider the lower limit of 32.0 ng/mL to be athreshold for optimal health.Roe DURHAM. J Nutr. 2004;135(2):317-22. 2-Ptl-790141:54 VITAMIN D, 1, 25-DIHYDROXY Comments: PATIENT NOT FASTINGClinical Information: ADD DRAW FEE [id number] ADD J 11506 PERFORMED BY: [employer]6370 [facility] [id number] (65234) Calcitriol(1,25 di-OH Vit D) 44.1 pg/mL (Normal) Range: 15.9-55.6 51-Asx-372982:17 Thin prep Pap Comments: Source.............Cervical;EndocervicalLMP / Prev Treat...FJQ=[id number]. of containers..01 CYTYC Thin Prep VialPATIENT NOT FASTINGClinical Information: ADD [id number] (57620) PERFORMED BY: Yk[facility] [id number] . . (Normal) DIAGNOSIS: SPRCS (Normal) Comments: NEGATIVE FOR INTRAEPITHELIAL LESION AND MALIGNANCY.CELLULAR CHANGES ASSOCIATED WITH ATROPHY ARE PRESENT.Satisfactory for evaluation. Endocervical and/or squamous metaplasticcells (endocervical componen t) are present.V72.31 ; Routine gynecological examinationMay Felipe Game Designer/Creative Director (ASCP) Note: PAPSMR (Normal) Comments: The Pap [...] resulttherefore, no HPV testing was performed. . 17-Awt-569187:06 BILAT DIAG DIGITAL & CAD Radiology Report See Note (Normal) Comments: Exam Number: [id number] MAMMOGRAM, BILATERAL DIAGNOSTIC DIGITAL AND CAD HISTORYAbnormal [...] werealso examined with computer- aided detection software ([employer], [employer] Reported By: BRYAN HERNANDEZ M.D. 5-Uil-933022:21 BILAT [facility] DIGITAL & CAD Radiology Report See Note (Normal) Comments: Exam Number: [id number] MAMMOGRAM, BILATERAL SCREENING DIGITAL AND CAD HISTORYRoutine [...] mammograms werealso examined with computer-aided detection software ([employer] Reported By: BRYAN HERNANDEZ M.D. 47-Mjm-08199:24 LIPID CHOL 207 mg/dL (Abnormal) Comments: <200 [...] T PROT 6.7 g/dL (Normal) Range: 6.4-8.2 46-Dob-998480:20 Thin prep Pap Comments: Source.............Cervical;EndocervicalLMP / Prev Treat...BNQ=[id number];NoneNo. of containers..01 CYTYC Thin Prep VialPERFORMED BY: LabCo[address] [place] [id number] (18146) . . (Normal) DIAGNOSIS: SPRCS (Normal) Comments: NEGATIVE FOR INTRAEPITHELIAL LESION AND MALIGNANCY.CELLULAR CHANGES ASSOCIATED WITH ATROPHY ARE PRESENT.Satisfactory for evaluation. Endocervical and/or squamous metaplasticcells (endocervical componen t) are present.V76.2 ; Screening for malignant neoplasm of the cervixHyun Herrera Game Designer/Creative Director (ASCP) Note: PAPSMR (Normal) Comments: The Pap [...] T PROT 7.1 g/dL (Normal) Range: 6.4-8.2 8-Hqu-312322:03 SMEAR COMMENT COMMENT (Normal) Comments: SLIDE SCANNED NO NRBCS NOTED. 18-Oqn-355507:0 C-REACTIVE PROT 2.70 mg/L (Normal) Range: 0.0-6.0 0 Comments: Test performed using the Dimension C-Reactive ProteinExtended Range assay method. This assay meets the AHA/CDC 2003 recommendations fordetermining patients at high risk for cardiovasculardisease. Reference: High risk CRP >3.0 mg/L 77-Ldw-325269:00 CBC Comments: CBC AND LIVER RESULTS TO FAX---- [phone] HCT 44.1 % (Normal) Range: 37-47 HGB [...] T PROT 7.2 g/dL (Normal) Range: 6.4-8.2 27-Oie-156851:00 D BILI 0.05 mg/dL (Normal) Range: 0.00-0.30 02-Itt-961780:00 PFLIP CHOL 230 mg/dL (Abnormal) Comments: <200 [...] (G8553) Indication: Non-smoker Rheumatoid arthritis : Reviewed Production Superintendent Letter Indication: Rheumatoid arthritis Rheumatoid arthritis : Reviewed Production Superintendent Letter Indication: Rheumatoid arthritis Impaired fasting glucose [...] and swelling of elbow, left : Reviewed Production Superintendent Letter Indication: Pain and swelling of elbow, [...] Impaired fasting glucose Rheumatoid arthritis : Reviewed Production Superintendent Letter Indication: Rheumatoid arthritis Hypercholesteremia : Cholesterol [...] Indication: Rheumatoid arthritis Rheumatoid arthritis : Reviewed Production Superintendent Letter Indication: Rheumatoid arthritis Impaired fasting glucose [...] treatment Indication: Depressive disorder Migraine : Reviewed Production Superintendent Letter Indication: Migraine Encounter for annual routine [...] examination Planned Observations VITAMIN B12 AND FOLATES (01105)Indication: Hair loss On: :33 Request T4, FREE (THYROXINE) (35671)Indication: Hair loss On: : Request T3, FREE (TRIDOTHYRONINE) (20835)Indication: Hair loss On: :32 Request Methymalonic Acid, Serum (55340)Indication: Hair loss On: :32 Request Metabolic Panel, Comprehensive (41357)Indication: Hair loss On: : Request IRON (82167)Indication: Hair loss On: Request DHEA-S (DEHYDROEPIANDROSTERONE SULFATE) (45135)Indication: Hair loss On: : Request FERRITIN (40598)Indication: Hair loss On: :32 Request TSH (30689)Indication: Hair loss On: :32 Request TSH (57984)Indication: Nocturnal leg cramps On: :41 Request METABOLIC PANEL, COMPREHENSIVE (53756)Indication: Nocturnal leg cramps On: :41 Request CBC W/AUTO DIFF WBC (14683)Indication: Nocturnal leg cramps On: :41 Request CALCIFIDIOL (32851) VIT D 25Indication: Depressive disorder On: :39 Request TSH (07136)Indication: Impaired fasting glucose On: :39 Request URINALYSIS, W/ MICRO (16473)Indication: Impaired fasting glucose On: :39 Request MICROALBUMIN: CREATININE RATIO (75962) AND (50026)Indication: Impaired fasting glucose On: :39 Request METABOLIC PANEL, COMPREHENSIVE (42245)Indication: Impaired fasting glucose On: :39 Request LIPID PANEL (68262)Indication: Impaired fasting glucose On: :39 Request CBC W/AUTO DIFF WBC (50541)Indication: Impaired fasting glucose On: :39 Request URINALYSIS, W/ MICRO (85000)Indication: Hypertension On: :46 Request MICROALBUMIN: CREATININE RATIO (63753) AND (15803)Indication: Hypertension On: :46 Request TSH (44022)Indication: Impaired fasting glucose On: :45 Request LIPID PANEL (67245)Indication: Hypertension On: :45 Request METABOLIC PANEL, COMPREHENSIVE (09281)Indication: Hypertension On: :45 Request HEPATITIS PANEL (91436)Indication: Elevated liver enzymes On: :22 Request Comments: recheck in 6 weeks HEPATIC FUNCTION PANEL (47230)Indication: Elevated liver enzymes On: :21 Request Comments: recheck in 6 weeks LIPID PANEL (49290)Indication: Hypertension On: :34 Request BLOOD TYPE ANTIGEN DONOR EA (31239)Indication: ENCOUNTER, BLOOD TYPING On: :34 Request Hemoglobin Glyclated (HGB A1C) (69958)Indication: ABNORMAL GLUCOSE NEC On: :04 Request LIPID PANEL (18398)Indication: Hypercholesteremia On: :04 Request URINALYSIS, W/ MICRO (87025)Indication: Hypertension On: 1-Itm-870747:03 Request METABOLIC PANEL, COMPREHENSIVE (58787)Indication: Hypertension On: 7-Ovu-617263:03 Request LIPID PANEL (16548)Indication: Hypertension On: 2-Eac-038941:03 Request CBC WITH MANUAL DIFF (36774)Indication: Hypertension On: 3-Jai-434520:03 Request METABOLIC PANEL, COMPREHENSIVE (65453)Indication: Hypercholesteremia On: 3-Vqa-706205:07 Request CBC WITH MANUAL DIFF (96967)Indication: Hypercholesteremia On: 6-Oqi-756341:07 Request LIPID PANEL (27952)Indication: Hypercholesteremia On: 6-Ybh-988839:07 Request URINALYSIS (86665)Indication: Hypertension On: :48 Request CBC (Auto) (58330)Indication: Hypertension On: :48 Request Metabolic Panel, Comprehensive (62421)Indication: Hypertension On: 47-Lrx-96465:48 Request Lipid Panel (63181)Indication: Hypertension On: 20-Ebt-71425:48 Request CBC (Auto) (07150)Indication: Hypertension On: 64-Zbz-650993:44 Request Metabolic Panel, Comprehensive (82385)Indication: Hypertension On: 72-Rtv-054934:44 Request HEPATIC FUNCTION PANEL (64952)Indication: Hypercholesteremia On: :34 Request LIPID PANEL (49812)Indication: Hypercholesteremia On: 0-Avu-936230:34 Request CBC (AUTO) (57726)Indication: Hypertension On: :28 Request METABOLIC PANEL, COMPREHENSIVE (53496)Indication: Hypertension On: 64-Ceg-636989:28 Request LIPID PANEL (01849)Indication: Hypertension On: :28 Request Thin prep Pap (39051)Indication: Encounter for annual routine gynecological examination On: :23 Request Planned Procedures ELECTROCARDIOGRAM, COMPLETE (ECG) On: 09-Jun-2017 Intent (97569)By: Ciara Caballero DO Comments: nsr no acute Ciara richardson DO MRI ELBOW LEFT WO CONTRAST (51301)By: On: 15-Mar-2017 Intent Jyoti Mcrae CNP Comments: Send results to Dr. Eduardo ALEJANDRA, NORMAL SALINE SOLUTION , On: 15-Mar-2017 Intent 250 CC (J7050)By: Jyoti Mcrae CNP Rocephin Injection, 2 Gram On: 15-Mar-2017 Intent (J0696)By: Jyoti Mcrae CNP Comments: lot:[id number]:07-09-2019rte:IV dose:2 grams rocephin given by:monisha right anticub ABN signedER, QUARTER LINING SMOOTHER Venous Doppler - UpperBy: Cruz DAVID, On: 09-Mar-2017 Intent Jyoti Wilson Comments: left upper call results to Cecilia at [facility] Radiology - Elbow - RightBy: Cruz On: 09-Mar-2017 Intent Jyoti DAVID Comments: call [facility] DEXA SCAN AXIAL SKELETON (83155)By: On: 17-Jan-2015 Intent Alice Nova MD Comments: postmenapausal MAMMOGRAM, SCREENING, BOTH BREAST On: 17-Jan-2015 Intent (84080)By: Alice Nova MD Pap Smear, Medicare (Q0091)By: On: 17-Jan-2015 Intent Alice Nova MD Pelvic and Breast, Medicare On: 17-Jan-2015 Intent (G0101)By: Alice Nova MD ADMINISTRATION OF PNEUMOCOCCAL On: 17-Jan-2015 Intent VACCINE (G0009)By: Alice Nova MD PNEUM VAC ADLT/IMUMNOSPR, SBC/INTRM On: 17-Jan-2015 Intent (98727)By: Alice Nova MD MAMMOGRAM, SCREENING, BOTH BREAST On: 07-Sep-2014 Intent (75375)By: Alice Nova MD Comments: end of 10-21 Eprescribed prescriptions (G8553)By: On: 24-Oct-2013 Intent Yasmine Mccallum LPN Bone Density StudyBy: Rohini CHADWICK, On: 09-Dec-2012 Intent Alice Correa Comments: post menopausal Breast Screening - BilateralBy: On: 09-Dec-2012 Intent Alice Nova MD Breast Screening - BilateralBy: On: 06-Dec-2012 Intent Alice Nova MD Bone Density StudyBy: Rohini CHADWICK, On: 06-Dec-2012 Intent Alice Correa Eprescribed prescriptions ([id number])By: On: 09-Aug-2012 Intent Alice Nova MD TDAP VACCINE >7 IM ([id number])By: Rohini On: 04-Dec-2010 Intent Alice CHADWICK EKG ([id number])By: RAJ Suárez On: 04-Dec-2010 Intent EKG ([id number])By: Linda Israel LPN On: 14-Jun-2009 Intent DXA, BONE DENSITY, AXIAL SKELETON On: 23-Oct-2008 Intent ([id number])By: Alice Nova MD MAMMOGRAM, SCREENING, BOTH BREASTS On: 23-Oct-2008 Intent ([id number])By: Alice Nova MD Comments: after 04-16 MAMMOGRAM, SCREENING, BOTH BREASTS On: 06-Jul-2007 Intent ([id number])By: Alice Nova MD EKG ([id number])By: Alice Nova MD On: 17-Dec-2006 Intent Breast Diagnostic - LeftBy: Rohini On: 17-Dec-2006 Intent Alice CHADWICK Comments: in six months follow up on calcifications DXA, BONE DENSITY, AXIAL SKELETON On: 26-Jul-2006 Intent ([id number])By: Alice Nova MD Comments: rheumatiod arthritis MAMMOGRAM, SCREENING, BOTH BREASTS On: 26-Jul-2006 Intent ([id number])By: Alice Nova MD Planned Medications INFUSION, NORMAL SALINE SOLUTION , 250 CC Ordered: 15-Mar-2017 Pending Jyoti Mcrae CNP INJECTION, CEFTRIAXONE SODIUM, PER 250 MG Ordered: 15-Mar-2017 Pending CiesJyoti batres CNP Instructions Name Dates Details Non-smoker : [...] Tried eat End: 01-Aug-2018 12:15 ing salty estonian fries last night and it burned the [...] the patient is following up for inc lude All identified problems below, blood sugar issues, [...] Note for Follow up ER: Went to [facility] and was told not a fracture, [...] - fatigue but had big new years constitution party- says every time on pred gets [...] The patient does have durable power of personal injury attorney and living will. The patient has noticed nothing from the geriatic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
--- OUTSIDE RECORDS SUMMARY | 2019-01-29 16:16 | XMS RPT_ITS | Continuity of Care Document ---
:1950 Author Organization [facility] Address [address] [facility] [address] [place] [address] Phone Care Team Providers Name Role Phone Ciara Caballero DO Unavailable César Martins Unavailable Dr. Pipo Horner Unavailable Tami ANDINO , Dr. Zeeshan Lepe Unavailable Luis M Jules MD Unavailable Zeeshan Garrett DO Unavailable [facility], [facility] Unavailable Merry Amaya Unavailable Unavailable Long HEAD CASHIER, Yasmine L Unavailable Unavailable Darshan Beckham Unavailable [...] Depressive disorder (F32.9, 311) Comments: of massive [place] 39 yo. Status: Active Disc disease, degenerative, [...] 20 {Tablet} Refills: 3 Ordered:27-Jun-2018 Ada ANDINO LibbyNadia Ciara Start : 27-Jun-2018 Active Comments:max: 2 [...] End : 09-Jun-2017 Inactive Comments:called to [facility] Cefadroxil 500 MG Oral Capsule 2 bid [...] 29-Oct-2011 End : 07-Sep-2014 Inactive Comments:called to [facility] -4-10 monisha Leucovorin Calcium 5 MG [...] : 09-Mar-2017 End : 09-Mar-2017 Inactive NYSTATIN, [id number]/ML (Mouth/Throat Suspension) 5 cc swish and swallow [...] local pharm. mammogram , BD , colonoscopy ([facility]), whisper test WNL Status: Inactive as of [...] Department Summary Result: Comments: See Note; NOTES: [facility] Medical Records Department [address] [place] [address] Emergency Department Summary 10/15/18 1147 MR#: [id number] Acct: [id number] Name: MARIA EUGENIA VAUGHAN Rep #: [id number] : 1950 68 From: Danilo Kiran MD [...] bacteremia, immunosuppressed This note was generated with AnyPresence dictation software. It may contain incorrec t [...] Primary Care Provid er. Call Doctors Registry ([phone]) or report to the closest Emergency Room. Call 911 if necessary. 10/15/18 1254 <Electronically signed by Danilo Kiran MD> Date Danilo Kiran MD Cosigner Signature (If Indicated): Date CC: Ciara Caballero DO 15-Oct-2018 Emergency Department Summary Result: Comments: See Note; NOTES: [facility] Medical Records Department [address] [place] [address] Emergency Department Summary 10/14/18 1309 MR#: [id number] Acct: [id number] Name: MARIA EUGENIA VAUGHAN Rep #: [id number] : 1950 68 From: Dharmesh Arellano MD PCP: Ciara Caballero DO Status: DEP ER ADDENDUM by Dharmesh Arellano MD on 10/15/18 at 0844 Patient's blood cultures returned at this morning showing gram-positive cocci in clusters. At 840 I left a message on her home phone and cell phone instructing her to return to emergency department for IV antibiotics and admission to [facility]. 10/15/18 0844 Date Dharmesh Arellano MD cc: [...] on immunosuppressants. This note was generated with AnyPresence dictation software. It may contain incorrect words, [...] contact your Primary Car e Provider. Call [employer] Registry ([phone]) or report to the closest Emergency Room. Call 911 if necessary. 10/14/18 5640 <Electronically signed by Dharmesh Arellano MD> Date ____ Dharmesh Arellano MD Cosigner Signature (If Indicated): Date CC: Ciara Caballero DO 14-Oct-2018 Emergency Department Summary Result: Comments: See Note; NOTES: [facility] Medical Records Department [address] [place] [address] Emergency Department Summary 10/14/18 1309 MR#: [id number] Acct: [id number] Name: MARIA EUGENIA VAUGHAN Rep #: [id number] : 1950 68 From: Dharmesh Arellano MD [...] on immunosuppressants. This note was generated with AnyPresence dictation software. It may contain incorrect words, [...] contact your Primary Care Provider. Call [email or web address] Registry ([phone]) or report to the closest Emergency Room. Call 911 if necessary. 10/14/18 175 <Electronically signed by Dharmesh Arellano MD> Date Dharmesh Arellano MD Cosigner Signature (If Indicated): Date CC: Ciara Caballero DO 14-Oct-2018 Elbow min 3 Views Result: Comments: See Note; NOTES: [facility] Imaging Services [address] [place] [address] Elbow min 3 Views MR#: [id number] Acct: [id number] Name: MARIA EUGENIA VAUGHAN Rep #: [id number] : 1950 F 68 From: Fidel Carreon MD PCP: Ciara Caballero DO Status: REG ER Study: Elbow min 3 Views Date of Exam: 10/14/18 Exam# [id number] Ordering Dr: Dharmesh Arellano MD STUDY: X-RAY [...] Fidel Carreon MD at 12:26 EST Tel [phone], Service support , CC: Ciara Caballero DO; Dharmesh Arellano MD Medical Collections Specialist: Signed 15-Mar-2017 History and Physical Exam Result: Comments: See Note; NOTES: [facility] Medical Records Department [address] [place] [address] History and Physical 03/15/172049 MR#: [id number] Acct: [id number] Name: Gregor VAUGHAN Rep #: [id number] : 1950 66 From: Jason Vogel MD [...] 83.2 H Lymph % (Auto) 7.8 L Howard % (Auto) 8.5 Eos % (Auto) 0.0 [...] [facility] [address] [place] [address] Verdana 4d Elbow min 3 Views MR#: [id number] Acct: [id number] Name: MARIA EUGENIA VAUGHAN Rep #: [id number] : 1950 F 66 From: Angelia Ortiz MD PCP: Ciara Caballero DO Status: REG ER Study: Elbow min 3 Views Date of Exam: 03/15/17 Exam# [id number] Ordering Dr: Silvino Lai MD STUDY: X- [...] CC: Silvino Lai MD; Ciara Caballero DO Medical Collections Specialist: Signed 15-Mar-2017 Upper Ext Joint Only(Routine) Result: Comments: See Note; NOTES: [facility] Imaging Services [address] [place] [address] Verdana 4d Upper Ext Joint Only(Routine) MR#: [id number] Acct: [id number] Name: ROXANA VAUGHAN Rep #: [id number] : 1950 F 66 From: Sid Cooper MD PCP: Ciara Caballero DO Status: REG CLI Study: Upper Ext Joint Only(Routine) Date of Exam: 03/15/17 Exam# [id number] Ordering Dr: Jyoti Julien sa STUDY: MRI [...] , CC: Jyoti Mcrae; Ciara Caballero DO Medical Collections Specialist: Signed 13-Mar-2017 Emergency Department Summary Result: Comments: See Note; NOTES: [facility] Medical Records Department [address] [place] [address] Emergency Department Summary MR#: [id number] Acct: [id number] Name: FRANKIE VAUGHAN Rep #: [id number] : 1950 66 From: Yvonne Donnelly MD [...] finally saw a nurse practitioner at the [facility] and is scheduled to see Dr. [...] states that the nurse practitioner at the [facility] told her this is not a real [...] Thomas C: ROBERTO LINDSEY T: SAUL JOB: [id number] 03/13/17 2245 <Electronically signed by Yvonne Donnelly MD> Date Yovnne Multani Signmallory e (If Indicated): Date CC: ROBERTO LINDSEY; Ciara Caballero DO Date Dictated: 03/13/171740 Date Transcribed: 03/13/171740 Medical Collections Specialist: Signed 13-Mar-2017 Discharge Instruction Result: Comments: See Note; NOTES: [facility] Medical Records Department [address] [place] [address] Discharge Instruction 03/13/17 1715 MR#: [id number] Acct: [id number] Name: MARIA EUGENIA VAUGHAN Rep #: [id number] : 1950 66 From: Yvonne Donnelly MD PCP: Ciara Caballero DO Status: REG ER ED Disposition - Plan for ED Patient: Chief Complaint: Upper Extremity Injury Instructions: ED Infec Skin Cellulitis Prescriptions: Cephalexin [Keflex] 500 mg PO Q6 #40 capsule Referrals: Ciara Caballero DO [Primary Care Provider] - Additional Instructions: See the doctor at [facility] a s scheduled. What to do if you have Problems For any increased pain, shortness of breath, bleeding, nausea or vomiting, chest pain, or any unexpected problems, contact your Primary Care Provider. [facility] Doctors Registry ([phone]) or report to the closest Emergency Room. Call 911 if necessary. 03/13/17 1718 <Electronically signed by Yvonne Donnelly MD> Date Yvonne Donnelly MD Cosigner Signature (If Indicated): Date CC: Ciara Caballero DO 13-Mar-2017 Elbow min 3 Views Result: Comments: See Note; NOTES: [facility] Imaging Services [address] [place] [address] Verdana 4d Elbow min 3 Views MR#: [id number] Acct: [id number] Name: CLEMENTMARIA EUGENIA A Rep #: [id number] : 1950 F 66 From: Rand Michael MD PCP: Ciara Caballero DO Status: REG ER Study: Elbow min 3 Views Date of Exam: 03/13/17 Exam# [id number] Ordering Dr: Yvonne Donnelly MD STUDY: X [...] CC: Yvonne Donnelly MD; Ciara Caballero DO Medical Collections Specialist: Signed 11-Mar-2017 Venous Duplex Upper Extremity Result: Comments: See Note; NOTES: [facility] Cardiovascular Services [address] [place] [address] Venous Duplex US, Unilateral 03/09/17 1520 MR#: [id number] Acct: [id number] Name: MARIA EUGENIA SOTO Rep #: [id number] : 1950 66 From: Jamari Amos MD [...] Date Dictated: 03/09/17 1520 Date Transcribed: 03/11/172252 Medical Collections Specialist: Signed 09-Mar-2017 Elbow min 3 Views Result: Comments: See Note; NOTES: [facility] Imaging Services [address] [place] [address] Verdana 4d Elbow min 3 Views MR#: [id number] Acct: [id number] Name: CLEMENTMARIA EUGENIA A Rep #: [id number] : 1950 F 66 From: Fidel Carreon MD PCP: Ciara Caballero DO Status: REG CLI Study: Elbow min 3 Views Date of Exam: 03/09/17 Exam# [id number] Ordering Dr: Jyoti Mcrae STUDY: X -RAY [...] Fidel Carreon MD at 16:08 EDT Tel [phone], Service support , CC: Jyoti Mcrae; Ciara Caballero DO Medical Collections Specialist: Signed 03-Mar-2017 Discharge Instruction Result: Comments: See Note; NOTES: [facility] Medical Records Department [address] [place] [address] Discharge Instruction 03/03/17 1105 MR#: [id number] Acct: [id number] Name: MARIA EUGENIA VAUGHAN Rep #: [id number] : 1950 66 From: Roberto Díaz MD [...] MG PER DAY FOLLOW UP WITH YOUR CURRICULUM DIRECTOR IF NOT GETTING BETTER What to do if you have Problems For any increased pain, shortness of breath, bleeding, nausea or vom iting, chest pain, or any unexpected problems, contact your Primary Care Provider. Call [employer] Registry ([phone]) or report to the closest Emergency Room. Call 911 if necessary. 03/03/17 1621 &a mp;#60;Electronically signed by Roberto Díaz MD> Date Roberto Díaz MD Cosigner Signature (If Indicated): Date CC: Ciara Caballero DO 03-Mar-2017 Emergency Department Summary Result: Comments: See Note; NOTES: [facility] Medical Records Department [address] [place] [address] Emergency Department Summary MR#: [id number] Acct: [id number] Name: FRANKIE VAUGHAN Rep #: [id number] : 1950 66 From: Roberto Díaz MD [...] normal radial pulse, flexion and extension. Normal honey producer strengt h. Left trapezius is unremarkable. Otherwise, [...] is going to follow up with her coiled tubing operator if this is not improving. At this time, it does not look like any type of sep tic joint. Roberto Díaz MD T: NTS JOB: [id number] 03/03/17 1621 <Electronically signed by Roberto Díaz MD> Date Roberto Díaz MD Cosigner Signature (If Indicated): Date CC: Ciara Caballero DO Date Dictated: 03/03/17 1110 Date Transcribed: 03/03/17 111 Medical Collections Specialist: Signed 24-Jun-2016 ELECTROCARDIOGRAM, COMPLETE (ECG) (76078) Comments: nsr no acute chg Result: [MEASUREMENTS ANALYSIS] Date of Test: 06/24/2016 15:00:37; Heart Rate: 87; PA Interval: 144; QRS: 94; QT Interval: 368; Corrected QT Interval (QTc): 415; P Wave Kihei: 5; QRS Wave Kihei: 129; T Wave Kihei: -1; Blood Pressure: 142/100 [ECG DIAGNOSTIC STATEMENTS] Date of Test: 06/24/2016 15:00:37; Summary: Sinus Rhythm -Right axis -consider right ventricular hypertrophy. ABNORMAL 23-Jun-2016 PT D/C Summary (1) Result: Comments: See Note; NOTES: [facility] Physical Therapy [facility] [address] [place] [address]. [address] [place] [address] Fax REHABILITATION SERVICES GUSTAVO RGE SUMMARY MR#: [id number] Acct: [id number] Name: MARIA EUGENIA VAUGHAN Rep #: [id number] : 1950 66 From: Gisell Caraballo PT, [...] please feel free to call me at [phone]. Thank you for the refer ral of this patient. Sincerely, Gisell Caraballo <Electronically signed by Gisell Caraballo PT, Cert. MDT> 06/23/16 1153 CC: Ciara Ada ; Zeeshan Sotelo ELVIS Signed 22-May-2016 Inital Evaluation (1) - PT Result: Comments: See Note; NOTES: [facility] [address] [place] [address] Fax REHABILITATION SE RVICES INITIAL EVALUATION MR#: [id number] Acct: [id number] Name: MARIA EUGENIA VAUGHAN Rep #: [id number] : 1950 66 From: Gisell Caraballo PT, [...] by Gisell Caraballo PT, Cert. MDT> 05/22/16 6865 CC: Ciara Caballero DO; Zeeshan Sotelo ELVIS Signed For Medicare only, by s igning this I certify the plan of care. Physicians Signature Date 21-May-2016 Hip 2-3 Views with Pelvis Result: Comments: See Note; NOTES: [facility] Imaging Services [address] [place] [address] Verdana 4d Hip 2-3 Views with Pelvis MR#: [id number] Acct: [id number] Name: MARIA EUGENIA SOTO Rep #: [id number] : 1950 F 66 From: Fidel Carreon MD PCP: Alice Nova MD Status: REG CLI Study: Hip 2-3 Views with Pelvis Date of Exam: 05/21/16 Exam# [id number] Order ing Dr: Zeeshan Sotelo DO STUDY: [...] Fidel Carreon MD at 14:21 EDT Tel [phone], Service support [phone], OR WENDI #: [phone] RAD/Hip 2-3 Views with Pelvis IMPRESSION: Mild joint space narrowing involving the left hip joint. Electronically Signed: Fidel Carreon MD at 14:21 EDT Tel [phone], Service support [phone], CC: Alice Nova MD; Zeeshan Sotelo Medical Collections Specialist: Signed 21-May-2016 Lumbar Spine 2 or 3 Views Result: Comments: See Note; NOTES: [facility] Imaging Services [address] [place] [address] Verdana 4d Lumbar Spine 2 or 3 Views MR#: [id number] Acct: [id number] Name: MARIA EUGENIA SOTO Rep #: [id number] : 1950 F 66 From: Fidel Carreon MD PCP: Alice Nova MD Status: REG CLI Study: Lumbar Spine 2 or 3 Views Date of Exam: 05/21/16 Exam# [id number] Order ing Dr: Zeeshan Sotelo DO STUDY: [...] Carreon MD at 14: 30 EDT Tel [phone], Service support [phone], RAD/Lumbar Spine 2 or 3 Views IMPRESSION: Degenerative changes of the spine, as detailed above. Grade 1 spondylolisthesis of L5 on S1 with spondylolysis. Electronically Signed: Fidel Carreon MD at 14:30 EDT Tel [phone], Service support [phone], CC: Diego Nova MD; Zeeshan Sotelo Medical Collections Specialist: Signed 30-Dec-2015 Shoulder min 2 Views Result: Comments: See Note; NOTES: [facility] Imaging Services [address] [place] [address] Verdana 4d Shoulder min 2 Views MR#: [id number] Acct: [id number] Name: MARIA EUGENIA VAUGHAN Rep #: [id number] : 1950 F 65 From: Fidel Carreon MD PCP: Alice Nova MD Status: REG CLI Study: Shoulder min 2 Views Date of Exam: 12/30/15 Exam# [id number] Ordering Dr: Zeeshan Gonzalez dd, DO STUDY: [...] Carreon MD 24/12/21 at 14:35 EST Tel [phone], Service support [phone], RAD/Shoulder min 2 Views IMPRESSION: Normal x-ray examination of the shoulder. Electronic ally Signed: Fidel Carreon MD at 14:35 EST Tel [phone], Service support [phone], CC: Alice Nova MD; Zeeshan Sotelo Medical Collections Specialist: Signed 22-Oct-2015 Bilat Scrn Digital AND CAD Result: Comments: See Note; NOTES: [facility] Imaging Services [address] [place] [address] Verdana 4d Bilat Scrn Digital AND CAD MR#: [id number] Acct: [id number] Name: MARIA EUGENIA VAUGHAN Rep #: [id number] : 1950 F 65 From: Fidel Carreon MD PCP: Alice Nova MD Status: REG CLI Study: Bilat Scrn Digital AND CAD Date of Exam: 10/22/15 Exam# [id number] Ord ering Dr: Alice Nova MD MAMMOGRAPHY [...] delay biopsy of a clinically suspicious abnormality. [id number] Electronically Signed: Fidel Carreon MD at 11:18 EST Tel [phone], Service support [phone], CC: Alice Nova MD Medical Collections Specialist: Signed 22-Oct-2015 Dexa Bone Density Study (HP) Result: Comments: See Note; NOTES: [facility] Imaging Services [address] [place] [address] Verdana 4d Dexa Bone Density Study (HP) MR#: [id number] Acct: [id number] Name : MARIA EUGENIA VAUGHAN Rep #: [id number] : 1950 F 65 From: Fidel Carreon MD PCP: Alice Nova MD Status: REG CLI Study: Dexa Bone Density Study (HP) Date of Exam: 10/22/15 Exam# [id number] Ordering Dr: Alice Nova MD STUDY: DUAL [...] Fidel Carreon MD at 14:52 EST Tel [phone], Service support [phone], Fa x [phone] CC: Alice Nova MD Medical Collections Specialist: Signed 17-Oct-2013 Bilat Scrn Digital & CAD Result: Comments: See Note; NOTES: [facility] Imaging Services [address] [place] [address] Breast Imaging Report MR#: [id number] Acct: [id number] Name: MARIA EUGENIA VAUGHAN Rep # : [id number] : 1950 F 63 From: Fidel Carreon MD PCP: Status: REG CL Exam# [id number] Ordering Dr: Alice Nova MD MAMMOGRAPHY - [...] M.D. at 15:27 EST , Service support [phone], CC: Alice Nova MD Medical Collections Specialist: Signed 17-Oct-2013 Dexa Bone Density Study (HP) Result: Comments: See Note; NOTES: [facility] Imaging Services [address] [place] [address] Bone Density Report MR#: [id number] Acct: [id number] Name: MARIA EUGENIA VAUGHAN Rep #: [id number] : 1950 F 63 From: Fidel Carreon MD PCP: Status: REG CLI Study: Dexa Bone Density Study (HP) Date of Exam: 10/17/13 Exam# [id number] Ordering Dr: Alice Nova MD STUDY: D [...] M.D. at 9:13 EST , Service support [phone], CC: Alice Nova MD Medical Collections Specialist: Signed Family History Unknown Family Member Name Dates Details Father Comments: Emphysema, [place] in 60s Status: Active Mother Comments: RA, DM, [place] at 60 Status: Active Social History Name [...] smoker Vital Signs Date Test Result Details 99-Lbo-034101:08 Temperature 97.1 f Comments: Method: Temporal Pulse [...] 0.00 cm Results Date Description Value Details 1-Axg-362636:05 Basic Metabolic Profile (BMP) Comments: REDRAW. PREVIOUS SPECIMEN REJECTED DUE TOHEMOLYSIS. 10/15/18 Cory3 Daisy Lopez.[facility] [address] [place], [address] GAP 7 (Normal) Range: 5-15 CO2 29.0 [...] Comments: Please note revised GLUCOSE reference range ocpmxgyww97/02/2018. 6-Ilj-578228:15 CBC W/Diff, Automated Comments: [facility] [address] [place], [address] SMEAR COMMENT SCANNED (Normal) Comments: SLIGHT MONOCYTOSIS [...] 4.2-5.4 WBC 12.5 K/mm3 (Abnormal) Range: 4.4-11.0 4-Vix-243159:15 Lactic Acid Comments: Yes/No query for Sepsis Lactate Rule [facility] [address] [place], [address] LACTIC ACID 1.5 mmol/L (Normal) Range: 0.4-2.0 6-Yvk-941139:07 Basic Metabolic Profile (BMP) Comments: [facility] [address] [place], [address] GAP 8 (Normal) Range: 5-15 CO2 27.0 [...] A.D.A. criteria.Please note revised GLUCOSE reference range ptzyqgydu01/02/2018. 3-Ogq-237155:07 CBC W/Diff, Automated Comments: [facility] [address] [place], [id number] PATH REV Reviewed (Normal) Comments: Neutrophilic leukocytosis.Clinical [...] 4.2-5.4 WBC 14.5 K/mm3 (Abnormal) Range: 4.4-11.0 5-Aaq-941473:07 Lactic Acid Comments: Yes/No query for Sepsis Lactate Rule [facility] [address] [place], [place], [address] LACTIC ACID 1.2 mmol/L (Normal) Range: 0.4-2.0 17-Jzv-828870:36 HEPATIC FUNCTION PANEL Comments: fax results to Dr. Jules [phone]; A courtesy copy of this report has been sent [phone].PATIENT NOT FASTINGPERFORMED BY: [facility] [id number] [facility] [id number] 7300Clinical Information: FX WESLEY [phone] (92172) ALT (SGPT) 49 [iU]/L (Abnormal) Range: 0-32 AST (SGOT) 33 [iU]/L (Normal) Range: 0-40 Alkaline Phosphatase 83 [iU]/L (Normal) Range: 39-117 Bilirubin, Direct 0.08 mg/dL (Normal) Range: 0.00-0.40 Bilirubin, Total 0.3 mg/dL (Normal) Range: 0.0-1.2 Albumin 4.2 g/dL (Normal) Range: 3.6-4.8 Protein, Total 6.7 g/dL (Normal) Range: 6.0-8.5 12-Obm-689101:11 Microscopic Examination Comments: A courtesy copy of this report has been sent [phone].PATIENT WAS FASTINGPERFORMED BY: [facility] [id number] Bacteria Few (Normal) Mucus Threads Present (Normal) Crystal Type Amorphous Sediment (Normal) Crystals Present (Abnormal) Epithelial Cells (non 0-10 {/hpf} (Normal) Range: 0 - 10 renal) RBC 0-2 {/hpf} (Normal) Range: 0 - 2 WBC 0-5 {/hpf} (Normal) Range: 0 - 5 TSH 1.170 {uIU/mL} Comments: A courtesy copy of this report has been sent [phone].PATIENT WAS FASTINGPERFORMED BY: [employer] Yiawnb1721 [facility] [id number] 3:11 (Normal) Range: 0.450-4.500 50-Fhu-438698:11 URINALYSIS, W/ MICRO (99160) Comments: A courtesy copy of this report has been sent [phone].PATIENT WAS FASTINGPERFORMED BY: [employer] [facility] [id number] Microscopic Examination See below: (Normal) Comments: Microscopic was indicated and was performed. Microscopic Examination MICRON (Normal) Comments: Microscopic follows if indicated. Nitrite, Urine Negative (Normal) Urobilinogen,Semi-Qn 0.2 mg/dL (Normal) Range: 0.2-1.0 Bilirubin Negative (Normal) Occult Blood Negative (Normal) Ketones Negative (Normal) Glucose Negative (Normal) Protein Negative (Normal) WBC Esterase Negative (Normal) Appearance Clear (Normal) Urine-Color Yellow (Normal) pH 6.5 (Normal) Range: 5.0-7.5 Specific Hazard 1.016 (Normal) Range: 1.005-1.030 50-Uiu-708658:11 MICROALBUMIN: CREATININE RATIO Comments: A courtesy copy of this report has been sent [phone].PATIENT WAS FASTINGPERFORMED BY: [facility]Jceqgh8936 [facility] [id number] (37750) AND (16867) Alb/Creat Ratio <4.2 {mg/g_creat} (Normal) Range: 0.0-30.0 Albumin, Urine <3.0 ug/mL (Normal) Creatinine, Urine 71.0 mg/dL (Normal) 25-Hef-541881:11 METABOLIC PANEL, COMPREHENSIVE Comments: A courtesy copy of this report has been sent [phone].PATIENT WAS FASTINGPERFORMED BY: [facility]Tcdswc8835 [facility] [id number] (31937) ALT (SGPT) 39 [iU]/L (Abnormal) Range: 0-32 [...] Glucose, Serum 90 mg/dL (Normal) Range: 65-99 16-Agq-258587:11 CBC W/AUTO DIFF WBC Comments: A courtesy copy of this report has been sent [phone].PATIENT WAS FASTINGPERFORMED BY: [facility]Vahegk2456 [facility] [id number] Information: ADD TSH (73826) Immature Grans (Abs) 0.0 {x10E3/uL} (Normal) Range: [...] 3.77-5.28 WBC 7.3 {x10E3/uL} (Normal) Range: 3.4-10.8 60-Zwr-405485:11 LIPID PANEL (63550) Comments: A courtesy copy of this report has been sent [phone].PATIENT WAS FASTINGPERFORMED BY: [facility]Xrclrt9949 [facility] [id number] LDL/HDL Ratio 2.1 {ratio_units} (Normal) Range: 0.0-3.2 Comments: LDL/HDL Ratio Men Women 1/2 Avg.Risk 1.0 1.5 Av g.Risk 3.6 3.2 2X Avg.Risk 6.2 5.0 3X Avg.Risk 8.0 6.1 LDL Cholesterol Calc 136 mg/dL (Abnormal) Range: 0-99 VLDL Cholesterol Cosmo 25 mg/dL (Normal) Range: 5-40 HDL Cholesterol 65 mg/dL (Normal) Triglycerides 124 mg/dL (Normal) Range: 0-149 Cholesterol, Total 226 mg/dL (Abnormal) Range: 100-199 84-Zlx-186580:11 C-REACTIVE PROTEIN (86096) Comments: A courtesy copy of this report has been sent [phone].PATIENT WAS FASTINGPERFORMED BY: [facility]Vnpkhh2533 [facility] [id number] C-Reactive Protein, Quant 12.5 mg/L (Abnormal) Range: 0.0-4.9 3-Zji-157141:03 HgA1C , Office (52604) HgA1C , Office 6.0 % (Normal) Range: 4.6 - 7.1 :03 Blood Glucose , Office (16162) Blood Glucose , Office 114 (Normal) :28 CBC, Platelets & Auto Diff Comments: PATIENT NOT FASTINGPERFORMED BY: [facility]Fxsgpa1890 [facility] [id number] (79780) Immature Grans (Abs) 0.0 {x10E3/uL} (Normal) Range: [...] 3.77-5.28 WBC 8.3 {x10E3/uL} (Normal) Range: 3.4-10.8 7-Ntb-850853:28 C-Reactive Protein (35849) Comments: PATIENT NOT FASTINGPERFORMED BY: [facility]Rztwoi7277 [facility] [id number] C-Reactive Protein, Quant 43.4 mg/L (Abnormal) Range: 0.0-4.9 :28 SED RATE ERYTHROCYTE (17233) Comments: PATIENT NOT FASTINGPERFORMED BY: [facility]Qnfnrb7774 [facility] [id number] Sedimentation Rate-Westergren 55 mm/h (Abnormal) Range: 0-40 1-Pox-122235:47 Basic Metabolic Profile (BMP) Comments: [facility] [address] [place], [place], [address] GAP 10 (Normal) Range: 5-15 CO2 26.0 [...] Range: 70-110 :47 CBC W/Diff, Automated Comments: [facility] [address] [place], [place], [address] PATH REV March foll (Normal) SMEAR COMMENT [...] K/mm3 (Abnormal) Range: 4.4-11.0 :47 CRP Comments: [facility] [address] [place], [address] C-REACTIVE PROT 158.00 mg/L (Abnormal) Range: 0.0-3.0 Comments: C-Reactive Protein (CRP) provides useful information for thediagnosis, therapy and monitoring of inflammatory processesand associated diseases. For the evaluation of Relative Riskfor Cardiovascular Dise ase, a High Sensitivity CRP (HSCRP)should be ordered. :47 Erythrocyte Sed Rate Comments: [facility] [address] [place], [place], [address] SED RATE 130 mm/h (Abnormal) Range: 0-30 9-Txd-666863:20 CBC W/Diff, Automated Comments: [facility] [address] [place], [place], [address] PLT EST SLT INC (Normal) SMEAR COMMENT [...] Range: 4.4-11.0 :20 Erythrocyte Sed Rate Comments: [facility] [address] [place], [address] SED RATE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
--- OUTSIDE RECORDS SUMMARY | 2019-01-29 16:17 | XMS RPT_ITS | Continuity of Care Document ---
:1950 Author Organization [facility] Address [address] [facility] [address] [place] [address] Phone Care Team Providers Name Role Phone Ciara Caballero DO Unavailable César Martins Unavailable Dr. Pipo Horner Unavailable Tami ANDINO , Dr. Zeeshan Lepe Unavailable Luis M Jules MD Unavailable Zeeshan Garrett DO Unavailable [facility], [facility] Unavailable Darshan Beckham Unavailable Unavailable Long AIRCRAFT MECHANICYasmine L Unavailable Unavailable Unavailable Unavailable Problems Name Dates [...] Depressive disorder (F32.9, 311) Comments: of massive [place] 39 yo. Status: Active Disc disease, degenerative, [...] 19-Apr-2017 End : 09-Jun-2017 Inactive Comments:called to [facility] Cefadroxil 500 MG Oral Capsule 1 (one) [...] for 30 days Refills: 0 Ordered:09-Jan-2016 Jyoti Arroyo CNP Start : 06-Nov-2015 End : 06-Dec-2015 Inactive IBUPROFEN, 800MG (Oral Tablet) 1 tid for 0 days Refills: 0 Ordered:04-Dec-2010 RAJ Suárez End : 04-Dec-2010 Inactive IMITREX, 50MG (Oral Tablet) 1 Tablet uad for 0 days Quantity: 10 {Tablet} Refills: 3 Ordered:07-Sep-2014 RAJ Suárez Start : 29-Oct-2011 End : 07-Sep-2014 Inactive Comments:called to [facility] 11-4-10 [place] Leucovorin Calcium 5 MG Oral Tablet uad [...] Quantity: 120 {Tablet} Refills: 0 Ordered:09-Mar-2017 Jyoti Arroyo CNP Start : 09-Mar-2017 End : 09-Mar-2017 Inactive NYSTATIN, 940506XDRJ/ML (Mouth/Throat Suspension) 5 cc swish and swallow [...] : 06-Sep-2007 Discontinued Comments:This order discontinued per -. DERMA-SMOOTHE/FS ATOPIC SIMONE, 0.01% (External Kit) apply [...] 01-21 reviewed with patient all questions. pap -2014 can only get shingles vaccine if off immunosuppressant, pneumonia up to date, not get flu vaccine for 2015, tetanus up to date, told about Prevnar 1 3 to get at local pharm. mammogram , BD , colonoscopy ([facility]), whisper test WNL Status: Inactive as [...] Physical Exam Result: Comments: See Note; NOTES: [facility] Medical Records Department [address] [place] [address] History and Physical 03/15/172049 MR#: [id number] Acct: [id number] Name: Gregor VAUGHAN Rep #: [id number] : 1950 66 From: Jason Vogel MD [...] 83.2 H Lymph % (Auto) 7.8 L [place] % (Auto) 8.5 Eos % (Auto) 0.0 [...] 3 Views Result: Comments: See Note; NOTES: [facility] Imaging Services [address] [place] [address] Verdana 4d Elbow min 3 Views MR#: [id number] Acct: [id number] Name: MARIA EUGENIA VAUGHAN Rep #: [id number] : 1950 F 66 From: Angelia Ortiz MD PCP: Ciara Caballero DO Status: [facility] Study: Elbow min 3 Views Date of Exam: 03/15/17 Exam# [id number] Ordering Dr: Silvino Lai MD STUDY: X- [...] CC: Silvino Lai MD; Ciara Caballero DO Manager Private: Signed 15-Mar-2017 Upper Ext Joint Only(Routine) Result: Comments: See Note; NOTES: [facility] Imaging Services [address] [place] [address] Verdana 4d Upper Ext Joint Only(Routine) MR#: [id number] Acct: [id number] Name: ROXANA VAUGHAN Rep #: [id number] : 1950 F 66 From: Sid Cooper MD PCP: Ciara Caballero DO Status: REG CLI Study: Upper Ext Joint Only(Routine) Date of Exam: 03/15/17 Exam# [id number] Ordering Dr: Jyoti Julien sa STUDY: MRI [...] , CC: Jyoti Arroyo; Ciara Caballero DO Manager Private: Signed 13-Mar-2017 Emergency Department Summary Result: Comments: See Note; NOTES: [facility] Medical Records Department [address] [place] [address] Emergency Department Summary MR#: [id number] Acct: [id number] Name: FRANKIE VAUGHAN Rep #: [id number] : 1950 66 From: Yvonne Donnelly MD [...] finally saw a nurse practitioner at the [facility] and is scheduled to see Dr. Lindsey [...] states that the nurse practitioner at the [facility] told her this is not a real [...] Thomas C: ROBERTO LINDSEY T: SAUL JOB: [id number] 03/13/17 3951 <Electronically signed by Yvonne Donnelly MD> Date Yvonne Dewey e (If Indicated): Date CC: ROBERTO LINDSEY; Ciara Caballero DO Date Dictated: 03/13/171740 Date Transcribed: 03/13/171740 Manager Private: Signed 13-Mar-2017 Discharge Instruction Result: Comments: See Note; NOTES: [facility] Medical Records Department [address] [place] [address] Discharge Instruction 03/13/171714 MR#: [id number] Acct: [id number] Name: MARIA EUGENIA VAUGHAN Rep #: [id number] : 1950 66 From: Yvonne Donnelly MD PCP: Ciara Caballero DO Status: REG ER ED Disposition - Plan for ED Patient: Chief Complaint: Upper Extremity Injury Instructions: ED Infec Skin Cellulitis Prescriptions: Cephalexin [Keflex] 500 mg PO Q6 #40 capsule Referrals: Ciara Caballero DO [Primary Care Provider] - Additional Instructions: See the doctor at [facility] a s scheduled. What to do if you have Problems For any increased pain, shortness of breath, bleeding, nausea or vomiting, chest pain, or any unexpected problems, contact your Primary Care Provider. [facility] Doctors Registry ([phone]) or report to the closest Emergency Room. Call 911 if necessary. 03/13/171717 <Electronically signed by Yvonne Donnelly MD> Date Yvonne Multani Signature (If Indicated): Date CC: Ciara Caballero DO 13-Mar-2017 Elbow min 3 Views Result: Comments: See Note; NOTES: [facility] Imaging Services [address] [place] [address] Case 4d Elbow min 3 Views MR#: [id number] Acct: [id number] Name: MARIA EUGENIA VAUGHAN Rep #: [id number] : 1950 F 66 From: Rand Michael MD PCP: Ciara Caballero DO Status: REG ER Study: Elbow min 3 Views Date of Exam: 03/13/17 Exam# [id number] Ordering Dr: Yvonne Donnelly MD STUDY: X [...] CC: Yvonne Donnelly MD; Ciara Caballero DO Manager Private: Signed 11-Mar-2017 Venous Duplex Upper Extremity Result: Comments: See Note; NOTES: [facility] Cardiovascular Services [address] [place] [address] Venous Duplex US, Unilateral 03/09/17 1520 MR#: [id number] Acct: [id number] Name: MARIA EUGENIA SOTO Rep #: [id number] : 1950 66 From: Jamari Amos MD Attending Dr: Jyoti Arrooy Status: REG CLI Ordering Dr: Jyoti Arroyo [...] Jyoti Arroyo Performed By: Vladimir Black, RVT 03/11/17 2253 Date Jamari Amos MD CC: Jyoti Caballero DO Date Dictated: 03/09/17 1520 Date Transcribed: 03/11/17 2253 Manager Private: Signed 09-Mar-2017 Elbow min 3 Views Result: Comments: See Note; NOTES: [facility] Imaging Services [address] [place] [address] Verdana 4d Elbow min 3 Views MR#: [id number] Acct: [id number] Name: MARIA EUGENIA VAUGHAN Rep #: [id number] : 1950 F 66 From: Fidel Carreon MD PCP: Ciara Caballero DO Status: REG CLI Study: Elbow min 3 Views Date of Exam: 03/09/17 Exam# [id number] Ordering Dr: Jyoti Arroyo STUDY: X -RAY [...] Fidel Carreon MD at 16:08 EDT Tel [phone], Service support , CC: Jyoti Arroyo; Ciara Caballero DO Manager Private: Signed 03-Mar-2017 Discharge Instruction Result: Comments: See Note; NOTES: [facility] Medical Records Department [address] [place] [address] Discharge Instruction 03/03/17 1105 MR#: [id number] Acct: [id number] Name: MARIA EUGENIA VAUGHAN Rep #: [id number] : 1950 66 From: Roberto Díaz MD PCP: Ciara Caballero DO Status: [facility] ER ED Disposition - Plan for ED Patient: Disposition: Home or Assisted Living Chief Complai nt: Upper Extremity Injury Instructions: ED Arthritis Rheumatoid Additional Instructions: ICE TO ELBOW AND SHOULDER PERCOCET FOR PAIN INCREASE PREDNISONE TO 40 MG PER DAY FOR 5-7 DAYS THEN 20 MG PER D AY FOR 7 DAYS THEN BACK TO 5 MG PER DAY FOLLOW UP WITH YOUR STANDPIPE TENDER IF NOT GETTING BETTER What to do if you have Problems For any increased pain, shortness of breath, bleeding, nausea or vom iting, chest pain, or any unexpected problems, contact your Primary Care Provider. Call [facility] ([phone]) or report to the closest Emergency Room. Call 911 if necessary. 03/03/17 1621 &a mp;#60;Electronically signed by Roberto Díaz MD> Date Roberto Díaz MD Cosigner Signature (If Indicated): Date CC: Ciara Caballero DO 03-Mar-2017 Emergency Department Summary Result: Comments: See Note; NOTES: [facility] Medical Records Department [address] [place] [address] Emergency Department Summary MR#: [id number] Acct: [id number] Name: FRANKIE VAUGHAN Rep #: [id number] : 1950 66 From: Roberto Díaz MD PCP: Ciara Caballero DO Status: [facility] ER DATE OF SERVICE: 03/03/2017 CHIEF COMPLAINT: [...] normal radial pulse, flexion and extension. Normal field trainer strengt h. Left trapezius is unremarkable. Otherwise, [...] is going to follow up with her reading recovery teacher if this is not improving. At this time, it does not look like any type of sep tic joint. Roberto Díaz MD T: NTS JOB: [id number] 03/03/17 1621 <Electronically signed by Roberto Díaz MD> Date Roberto Díaz MD Cosigner Signature (If Indicated): Date CC: Ciara Caballero DO Date Dictated: 03/03/17 1110 Date Transcribed: 03/03/17 1110 Manager Private: Signed 24-Jun-2016 ELECTROCARDIOGRAM, COMPLETE (ECG) (12341) Comments: nsr no acute chg Result: [MEASUREMENTS ANALYSIS] Date of Test: 06/24/2016 15:00:37; Heart Rate: 87; AK Interval: 144; QRS: 94; QT Interval: 368; Corrected QT Interval (QTc): 415; P Wave [place]: 5; QRS Wave [place]: 129; T Wave [place]: -1; Blood Pressure: 142/100 [ECG DIAGNOSTIC STATEMENTS] Date of Test: 06/24/2016 15:00:37; Summary: Sinus Rhythm -Right axis -consider right ventricular hypertrophy. ABNORMAL 23-Jun-2016 PT D/C Summary (1) Result: Comments: See Note; NOTES: [facility] Physical Therapy [facility] [address] [facility] [address] [place] [address] Fax REHABILITATION SERVICES DISCHA RGE SUMMARY MR#: [id number] Acct: [id number] Name: MARIA EUGENIA VAUGHAN Rep #: [id number] : 1950 66 From: Gisell Caraballo PT, Cert. MDT Referring DrCari: Zeeshan Sotelo Status: REG RCR Insurance: MEDIC ARE PART A B Yovia HP - PT D/C Summary It has [...] please feel free to call me at [phone]. Thank you for the refer ral of this patient. Sincerely, Gisell Caraballo <Electronically signed by Cert. FARRUKH Velez PTT> 06/23/16 1153 CC: Ciara Caballero DO; Zeeshan Sotelo ELVIS Signed 22-May-2016 Inital Evaluation (1) - PT Result: Comments: See Note; NOTES: [facility] Physical Therapy [facility] [facility] [address] [facility] [address] [place] [address] Fax REHABILITATION SE RVICES INITIAL EVALUATION MR#: [id number] Acct: [id number] Name: MARIA EUGENIA VAUGHAN Rep #: [id number] : 1950 66 From: Gisell Caraballo PT CertCari CHADWICKT Referring DrCari: Zeeshan Sotelo Status: REG RCR Insurance: MEDICARE PART A B [employer] Patient's Visit Information MARIA EUGENIA VAUGHAN is a 66 year old F referred to Physical Therapy by Zesehan Sotelo DO with a diagnosis of l5s1 l ysthesis. left > right troch bursitis. gluteal tendonitis.. Date of Evaluation: 05/22/16 Physical Therapist: Gisell Caraabllo - Visit Plan Frequency: 2-3x /Week Duration: [...] Correction of posture: WORSE. Motor deficit: HIPS /. Sensory deficit: NO. ROM deficit: WFL EXCEPT [...] with Pelvis Result: Comments: See Note; NOTES: [facility] Imaging Services [address] [place] [address] Verdana 4d Hip 2-3 Views with Pelvis MR#: [id number] Acct: [id number] Name: MARIA EUGENIA SOTO Zana Rep #: [id number] : 1950 F 66 From: Fidel Carreon MD PCP: Alice Nova MD Status: REG CLI Study: Hip 2-3 Views with Pelvis Date of Exam: 05/21/16 Exam# [id number] Order ing Dr: Zeeshan Sotelo DO STUDY: [...] Fidel Carreon MD at 14:21 EDT Tel [phone], Service support [phone], OR WENDI #: [phone] RAD/Hip 2-3 Views with Pelvis IMPRESSION: Mild joint space narrowing involving the left hip joint. Electronically Signed: Fidel Carreon MD at 14:21 EDT Tel [phone], Service support [phone], CC: Alice Nova MD; Zeeshan Sotelo Manager Private: Signed 21-May-2016 Lumbar Spine 2 or 3 Views Result: Comments: See Note; NOTES: [facility] Imaging Services [address] [place] [address] Verdana 4d Lumbar Spine 2 or 3 Views MR#: [id number] Acct: [id number] Name: MARIA EUGENIA SOTO Rep #: [id number] : 1950 F 66 From: Fidel Carreon MD PCP: Alice Nova MD Status: REG CLI Study: Lumbar Spine 2 or 3 Views Date of Exam: 05/21/16 Exam# [id number] Order ing Dr: Zeeshan Sotelo DO STUDY: [...] Carreon MD at 14: 30 EDT Tel [phone], Service support [phone], RAD/Lumbar Spine 2 or 3 Views IMPRESSION: Degenerative changes of the spine, as detailed above. Grade 1 spondylolisthesis of L5 on S1 with spondylolysis. Electronically Signed: Fidel Carreon MD at 14:30 EDT Tel [phone], Service support [phone], CC: Diego Nova MD; Zeeshan Sotelo Manager Private: Signed 30-Dec-2015 Shoulder min 2 Views Result: Comments: See Note; NOTES: [facility] Imaging Services [address] [place] [address] Verda 4d Shoulder min 2 Views MR#: [id number] Acct: [id number] Name: MARIA EUGENIA VAUGHAN Rep #: [id number] : 1950 F 65 From: Fidel Carreon MD PCP: Alice Nova MD Status: REG CLI Study: Shoulder min 2 Views Date of Exam: 12/30/15 Exam# [id number] Ordering Dr: Zeeshan Gonzalez dd, DO STUDY: [...] Carreon MD 24/12/21 at 14:35 EST Tel [phone], Service support [phone], RAD/Shoulder min 2 Views IMPRESSION: Normal x-ray examination of the shoulder. Electronic ally Signed: Fidel Carreon MD at 14:35 EST Tel [phone], Service support [phone], CC: Alice Nova MD; Zeeshan Sotelo Manager Private: Signed 22-Oct-2015 Bilat Scrn Digital AND CAD Result: Comments: See Note; NOTES: [facility] Imaging Services [address] [place] [address] Verdana 4d Bilat Scrn Digital AND CAD MR#: [id number] Acct: [id number] Name: MARIA EUGENIA VAUGHAN Zana Rep #: [id number] : 1950 F 65 From: Fidel Carreon MD PCP: Alice Nova MD Status: REG CLI Study: Bilat Scrn Digital AND CAD Date of Exam: 10/22/15 Exam# [id number] [facility] Dr: Alice Nova MD MAMMOGRAPHY - [...] delay biopsy of a clinically suspicious abnormality. [id number] Electronically Signed: Fidel Carreon MD at 11:18 EST Tel [phone], Service support [phone], CC: Alice Nova MD Manager Private: Signed 22-Oct-2015 Dexa Bone Density Study (HP) Result: Comments: See Note; NOTES: [facility] Imaging Services [address] [place], [place] [address] Verdana 4d Dexa Bone Density Study (HP) MR#: [id number] Acct: [id number] Name : MARIA EUGENIA VAUGHAN Rep #: [id number] : 1950 F 65 From: Fidel Carreon MD PCP: Alice Nova MD Status: [facility] CLI Study: Dexa Bone Density Study (HP) Date of Exam: 10/22/15 Exam# [id number] Ordering Dr: Alice Nova MD STUDY: DUAL [...] Fidel Carreon MD at 14:52 EST Tel [phone], Service support [phone], Fa x [phone] CC: Alice Nova MD Manager Private: Signed 17-Oct-2013 Bilat Scrn Digital & CAD Result: Comments: See Note; NOTES: [facility] Imaging Services [address] [place], [place] [address] Breast Imaging Report MR#: [id number] Acct: [id number] Name: MARIA EUGENIA VAUGHAN Rep # : [id number] : 1950 F 63 From: Fidel Carreon MD PCP: Status: REG CLI Exam# [id number] Ordering Dr: Alice Nova MD MAMMOGRAPHY - [...] M.D. at 15:27 EST , Service support [phone], CC: Alice Nova MD Manager Private: Signed 17-Oct-2013 Dexa Bone Density Study (HP) Result: Comments: See Note; NOTES: [facility] Imaging Services [address] [place] [address] Bone Density Report MR#: [id number] Acct: [id number] Name: CLEMENTMARIA EUGENIA A Rep #: [id number] : 1950 F 63 From: Fidel Carreon MD PCP: Status: REG CLI Study: Dexa Bone Density Study (HP) Date of Exam: 10/17/13 Exam# [id number] Ordering Dr: Alice Nova MD STUDY: D [...] M.D. at 9:13 EST , Service support [phone], CC: Alice Nova MD Manager Private: Signed Family History Unknown Family Member Name Dates Details Father Comments: Emphysema, [place] in 60s Status: Active Mother Comments: RA, DM, [place] at 60 Status: Active Social History Name [...] smoker Vital Signs Date Test Result Details :38 Pulse 81 /min Comments: Pattern: Regular [...] 0.00 cm Results Date Description Value Details 77-Oso-068396:36 HEPATIC FUNCTION PANEL Comments: fax results to Dr. Jules [phone]; A courtesy copy of this report has been sent [phone].PATIENT NOT FASTINGPERFORMED BY: [facility]CoK[facility] for RehabilitationUzpuvh2941 [facility] [id number] 7300Clinical Information: FX [phone] (58593) ALT (SGPT) 49 [iU]/L (Abnormal) Range: 0-32 AST (SGOT) 33 [iU]/L (Normal) Range: 0-40 Alkaline Phosphatase 83 [iU]/L (Normal) Range: 39-117 Bilirubin, Direct 0.08 mg/dL (Normal) Range: 0.00-0.40 Bilirubin, Total 0.3 mg/dL (Normal) Range: 0.0-1.2 Albumin 4.2 g/dL (Normal) Range: 3.6-4.8 Protein, Total 6.7 g/dL (Normal) Range: 6.0-8.5 26-Ehq-018766:11 Microscopic Examination Comments: A courtesy copy of this report has been sent [phone].PATIENT WAS FASTINGPERFORMED BY: [employer] Duzegq2521 [facility] [id number] Bacteria Few (Normal) Mucus Threads Present (Normal) Crystal Type Amorphous Sediment (Normal) Crystals Present (Abnormal) Epithelial Cells (non 0-10 {/hpf} (Normal) Range: 0 - 10 renal) RBC 0-2 {/hpf} (Normal) Range: 0 - 2 WBC 0-5 {/hpf} (Normal) Range: 0 - 5 TSH 1.170 {uIU/mL} Comments: A courtesy copy of this report has been sent [phone].PATIENT WAS FASTINGPERFORMED BY: [employer] Azavba9399 [facility] [id number] 3:11 (Normal) Range: 0.450-4.500 62-Opf-703001:11 URINALYSIS, W/ MICRO (42354) Comments: A courtesy copy of this report has been sent [phone].PATIENT WAS FASTINGPERFORMED BY: [employer] Qqkhhe7938 [facility] [id number] Microscopic Examination See below: (Normal) Comments: Microscopic was indicated and was performed. Microscopic Examination MICRON (Normal) Comments: Microscopic follows if indicated. Nitrite, Urine Negative (Normal) Urobilinogen,Semi-Qn 0.2 mg/dL (Normal) Range: 0.2-1.0 Bilirubin Negative (Normal) Occult Blood Negative (Normal) Ketones Negative (Normal) Glucose Negative (Normal) Protein Negative (Normal) WBC Esterase Negative (Normal) Appearance Clear (Normal) Urine-Color Yellow (Normal) pH 6.5 (Normal) Range: 5.0-7.5 Specific Exchange 1.016 (Normal) Range: 1.005-1.030 89-Lum-900563:11 MICROALBUMIN: CREATININE RATIO Comments: A courtesy copy of this report has been sent [phone].PATIENT WAS FASTINGPERFORMED BY: [facility] TelecomKess[facility] Institute for RehabilitationQdgyuk7701 [facility] [id number] (78928) AND (48380) Alb/Creat Ratio <4.2 {mg/g_creat} (Normal) Range: 0.0-30.0 Albumin, Urine <3.0 ug/mL (Normal) Creatinine, Urine 71.0 mg/dL (Normal) 25-Hxr-992024:11 METABOLIC PANEL, COMPREHENSIVE Comments: A courtesy copy of this report has been sent [phone].PATIENT WAS FASTINGPERFORMED BY: [facility]com[facility] RehabilitationGdjidt4970 [facility] [id number] (61054) ALT (SGPT) 39 [iU]/L (Abnormal) Range: 0-32 [...] Glucose, Serum 90 mg/dL (Normal) Range: 65-99 00-Irq-715378:11 CBC W/AUTO DIFF WBC Comments: A courtesy copy of this report has been sent [phone].PATIENT WAS FASTINGPERFORMED BY: [facility]6370 [facility] [id number] Information: ADD TSH (43118) Immature Grans (Abs) 0.0 {x10E3/uL} (Normal) Range: [...] 3.77-5.28 WBC 7.3 {x10E3/uL} (Normal) Range: 3.4-10.8 90-Sze-827712:11 LIPID PANEL (96531) Comments: A courtesy copy of this report has been sent [phone].PATIENT WAS FASTINGPERFORMED BY: [place] 7521970 [facility] [id number] LDL/HDL Ratio 2.1 {ratio_units} (Normal) Range: 0.0-3.2 Comments: LDL/HDL Ratio Men Women 1/2 Avg.Risk 1.0 1.5 Av g.Risk 3.6 3.2 2X Avg.Risk 6.2 5.0 3X Avg.Risk 8.0 6.1 LDL Cholesterol Calc 136 mg/dL (Abnormal) Range: 0-99 VLDL Cholesterol Cosmo 25 mg/dL (Normal) Range: 5-40 HDL Cholesterol 65 mg/dL (Normal) Triglycerides 124 mg/dL (Normal) Range: 0-149 Cholesterol, Total 226 mg/dL (Abnormal) Range: 100-199 40-Voa-031763:11 C-REACTIVE PROTEIN (35436) Comments: A courtesy copy of this report has been sent [phone].PATIENT WAS FASTINGPERFORMED BY: [facility]6370 [facility] [id number] C-Reactive Protein, Quant 12.5 mg/L (Abnormal) Range: 0.0-4.9 1-Lcg-227050:03 HgA1C , Office (24121) HgA1C , Office 6.0 % (Normal) Range: 4.6 - 7.1 9-Bnb-038639:03 Blood Glucose , Office (25127) Blood Glucose , Office 114 (Normal) 4-Vcs-790567:28 CBC, Platelets & Auto Diff Comments: PATIENT NOT FASTINGPERFORMED BY: [place] 7521970 [facility] [id number] (25218) Immature Grans (Abs) 0.0 {x10E3/uL} (Normal) Range: [...] {x10E3/uL} (Normal) Range: 3.4-10.8 :28 C-Reactive Protein (45361) Comments: PATIENT NOT FASTINGPERFORMED BY: [facility] Hucgxn4574 [facility] [id number] C-Reactive Protein, Quant 43.4 mg/L (Abnormal) Range: 0.0-4.9 :28 SED RATE ERYTHROCYTE (98838) Comments: PATIENT NOT FASTINGPERFORMED BY: [facility] Pipirl6092 [facility] [id number] Sedimentation Rate-Westergren 55 mm/h (Abnormal) Range: 0-40 4-Rak-495274:47 Basic Metabolic Profile (BMP) Comments: [facility] [address] [place], [address] GAP 10 (Normal) Range: 5-15 CO2 26.0 [...] 7-18 GLU 103 mg/dL (Normal) Range: 70-110 3-Gay-091666:47 CBC W/Diff, Automated Comments: [facility] [address] [place], [address] PATH REV March foll (Normal) SMEAR COMMENT [...] 4.2-5.4 WBC 23.1 K/mm3 (Abnormal) Range: 4.4-11.0 2-Hyk-863577:47 CRP Comments: [facility] Tajgqtbocv1460 [facility] [address] [place], [place], [address] C-REACTIVE PROT 158.00 mg/L (Abnormal) Range: 0.0-3.0 Comments: C-Reactive Protein (CRP) provides useful information for thediagnosis, therapy and monitoring of inflammatory processesand associated diseases. For the evaluation of Relative Riskfor Cardiovascular Dise ase, a High Sensitivity CRP (HSCRP)should be ordered. :47 Erythrocyte Sed Rate Comments: [facility] Lulecceyxx0389 [facility] [place], [address] SED RATE 130 mm/h (Abnormal) Range: 0-30 1-Igf-912188:20 CBC W/Diff, Automated Comments: [facility] Dyghepkete2230 [facility] [address] [place], [place], [address] PLT EST SLT INC (Normal) SMEAR COMMENT [...] Range: 4.4-11.0 :20 Erythrocyte Sed Rate Comments: [facility] Fqnvupghln4427 [facility] [place], [address] SED RATE 113 mm/h (Abnormal) Range: 0-30 :57 HgA1C , Office (32746) HgA1C , Office 5.6 % (Normal) Range: 4.6 - 7.1 :57 Blood Glucose , Office (89373) Blood Glucose , Office 93 (Normal) :07 Rapid Strep Test, Office (93577) Rapid Strep Test, Office Negative (Normal) :41 Blood Glucose , Office (87642) Blood Glucose , Office 104 (Normal) :41 HgA1C , Office (03072) HgA1C , Office 5.4 % (Normal) Range: 4.6 - 7.1 :41 HgA1C , Office (78996) HgA1C , Office 5.7 % (Normal) Range: 4.6 - 7.1 :52 CALCIFIDIOL (35484) VIT D 25 Comments: PATIENT WAS FASTINGPERFORMED BY: LabJames Ville 8462270 [facility] [id number] Vitamin D, 25-Hydroxy 47.8 ng/mL (Normal) Range: 30.0-100.0 Comments: Vitamin D deficiency has been defined by the [place] ofMedicine and an Endocrine Society practice guideline as alevel of serum 25-OH vitamin D less than 20 ng/mL (1,2).The Endocrine Society went on to further define vitamin Dinsufficiency as a level between 21 and 29 ng/mL (2).1. IOM ([place] of Medicine). 2010. Dietary reference intakes for calcium and D. [place]: The National AcademClearpath Rob[employer] Press.2. Melissa MF, Michael NC, Vannesa LEBLANC, et al. Evaluation, treatment, and prevention of vitamin D deficiency: an Endocrine Society clinical practice guideline. JCEM. 2010; 96(7):1911-30. :52 MICROALBUMIN: CREATININE RATIO Comments: PATIENT WAS FASTINGPERFORMED BY: Energy TelecomKessler Institute for RehabilitationDsvxqg9043 [facility] [id number] (20154) AND (36619) Microalb/Creat Ratio 5.7 {mg/g_creat} (Normal) Range: 0.0-30.0 Microalbumin, Urine 4.8 ug/mL (Normal) Range: 0.0-17.0 Creatinine, Urine 83.9 mg/dL (Normal) Range: 15.0-278.0 :52 METABOLIC PANEL, COMPREHENSIVE Comments: PATIENT WAS FASTINGPERFORMED BY: Energy TelecomKessler Institute for RehabilitationNftgtz7106 [facility] [id number] (73835) ALT (SGPT) 30 [iU]/L (Normal) Range: 0-32 [...] mg/dL (Abnormal) Range: 65-99 :52 LIPID PANEL (50605) Comments: PATIENT WAS FASTINGPERFORMED BY: [employer]70 [facility] [id number]; apt. 4-12 LDL/HDL Ratio 2.1 {ratio_units} (Normal) [...] auto diff Comments: PATIENT WAS FASTINGPERFORMED BY: [employer]6370 [facility] [id number] Information: [id number] (18305) Immature Grans (Abs) 0.0 {x10E3/uL} (Normal) Range: [...] 3.77-5.28 WBC 5.5 {x10E3/uL} (Normal) Range: 3.4-10.8 95-Bsd-930103:43 [facility], Comments: Source.............Cervical;EndocervicalOther..............Post MenopausalNo. of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
--- OUTSIDE RECORDS SUMMARY | 2019-01-29 16:18 | XMS RPT_ITS ---
:1950 Author Organization OHIP Care Team Providers Name Role Phone Ciara Caballero DO Attending Unavailable Alice Gonsalez MD Referring Unavailable Ciara Caballero DO Consulting Unavailable TANISHA JULES Attending Unavailable TANISHA JULES Referring Unavailable Ciara Caballero Primary Care Unavailable Ciara Caballero Attending Unavailable Ciara Caballero Referring Unavailable Ada Ciara Primary Care Unavailable Ada, Ciara Primary Care Unavailable Dharmesh Arellano Attending Unavailable Ciara Caballero Primary Care Unavailable Brandon Garcia Admitting Unavailable Brandon Garica Attending Unavailable Zeeshan Garrett Consulting Unavailable Brandon Garcia Admitting Unavailable Brandon Garcia Attending Unavailable Ciara Caballero Primary Care Unavailable Zeeshan Garrett Consulting Unavailable Brandon Garcia Consulting Unavailable Brandon Garcia Admitting Unavailable Brandon Garcia Attending Unavailable Ciara Caballero Primary Care Unavailable Zeeshan Garrett Consulting Unavailable Brandon Garcia Consulting Unavailable PROBLEMS PROBLEMS DATE TYPE CONDITION / CODE ATTENDING STATUS SOURCE 10/14/2018 Unknown L03.90 - Dharmesh Arellano Active [place] Cellulitis, Community unspecified / Hospital L03.90(ICD-10) Repository PROCEDURES PROCEDURES No Procedure Records FoundRESULTS RESULTS LIVER Observed: 11/25/2018 Status: F Source: [place] 9:18 AM [facility] REPOSITORY [facility] Imaging Services [address] [place] [address] Liver MR#: [id number] Acct: [id number] Name: MARIA EUGENIA VAUGHAN Rep #: [id number] : 1950 F 68 From: Jimmy Hoff MD PCP: Ciara Caballero DO Status: REG CLI Study: Liver Date of Exam: 11/25/18 Exam# [id number] Ordering Dr: Tanisha Jules STUDY: ABDOMINAL ULTRASOUND - RIGHT UPPER QUADRANT REASON FOR VISIT: Female, 68 years old. Abnormal liver function tests. TECHNIQUE: Ultrasound evaluation of the right upper quadrant was performed with real-time and static dowd-scale imaging. TECHNICAL QUALITY: Adequate. COMPARISON: None. FINDINGS: Liver: The liver measures 15 cm. There is increased echogenicity consistent with fatty infiltration. The bile ducts are within normal limits. There is hepatic color flow. The direction of portal flow is hepatopetal. There is no demonstrated mass lesion. Gallbladder: Normal distended gallbladder. The gallbladder wall measures 3 mm. There is a negative sonographic Courtney's sign. There is no pericholecystic fluid. There are small mobile echogenic shadows within the gallbladder which could represent small gallstones or sludge balls. Common Bile Duct (C.B.D.): The common bile duct measures 4 mm. Pancreas: Normal size of the head, body and tail of the pancreas as seen on this examination. There is normal echogenicity of the pancreas. There is no demonstrated pancreatic mass or cyst. Right Kidney: Normal size of the right kidney. The right kidney measures 10 x 5.7 x 4.1 cm. Normal renal cortex. The right cortex measures 1.6 cm. There is no demonstrated renal mass or cyst. There is no right hydronephrosis. US/Liver IMPRESSION: 1. Fatty infiltration of the liver. 2. Small mobile echogenic shadows within the gallbladder which could represent small gallstones or small sludge balls. 3. No evidence of hydronephrosis. Electronically Signed: Jimmy Hoff MD at 10:38 EST Tel , Service support , CC: Ciara Caballero DO; TANISHA JULES Photocomposing Keyboard Operator: Signed DISCHARGE SUMMARY Observed: 10/16/2018 Status: F Source: [place] 6:20 PM [facility] REPOSITORY [facility] Medical Records Department [address] [place] [address] Discharge Summary 10/16/18 1815 MR#: [id number] Acct: [id number] Name: MARIA EUGENIA VAUGHAN Rep #: [id number] : 1950 68 From: Brandon Garcia DO PCP: Ciara Caballero DO Status: DIS IN Y [place] [facility] [id number] Discharge Date and Diagnosis Date of Admission: 10/15/18 Date of Discharge: 10/16/18 - Primary Discharge Diagnosis #1 cellulitis of the right elbow from methicillin sensitive staph aureus #2 bacteremia secondary to methicillin sensitive staph aureus from cellulitis of the right elbow #3 rheumatoid arthritis #4 fibromyalgia #5 hypertension - Secondary Discharge Diagnosis Chronic Problems Hypertension (Chronic) Rheumatoid arthritis (Chronic) Hospital Course and Treatment Operations: None Procedures: None Summary of Care Provided: The patient is a 68 year old F who was seen in the emergency room at [facility] after being asked to return there because of a positive blood culture which resulted yesterday. Patient had lab work drawn in the emergency room on 10/14/18 when she was seen for complaints of redness and swelling of her right elbow area. Patient had a previous history of methicillin sensitive staph aureus in the left elbow which had to be surgically intervened approximately a year and a half ago. Workup in the emergency room on 10/15/18 revealed an elevated white blood cell count of 12.5, patient's chemistry profile was unremarkable. Patient was admitted to [place] [address], she was placed on IV Ancef, and seen in consultation by orthopedic surgery. Orthopedic surgery saw the patient on 10/16/18 and did not feel that she needed surgery on her right elbow area and felt that the patient did not have a septic bursitis-only a cellulitis of the area which appeared to be improving. Patient had more movement in her arm on that date and had less tenderness and redness. Patient's white blood cell count on 10/16/18 was normal. Physical exam: On examination she appeared in good health and spirits. Vital signs as documented. Skin warm and dry and without overt rashes. Neck without JVD. Lungs clear. Heart exam notable for regular rhythm, normal sounds and absence of murmurs, rubs or gallops. Abdomen unremarkable and without evidence of organomegaly, masses, or abdominal aortic enlargement. Extremities-there is slight tenderness to palpation over the patient's inner aspect of her right elbow, no overt redness was noted. Neuro: Cranial nerves II through XII are grossly intact, no focal motor deficits were noted. Psych: Patient was alert and oriented x3, she did not appear anxious or depressed. On 10/16/18, patient was seen and examined felt to be in stable condition for discharge home. Patient was not felt to have septic bursitis of her right elbow - Physical Exam Vital Signs Temp Pulse Resp BP Pulse Ox 98.5 F 67 16 152/86 H 94 10/16/18 07:43 10/16/18 07:43 10/16/18 07:43 10/16/18 07:43 10/16/18 07:43 Oxygen Delivery Method Room Air Weight: 73.6 kg Body Mass Index (BMI) 27.8 Intake and Output for Last 24 Hours Intake Total 85 / 85 1187 / 1187 Balance 85 / 85 1187 / 1187 Laboratory Tests Past 24 Hrs Discharge Activity: Return to Normal Activity Weight Bearing Status: Full weight bearing Home Medications: Medications to take at Discharge Atenolol [Tenormin] 50 mg PO DAILY 03/13/17 Cyclosporine [Restasis] 1 each OP DAILY 03/13/17 Ramipril [Altace] 5 mg PO DAILY 03/13/17 Sumatriptan Succinate 50 mg PO PRN PRN 05/06/17 Lactobacillus Combination No.4 [Probiotic] 1 capsule PO DAILY 03/15/17 Cephalexin [Keflex] 500 mg PO Q6 #40 capsule 10/14/18 Oxycodone HCl/Acetaminophen [Percocet 5-325] 1 tablet PO Q6H PRN PRN 3 Days #12 tablet 10/14/18 predniSONE tablet 5 mg PO BID 10/14/18 Primary Care Physician: Ciara Caballero DO [Primary Care Provider] - Please follow up with your Primary Care Physician in: this week Disposition: Home Minutes spent on discharge:: 32 Patient Condition:: Stable Medical Necessity - Tobacco Use Smoking Status: Never smoker Tobacco Use: Non-smoker Meaningful Use Info Meaningful Use Diagnoses (Choose all that apply): None applicable Code Visit Inpatient E AND M: [id number] Disch Hosp 10/16/18 1820 <Electronically signed by Brandon Garcia DO> Date Brandon Garcia DO Cosigner Signature (if applicable): Date CC: Ciara Caballero DO; Brandon Garcia DO Signed DISCHARGE INSTRUCTION Observed: 10/16/2018 Status: F Source: [place] 10:49 AM [facility] REPOSITORY [facility] Medical Records Department [address] [place] [address] Instructions for Home/Discharge Instructions 10/16/18 1043 MR#: [id number] Acct: [id number] Name: MARIA EUGENIA VAUGHAN Rep #: [id number] : 1950 68 From: Brandon Garcia DO PCP: Ciara Caballero DO Status: ADM IN - Discharge Diagnoses Current Active Problems: Current Active and Chronic Problems Positive blood culture for staph aureus (Acute) You will use the following diet at home:: No restrictions Your food should be the consistency of: Regular Your liquids should be the consistency of: Regular/Thin Discharge Activity: Return to Normal Activity Weight Bearing Status: Full weight bearing Allergies/Adverse Reactions: Allergies No Known Allergies Allergy (Verified 12/08/18 11:24) Medications to take at Discharge Atenolol [Tenormin] 50 mg PO DAILY 03/13/17 Cyclosporine [Restasis] 1 each OP DAILY 03/13/17 Ramipril [Altace] 5 mg PO DAILY 03/13/17 Sumatriptan Succinate 50 mg PO PRN PRN 03/13/17 Lactobacillus Combination No.4 [Probiotic] 1 capsule PO DAILY 03/15/17 Cephalexin [Keflex] 500 mg PO Q6 #40 capsule 10/14/18 Oxycodone HCl/Acetaminophen [Percocet 5-325] 1 tablet PO Q6H PRN PRN 3 Days #12 tablet 10/14/18 predniSONE tablet 5 mg PO BID 10/14/18 Primary Care Physician: Ciara Caballero DO [Primary Care Provider] - Please follow up with your Primary Care Physician in: this week Test Results: Test results from this visit will be discussed in further detail at your follow-up appointment, if applicable. 10/16/18 1049 <Electronically signed by Brandon Garcia DO> Date Brandon Garcia DO CC: Ciara Caballero DO; Zeeshan Garrett DO CONSULTATION Observed: 10/16/2018 Status: F Source: [place] 9:53 AM [facility] Medical Records Department [address] [place] [address] Consultation 10/16/18 0943 MR#: [id number] Acct: [id number] Name: MARIA EUGENIA VAUGHAN Rep #: [id number] : 1950 68 From: Zeeshan Garrett DO PCP: Ciara Caballero DO Status: ADM IN [place] [facility] [id number] Reason for Consult Date of Consultation: 10/16/18 Reason for Consultation: Right elbow pain History of Present Illness: The patient is a 68 year old F [with a history of septic olecranon bursitis of the left elbow. She is significantly immunocompromised secondary to RA. Presented to PCP last week with right elbow pain, swelling and loss of motion. Presented to ED on wednesday with same and one blood culture was positive for MSSA. Was admitted last night and started on Ancef. She states elbow pain is significantly better and ROM has greatly improved. Denies N/T/P. Denies fevers or chills. ] Past Medical History Past Medical History (Chronic Problems): Chronic Problems Hypertension (Chronic) Rheumatoid arthritis (Chronic) Allergies No Known Allergies Allergy (Verified 10/15/18 11:24) Home Medications: Ambulatory Orders Medication Instructions Recorded Atenolol [Tenormin] 50 mg PO DAILY 03/13/17 Cyclosporine [Restasis] 1 each OP DAILY 03/13/17 Ramipril [Altace] 5 mg PO DAILY 03/13/17 Surgical History: cataract, tonsillectomy, - - Incision and drainage of left elbow abscess 03/16/17, foot surgery, removal of right ovary and tube, laparoscopy, TMJ surgery, repair of femoral hernia, nasal surgery due to nasal fracture Psychiatric History: No pertinent psych hx [employer] History: No pertinent [employer] history Lives: Spouse/ Significant Other Smoking Status: Never smoker Tobacco Use: Non-smoker Alcohol: None Drugs: None - *Family History Maternal History Items: Diabetes Paternal History Items: COPD, Heart Disease, Stroke Patient Problems: Active and Suspected Problems Positive blood culture for staph aureus (Acute) - Physical Exam General: Alert, Oriented x3, No apparent distress Extremities: No clubbing, No cyanosis, Tenderness - Minimalm tendernesss and erythema of right elbow. Olecranon bursa is non-swollen., - - Near full ROM with minimal pain. Minimal pain to palpation. Neurological: Neuro grossly intact, Motor Exam 5/5 strength throughout Comment: Xray of right elbow shows no acute process. Minimal STS Vital Signs Temp Pulse Resp BP Pulse Ox 98.5 F 67 16 152/86 H 94 10/16/18 07:43 10/16/18 07:43 10/16/18 07:43 10/16/18 07:43 10/16/18 07:43 Oxygen Delivery Method Room Air Weight: 162 lb 4.163 oz Body Mass Index (BMI) 27.8 Intake and Output for Last 24 Hours Intake Total 85 / 85 707 / 707 Balance 85 / 85 707 / 707 Laboratory Tests Past 24 Hrs WBC 12.5 H RBC 5.10 Hgb 15.3 H Hct 46.3 MCV 90.8 WBC 5.9 RBC 4.66 Hgb 13.7 Hct 42.1 MCV 90.3 MCH 29.4 MCHC 32.5 Assessment/Plan All Active Problems Positive blood culture for staph aureus (Acute) Infected elbow (Acute) Right elbow cellulitis responding well to antibiotics. No evidence of septic arthritis or septic olecranon bursitis. Would discharge on po antibiotics and follow up with PCP. Doubt need for MRI at this point. Will re-evaluate at PCP request. 10/16/18 0953 <Electronically signed by Zeeshan Garrett DO> Date Zeeshan Garrett DO Cosigner Signature (if applicable): Date CC: Ciara Caballero DO; Zeeshan Garrett DO Signed CBC W/DIFF, AUTOMATED Collected: 10/16/2018 Status: F Source: [place] 6:05 AM [facility] REPOSITORY TYPE CODE TESTS RESULT OUT OF RANGE REFERENCE UNITS LAB L100.1000 4.4-11.0 K/mm3 Normal WBC 5.9 LAB L100.1200 4.2-5.4 M/mm3 Normal RBC 4.66 LAB L100.1300 12.0-15.0 g/dl Normal HGB 13.7 LAB L100.1400 37-47 % Normal HCT 42.1 LAB L100.1500 81-99 fL Normal MCV 90.3 LAB L100.1600 27.0-32.0 pg Normal MCH 29.4 LAB L100.1700 32-36 g/gl Normal MCHC 32.5 LAB L100.1810 11.6-14.6 % High RDW CV 15.2 LAB L100.1820 35.1-43.9 fl High RDW SD 49.6 LAB L100.1900 150-450 K/mm3 Normal PLT 295 LAB L100.2000 6.2-12.0 fl Normal MPV 9.3 LAB L100.2100 47-70 % Normal NEUT% 67.2 LAB L100.2200 19-41 % Normal LY% 19.2 LAB L100.2300 0-10 % High MONO% 12.1 LAB L100.2400 0-5 % Normal EO% 1.0 LAB L100.2500 0-1 % Normal BASO% 0.3 LAB L100.2550 0.0-0.9 % Normal IM GRAN % 0.200 Result Comment: IG% - Immature Granulocytes (promyelocytes, myelocytes and metamyelocytes) > 1% indicates that a LEFT SHIFT is Present. LAB L100.2620 2.0-7.7 X10 3/uL Normal Absolute Neut 4.0 LAB L100.2720 0.83-4.51 X10 3/ul Normal Absolute Lymph 1.14 Performed By: #### L100.0100 #### [facility] Laboratory [address] [facility] [place], [address] HISTORY AND PHYSICAL Observed: 10/15/2018 Status: F Source: [place] EXAM 5:54 PM [facility] REPOSITORY [facility] Medical Records Department [address] [place] [address] History and Physical 10/15/18 1607 MR#: [id number] Acct: [id number] Name: MARIA EUGENIA VAUGHAN Zana Rep #: [id number] : 1950 68 From: Brandon Garcia DO PCP: Ciara Caballero DO Status: ADM IN [id number] Problem List (1) Positive blood culture for staph aureus Status: Acute History of Present Illness Date of Admission: 10/15/18 Chief Complaint: Positive blood culture for staph aureus, right elbow swelling and pain The patient is a 68 year old F seen in the emergency room at [facility] with a chief complaint of right elbow area swelling and tenderness and positive blood culture for staph aureus. Patient was seen in the emergency room yesterday at [facility] with complaints of pain in her right elbow area which started 3 days prior along with decreased range of motion and tenderness in the right elbow area. Patient was examined, x-rays were obtained which did not show any acute process, blood cultures were obtained and she was placed on Keflex. Patient had a history approximately a year and a half ago of an infection of the left elbow which resulted in a staph aureus which was methicillin sensitive being isolated, this required debridement of the left elbow and outpatient antibiotic treatment. Labs obtained in the emergency room today showed a slight elevation of the patient's white blood cell count, patient was afebrile, her chemistry pattern was unremarkable. Examination of the right elbow area revealed it to be tender to palpation, the elbow itself was not swollen but the inner aspect of the right elbow area appeared to be swollen and slightly reddened, this area was also tender. Patient had good range of motion to flexion and extension in the right elbow. Patient will be admitted to [place] [address] for septic bursitis of the right elbow, she will be placed on IV Ancef, repeat blood cultures were drawn in the emergency room, patient will be seen by infectious diseases on Wednesday, she will be seen tomorrow by orthopedic surgery (Dr. Garrett)- who was notified by phone. Past Medical History Past Medical History (Chronic Problems): Chronic Problems Hypertension (Chronic) Rheumatoid arthritis (Chronic) Allergies No Known Allergies Allergy (Verified 10/15/18 11:24) Home Medications: Ambulatory Orders Medication Instructions Recorded Atenolol [Tenormin] 50 mg PO BID 03/13/17 Cyclosporine [Restasis] 1 each OP DAILY 03/13/17 Ramipril [Altace] 5 mg PO DAILY 03/13/17 Surgical History: cataract, tonsillectomy, - - Incision and drainage of left elbow abscess 03/16/17, foot surgery, removal of right ovary and tube, laparoscopy, TMJ surgery, repair of femoral hernia, nasal surgery due to nasal fracture Psychiatric History: No pertinent psych hx [employer] History: No pertinent [employer] history Lives: Spouse/ Significant Other Smoking Status: Never smoker Tobacco Use: Non-smoker Alcohol: None Drugs: None - *Family History Maternal History Items: Diabetes Paternal History Items: COPD, Heart Disease, Stroke Review of Systems Constitutional: Denies: Anorexia, Chills, Fever, Night Sweats, Malaise, Weakness, Weight Change, Fatigue Eyes: Denies: Blurred vision, Cataracts, Conjunctivae Inflammation, Double vision, Drainage HEENT: Denies: Difficulty Swallowing, Dysphasia, Ear Pain, Eye Pain, Hearing Changes, Nasal bleeding, Nasal Congestion, Post Nasal Drip Cardiovascular: Denies: Chest Pain, Claudication, Chest Pressure, Chest Tightness, Edema, Heaviness, Orthopnea, Palpitations, Paroxysmal Noc. Dyspnea, Syncope Respiratory: Denies: Cough, Hemoptysis, Pleuritic Pain, Shortness of Breath, Shortness of breath at rest, Shortness of breath upon exertion, Sputum production, Wheezing Gastrointestinal: Denies: Abdominal Pain, Constipation, Diarrhea, Hematemesis, Hematochezia, Nausea, Melena, Vomiting Genitourinary: Denies: Dysuria, Frequency, Hematuria, Hesitancy, Urgency Musculoskeletal: Reports: Joint Pain - Right elbow joint pain times 4 days, Joint Tenderness - Joint tenderness in her right elbow times 4 days, Muscle pain - Patient has history of fibromyalgia. Denies: Back Pain, Foot Pain, Hand Pain, Joint stiffness, Joint swelling Skin: Denies: Dryness, Jaundice, Pruritis, Rash Neurological: Denies: Blurred vision, Double vision, Change in Speech, Slurred speech, Difficulty swallowing, Focal weakness, Headaches, Incoordination, Numbness, Tingling Psychiatric: Denies: Anxiety, Depression, Homicidal Ideations, Suicidal Ideations Endocrine: Denies: Change in Body Habitus, Heat/ Cold Intolerance, Polydipsia, Polyuria Hematologic/ Lymphatic: Denies: Adenopathy, Anemia, Easy Bruising, Easy Bleeding, Petechiae, Purpura VTE Information - Inpt Only VTE Present on Admission: No VTE Mechan Device Prophylaxis: None VTE Pharm Prophylaxis ordered?: Yes Patient Problems: Active and Suspected Problems Positive blood culture for staph aureus (Acute) - Physical Exam General: Alert, Oriented x3, Cooperative, No apparent distress, Well developed HEENT: Atraumatic, PERRLA, EOMI, Normocephalic Oral: Moist Mucosa Neck: Supple, No JVD, Negative Carotid Bruits Lungs: Clear to auscultation, Normal air movement Cardiovascular: Regular rate, No murmurs Abdomen: Bowel Sounds Present, Soft, Non Tender, Non-Distended, No hernias noted Extremities: Capillary Refill Less than 3 Seconds, Edema - Some mild edema is noted over the inner aspect of the patient's right elbow area, - - Good range of motion is noted in the right elbow to flexion and extension Skin: No rashes, No breakdown Musculoskeletal: Tenderness - Tenderness over the right inner elbow area is noted to palpation, there is also some redness and swelling in the area Neurological: Cranial nerves II-XII grossly intact, Neuro grossly intact, Sensory exam intact to light touch and pain, Coordination normal Psych/Mental Status: Normal Affect, Appropriate, Alert and oriented to time, place, person, mood and affect Vital Signs Temp Pulse Resp BP Pulse Ox 99.5 F H 77 18 136/70 H 95 10/15/18 14:28 10/15/18 14:28 10/15/18 14:28 10/15/18 14:28 10/15/18 14:28 Oxygen Delivery Method Room Air Weight: 73.6 kg Body Mass Index (BMI) 27.8 Laboratory Tests Past 24 Hrs WBC 12.5 H RBC 5.10 Hgb 15.3 H Hct 46.3 MCV 90.8 WBC RBC Hgb Hct MCV MCH MCHC RDW RDW Differential Plt Count MPV Immature Gran % (Auto) Neut % (Auto) Assessment/Plan All Active Problems Positive blood culture for staph aureus (Acute) Infected elbow (Acute) #1 septic right olecranon bursitis-suspect methicillin sensitive staph aureus-patient will be admitted to [facility], she will be maintained on IV Ancef, she will be seen in consultation by orthopedic surgery and infectious diseases. Patient will have an MRI on her right elbow area performed on Wednesday. #2 bacteremia with staph aureus-suspect methicillin sensitive staph aureus-from suspected septic right olecranon bursitis-again patient will be treated with IV Ancef, ID will see the patient, patient will have an echocardiogram performed on Wednesday #3 rheumatoid arthritis #4 fibromyalgia #5 hypertension Code Visit Inpatient E AND M: [id number] Init Hosp L3 10/15/18 1754 <Electronically signed by Brandon Garcia DO> Date Brandon Garcia DO Cosigner Signature: Date (if applicable) CC: Ciara Caballero DO; Brandon Garcia DO Signed Observed: 10/15/2018 Status: F Source: [place] CULTURE, BLOOD (WB) 1:50 PM [facility] REPOSITORY BC No growth in 5 days. Performed By: #### M200.1000 #### [facility] [address] [place], [address] BASIC METABOLIC Collected: 10/15/2018 Status: F Source: [place] PROFILE (BMP) 1:05 PM [facility] REPOSITORY Order Comment: REDRAW. PREVIOUS SPECIMEN REJECTED DUE TO HEMOLYSIS. 10/15/18 Cory3 Daisy Lopez. TYPE CODE TESTS RESULT OUT OF RANGE REFERENCE UNITS LAB L501.0100 74-106 mg/dL Normal GLU 97 Result Comment: Please note revised GLUCOSE reference range effective 2017. LAB L501.1000 7-18 mg/dL Normal BUN 12 LAB L501.1100 0.55-1.02 mg/dL Normal CREAT,SERUM 0.70 Result Comment: The validity of the calculated GFR AND GFRAA in patients over 70 years has not been determined. Clinical correlation is essential. LAB L501.1110 >60 mL/min Normal EST GFR 88 Result Comment: Non- GFR Calc LAB L501.1115 >60 mL/min Normal EST GFR - AA 107 Result Comment: GFR Calc LAB L501.1255 ml/min Normal Estimated CRCL 45.85 LAB L501.1300 10-20 RATIO Normal BUN/CRE 17.2 LAB L501.2200 8.5-10 mg/dL Normal .1 CA 9.4 LAB L501.5300 136-14 mmol/L Normal 5 NA 137 LAB L501.5600 3.5-5. mmol/L Normal 1 K 4.0 Result Comment: Slight Hemolysis, Result may be falsely increased. LAB L501.5900 98-107 mmol/L Normal CL 101 LAB L501.6100 21.0-32.0 mmol/L Normal CO2 29.0 LAB L501.6200 5-15 Normal 7 GAP Performed By: #### L500.2500 #### [facility] [address] [place], [address] EMERGENCY DEPARTMENT Observed: 10/15/2018 Status: F Source: [place] SUMMARY 12:54 PM [facility] REPOSITORY [facility] Medical Records Department [address] [place] [address] Emergency Department Summary 10/15/18 1147 MR#: [id number] Acct: [id number] Name: MARIA EUGENIA VAUGHAN Rep #: [id number] : 1950 68 From: Danilo Kiran MD PCP: Ciara Caballero DO Status: REG ER - ER Visit Summary Date of Service: 10/15/18 Chief Complaint: Right arm cellulitis, positive blood cultures History of Present Illness: The [...] pain is mildly improved. She has a history of rheumatoid arthritis and is on Rituxan, methotrexate and prednisone. Physical Examination: Vital signs reviewed. HEENT exam unremarkable. Heart is regular rate and rhythm. Lungs are clear to auscultation. Abdomen is soft and nontender. Extremity exam reveals right elbow tenderness on the medial side. There is also some erythema noted to this area. She does have full range of motion of the elbow. Her neurologic exam is normal. Test Results: White blood cell count 12.5 Emergency Department Course and Treatment: Patient was treated with Kefzol. Due to the bacteremia patient will be admitted to the hospital. Treatment Plan: [] Disposition: Admit Impression: Right arm cellulitis, bacteremia, immunosuppressed This note was generated with [employer] dictation software. It may contain incorrect words, spelling, and punctuation that were not noted in review of the chart prior to signing ED Disposition - Plan for ED Patient: Chief Complaint: Cellulitis Referrals: Ciara Caballero, [Primary Care Provider] - What to do if you have Problems For any increased pain, shortness of breath, bleeding, nausea or vomiting, chest pain, or any unexpected problems, contact your Primary Care Provider. Call [employer] [facility] ([phone]) or report to the closest Emergency Room. Call 911 if necessary. 10/15/18 1373 <Electronically signed by Danilo Kiran MD> Date Danilo Magno CHADWICK Cosigner Signature (If Indicated): Date CC: Ciara Caballero DO CBC W/DIFF, AUTOMATED Collected: 10/15/2018 Status: F Source: [place] 12:15 PM [facility] REPOSITORY TYPE CODE TESTS RESULT OUT OF RANGE REFERENCE UNITS LAB L100.1000 4.4-11.0 K/mm3 High WBC 12.5 LAB L100.1200 4.2-5.4 M/mm3 Normal RBC 5.10 LAB L100.1300 12.0-15.0 g/dl High HGB 15.3 LAB L100.1400 37-47 % Normal HCT 46.3 LAB L100.1500 81-99 fL Normal MCV 90.8 LAB L100.1600 27.0-32.0 pg Normal MCH 30.0 LAB L100.1700 32-36 g/gl Normal MCHC 33.0 LAB L100.1810 11.6-14.6 % High RDW CV 15.2 LAB L100.1820 35.1-43.9 fl High RDW SD 50.5 LAB L100.1900 150-450 K/mm3 Normal PLT 307 LAB L100.2000 6.2-12.0 fl Normal MPV 9.4 LAB L100.2100 47-70 % High NEUT% 80.5 LAB L100.2200 19-41 % Low LY% 6.0 LAB L100.2300 0-10 % High MONO% 12.5 LAB L100.2400 0-5 % Normal EO% 0.6 LAB L100.2500 0-1 % Normal BASO% 0.2 LAB L100.2550 0.0-0.9 % Normal IM GRAN % 0.200 Result Comment: IG% - Immature Granulocytes (promyelocytes, myelocytes and metamyelocytes) > 1% indicates that a LEFT SHIFT is Present. LAB L100.2620 2.0-7.7 X10 3/uL High Absolute Neut 10.1 LAB L100.2720 0.83-4.51 X10 3/ul Low Absolute Lymph 0.75 LAB L100.4500 Normal SMEAR COMMENT SCANNED Result Comment: SLIGHT MONOCYTOSIS NOTED Performed By: #### L100.0100 #### [facility] [address] [place], [address] LACTIC ACID Collected: 10/15/2018 Status: F Source: [place] 12:15 PM [facility] REPOSITORY Order Comment: Yes/No query for Sepsis Lactate Rule Y TYPE CODE TESTS RESULT OUT OF RANGE REFERENCE UNITS LAB L503.6005 0.4-2.0 mmol/L Normal LACTIC ACID 1.5 Performed By: #### L503.6005 #### [facility] [address] [facility] [place], [address] EMERGENCY DEPARTMENT Observed: 10/15/2018 Status: F Source: [place] SUMMARY 8:44 AM [facility] REPOSITORY [facility] Medical Records Department [address] [place] [address] [place] [address] Emergency Department Summary 10/14/18 1309 MR#: [id number] Acct: [id number] Name: MARIA EUGENIA VAUGHAN Rep #: [id number] : 1950 68 From: Dharmesh Arellano MD PCP: Ciara Caballero DO Status: DEP ER ADDENDUM by Dharmesh Arellano MD on 10/15/18 at 0844 Patient's blood cultures returned at this morning showing gram-positive cocci in clusters. At 840 I left a message on her home phone and cell phone instructing her to return to emergency department for IV antibiotics and admission to the hospital. 10/15/18 0844 Date Dharmesh Arellano MD cc: Ciara Caballero DO * Signed - ER Visit Summary Date of Service: 10/14/18 Chief Complaint: Right elbow pain History of Present Illness: The patient is a [address] Caballero. She reports she has right elbow pain that began 3 days ago. Is an aching pain senna 10 severity. Is worsened by movement and relieved by nothing. She denies any numbness or weakness. She denies any recent trauma. No fall, MVA, or change in activity. She is right- hand dominant. Patient on review of system complains [...] Cardiovascular: Regular rate and rhythm. No murmurs. Respiratory: No respiratory distress. Clear [...] 1.2. Her Chem-7 is normal. Right elbow x- ray is read by the radiologist possibleradial head fracture. Clinically this is not what she has. Emergency Department Course and Treatment: Patient had an IV placed. She was given morphine IV and vancomycin IV. She is resting comfortably. Treatment Plan: Discussed patient I suspect that this is an [...] on immunosuppressants. This note was generated with Dragon dictation software. It may contain incorrect words, spelling, and punctuation that were not noted in review of the chart prior to signing ED Disposition - Plan for ED Patient: Disposition: Home or Assisted Living Chief Complaint: Upper Extremity Injury Instructions: ED Infec Skin Cellulitis Prescriptions: Oxycodone HCl/Acetaminophen [Percocet 5/325] 1 tablet PO [...] your Primary Care Provider. Call [facility] ([phone]) or report to the closest Emergency Room. Call 911 if necessary. 10/14/18 1753 <Electronically signed by Dharmesh Arellano MD> Date Dharmesh Arellano MD Cosigner Signature (If Indicated): Date CC: Ciara Caballero DO Observed: 10/14/2018 Status: F Source: [place] CULTURE, BLOOD (WB) 11:26 AM [facility] REPOSITORY RESULTS CALLED TO [id number] 10/15/18 0710 DCANNON. ORGANISM 1: Staphylococcus aureus Staphylococcus aureus: REACTION Benzylpenicillin NF >=0.5 R Cefoxitin *NF - Clindamycin $$ <=0.25 S Inducable Clindamycin Resistan - Erythromycin $ <=0.25 S Gentamicin $ <=0.5 S Levofloxacin $ <=0.12 S Linezolid $$$$ 2 S Moxifloxicin *NF <=0.25 S Oxacillin NF 0.5 S Tigecycline $$$$ <=0.12 S Rifampin $$ <=0.5 S Tetracycline NF <=1 S Trimethoprim/Sulfametho $ <=10 S Vancomycin $ <=0.5 S (NF) indicates non-formulary drug at [facility]. Approval by Infectious Disease Specialist required before non-formulary drugs may be ordered and/or dispensed. * CLSI guidelines does not recommend testing of cephalosporins. This interpretation is deduced from Beta-lactam/penicillin results. Performed By: #### M200.1000, M100.636 #### [facility] [address] [facility] [place], [address] Observed: 10/14/2018 Status: C Source: [facility] GPC ID 11:26 AM [facility] REPOSITORY BC GPC ID Staphylococcus sp. Staphylococcus aureus Enterococcus sp. Not Detected Streptococcus spp. Not Detected Listeria spp Not Detected Pancho/vanB Not Detected mecA Not Detected NAAT METHOD Testing was performed using nucleic acid amplification ORGANISM 1: Staphylococcus aureus Performed By: #### M200.1000, M100.636 #### [facility] [address] [facility] [place], [address] CBC W/DIFF, AUTOMATED Collected: 10/14/2018 Status: C Source: [place] 11:07 AM [facility] REPOSITORY TYPE CODE TESTS RESULT OUT OF RANGE REFERENCE UNITS LAB L100.1000 4.4-11.0 K/mm3 High WBC 14.5 LAB L100.1200 4.2-5.4 M/mm3 Normal RBC 4.91 LAB L100.1300 12.0-15.0 g/dl Normal HGB 14.5 LAB L100.1400 37-47 % Normal HCT 44.1 LAB L100.1500 81-99 fL Normal MCV 89.8 LAB L100.1600 27.0-32.0 pg Normal MCH 29.5 LAB L100.1700 32-36 g/gl Normal MCHC 32.9 LAB L100.1810 11.6-14.6 % High RDW CV 15.3 LAB L100.1820 35.1-43.9 fl High RDW SD 50.0 LAB L100.1900 150-450 K/mm3 Normal PLT 308 LAB L100.2000 6.2-12.0 fl Normal MPV 9.4 LAB L100.2100 47-70 % High NEUT% 72.9 LAB L100.2200 19-41 % Low LY% 7.0 LAB L100.2300 0-10 % High MONO% 19.4 LAB L100.2400 0-5 % Normal EO% 0.2 LAB L100.2500 0-1 % Normal BASO% 0.2 LAB L100.2550 0.0-0.9 % Normal IM GRAN % 0.300 Result Comment: IG% - Immature Granulocytes (promyelocytes, myelocytes and metamyelocytes) > 1% indicates that a LEFT SHIFT is Present. LAB L100.2620 2.0-7.7 X10 3/uL High Absolute Neut 10.6 LAB L100.2720 0.83-4.51 X10 3/ul Normal Absolute Lymph 1.01 LAB L100.9900 Normal PATH REV Reviewed Result Comment: Neutrophilic leukocytosis. Clinical correlation necessary. Antwon Valdivia M.D. 10/18/18 AMENDED REPORT 10/18/18 1047 PATH REV previously reported as: March yuki Performed By: #### L100.0100 #### [facility] [address] [place], [address] BASIC METABOLIC Collected: 10/14/2018 Status: F Source: [place] PROFILE ([facility]) 11:07 AM [facility] REPOSITORY TYPE CODE TESTS RESULT OUT OF RANGE REFERENCE UNITS LAB L501.0100 74-106 mg/dL Normal GLU 102 Result Comment: Fasting Glucose result from 100 to 125 mg/dL suggests IMPAIRED HOMEOSTASIS per A.D.A. criteria. Please note revised GLUCOSE reference range effective 2017. LAB L501.1000 7-18 mg/dL Normal BUN 13 LAB L501.1100 0.55-1.02 mg/dL Normal CREAT,SERUM 0.68 Result Comment: The validity of the calculated GFR AND GFRAA in patients over 70 years has not been determined. Clinical correlation is essential. LAB L501.1110 >60 mL/min Normal EST GFR 91 Result Comment: Non- GFR Calc LAB L501.1115 >60 mL/min Normal EST GFR - AA 110 Result Comment: GFR Calc LAB L501.1255 ml/min Normal Estimated CRCL 45.85 LAB L501.1300 10-20 RATIO Normal BUN/CRE 19.1 LAB L501.2200 8.5-10 mg/dL Normal .1 CA 8.6 LAB L501.5300 136-14 mmol/L Normal 5 NA 137 LAB L501.5600 3.5-5. mmol/L Normal 1 K 3.5 LAB L501.5900 98-107 mmol/L Normal CL 102 LAB L501.6100 21.0-3 mmol/L Normal 2.0 CO2 27.0 LAB L501.6200 5-15 Normal GAP 8 Performed By: #### L500.2500 #### [facility] [address] [place], [address] LACTIC ACID Collected: 10/14/2018 Status: F Source: [place] 11:07 AM [facility] REPOSITORY Order Comment: Yes/No query for Sepsis Lactate Rule Y TYPE CODE TESTS RESULT OUT OF RANGE REFERENCE UNITS LAB L503.6005 0.4-2.0 mmol/L Normal LACTIC ACID 1.2 Performed By: #### L503.6005 #### [facility] [address] [place], [address] Observed: 10/14/2018 Status: F Source: [place] CULTURE, BLOOD (WB) 11:07 AM [facility] REPOSITORY BC No growth in 5 days. Performed By: #### M200.1000 #### [facility] [address] [place], [address] ELBOW MIN 3 VIEWS Observed: 10/14/2018 Status: F Source: [place] 10:51 AM [facility] REPOSITORY [facility] Imaging Services [address] [place] [address] Elbow min 3 Views MR#: [id number] Acct: [id number] Name: MARIA EUGENIA VAUGHAN Zana Rep #: [id number] : 1950 F 68 From: Fidel Carreon MD PCP: Ciara Caballero DO Status: REG ER Study: Elbow min 3 Views Date of Exam: 10/14/18 Exam# [id number] Ordering Dr: Dharmesh Arellano MD STUDY: X-RAY - RIGHT ELBOW REASON FOR EXAM: Female, 68 years old. Pain. No known injury. TECHNIQUE: 3 view(s) of the elbow. COMPARISON: None. FINDINGS: I suspect a nondisplaced radial neck fracture. Normal radiocapitellar and ulnotrochlear articulations. Soft tissue swelling. Moderate sized joint effusion. RAD/Elbow min 3 Views IMPRESSION: I suspect a nondisplaced radial neck fracture. Joint effusion. Electronically Signed: Fidel Carreon MD at 12:26 EST Tel [phone], Service support , CC: Ciara Caballero DO; Dharmesh Arellano MD Photocomposing Keyboard Operator: Signed ALLERGIES ALLERGIES DATE TYPE / CODE NAME / CODE REACTION SEVERITY SOURCE 10/15/2018 Drug No Known Unknown [facility] Allergy/4160 Allergies/F00 Hospital 18087(SNOMED 8864319(RXNOR Repository CT) M) ENCOUNTERS ENCOUNTERS ADMIT/DISCHARGE ACCOUNT ADMITTING ENCOUNTER LOCATION SOURCE NUMBER CLASS 11/25/2018 [id number] Ambulatory [place] 2 [facility] ing:[place] Repository 10/18/2018 [id number] Ambulatory [place] 1 [facility] ing:PT Repository 10/17/2018 14561 Ambulatory Building:[facility] Practices Repository 10/15/2018/ [id number] Jose, Inpatient [place] 5 [place] Encounter [facility] ing:XT4Itmi: Repository CY044Dfs: 1 10/15/2018 [id number] Jose Ambulatory BMSBuilding:B [place] 1 [place] [facility] Repository 10/15/2018 [id number] Jose Ambulatory BMSBuilding:B [place] 4 [place] [facility] Repository 10/14/2018/ [id number] Emergency [place] [facility] ing:ED Repository PAYERS PAYERS ENCOUNTER GUARANTOR PAYER SUBSCRIBER SOURCE 11/25/2018 TERRANCE Peter Primary MARIA EUGENIA A [place] [id number] Insurance:MEDICARE WATSONDOB: Community [place] PART A BPolicy Number: [id number] [id number] Repository [place] Date:2018-11-22 [address]Gze: () 11/25/2018 Secondary MARIA EUGENIA A [place] Insurance:MEDICAL WATSONDOB: Community [place] [id number] Hospital Number: Repository [id number] Date:0579-92-23OJ [address] [place] [address]AZ: 11/25/2018 Tertiary NOT GIVENUNK [place] Insurance:SELF PAY [facility] Number: Effective Repository Date:2018-11-22 10/18/2018 TERRANCE J Primary MARIA EUGENIA A [place] [id number] Insurance:MEDICARE WATSONDOB: Community [place] PART A BPolicy Number: [id number] General Hospital [id number] Repository [place], [place] Date:2011-11-08 [address]Mad: () 10/18/2018 Secondary MARIA EUGENIA A [place] Insurance:HUMANA WATSONDOB: [facility] [id number] Hospital Number: Repository [id number] Date:0606-11-92TU [address] [place] [phone]: 10/18/2018 Tertiary NOT GIVENUNK [place] Insurance:SELF PAY [facility] Number: Effective Repository Date:2018-10-12 10/17/2018 Maria Eugenia A Primary [facility] WatsonDOB: Insurance:MedicarePoli WatsonDOB: Repository [id number] cy Number: [id number] [place] [id number] 9 [facility], Date:0388-85-20[place], [place] [address]Fdr: Name:[facility] [address]Xgs: [id number], [place] (HP)Tel: [phone]: [phone] () [phone] 10/17/2018 Secondary Maria Eugenia A OHIP Practices Insurance:Humana/Suppl WatsonDOB: Repository [facility] [id number] Number: [address] [place] [id number] [place], Date:1580-19-48Qjza [place] [address]Cky: Name:[facility] Nedra ~(3 [address]Odncpvlkz, [place] 30 () [address]WW: 10/17/2018 Tertiary Terrance WatsonDOB: OHIP Practices Insurance:[place] [id number] [facility] [address] [place] Number: [place] [id number] [place] [address]Vwu: Date: 5332-87-01Xdvu Name:SAMUEL TOBAR USESalt () [place], [place] [address]WP: 10/17/2018 Tertiary Terrance WatsonDOB: OHIP Practices Insurance:[place] [id number] [facility] [address] [place] Number: [place] [id number] [place] [address]Asx: Date: 6106-23-97Undb Name:[facility] Nedra [address]Khno () [place], [place] [address]BJ: 10/17/2018 Tertiary Terrance WatsonDOB: OHIP Practices Insurance:[facility] [id number] Repository Number: [address] [place] [id number] [place], Date:2011-11-08 - [place] [address]Ttz: [id number] Name:[facility] NEDRA [id number] () EMERY CARDONA [id number]: 10/15/2018 TERRANCE J Primary MARIA EUGENIA A [place] [id number] Insurance:MEDICARE WATSONDOB: Community [place] PART A BPolicy Number: [id number] General Hospital [id number] Repository [place], [place] Date:2018-10-15 [address]Ppe: () 10/15/2018 Secondary MARIA EUGENIA A [place] Insurance:HUMANA WATSONDOB: Community COMMERCIALPolicy [id number] Hospital Number: Repository [id number] Date:4386-98-18[address] [address]LA: 10/15/2018 Tertiary NOT GIVENUNK [place] Insurance:SELF PAY [facility] Number: Effective Repository Date:2018-10-15 10/15/2018 TERRANCE J Primary MARIA EUGENIA A [place] [id number] Insurance:MEDICARE WATSONDOB: Community [place] PART A BPolicy Number: [id number] General Hospital [id number] Repository [place], [place] Date:2018-10-15 [address]Odd: () 10/15/2018 Secondary MARIA EUGENIA A [place] Insurance:HUMANA WATSONDOB: [facility] COMMERCIALPolicy [id number] Hospital Number: Repository [id number] Date:[id number] [address]HK: 10/15/2018 Tertiary NOT GIVENUNK [place] Insurance:SELF PAY [facility] Number: Effective Repository Date:2018-10-15 10/15/2018 TERRANCE J Primary MARIA EUGENIA A [place] [id number] Insurance:MEDICARE WATSONDOB: Community [place] PART A BPolicy Number: [id number] General Hospital [id number] Repository [place] Date:2018-10-15 [address]Ehw: () 10/15/2018 Secondary MARIA EGUENIA A [place] Insurance:HUMANA WATSONDOB: Community COMMERCIALPolicy [id number] Hospital Number: Repository [id number] Date:4425-91-01ZM [address] [place] [address]TQ: 10/15/2018 Tertiary NOT GIVENUNK [place] Insurance:SELF PAY [facility] Number: Effective Repository Date:2018-10-15 10/14/2018 TERRANCE Brittani Primary MARIA EUGENIA A [place] [id number] Insurance:MEDICARE WATSONDOB: Community [place] PART A BPolicy Number: [id number] General Hospital [id number] Repository [place] Date:2018-10-14 [address]Omj: () 10/14/2018 Secondary MARIA EUGENIA A [place] Insurance:HUMANA WATSONDOB: Community COMMERCIALPoly [id number] Hospital Number: Repository [id number] Date:2663-41-52XV [address] [place] [address]MK: 10/14/2018 Tertiary NOT GIVENUNK [place] Insurance:SELF PAY [facility] Number: Effective Repository Date:2018-10-14
--- OUTSIDE RECORDS SUMMARY | 2019-01-29 16:18 | XMS RPT_ITS | Continuity of Care Document ---
:1950 Author Organization [facility] Address [address] [place] [address] Phone Care Team Providers Name Role Phone [...] Depressive disorder (F32.9, 311) Comments: of massive [place] 39 yo. Status: Active Disc disease, degenerative, [...] DO, DO, Kathleen Start : 05-Oct-2018 Active DULoxetine HCl 20 MG Oral Capsule Delayed [...] 20 {Tablet} Refills: 3 Ordered:27-Jun-2018 Ada ANDINO Ciara Armstrong DO Start : 27-Jun-2018 Active Comments:max: 2 in [...] 19-Apr-2017 End : 09-Jun-2017 Inactive Comments:called to [facility] Cefadroxil 500 MG Oral Capsule 2 bid [...] 29-Oct-2011 End : 07-Sep-2014 Inactive Comments:called to [facility] [place] -4-10 monisha Leucovorin Calcium 5 MG Oral Tablet uad Tablet once weekly with methotrexate for 0 days Quantity: 30 {Tablet} Refills: 0 Ordered:24-Jun-2016 Pream Parker LPN Start : 14-Jan-2016 End : [...] : 09-Mar-2017 End : 09-Mar-2017 Inactive [place]STATIN, 054473KQOI/ML (Mouth/Throat Suspension) 5 cc swish and swallow [...] prn for 0 days Refills: 0 Ordered:04-Feb-2009 Brunilda Farnaz Start : 04-Feb-2009 End : 14-Feb-2009 Discontinued [...] examination with abnormal findings (Z00.01, V70.0) Comments: - reviewed with patient all questions. pap can only get shingles vaccine if off immunosuppressant, pneumonia up to date, not get flu vaccine for 2015, tetanus up to date, told about Prevnar 1 3 to get at local pharm. mammogram , BD , colonoscopy ([facility]), whisper test WNL Status: Inactive as of [...] Physical Exam Result: Comments: See Note; NOTES: [facility] Medical Records Department [address] [place] [address] History and Physical 03/15/172049 MR#: [id number] Acct: [id number] Name: Gregor VAUGHAN Rep #: [id number] : 1950 66 From: Jason Vogel MD [...] space. Dr Ruiz has been notified by ANGEL batres nd will be consulted for further surgical [...] 83.2 H Lymph % (Auto) 7.8 L [place] % (Auto) 8.5 Eos % (Auto) 0.0 [...] 3 Views Result: Comments: See Note; NOTES: [facility] Imaging Services [address] [place] [address] Verdana 4d Elbow min 3 Views MR#: [id number] Acct: [id number] Name: MARIA EUGENIA VAUGHAN Rep #: [id number] : 1950 F 66 From: Angelia Ortiz MD PCP: Ciara Caballero DO Status: REG ER Study: Elbow min 3 Views Date of Exam: 03/15/17 Exam# [id number] Ordering Dr: Silvino Lai MD STUDY: X- [...] CC: Silvino Lai MD; Ciara Caballero DO Director Of Income Tax: Signed 15-Mar-2017 Upper Ext Joint Only(Routine) Result: Comments: See Note; NOTES: [facility] Imaging Services [address] [place] [address] Verdana 4d Upper Ext Joint Only(Routine) MR#: [id number] Acct: [id number] Name: ROXANA VAUGHAN Rep #: [id number] : 1950 F 66 From: Sid Cooper MD PCP: Ciara Caballero DO Status: REG CLI Study: Upper Ext Joint Only(Routine) Date of Exam: 03/15/17 Exam# [id number] Ordering Dr: Jyoti Julien sa STUDY: MRI [...] , CC: Jyoti Mcrae; Ciara Caballero DO Director Of Income Tax: Signed 13-Mar-2017 Emergency Department Summary Result: Comments: See Note; NOTES: [facility] Medical Records Department [address] [place] [address] Emergency Department Summary MR#: [id number] Acct: [id number] Name: FRANKIE VAUGHAN Rep #: [id number] : 1950 66 From: Yvonne Donnelly MD [...] saw a nurse practitioner at the [facility] and is scheduled to see Dr. [...] states that the nurse practitioner at the [facility] told her this is not a [...] Thomas C: ROBERTO LINDSEY T: SAUL JOB: [id number] 03/13/17 2245 <Electronically signed by Yvonne Donnelly MD> Date Yvonne Andrade (If Indicated): Date CC: ROBERTO LINDSEY; Ciara Caballero DO Date Dictated: 03/13/171740 Date Transcribed: 03/13/171740 Director Of Income Tax: Signed 6-May-2017 Discharge Instruction Result: Comments: See Note; NOTES: [facility] Medical Records Department [address] [place] [address] Discharge Instruction 03/13/171714 MR#: [id number] Acct: [id number] Name: MARIA EUGENIA VAUGHAN Rep #: [id number] : 1950 66 From: Yvonne Donnelly MD PCP: Ciara Caballero DO Status: REG ER ED Disposition - Plan for ED Patient: Chief Complaint: Upper Extremity Injury Instructions: ED Infec Skin Cellulitis Prescriptions: Cephalexin [Keflex] 500 mg PO Q6 #40 capsule Referrals: Ciara Caballero DO [Primary Care Provider] - Additional Instructions: See the doctor at [facility] a s scheduled. What to do if you have Problems For any increased pain, shortness of breath, bleeding, nausea or vomiting, chest pain, or any unexpected problems, contact your Primary Care Provider. Critical access hospital [facility] ([phone]) or report to the closest Emergency Room. Call 911 if necessary. 03/13/171717 <Electronically signed by Yvonne Donnelly MD> Date Yvonne Donnelly MD Cosigner Signature (If Indicated): Date CC: Ciara Caballero DO 13-Mar-2017 Elbow min 3 Views Result: Comments: See Note; NOTES: [facility] Imaging Services [address] [place] [address] Verdana 4d Elbow min 3 Views MR#: [id number] Acct: [id number] Name: MARIA EUGENIA VAUGHAN Rep #: [id number] : 1950 F 66 From: Rand Michael MD PCP: Ciara Caballero DO Status: REG ER Study: Elbow min 3 Views Date of Exam: 03/13/17 Exam# [id number] Ordering Dr: Yvonne Donnelly MD STUDY: X [...] CC: Yvonne Donnelly MD; Ciara Caballero DO Director Of Income Tax: Signed 11-Mar-2017 Venous Duplex Upper Extremity Result: Comments: See Note; NOTES: [facility] Cardiovascular Services [address] [place] [address] Venous Duplex US, Unilateral 03/09/17 1520 MR#: [id number] Acct: [id number] Name: Vignesh KELLYSARINAMARIA EUGENIA Rep #: [id number] : 1950 66 From: Jamari Amos MD [...] Date Dictated: 03/09/17 1520 Date Transcribed: 03/11/172252 Director Of Income Tax: Signed 09-Mar-2017 Elbow min 3 Views Result: Comments: See Note; NOTES: [facility] Imaging Services [address] [place] [address] Verdana 4d Elbow min 3 Views MR#: [id number] Acct: [id number] Name: MARIA EUGENIA VAUGHAN Rep #: [id number] : 1950 F 66 From: Fidel Carreon MD PCP: Ciara Caballero DO Status: REG CLI Study: Elbow min 3 Views Date of Exam: 03/09/17 Exam# [id number] Ordering Dr: Jyoti Mcrae STUDY: X -RAY [...] Fidel Carreon MD at 16:08 EDT Tel [phone], Service support , CC: Jyoti Mcrae; Ciara Caballero DO Director Of Income Tax: Signed 03-Mar-2017 Discharge Instruction Result: Comments: See Note; NOTES: [facility] Medical Records Department [address] [place] [address] Discharge Instruction 03/03/17 1105 MR#: [id number] Acct: [id number] Name: MARIA EUGENIA VAUGHAN Rep #: [id number] : 1950 66 From: Roberto Díaz MD [...] MG PER DAY FOLLOW UP WITH YOUR ENGINEERING TECHNOLOGY INSTRUCTOR IF NOT GETTING BETTER What to do if you have Problems For any increased pain, shortness of breath, bleeding, nausea or vom iting, chest pain, or any unexpected problems, contact your Primary Care Provider. Call [facility] ([phone]) or report to the closest Emergency Room. Call 911 if necessary. 03/03/17 1621 &a mp;#60;Electronically signed by Roberto Díaz MD> Date Roberto Díaz MD Cosigner Signature (If Indicated): Date CC: Ciara Caballero DO 03-Mar-2017 Emergency Department Summary Result: Comments: See Note; NOTES: [facility] Medical Records Department [address] [place] [address] Emergency Department Summary MR#: [id number] Acct: [id number] Name: FRANKIE VAUGHAN Rep #: [id number] : 1950 66 From: Roberto Díaz MD PCP: Ciara Caballero DO Status: [facility] ER DATE OF SERVICE: 03/03/2017 CHIEF [...] normal radial pulse, flexion and extension. 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 Left trapezius is unremarkable. Otherwise, [...] is going to follow up with her photo graphics librarian if this is not improving. At this time, it does not look like any type of sep tic joint. Roberto Díaz MD T: NTS JOB: [id number] 03/03/17 1621 <Electronically signed by Roberto Díaz MD> Date Roberto Díaz MD Cosigner Signature (If Indicated): Date CC: Ciara Caballero DO Date Dictated: 03/03/17 1110 Date Transcribed: 03/03/17 111 Director Of Income Tax: Signed 24-Jun-2016 ELECTROCARDIOGRAM, COMPLETE (ECG) (24547) Comments: nsr no acute chg Result: [MEASUREMENTS ANALYSIS] Date of Test: 06/24/2016 15:00:37; Heart Rate: 87; RI Interval: 144; QRS: 94; QT Interval: 368; Corrected QT Interval (QTc): 415; P Wave [place]: 5; QRS Wave [place]: 129; T Wave [place]: -1; Blood Pressure: 142/100 [ECG DIAGNOSTIC STATEMENTS] Date of Test: 06/24/2016 15:00:37; Summary: Sinus Rhythm -Right axis -consider right ventricular hypertrophy. ABNORMAL 23-Jun-2016 PT D/C Summary (1) Result: Comments: See Note; NOTES: [facility] Physical Therapy [facility] [address] [place], [place] [address] Fax REHABILITATION SERVICES GUSTAVO CONNORS SUMMARY MR#: [id number] Acct: [id number] Name: MARIA EUGENIA VAUGHAN Rep #: [id number] : 1950 66 From: Gisell Caraballo PT, Cert. MDT Referring DrCari: Zeeshan Sotelo Status: REG RCR Insurance: MEDIC ARE PART A B Fareye HP - PT D/C Summary It has [...] please feel free to call me at [phone]. Thank you for the refer ral of this patient. Sincerely, Gisell Caraballo <Electronically signed by Cert. FARRUKH Velez PTT> 06/23/16 1153 CC: Ciara Caballero DO; Zeeshan Sotelo ELVIS Signed 22-May-2016 Inital Evaluation (1) - PT Result: Comments: See Note; NOTES: [facility] Physical Therapy [facility] [address] [place], [place] [address] Fax [facility] MR#: [id number] Acct: [id number] Name: MARIA EUGENIA VAUGHAN Rep #: [id number] : 1950 66 From: Gisell Caraballo PT, CertCari CHADWICKT Referring Dr.: Zeeshan Sotelo Status: REG [...] to be FAXED BACK to us at [phone] for Medicare purposes. Please let me know [...] with Pelvis Result: Comments: See Note; NOTES: [facility] Imaging Services [address] [place] [address] Verdana 4d Hip 2-3 Views with Pelvis MR#: [id number] Acct: [id number] Name: MARIA EUGENIA SOTO Rep #: [id number] : 1950 F 66 From: Fidel Carreon MD PCP: Alice Nova MD Status: REG CLI Study: Hip 2-3 Views with Pelvis Date of Exam: 05/21/16 Exam# [id number] Order ing Dr: Zeeshan Sotelo DO STUDY: [...] Fidel Carreon MD at 14:21 EDT Tel [phone], Service support [phone], OR WENDI #: [phone] RAD/Hip 2-3 Views with Pelvis IMPRESSION: Mild joint space narrowing involving the left hip joint. Electronically Signed: Fidel Carreon MD at 14:21 EDT Tel [phone], Service support [phone], CC: Alice Nova MD; Zeeshan Sotelo Director Of Income Tax: Signed 21-May-2016 Lumbar Spine 2 or 3 Views Result: Comments: See Note; NOTES: [facility] Imaging Services [address] [place] [address] Verdana 4d Lumbar Spine 2 or 3 Views MR#: [id number] Acct: [id number] Name: MARIA EUGENIA SOTO Rep #: [id number] : 1950 F 66 From: Fidel Carreon MD PCP: Alice Nova MD Status: REG CLI Study: Lumbar Spine 2 or 3 Views Date of Exam: 05/21/16 Exam# [id number] Order ing Dr: Zeeshan Sotelo DO STUDY: [...] Carreon MD at 14: 30 EDT Tel [phone], Service support [phone], RAD/Lumbar Spine 2 or 3 Views IMPRESSION: Degenerative changes of the spine, as detailed above. Grade 1 spondylolisthesis of L5 on S1 with spondylolysis. Electronically Signed: Fidel Carreon MD at 14:30 EDT Tel [phone], Service support [phone], CC: Diego Nova MD; Zeeshan Sotelo Director Of Income Tax: Signed 30-Dec-2015 Shoulder min 2 Views Result: Comments: See Note; NOTES: [facility] Imaging Services [address] [place] [address] Veramelia 4d Shoulder min 2 Views MR#: [id number] Acct: [id number] Name: MARIA EUGENIA VAUGHAN Rep #: [id number] : 1950 F 65 From: Fidel Carreon MD PCP: Alice Nova MD Status: REG CLI Study: Shoulder min 2 Views Date of Exam: 12/30/15 Exam# [id number] Ordering Dr: Zeeshan Gonzalez dd, DO STUDY: [...] Carreon MD 24/12/21 at 14:35 EST Tel [phone], Service support [phone], RAD/Shoulder min 2 Views IMPRESSION: Normal x-ray examination of the shoulder. Electronic ally Signed: Fidel Carreon MD at 14:35 EST Tel [phone], Service support [phone], CC: Alice Nova MD; Zeeshan Sotelo Director Of Income Tax: Signed 22-Oct-2015 Bilat Scrn Digital AND CAD Result: Comments: See Note; NOTES: [facility] Imaging Services [address] [place] [address] Verdana 4d Bilat Scrn Digital AND CAD MR#: [id number] Acct: [id number] Name: MARIA EUGENIA VAUGHAN Rep #: [id number] : 1950 F 65 From: Fidel Carreon MD PCP: Alice Nova MD Status: REG CLI Study: Bilat Scrn Digital AND CAD Date of Exam: 10/22/15 Exam# [id number] Ord ering Dr: Alice Nova MD MAMMOGRAPHY [...] delay biopsy of a clinically suspicious abnormality. [id number] Electronically Signed: Fidel Carreon MD at 11:18 EST Tel [phone], Service support [phone], CC: Alice Nova MD Director Of Income Tax: Signed 22-Oct-2015 Dexa Bone Density Study (HP) Result: Comments: See Note; NOTES: [facility] Imaging Services [address] [place] [address] Verdana 4d Dexa Bone Density Study () MR#: [id number] Acct: [id number] Name : VAUGHANMARIA EUGENIA A Rep #: [id number] : 1950 F 65 From: Fidel Carreon MD PCP: Alice Nova MD Status: [facility] Study: Dexa Bone Density Study (HP) Date of Exam: 10/22/15 Exam# [id number] Ordering Dr: Alice Nova MD STUDY: DUAL [...] Fidel Carreon MD at 14:52 EST Tel [phone], Service support [phone], Fa x [phone] CC: Alice Nova MD Director Of Income Tax: Signed 17-Oct-2013 Nayeli Trevino Digital & CAD Result: Comments: See Note; NOTES: [facility] Imaging Services [address] [place] [address] Breast Imaging Report MR#: [id number] Acct: [id number] Name: MARIA EUGENIA VAUGHAN Rep # : [id number] : 1950 F 63 From: Fidel Carreon MD PCP: Status: REG CLI Exam# [id number] Ordering Dr: Alice Nova MD MAMMOGRAPHY - [...] M.D. at 15:27 EST , Service support [phone], CC: Alice Nova MD Director Of Income Tax: Signed 17-Oct-2013 Dexa Bone Density Study (HP) Result: Comments: See Note; NOTES: [facility] Imaging Services [address] [place] [address] Bone Density Report MR#: [id number] Acct: [id number] Name: MARIA EUGENIA VAUGHAN Rep #: [id number] : 1950 F 63 From: Fidel Carreon MD PCP: Status: REG CLI Study: Dexa Bone Density Study (HP) Date of Exam: 10/17/13 Exam# [id number] Ordering Dr: Alice Nova MD STUDY: D [...] M.D. at 9:13 EST , Service support [phone], CC: Alice Nova MD Director Of Income Tax: Signed Family History Unknown Family Member Name Dates Details Father Comments: Emphysema, [place] in 60s Status: Active Mother Comments: RA, [place], [place] at 60 Status: Active Social History Name [...] 0.00 cm Results Date Description Value Details 77-Oab-376621:36 HEPATIC FUNCTION PANEL Comments: fax results to Dr. Jules [phone]; A courtesy copy of this report has been sent [phone].PATIENT NOT FASTINGPERFORMED BY: [facility] [id number] 7300Clinical Information: FX [phone] (04197) ALT (SGPT) 49 [iU]/L (Abnormal) Range: 0-32 AST (SGOT) 33 [iU]/L (Normal) Range: 0-40 Alkaline Phosphatase 83 [iU]/L (Normal) Range: 39-117 Bilirubin, Direct 0.08 mg/dL (Normal) Range: 0.00-0.40 Bilirubin, Total 0.3 mg/dL (Normal) Range: 0.0-1.2 Albumin 4.2 g/dL (Normal) Range: 3.6-4.8 Protein, Total 6.7 g/dL (Normal) Range: 6.0-8.5 33-Zyw-447700:11 Microscopic Examination Comments: A courtesy copy of this report has been sent [phone].PATIENT WAS FASTINGPERFORMED BY: [facility] HospitalWljpyf9937 [facility] [id number] Bacteria Few (Normal) Mucus Threads Present (Normal) Crystal Type Amorphous Sediment (Normal) Crystals Present (Abnormal) Epithelial Cells (non 0-10 {/hpf} (Normal) Range: 0 - 10 renal) RBC 0-2 {/hpf} (Normal) Range: 0 - 2 WBC 0-5 {/hpf} (Normal) Range: 0 - 5 TSH 1.170 {uIU/mL} Comments: A courtesy copy of this report has been sent [phone].PATIENT WAS FASTINGPERFORMED BY: [facility] [facility] [id number] 3:11 (Normal) Range: 0.450-4.500 42-Ajz-670430:11 URINALYSIS, W/ MICRO (71917) Comments: A courtesy copy of this report has been sent [phone].PATIENT WAS FASTINGPERFORMED BY: [facility] [facility] [id number] Microscopic Examination See below: (Normal) Comments: Microscopic was indicated and was performed. Microscopic Examination MICRON (Normal) Comments: Microscopic follows if indicated. Nitrite, Urine Negative (Normal) Urobilinogen,Semi-Qn 0.2 mg/dL (Normal) Range: 0.2-1.0 Bilirubin Negative (Normal) Occult Blood Negative (Normal) Ketones Negative (Normal) Glucose Negative (Normal) Protein Negative (Normal) WBC Esterase Negative (Normal) Appearance Clear (Normal) Urine-Color Yellow (Normal) pH 6.5 (Normal) Range: 5.0-7.5 Specific [place] 1.016 (Normal) Range: 1.005-1.030 51-Fbs-230193:11 MICROALBUMIN: CREATININE RATIO Comments: A courtesy copy of this report has been sent [phone].PATIENT WAS FASTINGPERFORMED BY: [facility] [facility] [id number] (46225) AND (19949) Alb/Creat Ratio <4.2 {mg/g_creat} (Normal) Range: 0.0-30.0 Albumin, Urine <3.0 ug/mL (Normal) Creatinine, Urine 71.0 mg/dL (Normal) 75-Efu-619670:11 METABOLIC PANEL, COMPREHENSIVE Comments: A courtesy copy of this report has been sent [phone].PATIENT WAS FASTINGPERFORMED BY: [facility]6[address] [facility] [id number] (71751) ALT (SGPT) 39 [iU]/L (Abnormal) Range: 0-32 [...] Glucose, Serum 90 mg/dL (Normal) Range: 65-99 43-Mvc-428252:11 CBC W/AUTO DIFF WBC Comments: A courtesy copy of this report has been sent [phone].PATIENT WAS FASTINGPERFORMED BY: [facility] Xazlox9606 [facility] [id number] Information: ADD TSH (04503) Immature Grans (Abs) 0.0 {x10E3/uL} (Normal) Range: [...] 3.77-5.28 WBC 7.3 {x10E3/uL} (Normal) Range: 3.4-10.8 04-Yag-562187:11 LIPID PANEL (16359) Comments: A courtesy copy of this report has been sent [phone].PATIENT WAS FASTINGPERFORMED BY: [facility] HospitalCraxtz4125 [facility] [id number] LDL/HDL Ratio 2.1 {ratio_units} (Normal) Range: 0.0-3.2 Comments: LDL/HDL Ratio Men Women 1/2 Avg.Risk 1.0 1.5 Av g.Risk 3.6 3.2 2X Avg.Risk 6.2 5.0 3X Avg.Risk 8.0 6.1 LDL Cholesterol Calc 136 mg/dL (Abnormal) Range: 0-99 VLDL Cholesterol Cosmo 25 mg/dL (Normal) Range: 5-40 HDL Cholesterol 65 mg/dL (Normal) Triglycerides 124 mg/dL (Normal) Range: 0-149 Cholesterol, Total 226 mg/dL (Abnormal) Range: 100-199 54-Cll-437570:11 C-REACTIVE PROTEIN (65237) Comments: A courtesy copy of this report has been sent [phone].PATIENT WAS FASTINGPERFORMED BY: [facility]6[address] [facility] [id number] C-Reactive Protein, Quant 12.5 mg/L (Abnormal) Range: 0.0-4.9 :03 HgA1C , Office (44782) HgA1C , Office 6.0 % (Normal) Range: 4.6 - 7.1 :03 Blood Glucose , Office (36189) Blood Glucose , Office 114 (Normal) :28 CBC, Platelets & Auto Diff Comments: PATIENT NOT FASTINGPERFORMED BY: [facility]6[address] [facility] [id number] (87546) Immature Grans (Abs) 0.0 {x10E3/uL} (Normal) Range: [...] {x10E3/uL} (Normal) Range: 3.4-10.8 :28 C-Reactive Protein (02567) Comments: PATIENT NOT FASTINGPERFORMED BY: [facility] Lvwbsi4328 [facility] [id number] C-Reactive Protein, Quant 43.4 mg/L (Abnormal) Range: 0.0-4.9 :28 SED RATE ERYTHROCYTE (64549) Comments: PATIENT NOT FASTINGPERFORMED BY: [facility] Npffpw0198 [facility] [id number] Sedimentation Rate-Westergren 55 mm/h (Abnormal) Range: 0-40 9-Zaa-378268:47 Basic Metabolic Profile (BMP) Comments: [facility] [address] [place], [address] GAP 10 (Normal) Range: 5-15 CO2 26.0 [...] 7-18 GLU 103 mg/dL (Normal) Range: 70-110 8-Vkw-813807:47 CBC W/Diff, Automated Comments: [facility] [address] [place], [address] PATH REV March foll (Normal) SMEAR COMMENT [...] 4.2-5.4 WBC 23.1 K/mm3 (Abnormal) Range: 4.4-11.0 5-Ngl-299582:47 CRP Comments: [facility] [address] [place], [place], [id number] C-REACTIVE PROT 158.00 mg/L (Abnormal) Range: 0.0-3.0 Comments: C-Reactive Protein (CRP) provides useful information for thediagnosis, therapy and monitoring of inflammatory processesand associated diseases. For the evaluation of Relative Riskfor Cardiovascular Dise ase, a High Sensitivity CRP (HSCRP)should be ordered. :47 Erythrocyte Sed Rate Comments: [facility] [address] [place], [place], [address] SED RATE 130 mm/h (Abnormal) Range: 0-30 3-Dwj-282787:20 CBC W/Diff, Automated Comments: [facility] [address] [place], [place], [address] PLT EST SLT INC (Normal) SMEAR COMMENT [...] 4.2-5.4 WBC 21.7 K/mm3 (Abnormal) Range: 4.4-11.0 8-Euj-496035:20 Erythrocyte Sed Rate Comments: [facility] [address] [place], [address] SED RATE 113 mm/h (Abnormal) Range: 0-30 :57 HgA1C , Office (24369) HgA1C , Office 5.6 % (Normal) Range: 4.6 - 7.1 :57 Blood Glucose , Office (82847) Blood Glucose , Office 93 (Normal) :07 Rapid Strep Test, Office (90873) Rapid Strep Test, Office Negative (Normal) :41 Blood Glucose , Office (76465) Blood Glucose , Office 104 (Normal) :41 HgA1C , Office (90511) HgA1C , Office 5.4 % (Normal) Range: 4.6 - 7.1 :41 HgA1C , Office (56617) HgA1C , Office 5.7 % (Normal) Range: 4.6 - 7.1 :52 CALCIFIDIOL (21692) VIT D 25 Comments: PATIENT WAS FASTINGPERFORMED BY: [facility]370 [facility]GAentis [facility] [id number] Vitamin D, 25-Hydroxy 47.8 ng/mL (Normal) Range: 30.0-100.0 Comments: Vitamin D deficiency has been defined by the [place] of[place]icine and an Endocrine Society practice guideline as alevel of serum 25-OH vitamin D less than 20 ng/mL (1,2).The Endocrine Society went on to further define vitamin Dinsufficiency as a level between 21 and 29 ng/mL (2).1. IOM ([place] of Medicine). 2010. Dietary reference intakes for calcium and D. [place]: The National Academies Press.2. Melissa MF, Michael NC, Jim-Rocael LEBLANC, et al. Evaluation, treatment, and prevention of vitamin D deficiency: an Endocrine Society clinical practice guideline. JCEM. 2010; 96(7):1911-30. :52 MICROALBUMIN: CREATININE RATIO Comments: PATIENT WAS FASTINGPERFORMED BY: [facility] Fmnlub6452 [facility] [id number] (70645) AND (68805) Microalb/Creat Ratio 5.7 {mg/g_creat} (Normal) Range: 0.0-30.0 Microalbumin, Urine 4.8 ug/mL (Normal) Range: 0.0-17.0 Creatinine, Urine 83.9 mg/dL (Normal) Range: 15.0-278.0 :52 METABOLIC PANEL, COMPREHENSIVE Comments: PATIENT WAS FASTINGPERFORMED BY: ADRIANA Pyrolia [facility] [id number] (42243) ALT (SGPT) 30 [iU]/L (Normal) Range: 0-32 [...] mg/dL (Abnormal) Range: 65-99 :52 LIPID PANEL (89715) Comments: PATIENT WAS FASTINGPERFORMED BY: [employer] Solutions RoadDublin [place] [id number]; apt. 4-12 LDL/HDL Ratio 2.1 {ratio_units} (Normal) [...] diff Comments: PATIENT WAS FASTINGPERFORMED BY: ADRIANA [facility]6[address] [facility] [id number] Information: [id number] (98144) Immature Grans (Abs) 0.0 {x10E3/uL} (Normal) Range: [...] 3.77-5.28 WBC 5.5 {x10E3/uL} (Normal) Range: 3.4-10.8 02-Kda-229033:43 IGP, Comments: Source.............Cervical;EndocervicalOther..............Post MenopausalNo. of containers..01 CYTYC Thin Prep VialPATIENT NOT FASTINGPERFORMED BY: =G [facility] 23 [address] Aptima [id number] BY: WB [facility] Xeudjggvpy037 [facility] [place] [id number] HPV, rfx 16/18,45 HPV Aptima Negative (Normal) [...] medical examination at health care facilitySayra Cortez Home Improvement Advisor (ASCP) [address]:43 Thin Comments: Source.............Cervical;EndocervicalOther..............Post MenopausalNo. of containers..01 CYTYC Thin Prep VialPATIENT NOT FASTINGPERFORMED BY: =G [facility] Nzxykqncrd195 [facility] [place] [facility] Prep Pap [id number] BY: WB [facility] Zpalcrlmko000 [facility] [place] [id number] Information: [id number] (34735) Age Gdln ACOG Testing 30-65 (Normal) :48 CALCIFEDIOL (03684) Comments: PATIENT WAS FASTINGPERFORMED BY: [facility]Miss[facility] Fidrbg4539 [facility] [id number] Vitamin D, 25-Hydroxy 50.3 ng/mL (Normal) Range: 30.0-100.0 Comments: Vitamin D deficiency has been defined by the [place] of[place]icine and an Endocrine Society practice guideline as alevel of serum 25-OH vitamin D less than 20 ng/mL (1,2).The Endocrine Society went on to further define vitamin Dinsufficiency as a level between 21 and 29 ng/mL (2).1. IOM ([place] of Medicine). 2010. Dietary reference intakes for calcium and D. [place]: The National Academies Press.2. Melissa MF, Michael NC, Vannesa LEBLANC, et al. Evaluation, treatment, and prevention of vitamin D deficiency: an Endocrine Society clinical practice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
== END ==
PROVIDERS: Family Provider Internal Medicine; PCP Internal Medicine; Referring Provider Internal Medicine Rheumatology; Visit Provider Internal Medicine Rheumatology
DX: R74.8 Abnormal levels of other serum enzymes (principal)
CPT/HCPCS: 76705

== ENCOUNTER → 2019-01-21 11:54 | Outpatient (CLI) | payer MEDICARE, OTHER, SELFPAY ==
[2019-01-21 12:44] LABS: Absolute Lymphocyte Count 1.17 X10^3/ul (0.83-4.51); Absolute Neutrophil Count 4.8 X10^3/uL (2.0-7.7); Basophil# 0.02 X10^3/uL; Basophil% 0.3 % (0-1); Eosinophil# 0.06 X10^3/uL; Eosinophils% 0.8 % (0-5); Hematocrit 45.7 % (37-47); Hemoglobin 14.5 g/dl (12.0-15.0); Lymphocyte # 1.17 X10^3/ul (4.0); Mean Corp Hgb Conc 31.7 g/gl (32-36); Mean Corpuscular Hgb 29.4 pg (27.0-32.0); Mean Corpuscular Volume 92.5 fL (81-99); Mean Platelet Vol. 9.2 fl (6.2-12.0); Monocyte# 1.27 X10^3/uL; Monocyte% 17.3 % (0-10); Neutrophil # 4.79 X10^3/uL (2.7-7.7); Neutrophil % 65.5 % (47-70); POSITIVE COUNT NO; POSITIVE DIFFERENTIAL NO; POSITIVE MORPHOLOGY NO; Platelet Count 349 K/mm3 (150-450); RBC Distribution Width CV 14.5 % (11.6-14.6); RBC Distribution Width SD 48.9 fl (35.1-43.9); Red Blood Count 4.94 M/mm3 (4.2-5.4); White Blood Count 7.3 K/mm3 (4.4-11.0)
[2019-01-28 14:06] LABS: IgG, Quant 495 mg/dL (700-1600); Immunoglobulin A 232 mg/dL (87-352); Immunoglobulin G, Subclass 1 281 mg/dL (248-810); Immunoglobulin G, Subclass 2 149 mg/dL (130-555); Immunoglobulin G, Subclass 3 40 mg/dL (15-102); Immunoglobulin G, Subclass 4 14 mg/dL (2-96)
[2019-01-28 16:39] LABS: CMV Acute Antibody IgM < 30.0 AU/mL (0.0-29.9); CMV Antibody IgG < 0.60 U/mL (0.00-0.59); Immunoglobulin E 6 IU/mL (6-495); Immunoglobulin M 27 mg/dL (26-217)
== END ==
PROVIDERS: Family Provider Internal Medicine; PCP Internal Medicine; Referring Provider Specialist; Visit Provider Specialist
DX: D84.9 Immunodeficiency, unspecified (principal)
CPT/HCPCS: 36415; 82784; 82785; 82787; 85025; 86431; 86644; 86645

== ENCOUNTER → 2019-01-23 13:59 | Outpatient (CLI) | payer MEDICARE, OTHER, SELFPAY | PROVIDERS: Family Provider Internal Medicine; PCP Internal Medicine; Referring Provider Specialist; Visit Provider Specialist | DX: D84.9 Immunodeficiency, unspecified (principal) | CPT/HCPCS: 87177; 87209 ==

== ENCOUNTER → 2019-02-09 15:05 | Outpatient (CLI) | payer MEDICARE, OTHER, SELFPAY ==
[2019-02-09 16:39] LABS: Vitamin B12 747 pg/mL (211-911)
[2019-02-15 11:26] LABS: Complement CH50 59 U/mL (>41)
== END ==
PROVIDERS: Family Provider Internal Medicine; PCP Internal Medicine; Referring Provider Specialist; Visit Provider Specialist
DX: D84.9 Immunodeficiency, unspecified (principal)
CPT/HCPCS: 36415; 82607; 86162; 86609

== ENCOUNTER → 2019-02-15 13:23 | Outpatient (CLI) | payer MEDICARE, OTHER, SELFPAY ==
[2019-02-15 13:40] LABS: Absolute Lymphocyte Count 1.48 X10^3/ul (0.83-4.51); Basophil# 0.02 X10^3/uL; Basophil% 0.2 % (0-1); Eosinophils% 0.9 % (0-5); Hematocrit 47.3 % (37-47); Hemoglobin 15.3 g/dl (12.0-15.0); Lymphocyte # 1.48 X10^3/ul (4.0); Lymphocyte % 13.6 % (19-41); Mean Corp Hgb Conc 32.3 g/gl (32-36); Mean Corpuscular Hgb 29.1 pg (27.0-32.0); Mean Corpuscular Volume 90.1 fL (81-99); Mean Platelet Vol. 9.5 fl (6.2-12.0); Monocyte% 11.9 % (0-10); Neutrophil # 7.98 X10^3/uL (2.7-7.7); Neutrophil % 73.2 % (47-70); Platelet Count 327 K/mm3 (150-450); RBC Distribution Width CV 14.6 % (11.6-14.6); Red Blood Count 5.25 M/mm3 (4.2-5.4); White Blood Count 10.9 K/mm3 (4.4-11.0)
[2019-02-15 13:41] LABS: POSITIVE COUNT NO; POSITIVE DIFFERENTIAL NO; POSITIVE MORPHOLOGY NO
[2019-02-15 14:06] LABS: AST(SGOT) 27 U/L (15-37); Alanine Aminotransfer ALT/SGPT 46 U/L (13-56); Albumin, Serum 3.5 g/dL (3.2-5.0); Alkaline Phosphatase 79 U/L (45-117); Bilirubin, Direct 0.13 mg/dL (0.00-0.30); Creatinine, Serum 0.79 mg/dL (0.55-1.02); EST Glomerular Filtration Rate 77 mL/min (>60); Est Glom Filt Rate - Afr Amer 93 mL/min (>60); Globulin 3.2 g/dL (2.2-4.2); Protein, Total 6.7 g/dL (6.4-8.2)
== END ==
PROVIDERS: Family Provider Internal Medicine; PCP Internal Medicine; Referring Provider Internal Medicine Rheumatology; Visit Provider Internal Medicine Rheumatology
DX: Z79.899 Other long term (current) drug therapy (principal)
CPT/HCPCS: 36415; 80076; 82565; 85025

== ENCOUNTER → 2019-02-23 15:41 | Outpatient (CLI) | payer MEDICARE, OTHER, SELFPAY ==
[2019-02-23 17:35] LABS: CRP < 2.90 mg/L (0.0-3.0)
[2019-02-27 16:07] LABS: Endomysial Antibody IgA Negative (Negative)
[2019-02-28 17:56] LABS: Immunoglobulin A 238 mg/dL (87-352); t-Transglutaminase IgA <2 U/mL (0-3)
== END ==
PROVIDERS: Family Provider Internal Medicine; PCP Internal Medicine; Referring Provider Internal Medicine Gastroenterology; Visit Provider Internal Medicine Gastroenterology
DX: R19.7 Diarrhea, unspecified (principal)
CPT/HCPCS: 36415; 82784; 83516; 86140; 86255

== ENCOUNTER → 2019-03-03 | Outpatient (CLI) | payer MEDICARE, OTHER, SELFPAY ==
[2019-03-05 17:23] LABS: Giardia Lamblia, Stool EIA Negative (Negative)
== END | disposition home or self-care (01) ==
LOC: MTLAB 12:04 → LABSPEC 12:05
PROVIDERS: Family Provider Internal Medicine; PCP Internal Medicine; Referring Provider Specialist; Visit Provider Specialist
DX: K52.9 Noninfective gastroenteritis and colitis, unspecified (principal)
CPT/HCPCS: 87329

== ENCOUNTER → 2019-07-27 14:47 | Outpatient (CLI) | payer MEDICARE, OTHER, SELFPAY ==
[2019-07-27 16:25] LABS: AST(SGOT) 33 U/L (15-37); Alanine Aminotransfer ALT/SGPT 48 U/L (13-56); Albumin, Serum 3.4 g/dL (3.2-5.0); Alkaline Phosphatase 68 U/L (45-117); Bilirubin, Direct 0.08 mg/dL (0.00-0.30); Globulin 3.8 g/dL (2.2-4.2); Protein, Total 7.2 g/dL (6.4-8.2)
== END ==
PROVIDERS: Family Provider Internal Medicine; PCP Internal Medicine; Referring Provider Internal Medicine Rheumatology; Visit Provider Internal Medicine Rheumatology
DX: R74.8 Abnormal levels of other serum enzymes (principal); D84.9 Immunodeficiency, unspecified
CPT/HCPCS: 36415; 80076

== ENCOUNTER → 2019-10-19 14:10 | Outpatient (CLI) | payer MEDICARE, OTHER, SELFPAY ==
[2019-10-19 15:35] LABS: AST(SGOT) 25 U/L (15-37); Alanine Aminotransfer ALT/SGPT 46 U/L (13-56); Albumin, Serum 3.4 g/dL (3.2-5.0); Alkaline Phosphatase 73 U/L (45-117); Bilirubin, Direct 0.08 mg/dL (0.00-0.30); Globulin 3.8 g/dL (2.2-4.2); Protein, Total 7.2 g/dL (6.4-8.2)
== END ==
PROVIDERS: Family Provider Internal Medicine; PCP Internal Medicine; Referring Provider Internal Medicine Rheumatology; Visit Provider Internal Medicine Rheumatology
DX: R74.0 Nonspecific elevation of levels of transaminase and lactic acid dehydrogenase [LDH] (principal)
CPT/HCPCS: 36415; 80076

== ENCOUNTER → 2019-11-02 12:30 | Outpatient (CLI) | payer MEDICARE, OTHER, SELFPAY ==
--- NOTE | 2019-11-02 12:33 | BI_ITS ---
MAMMOGRAPHY - BILATERAL SCREENING 3-D TOMOSYNTHESIS REASON FOR EXAM: Female, 69 years old. Routine annual screening mammogram. PERTINENT HISTORY: Left fibroadenoma removed years ago. Right sebaceous cyst removal in the past. TECHNIQUE: 2-D mammograms and 3-D Tomosynthesis of the breast (s) were performed. CAD was performed. COMPARISON: October 22, 2015, October 17, 2013 FINDINGS: The breast composition is almost entirely fat. Scattered benign calcifications are seen. No dense spiculated masses or suspicious microcalcifications are identified. No architectural distortion is identified. There is no skin thickening or retraction. There has been no significant change since the prior study. BI/SCREEN MAMM (CAD) W/SHANNAN BILAT IMPRESSION: No mammographic signs of malignancy. Routine yearly mammograms recommended. ASSESSMENT CATEGORY: BIRADS Category 2: Benign. A letter regarding these results will be sent to the patient by the facility within 30 days. FOLLOW UP RECOMMENDATION: Yearly follow up mammogram recommended. (A) Approximately 10% of breast cancers are not detected by mammography. A normal mammogram should not delay biopsy of a clinically suspicious abnormality. Electronically Signed: Kal Mancini MD at 15:47 EST , Service support ,
== END ==
PROVIDERS: Family Provider Internal Medicine; PCP Internal Medicine; Referring Provider Internal Medicine; Visit Provider Internal Medicine
DX: Z12.31 Encounter for screening mammogram for malignant neoplasm of breast (principal); Z78.0 Asymptomatic menopausal state
CPT/HCPCS: 77063; 77067

== ENCOUNTER → 2019-11-07 11:04 | Outpatient (CLI) | payer MEDICARE, OTHER, SELFPAY ==
--- NOTE | 2019-11-07 11:11 | BD_ITS ---
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 -- TAKES CALCIUM AND MULTIVITAMIN -- HX OF TAKING BONIVA -- DOES NO EXERCISE -- FAMILY HX OF OSTEO- MOTHER -- BYRON OF 1.5 INCHES TECHNIQUE: Bone Mineral Density (BMD) measurements of lumbar spine and bilateral hips were obtained. COMPARISON: Comparison is made with prior examination dated October 22, 2015. FINDINGS: Lumbar Spine (L1-L4): g/cm2 (0.781) / T-score (-3.3) / Z-score (-1.6) Findings are suggestive of osteoporosis with a high fracture risk. Left Femur Total: g/cm2 (0.746) / T-score (-2.1) / Z-score (-0.6) Left Femoral Neck: g/cm2 (0.805) / T-score (-1.7) / Z-score (0.0) Right Femur Total: g/cm2 (0.713) / T-score (-2.3) / Z-score (-0.8) Right Femoral Neck: g/cm2 (0.767) / T-score (-1.9) / Z-score (-0.2) The T-Scores on the most recent prior examination were: Lumbar Spine (L1-L4): There has been worsening of bone density since the previous examination. Left Femur Total: which represents a worsening of 17.7%. Right Femur Total: which represents a worsening of 19.9%. BD/Dexa Bone Density Study IMPRESSION: The patient is considered osteoporotic as outlined below according to World [place] Organization (WHO) criteria with a high fracture risk. There has been worsening of bone density since the previous examination. Reference Information: The T-score is the number of standard deviations above or below the standard which is normal for young adults at their peak bone mineral density. The World Health Organization (WHO) interprets the T-scores as follows: Above -1 Normal bone density Between -1 and -2.5 Osteopenia Equal to / or below -2.5 Osteoporosis As a practical clinical guideline, osteopenia may be graded as follows: Mild -1 through -1.5 Moderate -1.6 through -2.0 Severe -2.1 through -2.4 The Z-score is the number of standard deviations above or below age-matched controls. A Z-score of less than -1.5 would be considered abnormal. References: 1. NIH Osteoporosis and Related Bone Diseases http://www.osteo.org 2. International Society for Clinical Densitometry http://www.iscd.org 3. National Osteoporosis Foundation http://www.nof.org Electronically Signed: Fidel Carreon, at 15:13 EST , Service support ,
== END ==
PROVIDERS: Family Provider Internal Medicine; PCP Internal Medicine; Referring Provider Internal Medicine; Visit Provider Internal Medicine
DX: Z78.0 Asymptomatic menopausal state (principal)
CPT/HCPCS: 77080

== ENCOUNTER 2020-05-04 00:35 | Emergency (ER) | payer MEDICARE, OTHER, SELFPAY ==
[2020-05-04 00:36] VITALS: BP 196/75; PULSE 79; RESP 18; TEMP 36.8; O2SAT 96; BMI 31.8
[2020-05-04] MEDS: Oxymetazoline 0.05% 1 SPRAY SPRAY.BTL NASAL (00:53)
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
== END 2020-05-04 01:37 | disposition home or self-care (01) ==
PROVIDERS: Emergency Provider Emergency Medicine; PCP Internal Medicine
DX: R04.0 Epistaxis (principal); G43.909 Migraine, unspecified, not intractable, without status migrainosus; Z79.899 Other long term (current) drug therapy
CPT/HCPCS: 99282

== ENCOUNTER → 2020-06-17 10:08 | Outpatient (CLI) | payer MEDICARE, OTHER, SELFPAY ==
[2020-06-17 12:56] LABS: Absolute Lymphocyte Count 2.07 X10^3/uL (0.83-4.51); Absolute Neutrophil Count 6.4 X10^3/uL (2.0-7.7); Basophil# 0.05 X10^3/uL; Basophil% 0.5 % (0-1); Eosinophil# 0.16 X10^3/uL; Eosinophils% 1.6 % (0-5); Hematocrit 46.4 % (37-47); Hemoglobin 14.8 g/dL (12.0-15.0); Lymphocyte # 2.07 X10^3/ul (4.0); Lymphocyte % 20.8 % (19-41); Mean Corp Hgb Conc 31.9 g/dL (32-36); Mean Corpuscular Hgb 29.4 pg (27.0-32.0); Mean Corpuscular Volume 92.2 fL (81-99); Mean Platelet Vol. 9.5 fl (6.2-12.0); Monocyte% 12.1 % (0-10); NRBC Flagged by Analyzer 0 % (0-5); Neutrophil # 6.38 X10^3/uL (2.7-7.7); Neutrophil % 64.3 % (47-70); Platelet Count 324 K/mm3 (150-450); RBC Distribution Width CV 14.6 % (11.6-14.6); RBC Distribution Width SD 48.8 fl (35.1-43.9); Red Blood Count 5.03 M/mm3 (4.2-5.4); White Blood Count 9.9 K/mm3 (4.4-11.0)
[2020-06-17 13:15] LABS: Vitamin D,25 Hydroxy 47.4 ng/mL
[2020-06-17 13:25] LABS: AST(SGOT) 26 U/L (15-37); Alanine Aminotransfer ALT/SGPT 57 U/L (13-56); Albumin, Serum 3.2 g/dL (3.2-5.0); Alkaline Phosphatase 41 U/L (45-117); Bilirubin, Direct 0.16 mg/dL (0.00-0.30); Globulin 3.4 g/dL (2.2-4.2); Protein, Total 6.6 g/dL (6.4-8.2)
[2020-06-18 13:36] LABS: Erythrocyte Sedimentation Rate 17 mm/hr (0-30)
[2020-06-18 14:21] LABS: CRP 4.87 mg/L (0.0-3.0); Calcium,Total 8.6 mg/dL (8.5-10.1); Phosphorus 3.7 mg/dL (2.5-4.9); Thyroid Stim Hormone (TSH) 2.53 uIU/mL (0.358-3.74)
[2020-06-19 16:08] LABS: PROEL- A/G Ratio 1.2 (0.7-1.7); PROEL- Albumin 3.3 g/dL (2.9-4.4); PROEL- Alpha-1 Globulin 0.2 g/dL (0.0-0.4); PROEL- Alpha-2 Globulin 0.8 g/dL (0.4-1.0); PROEL- Beta Globulin 1.2 g/dL (0.7-1.3); PROEL- Gamma Globulin 0.5 g/dL (0.4-1.8); PROEL- Globulin, Total 2.7 g/dL (2.2-3.9)
== END ==
PROVIDERS: PCP Internal Medicine; Referring Provider Internal Medicine Rheumatology; Visit Provider Internal Medicine Rheumatology
DX: M05.79 Rheumatoid arthritis with rheumatoid factor of multiple sites without organ or systems involvement (principal); E55.9 Vitamin D deficiency, unspecified; M81.8 Other osteoporosis without current pathological fracture
CPT/HCPCS: 36415; 80076; 82306; 82310; 82652; 84100; 84165; 84443; 85025; 85652; 86140

== ENCOUNTER 2020-07-13 | Inpatient (IN) | payer MEDICARE, OTHER, SELFPAY ==
[2020-07-13] VITALS (10 sets, daily range): BP systolic 138–194; BP diastolic 68–87; PULSE 60–76; RESP 14–18; TEMP 36.4–37.1; O2SAT 95–99; BMI 28.0; BMI 28.6
[2020-07-13] MEDS: morphine 8 MG/ML Syringe IM (00:09)
--- NOTE | 2020-07-13 00:11 | CT_ITS ---
STUDY: CT BRAIN WITHOUT CONTRAST REASON FOR EXAM: Female, 70 years old. FALL,HIT HEAD ON THE GROUND RADIATION DOSAGE (If Supplied By Facility): CTDIvol = ( 44.99 ) mGy, DLP = ( 812.98 ) mGycm TECHNIQUE: Transaxial CT imaging of the brain was performed without administration of intravenous contrast material. Individualized dose optimization techniques were used for this CT. COMPARISON: No relevant priors. FINDINGS: Normal soft tissue structures. There is hyperostosis frontalis internus. Normal size ventricles and extra-axial spaces for the patient''s age. There are areas of decreased attenuation within the white matter tracts of the supratentorial brain, consistent with microvascular disease changes. There are calcifications of the basal ganglia which are seen in the aging brain as a normal variant. Normal brainstem. Normal cerebellum. There is atherosclerotic calcification of the cavernous carotid arteries. There is no intracranial hemorrhage. There are no findings of an acute ischemic infarction. There is a polyp or retention cyst in the left maxillary sinus. There is no evidence for acute sinusitis. CT/Brain/Head without Contrast IMPRESSION: Chronic involutional changes of the brain. No demonstrated acute intracranial process. Electronically Signed: Dung Celaya MD at 1:19 EDT , Service support ,
--- NOTE | 2020-07-13 00:11 | ED.VISSUMM ---
- ER Visit Summary Date of Service: 07/13/20 Chief Complaint: Fall History of Present Illness: The patient is a 70 F presenting after fall. Patient states she tripped over a dog's leash. She fell forward hitting her head. She did not lose consciousness. She is not on anticoagulants. She complains of left hip pain. She also has bilateral knee pain. She has an abrasion to her right knee. Denies other complaints. Physical Examination: Vitals are stable. Patient is afebrile. Alert no acute distress. HEENT exam is unremarkable. Neck is nontender Lungs are clear and equal bilaterally. Heart is regular rate and rhythm. Abdomen is soft nontender nondistended. Extremities bilateral knee tenderness. Right knee abrasion. Left hip tenderness with painful range of motion Skin is warm and dry. No focal neurologic deficit. Remainder of exam is unremarkable. Emergency Department Course and Treatment: Patient was given morphine, Zofran. She was given tetanus IM. Right knee abrasion was cleaned and dressed. She continues to have pain and was given Dilaudid. CT head shows chronic involutional changes of the brain. No demonstrated acute intracranial process. Left foot xray shows no acute fracture identified. Prior hallux valgus corrective surgery. History of rheumatoid arthritis and with chronic appearing joint space narrowing and subluxation deformity of the metatarsophalangeal joints. Right knee xray shows no acute osseous abnormality identified in the knee. Left knee xray shows no acute osseous abnormality identified in the knee. Left hip xray shows normal x-ray examination of the pelvis and hip. On reevaluation, patient is not able to bear weight on her left hip. She is unable to ambulate. Discussed with hospitalist for observation. Disposition: Observation Impression: Left hip pain, inability to ambulate This note was generated with [employer] dictation software. It may contain incorrect words, spelling, and punctuation that were not noted in review of the chart prior to signing ED Disposition - Plan for ED Patient: Referrals: Ciara Caballero DO [Primary Care Provider] -
[2020-07-13] MEDS: Diphth,Pertuss(Acell),Tet Vac 0.5 ML Vial IM (00:13)
[2020-07-13] MEDS: Ondansetron 8 MG Tablet 4 MG PO (00:14)
--- NOTE | 2020-07-13 00:30 | RAD_ITS ---
STUDY: X-RAY - PELVIS AND LEFT HIP REASON FOR EXAM: Female, 70 years old. PAINFUL LEFT HIP AND PELVIS AFTER TRIPPING OVER DOG LEASH. HX OF RA . TECHNIQUE: 3 views of the pelvis and hip. COMPARISON: 05/21/2016. FINDINGS: There is a non-specific bowel gas pattern. Normal visualized soft tissue structures. Normal bilateral iliac wings, sacroiliac joints and visualized sacrum. Normal bilateral superior and inferior pubic rami. Normal pubic symphysis. Normal bilateral ischial tuberosities. Normal visualized femoral head. Normal acetabulum. Normal hip joint. RAD/HIP, UNI W/ Pelvis 2-3 Views IMPRESSION: Normal x-ray examination of the pelvis and hip. Electronically Signed: Dung Celaya MD at 3:06 EDT , Service support ,
--- NOTE | 2020-07-13 00:35 | RAD_ITS ---
HISTORY: PAIN AFTER TRIPPING OVER DOG LEASH. HX OF RA Technique: Left Knee; AP, lateral, and oblique radiographs Comparison: None available Findings: No acute fracture or dislocation. Osseous mineralization, joint spaces, and alignment otherwise appear preserved as imaged. No focal abnormality or radiopaque foreign body is seen in the surrounding soft tissues. RAD/Knee 4 or More Views IMPRESSION: No acute osseous abnormality identified in the knee. at 0152 Reported and signed by: Deejay Sexton MD Electronically Signed: Deejay Sexton MD at 1:51 EDT Tel , Service support ,
--- NOTE | 2020-07-13 00:48 | RAD_ITS ---
HISTORY: ABRASION ON PATELLA. TRIPPED ON DOG LEASH. HX OF RA Technique: Right Knee; AP, lateral, and oblique radiographs Comparison: None available Findings: No acute fracture or dislocation. Osseous mineralization, joint spaces, and alignment otherwise appear preserved as imaged. No focal abnormality or radiopaque foreign body is seen in the surrounding soft tissues. RAD/Knee 4 or More Views IMPRESSION: No acute osseous abnormality identified in the knee. at 0152 Reported and signed by: Deejay Sexton MD Electronically Signed: Deejay Sexton MD at 1:51 EDT Tel , Service support ,
--- NOTE | 2020-07-13 00:55 | RAD_ITS ---
HISTORY: FALL TRIPPED OVER DOG LEASH. HX OF RA EXAMINATION/TECHNIQUE: XR left foot 3 views COMPARISON: Left foot 12/16/2010 FINDINGS: Generalized bony demineralization consistent with the patient's age. No acute fracture identified. Prior hallux valgus corrective surgery with left first metatarsal osteotomy and single surgical screw fixation. History of rheumatoid arthritis and chronic appearing narrowing of the metatarsophalangeal joints together with dorsiflexion and mild subluxation deformity of the third and fifth metatarsophalangeal joints. No acute fracture identified. The plantar arch is maintained. No radiopaque foreign body. RAD/Foot min 3 Views IMPRESSION: 1. No acute fracture identified. 2. Prior hallux valgus corrective surgery. 3. History of rheumatoid arthritis and with chronic appearing joint space narrowing and subluxation deformity of the metatarsophalangeal joints. at 0223 Reported and signed by: Montana Munson MD Electronically Signed: Montana Munson, at 2:22 EDT Tel , Service support ,
[2020-07-13] MEDS: oxyCODONE 5 MG Tablet PO ×3 (01:43→16:23)
--- NOTE | 2020-07-13 02:48 | ED.RN ---
CALLED X-RAY FOR HIP/PELVIS RESULTS, TECH MENTIONS EXTRA LONG WEIGHT PERIOD TONIGHT AND WILL CALL RADIOLOGIST.
--- NOTE | 2020-07-13 03:12 | HP.PCM_ITS ---
Problem List (1) Fall Status: Acute (2) Hip pain Status: Acute (3) Hypertension Status: Chronic Qualifiers: Hypertension type: unspecified secondary hypertension Qualified Code(s): I15.9 - Secondary hypertension, unspecified; I15 - Secondary hypertension (4) Rheumatoid arthritis Status: Chronic History of Present Illness Date of Admission: 07/13/20 Chief Complaint: fall The patient is a 70 year old F with a significant history of Sjogren's; osteoarthritis; fibromyalgia; and hypertension who presents to the emergency department with a fall that happened few hours before presentation. Patient toes were caught in between a dog jimenez while descending steep stairs at a friend's house. She fell with her forehead hitting grass. She has some pain in her left foot and excruciating pain in her right hip. She has abrasion to her right knee. She required 3 people to help her get up from the floor. She then used her 's cane to get into the car and drove home. At emergent department patient reported that now she is unable to walk. Past Medical History Past Medical History (Chronic Problems): Chronic Problems Hypertension (Chronic) Rheumatoid arthritis (Chronic) Allergies No Known Allergies Allergy (Verified 07/13/20 00:08) Home Medications: Ambulatory Orders Medication Instructions Recorded Atenolol [Tenormin] 50 mg PO DAILY 03/13/17 Cyclosporine [Restasis] 1 each OP DAILY 03/13/17 Ramipril [Altace] 5 mg PO DAILY 03/13/17 Sumatriptan Succinate 50 mg PO PRN PRN 03/13/17 Lactobacillus Combination No.4 1 capsule PO DAILY 03/15/17 [Probiotic] predniSONE tablet 7 mg PO BID 10/14/18 Methotrexate 4 tab PO QWEEK 05/04/20 Leucovorin Calcium 10 mg PO DAILY 07/13/20 Surgical History: cataract, herniorrhaphy, tonsillectomy, - - Incision and drainage of left elbow abscess 03/16/17, foot surgery, removal of right ovary and tube, laparoscopy, TMJ surgery, repair of femoral hernia, nasal surgery due to nasal fracture Psychiatric History: 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 Denies: Rash Neurological: Denies: Numbness, Tingling, Focal weakness Psychiatric: Denies: Anxiety, Depression, Homicidal Ideations, Suicidal Ideations Hematologic/ Lymphatic: Denies: Easy Bruising, Easy Bleeding VTE Information - Inpt Only VTE Present on Admission: No VTE Mechan Device Prophylaxis: SCD's VTE Pharm Prophylaxis ordered?: No Patient Problems: Active and Suspected Problems Fall (Acute) Hip pain (Acute) - Physical Exam Vitals/I&O's: Vital Signs Temp Pulse Resp BP Pulse Ox 98 F 75 17 194/80 H 98 07/13/20 00:00 07/13/20 00:00 07/13/20 02:00 07/13/20 00:00 07/13/20 00:00 Oxygen Delivery Method Room Air Weight: 79.5 kg Body Mass Index (BMI) 30.0 General: Alert, Oriented x3, Cooperative HEENT: Atraumatic, PERRLA, EOMI, Normocephalic Neck: Supple, No JVD, Negative Carotid Bruits Lungs: Clear to auscultation, Normal air movement, No rhonchi, No wheeze, No rales Cardiovascular: Regular rate, Normal S1, Normal S2, No murmurs Abdomen: Bowel Sounds Present, Soft, Non Tender Extremities: No edema, Capillary Refill Less than 3 Seconds, Tenderness - Left hip Skin: No rashes, - - Abrasion on right knee Musculoskeletal: Tenderness - Left hip Neurological: Cranial nerves II-XII grossly intact Psych/Mental Status: Normal Affect, Appropriate Assessment/Plan All Active Problems Fall (Acute) Hip pain (Acute) The patient is a 70 year old F with a significant history of Sjogren's; osteoarthritis; fibromyalgia; and hypertension who presents emergency department with a fall and excruciating left hip pain. Intractable left hip pain We will get an MRI to rule out occult fracture. Received Dilaudid and oxycodone emergency department. Morphine IV PRN and oxycodone PRN ordered Tylenol PRN Bowel protocol and antiemetics in place. Check CBC and BMP. Tetanus shot given at the ED Rheumatoid arthritis Methotrexate continued Leucovorin continued Prednisone continued. HTN Her blood pressure is elevated. Atenolol and TONY inhibitor continued Hydralazine PRN Trend blood parameters blood pressure medications. DVT prophylaxis SCD OBSV E&M: 12531 Initial observation care L3
--- NOTE | 2020-07-13 04:17 | MRI_ITS ---
STUDY: MR PELVIS WITHOUT CONTRAST REASON FOR EXAM: Female, 70 years old. lt hip pain, fall TECHNIQUE: Standardized fat and water weighted pulse sequences were obtained in all 3 orthogonal planes. COMPARISON: Left hip x-ray 07/13/2020 FINDINGS: Normal urinary bladder. Normal visualized hollow viscus structures. There is no pelvic fluid. There is no pelvic mass lesion or lymphadenopathy. Normal visualized pelvic arteries. Normal abdominal wall. There is edema adjacent to the left hip, posterior more than anterior, including edema in and enlargement of posterior muscle (gemelus muscle, image 28 series 7). Edema within the posterior left acetabulum identified on image 29 of series 7 with a discrete T1 dark fracture line extending from the posterior acetabular articular surface on image 27 of series 6. No additional pelvic ring fracture is identified. There are degenerative changes of the lower lumbar spine. Bilateral femoral heads and proximal femurs are intact. MRI/Pelvis (Routine) IMPRESSION: 1. Nondisplaced posterior left acetabular fracture. Electronically Signed: Felton Ferrari MD ([place]) at 10:47 EDT , Service support ,
[2020-07-13] MEDS: Morphine 2 MG/ML Syringe IV ×2 (05:11→08:09)
[2020-07-13] MEDS: Famotidine 20 MG Tablet PO (05:11)
[2020-07-13] MEDS: 0.9% Saline Lock 10 ML Syringe IV ×3 (05:11→19:45)
[2020-07-13 07:55] LABS: Anion Gap 5 (5-15); BUN 16 mg/dL (7-18); BUN/Creat Ratio 25.6 RATIO (10-20); Calcium,Total 8.4 mg/dL (8.5-10.1); Chloride 106 mmol/L (98-107); Creatinine, Serum 0.62 mg/dL (0.55-1.02); EST Glomerular Filtration Rate 100 mL/min (>60); Est Glom Filt Rate - Afr Amer 121 mL/min (>60); Estimated Creatinine Clearance 44.56 ml/min; Glucose 136 mg/dL (74-106); Potassium 3.4 mmol/L (3.5-5.1); Sodium Level 141 mmol/L (136-145)
[2020-07-13 08:24] LABS: Absolute Lymphocyte Count 1.16 X10^3/uL (0.83-4.51); Absolute Neutrophil Count 9.2 X10^3/uL (2.0-7.7); Basophil# 0.04 X10^3/uL; Basophil% 0.3 % (0-1); Eosinophil# 0.08 X10^3/uL; Eosinophils% 0.7 % (0-5); Hematocrit 44.4 % (37-47); Lymphocyte # 1.16 X10^3/ul (4.0); Lymphocyte % 9.8 % (19-41); Mean Corp Hgb Conc 31.5 g/dL (32-36); Mean Corpuscular Hgb 29.2 pg (27.0-32.0); Mean Corpuscular Volume 92.7 fL (81-99); Mean Platelet Vol. 9.3 fl (6.2-12.0); Monocyte# 1.32 X10^3/uL; Monocyte% 11.1 % (0-10); NRBC Flagged by Analyzer 0 % (0-5); Neutrophil # 9.19 X10^3/uL (2.7-7.7); Neutrophil % 77.7 % (47-70); Platelet Count 293 K/mm3 (150-450); RBC Distribution Width CV 14.4 % (11.6-14.6); RBC Distribution Width SD 49.4 fl (35.1-43.9); Red Blood Count 4.79 M/mm3 (4.2-5.4); White Blood Count 11.8 K/mm3 (4.4-11.0)
--- NOTE | 2020-07-13 08:52 | NURSING ---
pt leaving unit via bed for MRI
[2020-07-13] MEDS: Acetaminophen 325 MG Tablet 650 MG PO ×2 (11:05→18:44)
--- NOTE | 2020-07-13 11:33 | NURSING ---
pillows placed under pts knees per request
--- NOTE | 2020-07-13 11:39 | PCM.PN.HOSP ---
Patient Problems: Active and Suspected Problems Fall (Acute) Hip pain (Acute) Subjective: Patient seen and examined. She was admitted with a complaint of left hip pain after she sustained a mechanical fall. X-ray was negative for fracture. She is due for an MRI today to rule out fracture otherwise. Patient still complains of severe left hip pain. Review systems otherwise negative. Vitals/I&O's: Vital Signs Temp Pulse Resp BP Pulse Ox 98.8 F 76 16 138/79 H 96 07/13/20 04:20 07/13/20 05:15 07/13/20 04:20 07/13/20 05:15 07/13/20 07:30 Oxygen Delivery Method Room Air Weight: 166 lb 14.239 oz Body Mass Index (BMI) 28.6 Intake and Output for Last 24 Hours 07/11/20 07/12/20 07/13/20 23:59 23:59 23:59 Intake Total 200 / 200 Balance 200 / 200 General: Alert, Oriented x3, Cooperative, No apparent distress HEENT: Atraumatic, PERRLA, EOMI, Normocephalic Oral: Moist Mucosa Neck: Supple, No JVD, Negative Carotid Bruits Lungs: Clear to auscultation, Normal air movement, No rhonchi, No wheeze, No rales Cardiovascular: Regular rate, Regular Rhythm, Normal S1, Normal S2, No murmurs Abdomen: Bowel Sounds Present, Soft, Non Tender, Non-Distended, No Hepato-splenomegaly Extremities: No clubbing, No cyanosis, No edema, Capillary Refill Less than 3 Seconds Skin: No rashes, No breakdown Musculoskeletal: - - Left hip tenderness with palpation. Left leg slightly shortened but no external rotation. Neurological: Cranial nerves II-XII grossly intact, Neuro grossly intact Psych/Mental Status: Normal Affect, Appropriate, Alert and oriented to time, place, person, mood and affect Laboratory Results 07/13/20 07:00: WBC 11.8 H, RBC 4.79, Hgb 14.0, Hct 44.4, MCV 92.7, MCH 29.2, MCHC 31.5 L, RDW Std Deviation 49.4 H, RDW Coeff of Arsen 14.4, Plt Count 293, MPV 9.3, Immature Gran % (Auto) 0.400, Neut % (Auto) 77.7 H, Lymph % (Auto) 9.8 L, [place] % (Auto) 11.1 H, Eos % (Auto) 0.7, Baso % (Auto) 0.3, Absolute Neuts (auto) 9.2 H, Absolute Lymphs (auto) 1.16, Nucleated RBC % 0 07/13/20 07:00: Sodium 141, Potassium 3.4 L, Chloride 106, Carbon Dioxide 30.0, Anion Gap 5, BUN 16, Creatinine 0.62, Estim Creat Clear Calc 44.56, Est GFR (MDRD) Af Amer 121, Est GFR (MDRD) Non-Af 100, BUN/Creatinine Ratio 25.6 H, Glucose 136 H, Calcium 8.4 L Diagnostic Data Brain CT 07/13/20 00:11 IMPRESSION: Chronic involutional changes of the brain. No demonstrated acute intracranial process. Electronically Signed: Dung Celaya MD at 1:19 EDT , Service support , Hip/Pelvis X-Ray 07/13/20 00:30 IMPRESSION: Normal x-ray examination of the pelvis and hip. Electronically Signed: Dung Celaya MD at 3:06 EDT , Service support , Knee X-Ray 07/13/20 00:48 IMPRESSION: No acute osseous abnormality identified in the knee. at 0152 Reported and signed by: Deejay Sexton MD Electronically Signed: Deejay Sexton MD at 1:51 EDT Tel , Service support , Foot X-Ray 07/13/20 00:55 IMPRESSION: 1. No acute fracture identified. 2. Prior hallux valgus corrective surgery. 3. History of rheumatoid arthritis and with chronic appearing joint space narrowing and subluxation deformity of the metatarsophalangeal joints. at 0223 Reported and signed by: Montana Munson MD Electronically Signed: Montana Munson, at 2:22 EDT Tel , Service support , Pelvis MRI 07/13/20 04:17 IMPRESSION: 1. Nondisplaced posterior left acetabular fracture. Electronically Signed: Felton Ferrari MD ([place]) at 10:47 EDT , Service support , Current Medications Acetaminophen (Tylenol) 650 mg PO Q6H PRN PRN PRN Reason: Pain Score 1-10/Temp > 100.7 F Last Admin: 07/13/20 11:05 Dose: 650 mg Documented by: Atenolol (Tenormin (Beta Phani)) 50 mg PO [facility] Famotidine (Pepcid) 20 mg PO DAILY [facility] Last Admin: 07/13/20 05:11 Dose: 20 mg Documented by: Hydralazine HCl (Apresoline Iv) 5 mg IV Q6H PRN PRN PRN Reason: SBP > 160 Lactobacillus Acidophilus (Acidophilus) 1 tablet PO DAILY [facility] Last Admin: 07/13/20 11:02 Dose: 1 tablet Documented by: Leucovorin Calcium () 10 mg PO QWEEK@2200 [facility] Methotrexate (Methotrexate) 10 mg PO QWEEK [facility] Morphine Sulfate () 2 mg IV Q3H PRN PRN PRN Reason: Pain Score 6-10/10 Last Admin: 07/13/20 08:09 Dose: 2 mg Documented by: Ondansetron HCl (Zofran) 4 mg IV Q8H PRN PRN PRN Reason: NAUSEA/VOMITING Oxycodone HCl (Oxyir) 5 mg PO Q4H PRN PRN PRN Reason: Pain Score 4-5/10 Last Admin: 07/13/20 11:05 Dose: 5 mg Documented by: Prednisone 5 mg/ [facility] 2 (mg[facility] Last Admin: 07/13/20 08:04 Dose: 7 mg Documented by: Ramipril (Altace) 5 mg PO [facility] Senna/Docusate Sodium (Senokot-S, Odette-Colace) 2 tablet PO BID PRN PRN PRN Reason: Constipation Sodium Chloride () 10 - 40 ml IV UD PRN PRN Reason: SALINE FLUSH Last Admin: 07/13/20 08:09 Dose: 10 ml Documented by: Medical Necessity - Tobacco Use Smoking Status: Never smoker Assessment/Plan All Active Problems Fall (Acute) Hip pain (Acute) # Posterior left acetabular fracture due to mechanical fall still complains of pain XRay of the hip was negative for any fracture MRI of the hip showed a posterior left acetabular fracture on IV morphine and PO oxycodone prn bowel protocol in place consult orthopedic surgery: PT/OT on board fall precautions # rheumatoid arthritis on methotrexate, leucovorina nd prednisone # Hypertension: on atenolol and ramipril DVT prophylaxis; lovenox OBSV E&M: 07178 Subsequent observation care L3
[2020-07-13] MEDS: Ramipril 5 MG Capsule PO (16:26)
[2020-07-13] MEDS: Atenolol 50 MG Tablet PO (16:26)
[2020-07-13] MEDS: Ondansetron 4 MG/2 ML Vial IV (19:45)
[2020-07-13] MEDS: Ibuprofen 400 MG Tablet PO (22:38)
[2020-07-13] MEDS: Rizatriptan Benzoate 10 MG Tablet PO (22:38)
[2020-07-14 02:56] VITALS: BP 132/72; PULSE 57; RESP 16; TEMP 36.6; O2SAT 100
[2020-07-14 05:31] LABS: Absolute Lymphocyte Count 1.19 X10^3/uL (0.83-4.51); Absolute Neutrophil Count 5.1 X10^3/uL (2.0-7.7); Basophil# 0.04 X10^3/uL; Basophil% 0.5 % (0-1); Eosinophil# 0.15 X10^3/uL; Hematocrit 44.4 % (37-47); Hemoglobin 13.8 g/dL (12.0-15.0); Lymphocyte # 1.19 X10^3/ul (4.0); Lymphocyte % 16.2 % (19-41); Mean Corp Hgb Conc 31.1 g/dL (32-36); Mean Corpuscular Hgb 28.8 pg (27.0-32.0); Mean Corpuscular Volume 92.5 fL (81-99); Mean Platelet Vol. 9.1 fl (6.2-12.0); Monocyte# 0.85 X10^3/uL; Monocyte% 11.6 % (0-10); NRBC Flagged by Analyzer 0 % (0-5); Neutrophil # 5.05 X10^3/uL (2.7-7.7); Platelet Count 259 K/mm3 (150-450); RBC Distribution Width CV 14.5 % (11.6-14.6); RBC Distribution Width SD 48.6 fl (35.1-43.9); White Blood Count 7.3 K/mm3 (4.4-11.0)
[2020-07-14 05:51] LABS: Anion Gap 5 (5-15); BUN 10 mg/dL (7-18); BUN/Creat Ratio 15.9 RATIO (10-20); Chloride 106 mmol/L (98-107); Creatinine, Serum 0.63 mg/dL (0.55-1.02); EST Glomerular Filtration Rate 100 mL/min (>60); Est Glom Filt Rate - Afr Amer 120 mL/min (>60); Estimated Creatinine Clearance 44.56 ml/min; Glucose 94 mg/dL (74-106); Potassium 3.5 mmol/L (3.5-5.1); Sodium Level 139 mmol/L (136-145)
--- NOTE | 2020-07-14 07:31 | PCM.CONS.GEN ---
Reason for Consult Date of Consultation: 07/14/20 Reason for Consultation: left hip pain History of Present Illness: The patient is a 70 year old F [usually unassisted, community ambulator with rheumatoid arthritis and fibromyalgia who fell Wednesday night. She had intractable left hip pain with weightbearing and was admitted to [facility]. MRI revealed a nondisplaced, left posterior acetabular wall fracture. At the time of my consult, the patient was resting comfortable in bed and stated her left hip only hurt when she tried to put weight on it.] Past Medical History Past Medical History (Chronic Problems): Chronic Problems Hypertension (Chronic) Rheumatoid arthritis (Chronic) Allergies No Known Allergies Allergy (Verified 07/13/20 00:08) Home Medications: Ambulatory Orders Medication Instructions Recorded Atenolol [Tenormin] 50 mg PO DAILY 03/13/17 Cyclosporine [Restasis] 1 each OP DAILY 03/13/17 Ramipril [Altace] 5 mg PO DAILY 03/13/17 Sumatriptan Succinate 50 mg PO PRN PRN 03/13/17 Lactobacillus Combination No.4 1 capsule PO DAILY 03/15/17 [Probiotic] predniSONE tablet 7 mg PO BID 10/14/18 Methotrexate 4 tab PO QWEEK 05/04/20 Famotidine 20 mg PO DAILY PRN PRN 07/13/20 Leucovorin Calcium 10 mg PO DAILY 07/13/20 Surgical History: cataract, herniorrhaphy, tonsillectomy, - - Incision and drainage of left elbow abscess 03/16/17, foot surgery, removal of right ovary and tube, laparoscopy, TMJ surgery, repair of femoral hernia, nasal surgery due to nasal fracture Psychiatric History: No pertinent psych hx DENTAL ASSISTANT INSTRUCTOR History: No pertinent DENTAL ASSISTANT INSTRUCTOR history Smoking Status: Never smoker - *Family History Maternal History Items: Diabetes Paternal History Items: COPD, Heart Disease, Stroke Review of Systems Musculoskeletal: Reports: Joint Pain, Joint stiffness, Joint swelling Neurological: Reports: Tingling - secondary to chronic neuropathy Patient Problems: Active and Suspected Problems Fall (Acute) Hip pain (Acute) - Physical Exam Vitals/I&O's: Vital Signs Temp Pulse Resp BP Pulse Ox 97.8 F 57 L 16 132/72 H 100 07/14/20 02:56 07/14/20 02:56 07/14/20 02:56 07/14/20 02:56 07/14/20 02:56 Oxygen Delivery Method Room Air Weight: 166 lb 14.239 oz Body Mass Index (BMI) 28.6 Intake and Output for Last 24 Hours 07/12/20 07/13/20 07/14/20 23:59 23:59 23:59 Intake Total 1100 / 1100 1400 / 1400 Output Total 1150 / 1150 Balance 1100 / 1100 250 / 250 General: Alert, Oriented x3, Cooperative, No apparent distress HEENT: Atraumatic, PERRLA Oral: Moist Mucosa Neck: Supple, No JVD Lungs: Clear to auscultation Cardiovascular: Regular rate, Regular Rhythm Abdomen: Bowel Sounds Present Skin: No rashes, No breakdown Musculoskeletal: Arthritic Changes, Tenderness - left hip with log roll. WB not attempted due to known fracture Neurological: Motor Exam 5/5 strength throughout Laboratory Results 07/13/20 07:00: WBC 11.8 H, RBC 4.79, Hgb 14.0, Hct 44.4, MCV 92.7, MCH 29.2, MCHC 31.5 L, RDW Std Deviation 49.4 H, RDW Coeff of Arsen 14.4, Plt Count 293, MPV 9.3, Immature Gran % (Auto) 0.400, Neut % (Auto) 77.7 H, Lymph % (Auto) 9.8 L, [place] % (Auto) 11.1 H, Eos % (Auto) 0.7, Baso % (Auto) 0.3, Absolute Neuts (auto) 9.2 H, Absolute Lymphs (auto) 1.16, Nucleated RBC % 0 07/13/20 07:00: Sodium 141, Potassium 3.4 L, Chloride 106, Carbon Dioxide 30.0, Anion Gap 5, BUN 16, Creatinine 0.62, Estim Creat Clear Calc 44.56, Est GFR (MDRD) Af Amer 121, Est GFR (MDRD) Non-Af 100, BUN/Creatinine Ratio 25.6 H, Glucose 136 H, Calcium 8.4 L 07/14/20 05:18: WBC 7.3, RBC 4.80, Hgb 13.8, Hct 44.4, MCV 92.5, MCH 28.8, MCHC 31.1 L, RDW Std Deviation 48.6 H, RDW Coeff of Arsen 14.5, Plt Count 259, MPV 9.1, Immature Gran % (Auto) 0.700, Neut % (Auto) 69.0, Lymph % (Auto) 16.2 L, [place] % (Auto) 11.6 H, Eos % (Auto) 2.0, Baso % (Auto) 0.5, Absolute Neuts (auto) 5.1, Absolute Lymphs (auto) 1.19, Nucleated RBC % 0 07/14/20 05:18: Sodium 139, Potassium 3.5, Chloride 106, Carbon Dioxide 28.0, Anion Gap 5, BUN 10, Creatinine 0.63, Estim Creat Clear Calc 44.56, Est GFR (MDRD) Af Amer 120, Est GFR (MDRD) Non-Af 100, BUN/Creatinine Ratio 15.9, Glucose 94, Calcium 8.0 L Current Medications Acetaminophen (Tylenol) 650 mg PO Q6H PRN PRN PRN Reason: Pain Score 1-10/Temp > 100.7 F Last Admin: 07/13/20 18:44 Dose: 650 mg Documented by: Atenolol (Tenormin (Beta Phani)) 50 mg PO DINNER [facility] Last Admin: 07/13/20 16:26 Dose: 50 mg Documented by: Famotidine (Pepcid) 20 mg PO DAILY [facility] Last Admin: 07/13/20 05:11 Dose: 20 mg Documented by: Hydralazine HCl (Apresoline Iv) 5 mg IV Q6H PRN PRN PRN Reason: SBP > 160 Ibuprofen (Motrin) 400 mg PO Q6H PRN PRN PRN Reason: HEADACHE Last Admin: 07/13/20 22:38 Dose: 400 mg Documented by: Lactobacillus Acidophilus (Acidophilus) 1 tablet PO DAILY [facility] Last Admin: 07/13/20 11:02 Dose: 1 tablet Documented by: Leucovorin Calcium () 10 mg PO QWEEK@2200 [facility] Methotrexate (Methotrexate) 10 mg PO QWEEK [facility] Morphine Sulfate () 2 mg IV Q3H PRN PRN PRN Reason: Pain Score 6-10/10 Last Admin: 07/13/20 08:09 Dose: 2 mg Documented by: Ondansetron HCl (Zofran) 4 mg IV Q8H PRN PRN PRN Reason: NAUSEA/VOMITING Last Admin: 07/13/20 19:45 Dose: 4 mg Documented by: Oxycodone HCl (Oxyir) 5 mg PO Q4H PRN PRN PRN Reason: Pain Score 4-5/10 Last Admin: 07/13/20 16:23 Dose: 5 mg Documented by: Prednisone 5 mg/ Prednisone 2 (mg) 7 mg PO BIDCM [facility] Last Admin: 07/13/20 16:25 Dose: Not Given Documented by: Ramipril (Altace) 5 mg PO DINNER [facility] Last Admin: 07/13/20 16:26 Dose: 5 mg Documented by: Senna/Docusate Sodium (Senokot-S, Odette-Colace) 2 tablet PO BID PRN PRN PRN Reason: Constipation Sodium Chloride () 10 - 40 ml IV UD PRN PRN Reason: SALINE FLUSH Last Admin: 07/13/20 19:45 Dose: 10 ml Documented by: Assessment/Plan All Active Problems Fall (Acute) Hip pain (Acute) Nondisplaced left posterior acetabular wall fracture TTWB on LLE PT for walker ambulation Pain control per hospitalist Will follow in office upon discharge I explained to the patient that this is a nonoperative fracture that will likely take 8-12 weeks to heal We will advance her weight bearing status in a few weeks provided that the fracture remains stable
[2020-07-14 07:50] VITALS: O2SAT 95
[2020-07-14 08:41] VITALS: BP 144/78; PULSE 59; RESP 14; TEMP 36.9; O2SAT 96
--- NOTE | 2020-07-14 10:21 | PCM.PN.HOSP ---
Patient Problems: Active and Suspected Problems Fall (Acute) Hip pain (Acute) Subjective: Patient seen and examined. Pain has improved. She denies nausea, vomiting, fever, chills, abdominal pain, diarrhea or vomiting. Review of signs otherwise negative. Orthopedics on board. Vitals/I&O's: Vital Signs Temp Pulse Resp BP Pulse Ox 98.5 F 59 L 14 144/78 H 96 07/14/20 08:41 07/14/20 08:41 07/14/20 08:41 07/14/20 08:41 07/14/20 08:41 Oxygen Delivery Method Room Air Weight: 166 lb 14.239 oz Body Mass Index (BMI) 28.6 Intake and Output for Last 24 Hours 07/12/20 07/13/20 07/14/20 23:59 23:59 23:59 Intake Total 1100 / 1100 1400 / 1400 Output Total 1150 / 1150 Balance 1100 / 1100 250 / 250 General: Alert, Oriented x3, Cooperative, No apparent distress HEENT: Atraumatic, PERRLA, EOMI, Normocephalic Oral: Moist Mucosa Neck: Supple, No JVD, Negative Carotid Bruits Lungs: Clear to auscultation, Normal air movement, No rhonchi, No wheeze, No rales Cardiovascular: Regular rate, Regular Rhythm, Normal S1, Normal S2, No murmurs Abdomen: Bowel Sounds Present, Soft, Non Tender, Non-Distended, No Hepato-splenomegaly Extremities: No clubbing, No cyanosis, No edema, Capillary Refill Less than 3 Seconds Skin: No rashes, No breakdown Musculoskeletal: - - Left hip tenderness with palpation. Neurological: Cranial nerves II-XII grossly intact, Neuro grossly intact Psych/Mental Status: Normal Affect, Appropriate, Alert and oriented to time, place, person, mood and affect Laboratory Results 07/14/20 05:18: WBC 7.3, RBC 4.80, Hgb 13.8, Hct 44.4, MCV 92.5, MCH 28.8, MCHC 31.1 L, RDW Std Deviation 48.6 H, RDW Coeff of Arsen 14.5, Plt Count 259, MPV 9.1, Immature Gran % (Auto) 0.700, Neut % (Auto) 69.0, Lymph % (Auto) 16.2 L, [place] % (Auto) 11.6 H, Eos % (Auto) 2.0, Baso % (Auto) 0.5, Absolute Neuts (auto) 5.1, Absolute Lymphs (auto) 1.19, Nucleated RBC % 0 07/14/20 05:18: Sodium 139, Potassium 3.5, Chloride 106, Carbon Dioxide 28.0, Anion Gap 5, BUN 10, Creatinine 0.63, Estim Creat Clear Calc 44.56, Est GFR (MDRD) Af Amer 120, Est GFR (MDRD) Non-Af 100, BUN/Creatinine Ratio 15.9, Glucose 94, Calcium 8.0 L Current Medications Acetaminophen (Tylenol) 650 mg PO Q6H PRN PRN PRN Reason: Pain Score 1-10/Temp > 100.7 F Last Admin: 07/13/20 18:44 Dose: 650 mg Documented by: Atenolol (Tenormin (Beta Phani)) 50 mg PO DINNER [facility] Last Admin: 07/13/20 16:26 Dose: 50 mg Documented by: Famotidine (Pepcid) 20 mg PO DAILY [facility] Last Admin: 07/13/20 05:11 Dose: 20 mg Documented by: Hydralazine HCl (Apresoline Iv) 5 mg IV Q6H PRN PRN PRN Reason: SBP > 160 Ibuprofen (Motrin) 400 mg PO Q6H PRN PRN PRN Reason: HEADACHE Last Admin: 07/13/20 22:38 Dose: 400 mg Documented by: Lactobacillus Acidophilus (Acidophilus) 1 tablet PO DAILY [facility] Last Admin: 07/14/20 07:48 Dose: 1 tablet Documented by: Leucovorin Calcium () 10 mg PO QWEEK@2200 [facility] Methotrexate (Methotrexate) 10 mg PO QWEEK [facility] Morphine Sulfate () 2 mg IV Q3H PRN PRN PRN Reason: Pain Score 6-10/10 Last Admin: 07/13/20 08:09 Dose: 2 mg Documented by: Ondansetron HCl (Zofran) 4 mg IV Q8H PRN PRN PRN Reason: NAUSEA/VOMITING Last Admin: 07/13/20 19:45 Dose: 4 mg Documented by: Oxycodone HCl (Oxyir) 5 mg PO Q4H PRN PRN PRN Reason: Pain Score 4-5/10 Last Admin: 07/13/20 16:23 Dose: 5 mg Documented by: Prednisone 5 mg/ Prednisone 2 (mg) 7 mg PO BIDCM [facility] Last Admin: 07/14/20 07:49 Dose: 7 mg Documented by: Ramipril (Altace) 5 mg PO DINNER [facility] Last Admin: 07/13/20 16:26 Dose: 5 mg Documented by: Senna/Docusate Sodium (Senokot-S, Odette-Colace) 2 tablet PO BID PRN PRN PRN Reason: Constipation Sodium Chloride () 10 - 40 ml IV UD PRN PRN Reason: SALINE FLUSH Last Admin: 07/13/20 19:45 Dose: 10 ml Documented by: STROKE Vital Signs/Narrative: Vital Signs Temp Pulse Resp BP Pulse Ox 07/14/20 08:41 98.5 F 59 L 14 144/78 H 96 07/14/20 07:50 95 Medical Necessity - Tobacco Use Smoking Status: Never smoker Assessment/Plan All Active Problems Fall (Acute) Hip pain (Acute) # Posterior left acetabular fracture due to mechanical fall pain is improving XRay of the hip was negative for any fracture MRI of the hip showed a posterior left acetabular fracture on IV morphine and PO oxycodone prn bowel protocol in place orthopedic surgery on board; advocate conservative management for now, and to have toe touch weight bearing on left lower extremity, as well as to use a walker for ambulation. PT/OT on board fall precautions # rheumatoid arthritis on methotrexate, leucovorina nd prednisone # Hypertension: on atenolol and ramipril DVT prophylaxis; lovenox Disposition: anticipate DC tomorrow. OBSV E&M: 50544 Subsequent observation care L2
[2020-07-14] MEDS: Ibuprofen 400 MG Tablet PO (13:29)
[2020-07-14] MEDS: oxyCODONE 5 MG Tablet PO (13:29)
[2020-07-14] MEDS: Rizatriptan Benzoate 10 MG Tablet PO (13:34)
[2020-07-14 13:43] VITALS: BP 130/69; PULSE 73; RESP 16; TEMP 36.7; O2SAT 97
[2020-07-14] MEDS: Atenolol 50 MG Tablet PO (17:00)
[2020-07-14] MEDS: Ramipril 5 MG Capsule PO (17:00)
[2020-07-14 20:17] VITALS: BP 143/83; PULSE 65; RESP 16; TEMP 36.6; O2SAT 99
[2020-07-14] MEDS: Famotidine 20 MG Tablet PO (20:23)
[2020-07-14] MEDS: 0.9% Saline Lock 10 ML Syringe IV (20:24)
[2020-07-15] VITALS (7 sets, daily range): BP systolic 134–159; BP diastolic 61–88; PULSE 64–75; RESP 16–18; TEMP 36.6–36.9; O2SAT 93–100
[2020-07-15] MEDS: oxyCODONE 5 MG Tablet PO ×4 (02:58→22:28)
--- NOTE | 2020-07-15 08:59 | PCM.PN.HOSP ---
Patient Problems: Active and Suspected Problems Fall (Acute) Hip pain (Acute) Subjective: Patient seen and examined. She was tearful, because she was concerned about the loss of her independence with the fracture. She wasnt able to tolerate therapy due to pain, and she said she felt anxious because she gets stiff with movement due to her arthritis. Review of systems otherwise negative. She is open to short term rehab for intensive physical therapy. Vitals/I&O's: Vital Signs Temp Pulse Resp BP Pulse Ox 97.9 F 72 18 134/61 H 97 07/15/20 08:21 07/15/20 08:21 07/15/20 08:21 07/15/20 08:21 07/15/20 08:21 Oxygen Delivery Method Room Air Weight: 166 lb 14.239 oz Body Mass Index (BMI) 28.6 Intake and Output for Last 24 Hours 07/13/20 07/14/20 07/15/20 23:59 23:59 23:59 Intake Total 1100 / 1100 2800 / 3200 400 / 400 Output Total 1500 / 1750 400 / 400 Balance 1100 / 1100 1300 / 1450 0 / 0 General: Alert, Oriented x3, Cooperative, No apparent distress HEENT: Atraumatic, PERRLA, EOMI, Normocephalic Oral: Moist Mucosa Neck: Supple, No JVD, Negative Carotid Bruits Lungs: Clear to auscultation, Normal air movement, No rhonchi, No wheeze, No rales Cardiovascular: Regular rate, Regular Rhythm, Normal S1, Normal S2, No murmurs Abdomen: Bowel Sounds Present, Soft, Non Tender, Non-Distended, No Hepato-splenomegaly Extremities: No clubbing, No cyanosis, No edema, Capillary Refill Less than 3 Seconds Skin: No rashes, No breakdown Musculoskeletal: - - Left hip tenderness with palpation. Neurological: Cranial nerves II-XII grossly intact, Neuro grossly intact Psych/Mental Status: Normal Affect, Appropriate, Alert and oriented to time, place, person, mood and affect Current Medications Acetaminophen (Tylenol) 650 mg PO Q6H PRN PRN PRN Reason: Pain Score 1-10/Temp > 100.7 F Last Admin: 07/13/20 18:44 Dose: 650 mg Documented by: Atenolol (Tenormin (Beta Phani)) 50 mg PO DINNER [facility] Last Admin: 07/14/20 17:00 Dose: 50 mg Documented by: Famotidine (Pepcid) 20 mg PO QHS [facility] Last Admin: 07/14/20 20:23 Dose: 20 mg Documented by: Hydralazine HCl (Apresoline Iv) 5 mg IV Q6H PRN PRN PRN Reason: SBP > 160 Ibuprofen (Motrin) 400 mg PO Q6H PRN PRN PRN Reason: HEADACHE Last Admin: 07/14/20 13:29 Dose: 400 mg Documented by: Lactobacillus Acidophilus (Acidophilus) 1 tablet PO DAILY [facility] Last Admin: 07/15/20 08:08 Dose: 1 tablet Documented by: Leucovorin Calcium () 10 mg PO QWEEK@2200 [facility] Methotrexate (Methotrexate) 10 mg PO QWEEK [facility] Morphine Sulfate () 2 mg IV Q3H PRN PRN PRN Reason: Pain Score 6-10/10 Last Admin: 07/13/20 08:09 Dose: 2 mg Documented by: Ondansetron HCl (Zofran) 4 mg IV Q8H PRN PRN PRN Reason: NAUSEA/VOMITING Last Admin: 07/13/20 19:45 Dose: 4 mg Documented by: Oxycodone HCl (Oxyir) 5 mg PO Q4H PRN PRN PRN Reason: Pain Score 4-5/10 Last Admin: 07/15/20 08:06 Dose: 5 mg Documented by: [facility] 5 mg/ [facility] Last Admin: 07/15/20 08:08 Dose: 7 mg Documented by: Ramipril (Altace) 5 mg PO DINNER [facility] Last Admin: 07/14/20 17:00 Dose: 5 mg Documented by: Rizatriptan Benzoate (Maxalt) 10 mg PO X1 PRN PRN Reason: MIGRAINE SYMPTOMS Last Admin: 07/14/20 13:34 Dose: 10 mg Documented by: Senna/Docusate Sodium (Senokot-S, Odette-Colace) 2 tablet PO BID PRN PRN PRN Reason: Constipation Sodium Chloride () 10 - 40 ml IV UD PRN PRN Reason: SALINE FLUSH Last Admin: 07/14/20 20:24 Dose: 10 ml Documented by: STROKE Vital Signs/Narrative: Vital Signs Temp Pulse Resp BP Pulse Ox 07/15/20 08:21 97.9 F 72 18 134/61 H 97 07/15/20 07:24 93 Medical Necessity - Tobacco Use Smoking Status: Never smoker Assessment/Plan All Active Problems Fall (Acute) Hip pain (Acute) # Posterior left acetabular fracture due to mechanical fall XRay of the hip was negative for any fracture MRI of the hip showed a posterior left acetabular fracture on IV morphine and PO oxycodone prn bowel protocol in place orthopedic surgery on board; advocate conservative management for now, and to have toe touch weight bearing on left lower extremity, as well as to use a walker for ambulation. PT/OT on board; patient not doing very well with physical therapy, open to placement for intensive rehab. fall precautions # rheumatoid arthritis on methotrexate, leucovorin and prednisone # Hypertension: on atenolol and ramipril DVT prophylaxis; lovenox Disposition:will need placement. OBSV E&M: 68159 Subsequent observation care L2
[2020-07-15] MEDS: Senna/Docusate Sodium 1 Tablet 2 TABLET PO (10:46)
[2020-07-15] MEDS: Glycerin/Hypromellose/PEG400 15 ml Bottle EACH EYE (16:41)
[2020-07-15] MEDS: Atenolol 50 MG Tablet PO (16:43)
[2020-07-15] MEDS: Ramipril 5 MG Capsule PO (16:43)
[2020-07-15] MEDS: 0.9% Saline Lock 10 ML Syringe IV (17:26)
[2020-07-15] MEDS: Rizatriptan Benzoate 10 MG Tablet PO (17:26)
[2020-07-15] MEDS: Famotidine 20 MG Tablet PO (22:29)
[2020-07-16 03:17] VITALS: BP 155/97; PULSE 75; RESP 18; TEMP 37; O2SAT 96
[2020-07-16] MEDS: oxyCODONE 5 MG Tablet PO ×2 (05:25→09:23)
[2020-07-16 09:06] VITALS: BP 161/107; PULSE 85; RESP 18; TEMP 36.7; O2SAT 99
[2020-07-16] MEDS: Acetaminophen 325 MG Tablet 650 MG PO (09:22)
[2020-07-16] MEDS: Senna/Docusate Sodium 1 Tablet 2 TABLET PO (09:23)
[2020-07-16] MEDS: Atenolol 50 MG Tablet PO (09:24)
[2020-07-16] MEDS: Ramipril 5 MG Capsule PO (09:24)
--- NOTE | 2020-07-16 10:20 | CASEMGMT ---
IOANA HENLEY Face to Face with patient for initial transition planning/care coordination assessment. IOANA HENLEY introduced self and role at [facility]. Patient lying in bed, alert and oriented, at bedside. Patient willing to participate in assessment and is able to answer all questions appropriately. Care providers, pharmacy, and demographics verified. Patient wishes to discharge to rehab unit vs SNF. IOANA HENLEY discussed each option and patient would like Rehab Unit. Patient states she has no further needs or concerns at this time. IOANA HENLEY updated SHAMIR Carlson regarding request for Inpatient Rehab Unit. PCP: Ada Specialists: Dhara, Barley Steeper; [facility]; Linda Mill Manager Preferred Pharmacy: [facility] Insurance: [facility], MMO Prescription Benefit: yes Living Will/HPOA: yes, Jamari Castellano LNOK: Living Arrangements: Patient lives with in a 2 story home with bed and bath on first floor. Patient states she was independent at home prior to hospitalization. Transportation: self, DME/HHC: Patient states denies DME in the home. Patient denies previous HHC or SNF Disposition Plan: Patient to discharge to Inpatient rehab unit. Shania STARKS, RN, CM
--- NOTE | 2020-07-16 12:12 | PN_ITS ---
Patient Problems: Active and Suspected Problems Fall (Acute) Hip pain (Acute) Subjective: Patient seen and examined. She still complains of back pain from the posterior acetabular fracture. She was feeling tired because she had little sleep during the night. She is awaiting placement. Labs and vitals reviewed. She has remained hemodynamically stable. Vitals/I&O's: Vital Signs Temp Pulse Resp BP Pulse Ox 98.0 F 85 18 161/107 H 99 07/16/20 09:06 07/16/20 09:06 07/16/20 09:06 07/16/20 09:06 07/16/20 09:06 Oxygen Delivery Method Room Air Weight: 166 lb 14.239 oz Body Mass Index (BMI) 28.6 Intake and Output for Last 24 Hours 07/14/20 07/15/20 07/16/20 23:59 23:59 23:59 Intake Total 2800 / 3200 1750 / 2050 500 / 500 Output Total 1500 / 1750 1100 / 1600 850 / 850 Balance 1300 / 1450 650 / 450 -350 / -350 General: Alert, Oriented x3, Cooperative, No apparent distress HEENT: Atraumatic, PERRLA, EOMI, Normocephalic Oral: Moist Mucosa Neck: Supple, No JVD, Negative Carotid Bruits Lungs: Clear to auscultation, Normal air movement, No rhonchi, No wheeze, No rales Cardiovascular: Regular rate, Regular Rhythm, Normal S1, Normal S2, No murmurs Abdomen: Bowel Sounds Present, Soft, Non Tender, Non-Distended, No Hepato- splenomegaly Extremities: No clubbing, No cyanosis, No edema, Capillary Refill Less than 3 Seconds Skin: No rashes, No breakdown Musculoskeletal: - - Left hip tenderness with palpation. Neurological: Cranial nerves II-XII grossly intact, Neuro grossly intact Psych/Mental Status: Normal Affect, Appropriate, Alert and oriented to time, place, person, mood and affect Laboratory Results 07/16/20 11:20: COVID-19 (TYLER) Pending Current Medications Acetaminophen (Tylenol) 650 mg PO Q6H PRN PRN PRN Reason: Pain Score 1-10/Temp > 100.7 F Last Admin: 07/16/20 09:22 Dose: 650 mg Documented by: Atenolol (Tenormin (Beta Phani)) 50 mg PO D[facility]NER [facility] Last Admin: 07/16/20 09:24 Dose: 50 mg Documented by: Famotidine (Pepcid) 20 mg PO QHS [facility] Last Admin: 07/15/20 22:29 Dose: 20 mg Documented by: Hydralazine HCl (Apresoline Iv) 5 mg IV Q6H PRN PRN PRN Reason: SBP > 160 Ibuprofen (Motrin) 400 mg PO Q6H PRN PRN PRN Reason: HEADACHE Last Admin: 07/14/20 13:29 Dose: 400 mg Documented by: Lactobacillus Acidophilus (Acidophilus) 1 tablet PO DAILY [facility] Last Admin: 07/16/20 09:23 Dose: 1 tablet Documented by: Leucovorin Calcium () 10 mg PO QWEEK@2200 [facility] Methotrexate (Methotrexate) 10 mg PO QWEEK [facility] Morphine Sulfate () 2 mg IV Q3H PRN PRN PRN Reason: Pain Score 6-10/10 Last Admin: 07/13/20 08:09 Dose: 2 mg Documented by: Ondansetron HCl (Zofran) 4 mg IV Q8H PRN PRN PRN Reason: NAUSEA/VOMITING Last Admin: 07/13/20 19:45 Dose: 4 mg Documented by: Oxycodone HCl (Oxyir) 5 mg PO Q4H PRN PRN PRN Reason: Pain Score 4-5/10 Last Admin: 07/16/20 09:23 Dose: 5 mg Documented by: Prednisone 5 mg/ [facility] Last Admin: 07/16/20 09:23 Dose: 7 mg Documented by: Ramipril (Altace) 5 mg PO DINNER [facility] Last Admin: 07/16/20 09:24 Dose: 5 mg Documented by: Rizatriptan Benzoate (Maxalt) 10 mg PO X1 PRN PRN Reason: MIGRAINE SYMPTOMS Last Admin: 07/15/20 17:26 Dose: 10 mg Documented by: Senna/Docusate Sodium (Senokot-S, Odette-Colace) 2 tablet PO BID PRN PRN PRN Reason: Constipation Last Admin: 07/16/20 09:23 Dose: 2 tablet Documented by: Sodium Chloride () 10 - 40 ml IV UD PRN PRN Reason: SALINE FLUSH Last Admin: 07/15/20 17:26 Dose: 10 ml Documented by: STROKE Vital Signs/Narrative: Vital Signs Temp Pulse Resp BP Pulse Ox 07/16/20 09:06 98.0 F 85 18 161/107 H 99 Medical Necessity - Tobacco Use Smoking Status: Never smoker Assessment/Plan All Active Problems Fall (Acute) Hip pain (Acute) # Posterior left acetabular fracture * due to mechanical fall * XRay of the hip was negative for any fracture * MRI of the hip showed a posterior left acetabular fracture * on IV morphine and PO oxycodone prn * bowel protocol in place * orthopedic surgery on board; advocate conservative management for now, and to have toe touch weight bearing on left lower extremity, as well as to use a walker for ambulation. * PT/OT on board * fall precautions * # rheumatoid arthritis * on methotrexate, leucovorin and prednisone * # Hypertension: on atenolol and ramipril DVT prophylaxis; lovenox Disposition: awaiting placement. COVID test ordered to facilitate placement. Inpatient E&M: 52010 Subs Hosp L2
--- NOTE | 2020-07-16 15:01 | PCM.TXEXTCAR ---
- Diet 07/13/20 04:17 Diet: Regular - General Food consistency:: Regular Liquid Consistency:: Regular/Thin - Routine Orders/Code Status Enema Type: Fleetz Enema Frequency: Daily PRN Suppository Type: Dulcolax 10mg Suppository Frequency: Daily PRN O2 Frequency: PRN Code Status: Full Code - Wound(s) right knee Wound Type: Abrasion - Therapies Weight Bearing: Weight bearing as tolerated Physical Therapy: Eval and Treat Occupational Therapy: Eval and Treat - Allergies/Procedures Done in Hospital Allergies/Adverse Reactions: Allergies No Known Allergies Allergy (Verified 07/13/20 00:08) Procedures: None - Type of Care/Length of Stay Estimated LOS: Convalescent Care Less Than 30 days Type of Care Needed: Skilled Rehab Potential: Good Prognosis: Good - Additional Orders/Day of Discharge Additional Orders: to be toe touch weight bearing only for now on LLE and to use walker for ambulation Day of Discharge: 07/16/20 - Follow Up Care Primary Care Physician: Ciara Caballero DO [Primary Care Provider] - Please follow up with your Primary Care Physician in: 1-2 weeks Please Follow Up With: Zeeshan Garrett DO When: 4-6 weeks
--- NOTE | 2020-07-16 15:03 | DS.PCM_ITS ---
Discharge Date and Diagnosis - Problem List Patient Problems: Active and Suspected Problems Fall (Acute) Hip pain (Acute) Date of Admission: 07/13/20 Date of Discharge: 07/16/20 - Primary Discharge Diagnosis Acute Problems: Active Problems Fall (Acute) Hip pain (Acute) - Secondary Discharge Diagnosis Chronic Problems: Chronic Problems Hypertension (Chronic) Rheumatoid arthritis (Chronic) Hospital Course and Treatment Operations: None Procedures: None Summary of Care Provided: The patient is a 70 year old F extensive past medical history as outlined was admitted through the ED on 07/13/2020 with a complaint of mechanical fall that happened a few hours before admission in the ED. Her toes were caught in between a dog leash while descending steep stairs at a friend's house and she tripped over and fell hitting her forehead against the grass. She started having severe pain in her foot and left hip. Pain was intractable. X-rays done were negative for any fracture. She was admitted and managed for intractable left hip pain and debility due to mechanical fall. Started on IV morphine and oxycodone as needed as well as Tylenol. Patient also had a history of rheumatoid arthritis and Sjogren's syndrome. Due to her persistent pain an MRI was obtained to definitely rule out a fracture and it showed a posterior left acetabular fracture. Orthopedic surgery was consulted and recommended conservative management with toe-touch weightbearing of left lower extremity as well as counseling her that this was a nonoperative fracture that would heal in about 8 to 12 weeks. Patient work with physical therapy but was in such severe pain that she could not do much. She was therefore amenable to being placed in a skilled facility for intensive rehab. Patient remained stable and was accepted in the inpatient rehab at the [facility] on 07/16/2020. She was discharged on 07/16/2020 and is to follow-up with her primary care doctor and orthopedic surgery. Of note, patient was also given a prescription for p.o. Tylenol as well as p.o. oxycodone 5 mg every 4 hours as needed for total of 18 pills to last 3 days. OARRS score was checked and no red flags were seen. Patient seen and examined prior to discharge. She complained of having had little sleep because she was up most of the night. She however had no other complaints. Review of symptoms otherwise negative. Pain was improving. Labs and vitals reviewed. Home Medication reviewed and reconciled. O/E: Vital Signs Temp Pulse Resp BP Pulse Ox 98.0 F 85 18 161/107 H 99 07/16/20 09:06 07/16/20 09:06 07/16/20 09:06 07/16/20 09:06 07/16/20 09:06 [] General: Alert, Oriented x3, Cooperative, No apparent distress HEENT: Atraumatic, PERRLA, EOMI, Normocephalic Oral: Moist Mucosa Neck: Supple, No JVD, Negative Carotid Bruits Lungs: Clear to auscultation, Normal air movement, No rhonchi, No wheeze, No rales Cardiovascular: Regular rate, Regular Rhythm, Normal S1, Normal S2, No murmurs Abdomen: Bowel Sounds Present, Soft, Non Tender, Non-Distended, No Hepato-splen omegaly Extremities: No clubbing, No cyanosis, No edema, Capillary Refill Less than 3 Seconds Skin: No rashes, No breakdown Musculoskeletal: - - Left hip tenderness with palpation. Neurological: Cranial nerves II-XII grossly intact, Neuro grossly intact Psych/Mental Status: Normal Affect, Appropriate, Alert and oriented to time, place, person, mood and affect Plan is for discharge to rehab unit today. Patient Problems: Active and Suspected Problems Fall (Acute) Hip pain (Acute) - Physical Exam Vitals/I&O's: Vital Signs Temp Pulse Resp BP Pulse Ox 98.0 F 85 18 161/107 H 99 07/16/20 09:06 07/16/20 09:06 07/16/20 09:06 07/16/20 09:06 07/16/20 09:06 Oxygen Delivery Method Room Air Weight: 166 lb 14.239 oz Body Mass Index (BMI) 28.6 Intake and Output for Last 24 Hours 07/14/20 07/15/20 07/16/20 23:59 23:59 23:59 Intake Total 2800 / 3200 1750 / 2050 500 / 500 Output Total 1500 / 1750 1100 / 1600 850 / 850 Balance 1300 / 1450 650 / 450 -350 / -350 Laboratory Results 07/16/20 11:20: COVID-19 (TYLER) Not Detected Current Medications Acetaminophen (Tylenol) 650 mg PO Q6H PRN PRN PRN Reason: Pain Score 1-10/Temp > 100.7 F Last Admin: 07/16/20 09:22 Dose: 650 mg Documented by: Atenolol (Tenormin (Beta Phani)) 50 mg PO DINNER [facility] Last Admin: 07/16/20 09:24 Dose: 50 mg Documented by: Famotidine (Pepcid) 20 mg PO QHS [facility] Last Admin: 07/15/20 22:29 Dose: 20 mg Documented by: Hydralazine HCl (Apresoline Iv) 5 mg IV Q6H PRN PRN PRN Reason: SBP > 160 Ibuprofen (Motrin) 400 mg PO Q6H PRN PRN PRN Reason: HEADACHE Last Admin: 07/14/20 13:29 Dose: 400 mg Documented by: Lactobacillus Acidophilus (Acidophilus) 1 tablet PO DAILY [facility] Last Admin: 07/16/20 09:23 Dose: 1 tablet Documented by: Leucovorin Calcium () 10 mg PO QWEEK@2200 [facility] Methotrexate (Methotrexate) 10 mg PO QWEEK [facility] Morphine Sulfate () 2 mg IV Q3H PRN PRN PRN Reason: Pain Score 6-10/10 Last Admin: 07/13/20 08:09 Dose: 2 mg Documented by: Ondansetron HCl (Zofran) 4 mg IV Q8H PRN PRN PRN Reason: NAUSEA/VOMITING Last Admin: 07/13/20 19:45 Dose: 4 mg Documented by: Oxycodone HCl (Oxyir) 5 mg PO Q4H PRN PRN PRN Reason: Pain Score 4-5/10 Last Admin: 07/16/20 09:23 Dose: 5 mg Documented by: [facility]one 5 mg/ [facility] Last Admin: 07/16/20 09:23 Dose: 7 mg Documented by: Ramipril (Altace) 5 mg PO DINNER [facility] Last Admin: 07/16/20 09:24 Dose: 5 mg Documented by: Rizatriptan Benzoate (Maxalt) 10 mg PO X1 PRN PRN Reason: MIGRAINE SYMPTOMS Last Admin: 07/15/20 17:26 Dose: 10 mg Documented by: Senna/Docusate Sodium (Senokot-S, Odette-Colace) 2 tablet PO BID PRN PRN PRN Reason: Constipation Last Admin: 07/16/20 09:23 Dose: 2 tablet Documented by: Sodium Chloride () 10 - 40 ml IV UD PRN PRN Reason: SALINE FLUSH Last Admin: 07/15/20 17:26 Dose: 10 ml Documented by: Discharge Diet: Low fat/ Low Cholesterol Discharge Activity: - - toe touch weight bearing. Weight Bearing Status: Toe touch weight bearing Home Medications: Medications to take at Discharge Atenolol [Tenormin] 50 mg PO DAILY 03/13/17 Cyclosporine [Restasis] 1 each OP DAILY 03/13/17 Ramipril [Altace] 5 mg PO DAILY 03/13/17 Sumatriptan Succinate 50 mg PO PRN PRN 03/13/17 Lactobacillus Combination No.4 [Probiotic] 1 capsule PO DAILY 03/15/17 predniSONE tablet 7 mg PO BID 10/14/18 Methotrexate 4 tab PO QWEEK 05/04/20 Famotidine 20 mg PO DAILY PRN PRN 07/13/20 Leucovorin Calcium 10 mg PO DAILY 07/13/20 Acetaminophen [Tylenol Tablet] 650 mg PO Q6H PRN PRN #30 tab 07/16/20 Oxycodone [Oxyir] 5 mg PO Q4H PRN PRN 3 Days #18 tab 07/16/20 Following Prescriptions Were Given to Patient: Oxycodone [Oxyir] 5 mg PO Q4H PRN PRN 3 Days #18 tab PRN Reason: Pain Score 4-5/10 Prescription Printed Acetaminophen [Tylenol Tablet] 650 mg PO Q6H PRN PRN #30 tab PRN Reason: Pain Score 1-10/Temp > 100.7 F Prescription Printed Primary Care Physician: Ciara Caballero DO [Primary Care Provider] - Please follow up with your Primary Care Physician in: 1-2 weeks Please Follow Up With: Zeeshan Garrett DO When: 4-6 weeks Patient Instructions: ED Sprain Hip Disposition: Retirement facility Minutes spent on discharge:: 40 Patient Condition:: Stable Medical Necessity - Tobacco Use Smoking Status: Never smoker Meaningful Use Info Meaningful Use Diagnoses (Choose all that apply): None applicable Inpatient E&M: 54561 Disch Hosp
[2020-07-16 15:39] VITALS: BP 124/75; PULSE 65; RESP 16; TEMP 36.9; O2SAT 96
--- NOTE | 2020-07-16 16:07 | CASEMGMT ---
Addendum entered by Shania Carlson 07/16/20 17:10: SW updated RN that pt can go to [facility] today. Original Note: Social Work Note SW placed a call to [facility] with [facility]. [facility] would have a bed today. SHAMIR received call from Ashly with [facility] stating [facility] is able to accept pt today. SHAMIR updated Ashly that pt is medically ready for discharge today. SW in to speak with pt. SW introduced self and role at [facility]. Pt is alert and orientated x3. SHAMIR updated pt that [facility] is able to accept pt today. Pt states understanding. Plan: [facility] today Shania Carlson MANAGING CONSULTANT, CHIEF OPERATOR HYDROFORMER
== END 2020-07-16 18:29 | disposition skilled nursing facility (03) | DRG 536 ==
LOC: ED 00:54 → MS3 03:36
PROVIDERS: Admitting Provider Hospitalist; Emergency Provider Emergency Medicine; PCP Internal Medicine; Referring Provider Hospitalist; Visit Provider Student in an Organized Health Care Education/Training Program
DX: S32.425A Nondisplaced fracture of posterior wall of left acetabulum, initial encounter for closed fracture (principal); S80.211A Abrasion, right knee, initial encounter; M06.9 Rheumatoid arthritis, unspecified; M35.00 Sjogren syndrome, unspecified; I10 Essential (primary) hypertension; M79.7 Fibromyalgia; W18.09XA Striking against other object with subsequent fall, initial encounter; Y93.9 Activity, unspecified; Y92.9 Unspecified place or not applicable; Z79.899 Other long term (current) drug therapy
CPT/HCPCS: 36415; 70450; 72195; 73502; 73564; 73630; 80048; 85025; 87635; 90471; 90715; 97110; 97116; 97162; 97165; 97530; 99285; C9803; A4216; J2405; U0003

== ENCOUNTER 2020-07-16 19:01 | Inpatient (IN) | payer MEDICARE, OTHER, SELFPAY ==
[2020-07-13 04:20] VITALS: BMI 28.6
[2020-07-16 19:31] VITALS: BP 140/72; PULSE 69; RESP 16; TEMP 36.7; O2SAT 96; BMI 28.0; BMI 28.6
[2020-07-16] MEDS: Acetaminophen 500 MG Tablet 1000 MG PO (20:50)
[2020-07-16] MEDS: Famotidine 20 MG Tablet PO (20:59)
[2020-07-17] MEDS: Acetaminophen 500 MG Tablet 1000 MG PO ×3 (05:01→20:44)
--- NOTE | 2020-07-17 08:39 | PCM.HP.STD ---
Problem List (1) Fall Status: Acute Qualifiers: Encounter type: subsequent encounter Qualified Code(s): W19.XXXD - Unspecified fall, subsequent encounter Comment: Fall on 07/13/20 - no LOC. Tripped and fell face first into the grass/driveway (2) Hypertension Status: Chronic Qualifiers: (3) Rheumatoid arthritis Status: Chronic (4) History of migraine headaches Status: Chronic (5) Chronic steroid use Status: Chronic (6) Fibromyalgia Status: Chronic (7) Sjogrens syndrome Status: Chronic (8) Closed left acetabular fracture Status: Acute Qualifiers: Encounter type: subsequent encounter Comment: fell on 07/13/20 sustaining a closed fracture of the left posterior acetabulum......non-surgical (9) Physical debility Status: Acute Comment: due to left acetabular fracture (10) Osteoporosis Status: Chronic (11) Medical marijuana use Status: Chronic History of Present Illness Date of Admission: 07/16/20 Chief Complaint: Left hip pain and painful ambulation due to left acetabular fracture sustained in a fall on 07/13/2020. The patient is a 70 year old F with a past medical history of hypertension, rheumatoid arthritis, chronic prednisone use, osteoporosis, fibromyalgia, Sjogren's syndrome, medical marijuana usage and history of migraine headaches who presented to the emergency department at [facility] on 07/13/2020 after a fall with complaints of Left hip pain. Plain x-ray in the emergency department revealed no fracture of the pelvis or left hip. X-rays of the left hip and left foot also showed no acute fractures. She continued to complain of pain and an MRI of the pelvis was obtained and showed a nondisplaced left posterior acetabular fracture. She was seen by PT/OT and acute rehab was recommended. She was admitted to the rehab unit at [facility] on 07/16/2020 for debility secondary to a fall resulting in a left nondisplaced posterior acetabular fracture. She will have 3 hours of therapy daily to restore her function at or near her prior level of independence. She lives with her in a two-story home and has 2 steps to enter the house. Prior to the fall she was independent with all ADLs, ambulation (without an AD) and driving. There is a walk-in shower and built in shower seat. There are no grab bars in the shower or near the toilet. Past Medical History Past Medical History (Chronic Problems): Chronic Problems History of migraine headaches (Chronic) Chronic steroid use (Chronic) Fibromyalgia (Chronic) Sjogrens syndrome (Chronic) Osteoporosis (Chronic) Medical marijuana use (Chronic) Hypertension (Chronic) Rheumatoid arthritis (Chronic) Allergies No Known Allergies Allergy (Verified 07/13/20 00:08) Home Medications: Ambulatory Orders Medication Instructions Recorded Atenolol [Tenormin] 50 mg PO DAILY 03/13/17 Cyclosporine [Restasis] 1 each OP DAILY 03/13/17 Ramipril [Altace] 5 mg PO DAILY 03/13/17 Sumatriptan Succinate 50 mg PO PRN PRN 03/13/17 Lactobacillus Combination No.4 1 capsule PO DAILY 03/15/17 [Probiotic] predniSONE tablet 7 mg PO BID 10/14/18 Methotrexate 4 tab PO FR 05/04/20 Famotidine 20 mg PO DAILY PRN PRN 07/13/20 Leucovorin Calcium 10 mg PO FR 07/13/20 Acetaminophen [Tylenol Tablet] 650 mg PO Q6H PRN PRN #30 tab 07/16/20 Oxycodone [Oxyir] 5 mg PO Q4H PRN PRN 3 Days #18 tab 07/16/20 Surgical History: cataract, herniorrhaphy, tonsillectomy, - - Incision and drainage of left elbow abscess 03/16/17, foot surgery, removal of right ovary and tube, laparoscopy, TMJ surgery, repair of femoral hernia, nasal surgery due to nasal fracture Psychiatric History: No pertinent psych hx 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 History: No pertinent 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 history Lives: Spouse/ Significant Other Tobacco Use: - - medical marijuana Drugs: Marijuana - *Family History Maternal History Items: Diabetes Paternal History Items: COPD, Heart Disease, Stroke Review of Systems Constitutional: Denies: Chills, Fever, Weight Change Eyes: Denies: Blurred vision, Redness, Vision Change HEENT: Denies: Difficulty Swallowing, Head Aches, Sinus Congestion, Sinus Drainage, Sore Throat, Visual Changes Cardiovascular: Denies: Chest Pain, Palpitations Respiratory: Denies: Cough, Shortness of breath at rest, Sputum production Gastrointestinal: Denies: Abdominal Pain, Constipation, Diarrhea, Nausea, Vomiting Genitourinary: Denies: Dysuria Musculoskeletal: Reports: Joint Pain - multiple joints due to RA and the Left buttock and left lateral hip due to L posterior acetabular fx, Joint stiffness, Joint Tenderness Skin: Denies: Dryness, Jaundice, Rash, Wounds Neurological: Reports: Balance problems. Denies: Slurred speech, Focal weakness, Numbness, Tingling, Tremor, Seizures Psychiatric: Denies: Anxiety, Depression, Homicidal Ideations, Suicidal Ideations Hematologic/ Lymphatic: Denies: Easy Bruising, Easy Bleeding, Hx of blood clot VTE Information - Inpt Only VTE Present on Admission: No VTE Mechan Device Prophylaxis: Knee High FRANKIE Hose VTE Pharm Prophylaxis ordered?: Yes Patient Problems: Active and Suspected Problems Closed left acetabular fracture (Acute) fell on 07/13/20 sustaining a closed fracture of the left posterior acetabulum......non-surgical Physical debility (Acute) due to left acetabular fracture - Physical Exam Vitals/I&O's: Vital Signs Temp Pulse Resp BP Pulse Ox 98.0 F 69 16 140/72 H 96 07/16/20 19:31 07/16/20 19:31 07/16/20 19:31 07/16/20 19:31 07/16/20 19:31 Oxygen Delivery Method Room Air Weight: 173 lb 8.061 oz Body Mass Index (BMI) 28.6 Intake and Output for Last 24 Hours 07/15/20 07/16/20 07/17/20 23:59 23:59 23:59 Intake Total 120 / 120 Output Total 400 / 550 300 / 300 Balance -280 / -430 -300 / -300 General: Alert, Oriented x3, Cooperative, No apparent distress, Well developed, Well nourished HEENT: Atraumatic, PERRLA, EOMI, Normocephalic Oral: Moist Mucosa, No Gingival or Mucosal Lesions/ Ulcerations Neck: Supple, No JVD, Negative Carotid Bruits, Trachea Midline Lungs: Clear to auscultation, Normal air movement Cardiovascular: Regular rate, Regular Rhythm, Normal S1, Normal S2, No murmurs, No Ectopic Activity, No rub noted, No Gallop Abdomen: Bowel Sounds Present, Soft, Non Tender, Non-Distended, - - No abdominal bruits Extremities: No clubbing, No cyanosis, No edema, - - Radial pulses are 3/3 bilaterally Skin: No rashes, No breakdown Musculoskeletal: Arthritic Changes Neurological: Cranial nerves II-XII grossly intact, Neuro grossly intact Psych/Mental Status: Normal Affect, Appropriate Current Medications Acetaminophen (Tylenol) 1,000 mg PO Q8 [facility] Last Admin: 07/17/20 05:01 Dose: 1,000 mg Documented by: Atenolol (Tenormin (Beta Phani)) 50 mg PO DAILY [facility] Bisacodyl (Dulcolax) 10 mg RECTAL .PRN X 1 PRN PRN Reason: Constipation Famotidine (Pepcid) 20 mg PO DAILY@2200 [facility] Lactobacillus Acidophilus (Acidophilus) 1 tablet PO DAILY [facility] Leucovorin Calcium () 10 mg PO Fr@2200 [facility] Magnesium Hydroxide (Milk Of Magnesia) 30 ml PO .PRN X 1 PRN PRN Reason: Constipation Methotrexate (Methotrexate) 10 mg PO QWEEK [facility] Oxycodone HCl (Oxyir) 5 mg PO Q4H PRN PRN PRN Reason: Pain Score 4-10/10 Prednisone () 10 mg PO DAILY@0800 [facility] Ramipril (Altace) 5 mg PO DAILY [facility] Assessment/Plan All Active Problems Fall (Acute) Closed left acetabular fracture (Acute) Physical debility (Acute) Infected elbow (Resolved) Positive blood culture for staph aureus (Resolved) Impressions 1. Physical debility secondary to a fall on 07/13/2020 resulting in a left nondisplaced posterior acetabular fracture 2. Closed nondisplaced left posterior acetabular fracture 3. Left hip pain impairing her ability to ambulate-previously ambulated without an assistive device 4. Rheumatoid arthritis 5. Chronic steroid usage 6. Sjogren's syndrome 7. Fibromyalgia 8. Hypertension 9. Osteoporosis 10. Medical marijuana usage PLAN PT for gait stability OT for ADL's Analgesics as needed - would like to limit Oxycodone. Will add Marinol at night and if this is effective may increase to BID. Start Compounded arthritic cream Bowel protocol Fall precautions Assess for Anxiety/Depression GI prophylaxis with famotidine DVT prophylaxis with Lovenox 40 daily Follow up with Dr. Dyson and Dr. Garrett following DC from Rehab Consider a NSAID - will discuss with her manual BP's due to increased pain and thus increased pressure with the automatic cuff Decrease prednisone to 7 mg p.o. daily. Inpatient E&M: 05582 Init Hosp L3
[2020-07-17 09:00] VITALS: BP 164/96
[2020-07-17] MEDS: predniSONE 10 MG Tablet PO (09:03)
[2020-07-17] MEDS: Ramipril 5 MG Capsule PO (09:04)
[2020-07-17] MEDS: Atenolol 50 MG Tablet PO (09:04)
[2020-07-17 09:35] VITALS: BP 157/104; PULSE 71; RESP 16; TEMP 36.9; O2SAT 98
[2020-07-17 13:30] VITALS: BP 152/72
[2020-07-17 20:00] VITALS: PULSE 73; RESP 18; O2SAT 18
[2020-07-17 20:31] VITALS: BP 134/74; PULSE 73; RESP 18; TEMP 36.6; O2SAT 95
[2020-07-17] MEDS: Arthritis Pain Compound 60 CLICK TUBE TOPICAL (20:35)
[2020-07-17] MEDS: Famotidine 20 MG Tablet PO (20:44)
[2020-07-17] MEDS: Dronabinol 2.5 MG Capsule PO (20:44)
[2020-07-18] MEDS: Acetaminophen 500 MG Tablet 1000 MG PO ×3 (05:50→21:25)
[2020-07-18 07:50] VITALS: BP 140/82; PULSE 74; RESP 18; TEMP 37; O2SAT 99
--- NOTE | 2020-07-18 08:49 | REHABEVAL_ITS ---
Admission Information Primary Diagnosis:: Physical debility secondary to fall with fracture of the left posterior acetabulum and exacerbation of rheumatoid arthritis pain Status Changes from Prescreening?: No changes Identified Actual Problem List:: Falls, Skin Intergrity, Mobility Impaired, Self Care Deficit, Alteration-Leisure Activ. Potential Problem List:: DVT, Bleeding, Infection, UTI, Aspiration, Falls, Skin Integrity, Depression Risk of Complications DVT: LMWH, FRANKIE Hose Bleeding: Monitor Lab Values, Nursing to Teach Precautions for anti-coagulation therapy., Wound, if applicable, to be assessed every shift., Stroke patients assessed for lethargy or change in status. Infection: Clinical Staff to Monitor for S/S of infection:, S/S of infection include fever, redness, warmth, etc. Urinary Tract Infection: Monitor for frequency, burning, discomfort, or incontinence., Nursing will obtain urine sample for urinalysis and C&S when ordered. Aspiration: Clinical staff will monitor for coughing, drooling, congestion., Speech will evaluate swallowing and dsyphasia., Nursing will monitor patient swallowing during meals. Falls: Patient will be evaluated for Fall Precautions, Patient will be placed on Fall Precautions as indicated per protocol. Skin Breakdown: Nursing will assess skin daily using assessment tool., Nursing will place on Skin Breakdown Precautions as indicated. Pain: Clinical staff will assess patient's pain level per protocol., Medications will be given, if needed, and the pain level reassessed., Other methods: Massage, distraction, decrease stimulus, etc. used PRN. Plan of Care Patient requires physician specializing in physical medicine and rehab oversight to provide close medical supervision of rehab issues including: Pain Management, Sleep Problems, Bowel and Bladder, Medical and co-morbidity Management, DVT prophylaxis, Rehabilitation Leadership, Coordination of treatment team Patient needs Physical Therapy: For a minimum of 1 hour, At least 5 out of 7 days Patient needs Physical Therapy to improve:: Mobility, Mobility, Mobility, Strengthening, Transfers, Stretching, ROM, Endurance, Stairs, Gait, Balance Patient needs Occupational Therapy: For a minimum of 1 hour, At least 5 out of 7 days Patient needs Occupational Therapy to improve ADL's incl.: Eating, Grooming, Bathing, Dressing, Toileting, Toilet transfers, Community Reintegration, Higher functioning activities, Household tasks, Adaptive Equipment, Splinting, Other activities as determined Patient requires 24/ Rehabilitation Nursing for: Pain Issues, Identifying and preventing risk factors, Monitoring and reporting current medical conditions, Assisting with ambulation, transfer, and all ADL's, Teaching patients about disease process and medications, Family teaching, Providing safe environment, Bowel and Bladder Issues, Skin integrity, Medication Management Patient needs Inner Tube Cutter/ Case Management for: Discharge Planning, Arranging Home Equipment or Services, Family Interventions Patient needs Dietary and Nutrition Services for: Adequate Nutrition, Nutritional Supplements, Nutritional Education Goals Patient will remain: free from falls Patient will perform bed mobility at: MOD I level of assist. Patient will complete transfers from bed to chair at: MOD I level of assist. Patient will ambulate: - - 20 feet with standby assist and a wheeled walker Patient will propel wheelchair: - - 150 feet on various surfaces Patient will complete upper body dressing at: MOD I level of assist. Patient will complete lower body dressing at: MOD I level of assist. Patient will complete toileting at: MOD I level of assist. Patient will perform bathing at: MOD I level of assist. Patient will complete grooming at: MOD I level of assist. Patient will complete home management skills at: MOD I level of assist. Patient will achieve: - - 2 steps with 1 handrail to allow her to get into her home Patient will have pain level of: of 3 or less Patient's skin will: remain intact Patient will receive: adequate nutrition. Discharge Planning Pt Prognosis for Sig. Practical Improv. w/in Reasonable Time: Good Estimated Length of stay (days): 14 Anticipated D/C Destination: Home with Outpt Therapy Was Preadmission Assessment Accurate?: Yes
[2020-07-18] MEDS: Arthritis Pain Compound 60 CLICK TUBE TOPICAL ×3 (09:20→21:25)
--- NOTE | 2020-07-18 11:43 | PCM.PN.BLA ---
Progress Note Afebrile Vital signs stable Maintaining appropriate oxygen saturation on room air Tells me that the Marinol helped with her pain last night. The arthritic cream is also helping with pain and she is not had to have any OxyIR since admission to rehab. Denies nausea/vomiting/abdominal pain/shortness of breath/calf pain. Alert, oriented x3, no apparent distress, sitting in the recliner at the bedside. Mucous membranes are moist Lungs-clear to auscultation Heart-regular rate and rhythm, no murmur, no rub, no gallop Abdomen-soft, nontender,, nondistended, normal bowel sounds No peripheral edema No calf pain Impressions 1. Physical debility secondary to recent mechanical fall with nondisplaced fracture of the left posterior acetabulum 2. Rheumatoid arthritis 3. Chronic pain syndrome 4. Fibromyalgia Increase the arthritic compounded cream to 3 times daily Increase Marinol to 2.5 mg p.o. twice daily Continue PT/OT Exercise program at discharge STROKE Vital Signs/Narrative: Vital Signs Temp Pulse Resp BP Pulse Ox 07/18/20 07:50 98.6 F 74 18 140/82 H 99 Inpatient E&M: 29615 Subs Hosp L2
[2020-07-18 19:36] VITALS: BP 138/82; PULSE 91; RESP 18; TEMP 36.8; O2SAT 98
[2020-07-18 21:20] VITALS: PULSE 91; RESP 18; O2SAT 98
[2020-07-18] MEDS: Famotidine 20 MG Tablet PO (21:25)
[2020-07-18] MEDS: Ramipril 5 MG Capsule PO (21:26)
[2020-07-18] MEDS: Atenolol 50 MG Tablet PO (21:26)
[2020-07-18] MEDS: Dronabinol 2.5 MG Capsule PO (21:26)
[2020-07-19] MEDS: Arthritis Pain Compound 60 CLICK TUBE TOPICAL ×3 (06:09→21:23)
[2020-07-19] MEDS: Enoxaparin 40 MG/0.4 ML Syringe SC (06:10)
[2020-07-19] MEDS: Glycerin/Hypromellose/PEG400 15 ml Bottle EACH EYE (06:10)
[2020-07-19] MEDS: Acetaminophen 500 MG Tablet 1000 MG PO ×3 (06:10→21:24)
[2020-07-19] MEDS: Methotrexate 2.5 MG Tablet 10 MG PO (07:45)
[2020-07-19 09:00] VITALS: BP 160/86; PULSE 67; RESP 18; TEMP 36.6; O2SAT 96
[2020-07-19] MEDS: Dronabinol 2.5 MG Capsule PO ×2 (10:48→21:24)
[2020-07-19] MEDS: Loperamide 2 MG Capsule PO (17:38)
[2020-07-19] MEDS: Ramipril 5 MG Capsule PO (21:23)
[2020-07-19] MEDS: Famotidine 20 MG Tablet PO (21:24)
[2020-07-19] MEDS: Atenolol 50 MG Tablet PO (21:24)
[2020-07-19 21:55] VITALS: BP 142/84; PULSE 84; RESP 18; TEMP 36.7; O2SAT 98
[2020-07-20] MEDS: Acetaminophen 500 MG Tablet 1000 MG PO ×3 (06:37→21:36)
[2020-07-20] MEDS: Enoxaparin 40 MG/0.4 ML Syringe SC (06:37)
[2020-07-20] MEDS: Arthritis Pain Compound 60 CLICK TUBE TOPICAL ×3 (06:38→21:36)
[2020-07-20 08:44] VITALS: BP 124/78; PULSE 78; RESP 16; TEMP 36.7; O2SAT 96
[2020-07-20] MEDS: Dronabinol 2.5 MG Capsule PO ×2 (09:58→21:36)
[2020-07-20] MEDS: Loperamide 2 MG Capsule PO ×2 (09:58→16:42)
[2020-07-20] MEDS: Ramipril 5 MG Capsule PO (21:36)
[2020-07-20] MEDS: Famotidine 20 MG Tablet PO (21:36)
[2020-07-20] MEDS: Atenolol 50 MG Tablet PO (21:36)
[2020-07-20 22:00] VITALS: BP 156/86; PULSE 72; RESP 18; TEMP 36.8; O2SAT 98
[2020-07-21] MEDS: Acetaminophen 500 MG Tablet 1000 MG PO ×3 (06:49→22:24)
[2020-07-21] MEDS: Enoxaparin 40 MG/0.4 ML Syringe SC (06:49)
[2020-07-21] MEDS: Arthritis Pain Compound 60 CLICK TUBE TOPICAL ×2 (06:49→15:17)
[2020-07-21] MEDS: Loperamide 2 MG Capsule PO (08:21)
[2020-07-21] MEDS: Dronabinol 2.5 MG Capsule PO ×2 (08:21→22:25)
[2020-07-21 08:36] VITALS: BP 136/76; PULSE 70; RESP 16; TEMP 36.3; O2SAT 96
[2020-07-21 22:05] VITALS: BP 150/88; PULSE 79; RESP 16; TEMP 36.6; O2SAT 98
[2020-07-21] MEDS: Ramipril 5 MG Capsule PO (22:24)
[2020-07-21] MEDS: Famotidine 20 MG Tablet PO (22:24)
[2020-07-21] MEDS: Atenolol 50 MG Tablet PO (22:24)
[2020-07-22] MEDS: Acetaminophen 500 MG Tablet 1000 MG PO ×3 (06:11→19:59)
[2020-07-22] MEDS: Arthritis Pain Compound 60 CLICK TUBE TOPICAL ×3 (06:12→21:58)
[2020-07-22] MEDS: Enoxaparin 40 MG/0.4 ML Syringe SC (06:12)
[2020-07-22] MEDS: Dronabinol 2.5 MG Capsule PO ×2 (08:44→19:58)
[2020-07-22] MEDS: Loperamide 2 MG Capsule PO (08:44)
[2020-07-22 09:00] VITALS: PULSE 96; RESP 16; TEMP 36.4; O2SAT 97
[2020-07-22 09:02] VITALS: BP 138/70
--- NOTE | 2020-07-22 10:30 | CASEMGMT ---
Addendum entered by Taryn Ramirez 07/22/20 10:40: Pt would like outpatient therapy at [facility]. Referral made for PT/OT/ST. Original Note: Social Work IDT met with patient and for Team meeting. Discussed patient's progress in therapy. Pt is ambulating 80ft with FWW SBA maintaining TTBWS, SBA for tx. to install second handrail for 3 steps to enter. Pt to trial steps this day. Pt is SBA for all ADLs. Explained Medicare approved 13 days with [facility] 07/29. However, pt requesting to DC 07/27 - IDT agreeable. Will follow for DC needs. Taryn Ramirez, [employer]
--- NOTE | 2020-07-22 18:21 | PCM.PN.BLA ---
Progress Note Mehnaz was seen on team rounds today. Her Jamari was present. Afebrile VSS Maintaining appropriate oxygen saturation on RA Oral intake is good Discussed with nursing - no problems that need addressed. She is sleeping well. Reviewed the PT/OT notes Medication list reviewed. She is doing well with therapy and is very surprised that her pain is well controlled......jerardo since she has not had to take Oxycodone since arrival on the rehab unit She tells me she now realizes the importance of regular exercise and treating exercise as a prescription to keep the pain controlled and keep her function up. We discussed the fact that regular exercise is a mainstay in the tx of fibromyalgia Alert, NAD Lungs - CTA HRRR no calf tenderness no red joints although she has joint tenderness no rashes Marinol has been very helpful for pain control Impressions 1. Physical debility secondary to recent mechanical fall with nondisplaced fracture of the left posterior acetabulum 2. Rheumatoid arthritis 3. Chronic pain syndrome 4. Fibromyalgia Continue current medications Would like a RX for the arthritic cream and the Marinol at [place] Continue therapy
--- NOTE | 2020-07-22 18:21 | NURSING ---
Limited mobility at times due to severe sciatic pain that runs down entire Left buttock down to my knee. Pain relief cream applied per Dr. Sykes order. Gait steady, TTWB precautions maintained.
[2020-07-22 19:45] VITALS: BP 160/78; PULSE 73; RESP 18; TEMP 36.9; O2SAT 97
[2020-07-22] MEDS: Famotidine 20 MG Tablet PO (19:58)
[2020-07-22] MEDS: Atenolol 50 MG Tablet PO (19:58)
[2020-07-22] MEDS: Ramipril 5 MG Capsule PO (19:59)
--- NOTE | 2020-07-23 02:24 | NURSING ---
Reviewed and agree with BILINGUAL MANAGER documentation and charting.
[2020-07-23] MEDS: Enoxaparin 40 MG/0.4 ML Syringe SC (05:26)
[2020-07-23] MEDS: Acetaminophen 500 MG Tablet 1000 MG PO ×3 (05:26→22:03)
[2020-07-23] MEDS: Arthritis Pain Compound 60 CLICK TUBE TOPICAL ×3 (06:50→22:07)
[2020-07-23] MEDS: Dronabinol 2.5 MG Capsule PO ×2 (07:24→22:03)
[2020-07-23 08:08] VITALS: BP 126/76; PULSE 69; RESP 16; TEMP 36.5; O2SAT 96
[2020-07-23 19:34] VITALS: BP 136/70; PULSE 69; RESP 18; TEMP 36.7; O2SAT 92
[2020-07-23 22:00] VITALS: RESP 16
[2020-07-23] MEDS: Famotidine 20 MG Tablet PO (22:03)
[2020-07-23] MEDS: Atenolol 50 MG Tablet PO (22:03)
[2020-07-23] MEDS: Ramipril 5 MG Capsule PO (22:04)
[2020-07-24 09:16] VITALS: BP 130/78; PULSE 72; RESP 16; TEMP 36.8; O2SAT 97
[2020-07-24 09:20] VITALS: PULSE 72
[2020-07-24] MEDS: Arthritis Pain Compound 60 CLICK TUBE TOPICAL ×2 (09:24→21:43)
[2020-07-24] MEDS: Acetaminophen 500 MG Tablet 1000 MG PO ×3 (09:25→21:42)
[2020-07-24] MEDS: Enoxaparin 40 MG/0.4 ML Syringe SC (09:25)
[2020-07-24] MEDS: Dronabinol 2.5 MG Capsule PO ×2 (09:29→21:43)
[2020-07-24 16:22] VITALS: BP 140/82; PULSE 75; RESP 18; TEMP 36.5; O2SAT 96
--- NOTE | 2020-07-24 19:08 | PCM.PN.BLA ---
Progress Note AF, VSS NAD, sitting in the recliner at the bedside Maintaining appropriate O2 sat on RA Pain is actually much better than expected. Has not had to use any narcotics. She is ambulating well with WW with no LOB Alert, oriented x3 Lungs-clear to auscultation Heart-regular rate and rhythm Abdomen-soft, nontender, nondistended, bowel sounds present No peripheral edema Impressions 1. Physical debility secondary to recent fall resulting in a nondisplaced closed fracture of the left posterior acetabulum 2. Acute left hip pain on chronic pain syndrome 3. Rheumatoid arthritis 4. Fibromyalgia Continue current medications Continue therapy STROKE Vital Signs/Narrative: Vital Signs Temp Pulse Resp BP Pulse Ox 07/24/20 16:22 97.7 F L 75 18 140/82 H 96 Inpatient E&M: 89121 Subs Hosp L1
[2020-07-24 19:44] VITALS: BP 140/82; PULSE 75; RESP 18; TEMP 36.5; O2SAT 96
[2020-07-24 21:40] VITALS: PULSE 75; RESP 18; O2SAT 96
[2020-07-24] MEDS: Atenolol 50 MG Tablet PO (21:43)
[2020-07-24] MEDS: Ramipril 5 MG Capsule PO (21:43)
[2020-07-24] MEDS: Famotidine 20 MG Tablet PO (21:43)
--- NOTE | 2020-07-25 02:17 | NURSING ---
Reviewed and agree with PESTICIDE CHEMIST documentation and charting.
[2020-07-25] MEDS: Enoxaparin 40 MG/0.4 ML Syringe SC (05:12)
[2020-07-25] MEDS: Acetaminophen 500 MG Tablet 1000 MG PO ×3 (05:12→21:27)
[2020-07-25] MEDS: Arthritis Pain Compound 60 CLICK TUBE TOPICAL ×2 (05:29→15:03)
[2020-07-25] MEDS: Dronabinol 2.5 MG Capsule PO ×2 (08:10→21:28)
[2020-07-25 09:25] VITALS: BP 146/88; PULSE 66; RESP 16; TEMP 36.6; O2SAT 97
--- NOTE | 2020-07-25 14:47 | DCINST_ITS ---
- Discharge Diagnoses Current Active Problems: Current Active and Chronic Problems History of migraine headaches (Chronic) Chronic steroid use (Chronic) Fibromyalgia (Chronic) Sjogrens syndrome (Chronic) Closed left acetabular fracture (Acute) fell on 07/13/20 sustaining a closed fracture of the left posterior acetabulum......non-surgical Physical debility (Acute) due to left acetabular fracture Osteoporosis (Chronic) Medical marijuana use (Chronic) You will use the following diet at home:: Other - resume previous diet. Inflammatory illnesses are associated with increased risk of cardiovascular disease. I would stick to a low fat diet. The paleo diet really works to decrease pain and decrease fatigue. There is a book called the Pals Protocol written by Dr. Sunday Wright. It is a very interesting book and tells you why certain foods increase inflammation and how to eat to improve your health and decrease inflammation. It really has worked for me....you may want to read the book. Your food should be the consistency of: Regular Your liquids should be the consistency of: Regular/Thin Discharge Activity: May not drive while taking narcotic pain medications., May Shower, Use Walker, - - do the exercises given to you by the therapists twice a day. Remember, daily exercise is one of the mainstays of treatment for fibromyalgia and helps greatly with pain control due to this. Weight Bearing Status: Toe touch weight bearing - on the Left leg Keep extremity elevated above heart level: Left Leg Call your doctor if you observe: Fever of 101 or Higher, Shortness of breath, Dizziness, Fainting spells, Swelling in the ankles, Chest pain, Increased palpitations (irregular heartbeat), Calf discomfort, Uncontrolled pain Instructions: Understanding Fibromyalgia, Managing Fibromyalgia Additional Instructions: 1. In a young healthy person it takes 6 weeks for a bone to heal. In a pt with RA who is on chronic steroids and has osteoporosis the time to heal is more like 8-12 weeks. The orthospedic doctor will tell you when the bone is healed and when you can bear full weight on the left leg. 2. You did GREAT in therapy.......much better than anyone, including you, expected. 3. The book I was telling you about that explains why the anti-inflammatory diet works is call the Chad's Protocol by Sunday Wright MD. 4. Remember to think of exercise as a prescription! You will always feel better if you keep active. 5. If you have any questions after you leave my office number is [phone]. The rehab floor is [phone] and my cell number is [phone]. Take care and live happy. Allergies/Adverse Reactions: Allergies No Known Allergies Allergy (Verified 07/13/20 00:08) Medications to take at Discharge Atenolol [Tenormin] 50 mg PO DAILY 03/13/17 Cyclosporine [Restasis] 1 each OP DAILY 03/13/17 Ramipril [Altace] 5 mg PO DAILY 03/13/17 Sumatriptan Succinate 50 mg PO PRN PRN 03/13/17 Lactobacillus Combination No.4 [Probiotic] 1 capsule PO DAILY 03/15/17 Methotrexate 4 tab PO FR 05/04/20 Famotidine 20 mg PO DAILY PRN PRN 07/13/20 Leucovorin Calcium 10 mg PO FR 07/13/20 Oxycodone [Oxyir] 5 mg PO Q4H PRN PRN 3 Days #18 tab 07/16/20 Acetaminophen [Tylenol] 1,000 mg PO Q8 tab 07/25/20 Dronabinol [Marinol] 2.5 mg PO BID 30 Days #60 cap 07/25/20 Loperamide [Imodium] 2 mg PO BID@0800,1700 cap 07/25/20 Prednisone 2 mg PO DAILY #60 tab 07/26/20 Prednisone 5 mg PO DAILY #30 tab 07/26/20 The following prescriptions were given: Dronabinol [Marinol] 2.5 mg PO BID 30 Days #60 cap Transmission Status: Received by [facility]/pharmacy #[id number] Prednisone 5 mg PO DAILY #30 tab Prescription Printed Prednisone 2 mg PO DAILY #60 tab Prescription Printed Primary Care Physician: Ciara Caballero DO [Primary Care Provider] - Please follow up with your Primary Care Physician in: 7-10 days Test Results: Test results from this visit will be discussed in further detail at your follow- up appointment, if applicable. Please Follow Up With: Juan Armando MD When: 1-2 weeks Please Follow Up With: Luis M Jules MD When: as scheduled Proposed Discharge Date: 07/26/20
[2020-07-25 21:25] VITALS: BP 160/80; PULSE 74; RESP 18; TEMP 36.6; O2SAT 98
[2020-07-25] MEDS: Atenolol 50 MG Tablet PO (21:28)
[2020-07-25] MEDS: Ramipril 5 MG Capsule PO (21:28)
[2020-07-25] MEDS: Famotidine 20 MG Tablet PO (21:28)
[2020-07-26] MEDS: Acetaminophen 500 MG Tablet 1000 MG PO (06:00)
[2020-07-26] MEDS: Arthritis Pain Compound 60 CLICK TUBE TOPICAL (06:01)
[2020-07-26] MEDS: Methotrexate 2.5 MG Tablet 10 MG PO (09:44)
[2020-07-26] MEDS: Dronabinol 2.5 MG Capsule PO (09:47)
[2020-07-26 10:00] VITALS: BP 141/83; PULSE 72; RESP 16; TEMP 36.8; O2SAT 98
--- NOTE | 2020-07-26 10:56 | DS.PCM_ITS ---
Discharge Date and Diagnosis - Problem List Patient Problems: Active and Suspected Problems Closed left acetabular fracture (Acute) fell on 07/13/20 sustaining a closed fracture of the left posterior acetabulum......non-surgical Physical debility (Acute) due to left acetabular fracture Date of Admission: 07/16/20 Date of Discharge: 07/26/20 - Primary Discharge Diagnosis Acute Problems: Active Problems Closed left non-displaced acetabular fracture (Acute) fell on 07/13/20 sustaining a closed fracture of the left posterior acetabulum......non-surgical Physical debility (Acute) due to left acetabular fracture Left hip pain limiting ambulation - Secondary Discharge Diagnosis Chronic Problems: Chronic Problems History of migraine headaches (Chronic) Chronic steroid use (Chronic) Fibromyalgia (Chronic) Sjogrens syndrome (Chronic) Osteoporosis (Chronic) Medical marijuana use (Chronic) Hypertension (Chronic) Rheumatoid arthritis (Chronic) Hospital Course and Treatment none Operations: None Procedures: None Summary of Care Provided: The patient is a 70 year old F with a past medical history of hypertension, rheumatoid arthritis, chronic prednisone use, osteoporosis, fibromyalgia, Sjogren's syndrome, medical marijuana usage and history of migraine headaches who presented to the emergency department at [facility] on 07/13/2020 after a fall with complaints of Left hip pain. Plain x-ray in the emergency department revealed no fracture of the pelvis or left hip. X-rays of the left hip and left foot also showed no acute fractures. She continued to complain of pain and an MRI of the pelvis was obtained and showed a nondisplaced left posterior acetabular fracture. She was seen by PT/OT and acute rehab was recommended. She was admitted to the rehab unit at [facility] on 07/16/2020 for debility secondary to a fall resulting in a left nondisplaced posterior acetabular fracture. At presentation to the rehab unit Mehnaz was placed on Marinol for pain control and it has been effective. In addition she was placed on a compounded arthritic cream containing Voltaren, Lidocaine and Baclofen and this has also been effective in controlling pain. She was also started on Tylenol 1,000 mg every 8 hours. With the aforementioned pain regimen she did not require any narcotics for the duration of the rehab stay. Mehnaz was surprised that with 3 hours of therapy daily she had less pain. She had not been exercising at home and was chronically having stiffness with muscle pain and joint pain and fatigue. Prior to discharge she was able to ambulate functional distances between 65 and 100 feet with toe-touch weightbearing on the left lower extremity and a wheeled walker. She was standby assist on various surfaces with no loss of balance. She was able to do 11 stands in 30 seconds on 07/22/2020 which shows good improvement in her leg strength. She had gone up and down 3 steps with 2 rails at contact-guard assist. She was also able to go up and down 3 steps with a straight cane and one rail. She is contact-guard assist with toilet transfer and modified independent with toileting. She was independent with grooming and contact-guard assist with lower body dressing. She was discharged home with OP PT at [facility] on 07/26/20. She was given a RX for a wheeled walker. She requested a RX for Marinol and for the arthritic pain cream and these were provided. She will follow up with Dr. Zohra Armando, Dr. Ciara Caballero and Dr. Luis M Jules post discharge. Alert and oriented X 3, NAD, appropriate, cooperative PERRL, EOMI MM are moist and there are no mucosal lesions The neck is supple and the trachea is midline, there are no cervical nodes Lungs are clear to auscultation with normal air movement Heart has a RRR with no gallop and no rub. Abdomen is soft, NT, ND and there are normal bowel sounds heard in all quadrants. There was no guarding with palpation. CN's II - XII are grossly intact No peripheral edema, no calf tenderness Skin is warm and dry, no rashes, no breakdown. Mood is upbeat and pleasant She has arthritic changes in multiple joints but no erythema or increased warmth at the present time. This note was generated with [employer] dictation software. It may contain incorrect words, spelling, and punctuation that were not noted in checking the note before signing. Patient Problems: Active and Suspected Problems Closed left acetabular fracture (Acute) fell on 07/13/20 sustaining a closed fracture of the left posterior acetabulum......non-surgical Physical debility (Acute) due to left acetabular fracture - Physical Exam Vitals/I&O's: Vital Signs Temp Pulse Resp BP Pulse Ox 98 F 74 18 160/80 H 98 07/25/20 21:25 07/25/20 21:25 07/25/20 21:25 07/25/20 21:25 07/25/20 21:25 Oxygen Delivery Method Room Air Weight: 165 lb 5.547 oz Body Mass Index (BMI) 28.6 Intake and Output for Last 24 Hours 07/24/20 07/25/20 07/26/20 23:59 23:59 23:59 Intake Total 800 / 800 1340 / 1340 480 / 480 Balance 800 / 800 1340 / 1340 480 / 480 Current Medications Acetaminophen (Tylenol) 1,000 mg PO Q8 [facility] Last Admin: 07/26/20 06:00 Dose: 1,000 mg Documented by: Atenolol (Tenormin (Beta Phani)) 50 mg PO HS [facility] Last Admin: 07/25/20 21:28 Dose: 50 mg Documented by: Bisacodyl (Dulcolax) 10 mg RECTAL .PRN X 1 PRN PRN Reason: Constipation Compound Med (Arthritis Pain Compound) 0 click TOPICAL TID [facility]; Protocol Last Admin: 07/26/20 06:01 Dose: 3 click Documented by: Dronabinol (Marinol) 2.5 mg PO BID [facility] Last Admin: 07/26/20 09:47 Dose: 2.5 mg Documented by: Enoxaparin Sodium (Lovenox) 40 mg SC DAILY@0600 [facility] Last Admin: 07/26/20 06:03 Dose: Not Given Documented by: Famotidine (Pepcid) 20 mg PO DAILY@2200 [facility] Last Admin: 07/25/20 21:28 Dose: 20 mg Documented by: Lactobacillus Acidophilus (Acidophilus) 1 tablet PO DAILY [facility] Last Admin: 07/26/20 09:44 Dose: 1 tablet Documented by: Leucovorin Calcium () 10 mg PO Fr@2200 [facility] Last Admin: 07/19/20 21:24 Dose: Not Given Documented by: Loperamide HCl (Imodium) 2 mg PO BID@0800,1700 [facility] Last Admin: 07/26/20 09:46 Dose: Not Given Documented by: Magnesium Hydroxide (Milk Of Magnesia) 30 ml PO .PRN X 1 PRN PRN Reason: Constipation Methotrexate (Methotrexate) 10 mg PO QWEEK [facility] Last Admin: 09/18/20 09:44 Dose: 10 mg Documented by: Oxycodone HCl (Oxyir) 5 mg PO Q4H PRN PRN PRN Reason: Pain Score 4-10/10 Prednisone 5 mg/ Prednisone 2 (mg) 7 mg PO DAILY@0800 [facility] Last Admin: 07/26/20 09:44 Dose: 7 mg Documented by: Ramipril (Altace) 5 mg PO DAILY@2200 [facility] Last Admin: 07/25/20 21:28 Dose: 5 mg Documented by: Discharge Activity: May not drive while taking narcotic pain medications., May Shower, Use Walker, - - do the exercises given to you by the therapists twice a day. Remember, daily exercise is one of the mainstays of treatment for fibromyalgia and helps greatly with pain control due to this. Weight Bearing Status: Toe touch weight bearing - on the Left leg Keep extremity elevated above heart level: Left Leg Call your doctor if you observe: Fever of 101 or Higher, Shortness of breath, Dizziness, Fainting spells, Swelling in the ankles, Chest pain, Increased palpitations (irregular heartbeat), Calf discomfort, Uncontrolled pain Home Medications: Medications to take at Discharge Atenolol [Tenormin] 50 mg PO DAILY 03/13/17 Cyclosporine [Restasis] 1 each OP DAILY 03/13/17 Ramipril [Altace] 5 mg PO DAILY 03/13/17 Sumatriptan Succinate 50 mg PO PRN PRN 03/13/17 Lactobacillus Combination No.4 [Probiotic] 1 capsule PO DAILY 03/15/17 Methotrexate 4 tab PO FR 05/04/20 Famotidine 20 mg PO DAILY PRN PRN 07/13/20 Leucovorin Calcium 10 mg PO FR 07/13/20 Oxycodone [Oxyir] 5 mg PO Q4H PRN PRN 3 Days #18 tab 07/16/20 Acetaminophen [Tylenol] 1,000 mg PO Q8 tab 07/25/20 Dronabinol [Marinol] 2.5 mg PO BID 30 Days #60 cap 07/25/20 Loperamide [Imodium] 2 mg PO BID@0800,1700 cap 07/25/20 Prednisone 2 mg PO DAILY #60 tab 07/26/20 Prednisone 5 mg PO DAILY #30 tab 07/26/20 Following Prescriptions Were Given to Patient: Dronabinol [Marinol] 2.5 mg PO BID 30 Days #60 cap Transmission Status: Received by [facility]/pharmacy #[id number] Prednisone 5 mg PO DAILY #30 tab Prescription Printed Prednisone 2 mg PO DAILY #60 tab Prescription Printed Primary Care Physician: Ciara Caballero DO [Primary Care Provider] - Please follow up with your Primary Care Physician in: 7-10 days Please Follow Up With: Juan Armando MD When: 1-2 weeks Please Follow Up With: Luis M Jules MD When: as scheduled Patient Instructions: Understanding Fibromyalgia, Managing Fibromyalgia Minutes spent on discharge:: 35 Patient Condition:: Good Medical Necessity - Tobacco Use Smoking Status: Never smoker Tobacco Use: Non-smoker Meaningful Use Info Meaningful Use Diagnoses (Choose all that apply): None applicable Inpatient E&M: 68571 Disch Hosp
[2020-07-26 11:55] VITALS: BP 141/83; PULSE 72; RESP 16; TEMP 36.8; O2SAT 98
--- NOTE | 2020-07-26 12:51 | NURSING ---
Patient discharged home and she will be make her follow up pcp appointment. Verbalized understanding to dc instruct.
== END 2020-07-26 12:40 | disposition home or self-care (01) | DRG 561 ==
PROVIDERS: Admitting Provider Internal Medicine; PCP Internal Medicine; Referring Provider Internal Medicine; Visit Provider Internal Medicine
DX: S32.402D Unspecified fracture of left acetabulum, subsequent encounter for fracture with routine healing (principal); W01.0XXD Fall on same level from slipping, tripping and stumbling without subsequent striking against object, subsequent encounter; Z23 Encounter for immunization; I10 Essential (primary) hypertension; M06.9 Rheumatoid arthritis, unspecified; M79.7 Fibromyalgia; M35.00 Sjogren syndrome, unspecified; Z79.52 Long term (current) use of systemic steroids; M81.0 Age-related osteoporosis without current pathological fracture; G43.909 Migraine, unspecified, not intractable, without status migrainosus; G89.4 Chronic pain syndrome
CPT/HCPCS: 97110; 97116; 97162; 97166; 97530; 97535; 97542; 97802; 99251; G0008; 90686; G0463; J8610

== ENCOUNTER 2020-09-13 11:00 | Outpatient (RCR) | payer MEDICARE, OTHER, SELFPAY ==
[2020-07-16 19:31] VITALS: BMI 28.6
--- NOTE | 2020-07-29 13:27 | HP.PTEVAL_ITS ---
Patient's Visit Information SEAN VAUGHAN is a 70 year old F referred to Physical Therapy by Dr. Jyoti Sykes DO with a diagnosis of Left Acetabular Fracture. Date of Evaluation: 07/29/20 Physical Therapist: Brittany Wilks DPT - Visit Plan Frequency: 2x /Week Duration: 4 Weeks Plan: Aquatic PT- focus on hip/core strength/stabilization- TTWB on the left LE - Subjective Patient reports that she was at a friends house- when she sits for a long time she has to stand and wait for her OA to adjust- dog leash wrapped her up and she faceplanted- Left hip fracture 07/13. No surgery- TTWB- does not have a follow up with ortho. Pain at its worst in the hip: 05/17 Agg: moving pain is located in the gluts and into the groin- does also have sciatica. Has left sided neuropathy- radiates pain down the left leg but that is not new. Best: 0/10 Eases: exercises. No change in N/T since the hip fracture. The angle of the seat really bothers her. Is wearing good shoes which makes a difference. She was fully I prior to fall with dressing driving, bathing. 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 Sleep: in bed no problems sleeping- side sleeper with a pillow between her knees. PM Hx/Meds: none since she went home from rehab. - Objective Posture: FH, RS increased kyphosis- can correct but is unable to maintain. Gait: FWW- maintains TTWB throughout most of session but was educated to decrease amount of pressure through toes- decreased stance on the left LE with no heel toe pattern due to restriction. Sensation: WNL to gross touch bilaterally. ROM: WNL in all planes of the hip and LE. Strength: Ankle: 5/5, Knee: 4+/5, Hip flexion: 4/5, Extn: 4-/5, Abd: 4-/5, IR/ER at neutral: 4/5. Core: fair. Flex: HS: severe, Gastroc: moderate. Palpatoin: tender throughout from knee to gluts on the right side- pt reports she is always that way due to fibr. Transfers: sit to stand: indep with UE A- supine to sit and sit to supine: indep. No WB exercises performed today due to restrictions - Goals Goal 1:: Patient will be I with HEP and progression Goal Time Frame: 4-6 Weeks Goal 2:: Patient will ambulate with a normalized gait pattern (as allowed by MD) Goal Time Frame: 4-6 Weeks Goal 3:: Patient will report no more than 4/10 pain for 1 week Goal Time Frame: 4-6 Weeks Goal 4:: Patient will maintain proper posture t/o tx session to demo increased core s/s Goal Time Frame: 4-6 Weeks - Rehabilitation Potential Physical Therapy Diagnosis: Patient presents s/p left hip fracture from fall- she has hypomboility with restrictions of TTWB on the left LE. She has decreased strength, flex and muscular endurance leading to poor posture and increased pain with ADL's. - Anticipated Interventions Patient/Client Instruction: Educate patient on: Benefits of Fitness Program Therapeutic Exercise to Include: Strength training, Endurance training, Balance training, Coordination, Agility training, Body mechanics, Postural training, Flexibilty training, Gait and locomotor training, In an aquatic setting, Passive ROM, Active ROM, Dynamic Lumbar Stabilization, Scapular Strength/Stabilization For the Purpose of:: To improve muscle performance and motor function Thank you for the opportunity to evaluate your patient. For Medicare and Medicare HMO plans, please review the plan of care and approve it. It will need to be FAXED BACK to us at [phone] for Medicare purposes. For Medicare only, by signing this I certify the plan of care. Please let me know if there are questions or concerns regarding this plan of care. Physician Signature: Date:
--- NOTE | 2020-08-28 15:49 | HP.PTREVAL_ITS ---
Dr. Ciara Caballero, DO, It has been my pleasure to treat SEAN VAUGHAN over the last 10 visits for Left Acetabular Fracture. Please see the progress note below for an update on the physical therapy plan of care! Subjective: Patient reports that she saw the MD since she saw me last and he was in/out so fast- she has some swelling in the right knee she has had staph before and is nervous about the knee. She plans to keep a close eye on it. It only hurts when she bumps it or knees on it. Still struggles with sciatica- she loves the pool. Report that she is 25-30% back to normal due to her weight bearing restrictions. Objective/Function: Posture: FH, RS increased kyphosis- can correct but is unable to maintain. Gait: FWW- maintains 50% throughout most of session but was educated to decrease amount of pressure through foot. Sensation: WNL to gross touch bilaterally. ROM: WNL in all planes of the hip and LE. Strength: Ankle: 5/5, Knee: 4+/5, Hip flexion: 4+/5 Extn: 4/5, Abd: 4/5, IR/ER at neutral: 4/5. Core: fair. Flex: HS: severe, Gastroc: moderate. Palpatoin: tender throughout from knee to gluts on the right side- pt reports she is always that way due to fibr. Transfers: sit to stand: indep with UE A- supine to sit and sit to supine: indep. No WB exercises performed today due to restrictions Plan Plan: Aquatic PT- focus on hip/core strength/stabilization- TTWB (50%) on the left LE Goals Goal 1:: Patient will be I with HEP and progression Goal Time Frame: 4-6 Weeks Goal Progress: Progressing Goal 2:: Patient will ambulate with a normalized gait pattern (as allowed by MD) Goal Time Frame: 4-6 Weeks Goal Progress: Progressing Goal 3:: Patient will report no more than 4/10 pain for 1 week Goal Time Frame: 4-6 Weeks Goal Progress: Progressing Goal 4:: Patient will maintain proper posture t/o tx session to demo increased core s/s Goal Time Frame: 4-6 Weeks Goal Progress: Progressing Anticipated Interventions Patient/Client Instruction: Educate patient on: Benefits of Fitness Program Therapeutic Exercise to Include: Strength training, Endurance training, Balance training, Coordination, Agility training, Body mechanics, Postural training, Flexibilty training, Gait and locomotor training, In an aquatic setting, Passive ROM, Active ROM, Dynamic Lumbar Stabilization, Scapular Strength/Stabilization For the Purpose of:: To improve muscle performance and motor function Please do not hesitate to contact me at [phone] by phone or Fax: if you have questions or concerns regarding this new plan of care! Sincerely, KEVEN MontoyaT
--- NOTE | 2020-11-14 10:06 | HP.PT.NRP ---
SEAN VAUGHAN was seen in my office for initial evaluation on 07/29/20. The following Plan of Care was established for this patient: Initial Frequency: 2x /Week Initial Duration: 4 Weeks Patient/Client Instruction: Educate patient on: Benefits of Fitness Program Therapeutic Exercise to Include: Strength training, Endurance training, Balance training, Coordination, Agility training, Body mechanics, Postural training, Flexibilty training, Gait and locomotor training, In an aquatic setting, Passive ROM, Active ROM, Dynamic Lumbar Stabilization, Scapular Strength/Stabilization For the Purpose of:: To improve muscle performance and motor function This patient was last seen in our office . Pertinent comments regarding their Physical therapy will appear below: Patient cancelled all apts- d/c At this point I will be discontinuing this patient from physical therapy. I would be happy to see this patient again in the future if found appropriate by the physician. Thank you! KEVEN MontoyaT
== END 2020-09-13 19:00 | disposition home or self-care (01) ==
LOC: PT 11:00
PROVIDERS: PCP Internal Medicine; Referring Provider Internal Medicine; Visit Provider Internal Medicine
DX: S72.002D Fracture of unspecified part of neck of left femur, subsequent encounter for closed fracture with routine healing (principal)
CPT/HCPCS: 97113; 97162; 97164

== ENCOUNTER → 2020-10-17 13:14 | Outpatient (CLI) | payer MEDICARE, OTHER, SELFPAY ==
[2020-07-16 19:31] VITALS: BMI 28.6
[2020-10-17 15:55] LABS: Albumin, Serum 3.5 g/dL (3.2-5.0); BUN 17 mg/dL (7-18); BUN/Creat Ratio 19.4 RATIO (10-20); Chloride 108 mmol/L (98-107); Creatinine, Serum 0.88 mg/dL (0.55-1.02); EST Glomerular Filtration Rate 68 mL/min (>60); Est Glom Filt Rate - Afr Amer 82 mL/min (>60); Glucose 149 mg/dL (74-106); Phosphorus 3.1 mg/dL (2.5-4.9); Potassium 3.9 mmol/L (3.5-5.1); Sodium Level 143 mmol/L (136-145)
== END ==
PROVIDERS: PCP Internal Medicine; Referring Provider Internal Medicine Rheumatology; Visit Provider Internal Medicine Rheumatology
DX: Z79.899 Other long term (current) drug therapy (principal)
CPT/HCPCS: 36415; 80069

== ENCOUNTER 2020-10-22 00:26 | Emergency (ER) | payer MEDICARE, OTHER, SELFPAY ==
[2020-07-16 19:31] VITALS: BMI 28.6
[2020-10-22 00:27] VITALS: BP 138/92; PULSE 69; RESP 18; TEMP 36.4; O2SAT 99; BMI 29.0
--- NOTE | 2020-10-22 01:38 | ED.DCSUM_ITS ---
History of Present Illness Chief Complaint: Nosebleed Informant: Patient Onset: Today Context: Sudden Onset Current Severity: Mild Maximum Severity: Moderate Narrative: The patient is a 70-year-old female who presents to the emergency department with spontaneous nosebleed. She states that she is small ulcers on her septum. She uses her Carol pot or will pluck it them with tweezers. She states it began to bleed tonight. She held pressure but felt like she was unable to get it to stop bleeding. She states that she presented here. She did have something similar a few months ago. She is not on anticoagulants. Prior similar symptoms: Yes Recent Illness/Hospitalization: No Past Medical History - Allergies and Home Meds Allergies/Adverse Reactions: Allergies No Known Allergies Allergy (Verified 10/22/20 00:30) Primary Care Physician: Espinoza Ruvalcaba MD [STAFF PHYSICIAN] - Prior records reviewed: Yes Past Medical History: None Surgical History: cataract, herniorrhaphy, tonsillectomy, - - Incision and drainage of left elbow abscess 03/16/17, foot surgery, removal of right ovary and tube, laparoscopy, TMJ surgery, repair of femoral hernia, nasal surgery due to nasal fracture Smoking Status: Never smoker - Family History Maternal Family History: Reports: Diabetes Paternal Family History: Reports: COPD, Heart Disease, Stroke Review of Systems General: Denies: Chills, Fever, Sweats Eyes: Denies: Visual changes - bilaterally, Diplopia ENT: Denies: Rhinorrhea, Sore throat Cardiovascular: Denies: Chest pain, Palpitations Respiratory: Denies: Dyspnea, Cough, Dyspnea on exertion Gastrointestinal: Denies: Abdominal pain, Nausea, Vomiting, Diarrhea, Melena, He matochezia Genitourinary: Denies: Dysuria, Hematuria, Frequency Musculoskeletal: Denies: Back pain, Extremity Pain Skin: Denies: Rash, Wounds Neurological: Denies: Headache, Weakness, Numbness Physical Exam Vital Signs/Narrative: Vital Signs Temp Pulse Resp BP Pulse Ox 10/22/20 00:27 97.6 F L 69 18 138/92 H 99 Inital Vital Signs reviewed: Yes General: Well nourished, Well developed, No Acute Distress Head: Normocephalic, Atraumatic Eyes: Perrl, EOMI ENT: Moist mucous membranes, No rhinorrhea, - - Old blood in both nares without active bleeding. No septal hematoma. Neck: Supple, Nontender Cardiovascular: Regular rate, Regular rhythm, No murmurs Respiratory: No distress, CTA bilaterally, Chest nontender Abdomen: Soft, Nontender, Nondistended, Normal bowel sounds Back: Nontender, Normal Inspection Extremities: Nontender, No edema Skin: Normal color, No rash Neurological: Alert, Oriented x3, Cranial nerves II-XII grossly intact, Normal Strength, Normal Sensation Psychological: Normal affect, Normal Mood Diagnostic/Tx/Re-eval - Medical Decision Making Patient was observed. She was given Afrin into both nares. She was monitored for an hour. There is no further bleeding. She is feeling improved. I do not feel this patient needs packing. At this point, I do feel that she is safe for outpatient therapy. She will follow-up with ENT as scheduled. Impression 1. Epistaxis ED Disposition - Plan for ED Patient: Disposition: Home or Assisted Living Instructions: Nosebleed Referrals: Espinoza Ruvalcaba MD [STAFF PHYSICIAN] -
[2020-10-22 01:47] VITALS: PULSE 80; RESP 18
== END 2020-10-22 01:47 | disposition home or self-care (01) ==
LOC: ED 01:40
PROVIDERS: Emergency Provider Emergency Medicine; PCP Internal Medicine
DX: R04.0 Epistaxis (principal)
CPT/HCPCS: 99282

== ENCOUNTER → 2020-10-29 09:45 | Outpatient (CLI) | payer MEDICARE, OTHER, SELFPAY ==
[2020-10-22 00:27] VITALS: BMI 29.0
== END ==
PROVIDERS: PCP Internal Medicine; Referring Provider Otolaryngology; Visit Provider Otolaryngology
DX: Z11.59 Encounter for screening for other viral diseases (principal)
CPT/HCPCS: 87635; C9803; U0003

== ENCOUNTER 2021-01-16 07:15 | Outpatient (RCR) | payer MEDICARE, OTHER, SELFPAY ==
[2021-01-16] MEDS: COVID-19 VACC, MRNA(PFIZER)/PF 30 MCG/0.3 ML SYRINGE IM (12:43)
[2021-02-06] MEDS: COVID-19 VACC, MRNA(PFIZER)/PF 30 MCG/0.3 ML SYRINGE IM (12:40)
== END 2021-04-15 23:59 ==
LOC: IMMUN 07:15
PROVIDERS: PCP Internal Medicine; Referring Provider Family Medicine; Visit Provider Family Medicine
DX: Z23 Encounter for immunization (principal)
CPT/HCPCS: 0001A; 0002A; 91300

== ENCOUNTER → 2021-02-28 11:47 | Outpatient (CLI) | payer MEDICARE, OTHER, SELFPAY ==
[2021-02-28 15:34] LABS: AST(SGOT) 32 U/L (15-37); Alanine Aminotransfer ALT/SGPT 69 U/L (13-56); Albumin, Serum 3.4 g/dL (3.2-5.0); Alkaline Phosphatase 49 U/L (45-117); Bilirubin, Direct 0.17 mg/dL (0.00-0.30); Globulin 3.5 g/dL (2.2-4.2); Protein, Total 6.9 g/dL (6.4-8.2)
== END ==
PROVIDERS: PCP Internal Medicine; Referring Provider Internal Medicine Rheumatology; Visit Provider Internal Medicine Rheumatology
DX: R74.8 Abnormal levels of other serum enzymes (principal)
CPT/HCPCS: 36415; 80076

== ENCOUNTER → 2021-04-17 15:16 | Outpatient (CLI) | payer MEDICARE, OTHER, SELFPAY ==
--- NOTE | 2021-04-17 15:36 | MRI_ITS ---
STUDY: MRI BRAIN WITH AND WITHOUT CONTRAST (ATTENTION INTERNAL AUDITORY CANALS - I.A.C.''s) REASON FOR EXAM: Female, 71 years old. DIZZINESS TECHNIQUE: Standardized multiplanar fat and water weighted pulse sequences were obtained. 15CC IV DOTAREM was administered for the contrast portion of the examination. COMPARISON: CT 07/13/2020 FINDINGS: Normal bilateral temporal bones. Normal bilateral internal auditory canals. There is no demonstrated intracanalicular or cisternal vestibular schwannoma (acoustic neuroma). There is no enhancement of the bilateral VIIth or VIIIth cranial nerves. Normal bilateral cochlea, vestibules and semicircular canals. There is mild cerebral atrophy with widening of the extra-axial spaces and ventricular dilatation. There are a limited number of small white matter hyperintensities, distributed throughout the deep white matter tracts of the cerebral hemispheres, consistent with mild chronic white matter ischemic changes. There is no evidence for recent intracranial ischemia or other cause of cytotoxic edema on diffusion weighted imaging (DWI). Normal bilateral basal ganglia. Normal thalami. Normal flow voids within the major intracranial circulation suggesting patency by spin echo criteria. Normal venous enhancement. There is no enhancing intra-axial or extra-axial abnormality. There is no extra-axial fluid accumulation. Normal sella turcica, pituitary gland, infundibular stalk, optic chiasm and hypothalamus. Normal tectal plate and pineal gland. Normal midbrain, nitish and medulla. Normal cerebellum. Normal basal cisterns. No demonstrated orbital abnormality, within the constraints of a routine brain study. Normal visualized paranasal sinuses. Normal calvarium and skull base. Normal visualized soft tissue structures. Normal visualized upper cervical spine. MRI/Brain W/WO Contrast IMPRESSION: Involutional changes of the brain, as described above. Electronically Signed: Jhoan Lang MD at 17:25 EDT Tel , Service support ,
[2021-04-17 16:56] LABS: CREATININE FINGERSTICK 0.9 mg/dL (0.55-1.02); EGFR FINGERSTICK > 60.0000 mL/min (>60)
== END ==
PROVIDERS: PCP Internal Medicine; Referring Provider Otolaryngology; Visit Provider Otolaryngology
DX: Z01.812 Encounter for preprocedural laboratory examination (principal); R42 Dizziness and giddiness
CPT/HCPCS: 70553; A9575

== ENCOUNTER → 2021-09-03 09:32 | Outpatient (CLI) | payer MEDICARE, OTHER, SELFPAY ==
--- NOTE | 2021-09-03 09:38 | US_ITS ---
STUDY: ABDOMINAL ULTRASOUND - ELASTOGRAPHY REASON FOR VISIT: Female, 71 years old. Fatty infiltration of the liver. TECHNIQUE: Liver stiffness measurements were obtained on a [employer] RS 85 ultrasound machine using a CA 1-7 probe following the SRU guidelines. 3 measurements were obtained using a 2-D-SWE method. The IQR/M was 23% suggesting a quality data set. TECHNICAL QUALITY: Adequate. COMPARISON: Comparison is made with prior examination done earlier today. FINDINGS: Liver: There is evidence of fatty infiltration of the liver. Median liver stiffness measured 5.3 kPa. US/Elastography Parenchyma/Organ IMPRESSION: Liver stiffness measures 5.3 kPa compatible with F1 Metavir score. Electronically Signed: Fidel Carreon MD at 9:38 EDT , Service support ,
--- NOTE | 2021-09-03 09:38 | US_ITS ---
STUDY: ABDOMINAL ULTRASOUND - RIGHT UPPER QUADRANT REASON FOR VISIT: Female, 71 years old elevated liver function tests. TECHNIQUE: Ultrasound evaluation of the right upper quadrant was performed with real-time and static dowd-scale imaging. TECHNICAL QUALITY: Adequate. COMPARISON: Comparison is made with prior examination dated 11/25/2018. FINDINGS: Liver: The liver measures 13.7 cm. There is increased echogenicity consistent with fatty infiltration. The bile ducts are within normal limits. There is hepatic color flow. The direction of portal flow is hepatopetal. There is no demonstrated mass lesion. Gallbladder: Normal distended gallbladder. The gallbladder wall measures 1.4 mm. There is a negative sonographic Courtney''s sign. There is no pericholecystic fluid. There are no gallstones. Common Bile Duct (C.B.D.): The common bile duct measures 5.2 mm. Pancreas: Normal size of the head, body of the pancreas. The tail portion is obscured due to overlying bowel gas. There is increased echogenicity of the pancreas. There is no demonstrated pancreatic mass or cyst. Right Kidney: Normal size of the right kidney. The right kidney measures 10.7 cm x 4.9 cm x 3.7 cm. Normal renal cortex. The right cortex measures 1.0 cm. There is no demonstrated renal mass or cyst. There is no right hydronephrosis. US/Abdomen Limited IMPRESSION: Fatty infiltration of the liver. Electronically Signed: Fidel Carreon MD at 9:23 EDT , Service support ,
== END ==
PROVIDERS: PCP Internal Medicine
DX: R79.89 Other specified abnormal findings of blood chemistry (principal)
CPT/HCPCS: 76705; 76981

== ENCOUNTER 2021-11-25 10:25 | Outpatient (CLI) | payer MEDICARE, OTHER, SELFPAY | END 2021-11-25 23:59 | disposition short-term general hospital (02) | LOC: LABSPEC 11-26 10:26 | PROVIDERS: PCP Internal Medicine; Visit Provider Dermatology | DX: L03.011 Cellulitis of right finger (principal) | CPT/HCPCS: 87070; 87077; 87186; 87205 ==